=== PATIENT | female | born 1935 | race Caucasian/White ===

== ENCOUNTER → 2016-12-08 | Outpatient (CLI) | payer MEDICARE ==
--- NOTE | 2016-12-09 06:48 | US ---
EXAMINATION TYPE: US thyroid st tissue head/neck DATE OF EXAM: 12/08/2016 4:32 PM COMPARISON: US on PACS CLINICAL HISTORY: E04.9 Goiter; not on thyroid meds GLAND SIZE: Right Lobe: 4.5 x 2.1 x 2.0 cm Overall Parenchyma: heterogenous Left Lobe: 4.5 x 1.9 x 1.8 cm Overall Parenchyma: heterogeneous Isthmus Thickness: 0.4 cm NODULES RIGHT: # of nodules measured on right: 2 largest of multiple 1. 0.5 x 0.5 x 0.3 cm hyperechoic solid nodule at the mid pole with well-defined margins. This nod ule is wider than tall and shows no intranodular vascularity. Prior size: 0.6 x 0.5 x 0.5 cm 2. 1.2 X 0.8 x 0.9 cm isoechoic mixed nodule at the mid low pole with poorly defined margins. This n odule is taller than wide and shows intranodular vascularity. Prior size: not previously seen LEFT: # of nodules measured on left: 2 largest of multiple 1. 0.7 X 0.6 x 0.5 cm hypoechoic cystic nodule at the mid pole with well-defined margins; present w ith microcalcification This nodule is wide as is tall and shows no intranodular vascularity. Prior size: 0.6 x 0.6 x 0.6 cm 2. 0.7 X 0.5 x 0.4 cm hypoechoic cystic nodule at the mid lateral pole with well-defined margins. T his nodule is wider than tall and shows no intranodular vascularity. Prior size: 0.6 x 0.5 x 0.6 cm ISTHMUS: # of nodules measured in the isthmus: 0 TECHNOLOGIST IMPRESSION: Bilateral neck scanned, no abnormal lymphadenopathy noted. IMPRESSION: MULTINODULAR GOITER. BOTH NODULES ARE MINIMALLY LARGER THAN ON THE PREVIOUS EXAMINATION.
== END | disposition home or self-care (01) ==
LOC: RADUSWWP 16:07
PROVIDERS: ATTEND Family Medicine
DX: E04.2 Nontoxic multinodular goiter (principal)
CPT/HCPCS: 76536

== ENCOUNTER 2016-12-21 17:47 | Emergency (ER) | payer MEDICARE ==
[2016-12-21] MEDS ORDERED: SODIUM CHLORIDE 0.9% 1,000 ML IV STA (17:55)
[2016-12-21 18:20] LABS: Aty Lym Flag Slight; CH 31.8; CHCM 34.4; HCT 42.8 % (34.0-46.0); HGB 14.2 gm/dL (11.4-16.0); MCH 30.8 pg (25.0-35.0); MCHC 33.2 g/dL (31.0-37.0); Mean Platelet Volume 7.3; RBC 4.61 m/uL (3.80-5.40); RDW 13.9 % (11.5-15.5); WBC 8.2 k/uL (3.8-10.6); WBC (Perox) 8.27
[2016-12-21 18:30] LABS: ALT 37 U/L (9-52); AST 29 U/L (14-36); Alkaline Phosphatase 73 U/L (38-126); Anion Gap 14 mmol/L; Blood Urea Nitrogen 24 mg/dL (7-17); Calcium 10.8 mg/dL (8.4-10.2); Carbon Dioxide 23 mmol/L (22-30); Chloride 106 mmol/L (98-107); Glucose 111 mg/dL (74-99); Magnesium 1.4 mg/dL (1.6-2.3); Non-African American GFR(MDRD) 52 (>60 ml/min/1.73 sqM); Potassium 4.4 mmol/L (3.5-5.1); Sodium 143 mmol/L (137-145); Total Bilirubin 0.7 mg/dL (0.2-1.3); Total Protein 7.6 g/dL (6.3-8.2)
[2016-12-21 18:31] LABS: Creatine Kinase 27 U/L (30-135)
[2016-12-21 18:35] LABS: INR 1.1 (<1.1); Partial Thromboplastin Time 20.7 sec (22.0-30.0); Prothrombin Time 10.7 sec (9.0-12.0)
--- NOTE | 2016-12-21 18:39 | ED ---
Weakness HPI - General Chief complaint: Weakness Stated complaint: Chest pain Time Seen by Provider: 12/21/16 17:50 Source: patient, family, RN notes reviewed Mode of arrival: wheelchair Limitations: no limitations - History of Present Illness Initial comments: This is a 81-year-old female who was brought in for evaluation for weakness chronic neck pain and some chest pain. No complaints of fevers chills nausea vomiting sweats. She states she's been having symptoms like this for over year she also states today however that she coughed up some blood. He also complains some dizziness. No other complaints MD Complaint: generalized weakness - Related Data Home Medications Medication Instructions Recorded Confirmed Diazepam [Valium] 2 mg PO BID PRN 09/26/15 12/21/16 Dicyclomine [Bentyl] 20 mg PO TID PRN 09/26/15 12/21/16 HYDROcodone/APAP 7.5-325MG [[place] 1 tab PO DAILY PRN 09/26/15 12/21/16 7.5-325] Omeprazole [PriLOSEC] 20 mg PO DAILY PRN 09/26/15 12/21/16 Sucralfate [Carafate] 1 gm PO DAILY PRN 09/26/15 12/21/16 Zolpidem [Ambien] 10 mg PO HS 09/26/15 12/21/16 Carvedilol [Coreg*] 12.5 mg PO BID 09/29/15 12/21/16 Lisinopril-Hctz 10-12.5 mg 1 tab PO BID 12/21/16 12/21/16 [Zestoretic 10-12.5] Oxybutynin Xl [Ditropan XL] 5 mg PO DAILY 12/21/16 12/21/16 Ranitidine HCl [Zantac] 300 mg PO BID 12/21/16 12/21/16 Previous Rx's Medication Instructions Recorded Magnesium 200 mg PO DAILY #7 tablet 12/21/16 Allergies Allergy/AdvReac Type Severity Reaction Status Date / Time No Known Allergies Allergy Verified 12/21/16 18:47 Review of Systems ROS Statement: Those systems with pertinent positive or pertinent negative responses have been documented in the HPI. ROS Other: All systems not noted in ROS Statement are negative. Past Medical History Past Medical History: Cancer, GERD/Reflux, Hyperlipidemia, Hypertension Additional Past Medical History / Comment(s): HX OF SKIN CA, IBS, INCONTINENCE OF BLADDER, HX OF HIATAL HERNIA History of Any Multi-Drug Resistant Organisms: None Reported Past Surgical History: Cholecystectomy, Heart Catheterization, Hysterectomy, Orthopedic Surgery Additional Past Surgical History / Comment(s): SINUS SX, SX ARM, FOOT Past Anesthesia/Blood Transfusion Reactions: No Reported Reaction Past Psychological History: Anxiety, Depression Smoking Status: Never smoker Past Alcohol Use History: None Reported Past Drug Use History: None Reported - Past Family History Daughter(s) Family Medical History: Cancer, Deep Vein Thrombosis (DVT) Additional Family Medical History / Comment(s): ONE DAUGHTER KIDNEY CA, ONE DAUGHTER HX OF DVT Sister(s) Family Medical History: Cancer Additional Family Medical History / Comment(s): 2 SISTERS WITH BREAST CA General Exam - General Exam Comments Initial Comments: Is a well-developed well-nourished awake alert female Limitations: no limitations General appearance: alert, in no apparent distress Head exam: Present: atraumatic, normocephalic, normal inspection Eye exam: Present: normal appearance, PERRL, EOMI. Absent: scleral icterus, conjunctival injection, periorbital swelling ENT exam: Present: normal exam, mucous membranes moist Neck exam: Present: normal inspection. Absent: tenderness, meningismus, lymphadenopathy Respiratory exam: Present: normal lung sounds bilaterally, chest wall tenderness. Absent: respiratory distress, wheezes, rales, rhonchi, stridor Cardiovascular Exam: Present: regular rate, normal rhythm, normal heart sounds. Absent: systolic murmur, diastolic murmur, rubs, gallop, clicks GI/Abdominal exam: Present: soft, normal bowel sounds. Absent: distended, tenderness, guarding, rebound, rigid Extremities exam: Present: normal inspection, full ROM, normal capillary refill. Absent: tenderness, pedal edema, joint swelling, calf tenderness Back exam: Present: normal inspection Neurological exam: Present: alert, oriented X3, CN II-XII intact Psychiatric exam: Present: normal affect, normal mood Skin exam: Present: warm, dry, intact, normal color. Absent: rash Course Vital Signs 12/21/16 12/21/16 12/21/16 17:55 19:14 19:37 Temperature 98 F Pulse Rate 66 57 L 53 L Respiratory 24 16 16 Rate Blood Pressure 193/90 166/72 190/78 O2 Sat by Pulse 98 99 98 Oximetry 12/21/16 20:14 Temperature Pulse Rate 51 L Respiratory 16 Rate Blood Pressure 116/78 O2 Sat by Pulse 98 Oximetry EKG Findings - EKG Results: EKG: interpreted by SHRUTHI HUYNH, sinus rhythm, normal axis, normal QRS, normal ST/ T, no acute changes (No sinus rhythm rate 62. Interval 172 QRS duration 70 QT/ QTC of 32/[address]-T wave changes.) Medical Decision Making - Medical Decision Making I did discuss the findings with the patient she'll be discharged he demonstrates chest wall pain with some evidence of dehydration and hypomagnesemia. She is follow back up with her doctor return when necessary - Lab Data Result diagrams: 12/21/16 18:05 12/21/16 18:05 Lab Results 12/21/16 12/21/16 12/21/16 Range/Units 18:05 18:05 18:05 WBC 8.2 (3.8-10.6) k/uL RBC 4.61 (3.80-5.40) m/uL Hgb 14.2 (11.4-16.0) gm/dL Hct 42.8 (34.0-46.0) % MCV 93.0 (80.0-100.0) fL MCH 30.8 (25.0-35.0) pg MCHC 33.2 (31.0-37.0) g/dL RDW 13.9 (11.5-15.5) % Plt Count 257 (150-450) k/uL Neutrophils % [employer] Neutrophils % (Manual) 64.0 % Lymphocytes % [employer] Lymphocytes % (Manual) 30.0 % Monocytes % [employer] Monocytes % (Manual) 5.0 % Eosinophils % [employer] Eosinophils % (Manual) 1.0 % Basophils % [employer] Neutrophils # [employer] Neutrophils # (Manual) 5.2 (1.3-7.7) k/uL Lymphocytes # [employer] Lymphocytes # (Manual) 2.5 (1.0-4.8) k/uL Monocytes # [employer] Monocytes # (Manual) 0.4 (0-1.0) k/uL Eosinophils # [employer] Eosinophils # (Manual) 0.1 (0-0.7) k/uL Basophils # [employer] Nucleated RBCs 0 (0-0) /100 WBC Polychromasia Present PT (9.0-12.0) sec INR (<1.1) APTT (22.0-30.0) sec Sodium 143 (137-145) mmol/L Potassium 4.4 (3.5-5.1) mmol/L Chloride 106 (98-107) mmol/L Carbon Dioxide 23 (22-30) mmol/L Anion Gap 14 mmol/L BUN 24 H (7-17) mg/dL Creatinine 1.02 (0.52-1.04) mg/dL Est GFR (MDRD) Af Amer >60 (>60 ml/min/1.73 sqM) Est GFR (MDRD) Non-Af 52 (>60 ml/min/1.73 sqM) Glucose 111 H (74-99) mg/dL Calcium 10.8 H (8.4-10.2) mg/dL Magnesium 1.4 L (1.6-2.3) mg/dL Total Bilirubin 0.7 (0.2-1.3) mg/dL AST 29 (14-36) U/L ALT 37 (9-52) U/L Alkaline Phosphatase 73 (38-126) U/L Total Creatine Kinase 27 L (30-135) U/L CK-MB (CK-2) 0.7 (0.0-2.4) ng/mL CK-MB (CK-2) Rel Index 2.6 Troponin I <0.012 (0.000-0.034) ng/mL Total Protein 7.6 (6.3-8.2) g/dL Albumin 4.5 (3.5-5.0) g/dL Urine Color Urine Appearance (Clear) Urine pH (5.0-8.0) Ur Specific Bath (1.001-1.035) Urine Protein (Negative) Urine Glucose (UA) (Negative) Urine Ketones (Negative) Urine Blood (Negative) Urine Nitrate (Negative) Urine Bilirubin (Negative) Urine Urobilinogen (<2.0) mg/dL Ur Leukocyte Esterase (Negative) 12/21/16 12/21/16 Range/Units 18:05 18:34 WBC (3.8-10.6) k/uL RBC (3.80-5.40) m/uL Hgb (11.4-16.0) gm/dL Hct (34.0-46.0) % MCV (80.0-100.0) fL MCH (25.0-35.0) pg MCHC (31.0-37.0) g/dL RDW (11.5-15.5) % Plt Count (150-450) k/uL Neutrophils % Neutrophils % (Manual) % Lymphocytes % Lymphocytes % (Manual) % Monocytes % Monocytes % (Manual) % Eosinophils % Eosinophils % (Manual) % Basophils % Neutrophils # Neutrophils # (Manual) (1.3-7.7) k/uL Lymphocytes # Lymphocytes # (Manual) (1.0-4.8) k/uL Monocytes # Monocytes # (Manual) (0-1.0) k/uL Eosinophils # Eosinophils # (Manual) (0-0.7) k/uL Basophils # Nucleated RBCs (0-0) /100 WBC Polychromasia PT 10.7 (9.0-12.0) sec INR 1.1 (<1.1) APTT 20.7 L (22.0-30.0) sec Sodium (137-145) mmol/L Potassium (3.5-5.1) mmol/L Chloride (98-107) mmol/L Carbon Dioxide (22-30) mmol/L Anion Gap mmol/L BUN (7-17) mg/dL Creatinine (0.52-1.04) mg/dL Est GFR (MDRD) Af Amer (>60 ml/min/1.73 sqM) Est GFR (MDRD) Non-Af (>60 ml/min/1.73 sqM) Glucose (74-99) mg/dL Calcium (8.4-10.2) mg/dL Magnesium (1.6-2.3) mg/dL Total Bilirubin (0.2-1.3) mg/dL AST (14-36) U/L ALT (9-52) U/L Alkaline Phosphatase (38-126) U/L Total Creatine Kinase (30-135) U/L CK-MB (CK-2) (0.0-2.4) ng/mL CK-MB (CK-2) Rel Index Troponin I (0.000-0.034) ng/mL Total Protein (6.3-8.2) g/dL Albumin (3.5-5.0) g/dL Urine Color Light Yellow Urine Appearance Clear (Clear) Urine pH 6.0 (5.0-8.0) Ur Specific Bath 1.006 (1.001-1.035) Urine Protein Negative (Negative) Urine Glucose (UA) Negative (Negative) Urine Ketones Negative (Negative) Urine Blood Negative (Negative) Urine Nitrate Negative (Negative) Urine Bilirubin Negative (Negative) Urine Urobilinogen <2.0 (<2.0) mg/dL Ur Leukocyte Esterase Negative (Negative) - Radiology Data Radiology results: report reviewed (Imaging is unremarkable), image reviewed Disposition Clinical Impression: Chest wall pain, Hypomagnesemia, Dehydration Disposition: HOME SELF-CARE Condition: Good Instructions: Costochondritis (ED), Dehydration (ED), Hypomagnesemia (ED) Prescriptions: Magnesium 200 mg PO DAILY #7 tablet
[2016-12-21 18:44] LABS: Creatine Kinase MB 0.7 ng/mL (0.0-2.4); Troponin I <0.012 ng/mL (0.000-0.034)
[2016-12-21 18:49] LABS: Appearance,Urine Clear (Clear); Bilirubin,Urine Negative (Negative); Glucose,Urine (UA) Negative (Negative); Ketones,Urine Negative (Negative); Leukocyte Esterase,Urine Negative (Negative); Nitrite,Urine Negative (Negative); Protein,Urine Negative (Negative); Specific Gravity,Urine 1.006 (1.001-1.035); UA Billing (MACRO vs. MICRO) CHEM; Urobilinogen,Urine <2.0 mg/dL (<2.0)
--- NOTE | 2016-12-21 18:51 | XR ---
EXAMINATION TYPE: XR chest 2V DATE OF EXAM: 12/21/2016 6:45 PM COMPARISON: NONE HISTORY: Chest pain TECHNIQUE: Frontal and lateral views of the chest are obtained. FINDINGS: Heart is normal. Lungs are clear of consolidation. There are no hilar masses. There is no heart failure. Thoracic aorta is atheromatous. There are chest leads. Bony thorax is intact. IMPRESSION: No active cardiopulmonary disease.
[2016-12-21 19:08] LABS: Add Differential Manual Differential
[2016-12-21 19:10] LABS: Nucleated Red Blood Cells 0 /100 WBC (0-0); Polychromasia Present; Total Cells Counted 100
[2016-12-21] MEDS ORDERED: MAGNESIUM SULFATE-D5W PMX 1 GM in DEXTROSE/WATER 1 100ML.BAG IVPB ONE (19:26)
[2016-12-21] MEDS ORDERED: SODIUM CHLORIDE 0.9% 500 ML IV STA (19:27)
[2016-12-21 21:00] VITALS: BP 114/61; PULSE 59; RESP 18; TEMP 97.1
== END 2016-12-21 21:00 | disposition home or self-care (01) ==
LOC: EC 17:47
DX: M94.0 Chondrocostal junction syndrome [Tietze] (principal); E86.0 Dehydration; E83.42 Hypomagnesemia; R07.89 Other chest pain; M54.2 Cervicalgia; K21.9 Gastro-esophageal reflux disease without esophagitis; E78.5 Hyperlipidemia, unspecified; I10 Essential (primary) hypertension; F41.9 Anxiety disorder, unspecified; F32.9 Major depressive disorder, single episode, unspecified; Z79.899 Other long term (current) drug therapy; Z79.02 Long term (current) use of antithrombotics/antiplatelets
CPT/HCPCS: 99285; 96365; 96361; 36415; 93005; 80053; 82550; 82553; 83735; 84484; 85025; 85610; 85730; 81003; 71020; J3475

== ENCOUNTER → 2017-01-06 | Outpatient (CLI) | payer MEDICARE ==
--- NOTE | 2017-01-06 09:30 | BD ---
EXAMINATION TYPE: MG DEXA axial skeleton. DATE OF EXAM: 01/06/2017 8:42 AM COMPARISON: DEXA bone scan 08-23-2013. CLINICAL HISTORY: Post menopausal female. Height: 5 FT 1 IN Weight: 164 FRAX RISK QUESTIONS: Alcohol (3 or more units per day): NO Family History (Parent hip fracture): NO Glucocorticoids (More than 3mos): NO (Ex: prednisone, prednisolone, methylprednisolone, dexamethasone, and hydrocortisone). History of Fracture in Adulthood: NO Secondary Osteoporosis: 1. Type 1 Diabetes: NO 2. Hyperthyroidism: NO 3. Menopause before 45: YES 4. Malnutrition: NO 5. Chronic liver disease: NO Rheumatoid Arthritis: YES Current Tobacco Use: NO RISK FACTORS HISTORY OF: Surgery to Spine/Hip(right/left)/Wrist (right/left): SURG ON BOTH WRISTS FOR LIGAMENT PROBLEMS Family History of Osteoporosis: YES Active: YES Postmenopausal woman: YES MEDICATIONS: Which medication: COREG, ,HYZAAR, ZOLOFT, DITROPAN, MULTI VIT, CARAFATE FOR ACID REFLUX, EXAM MEASUREMENTS: Bone mineral densitometry was performed using the SYLOB System. Bone mineral density as measured about the Lumbar spine is: ----- L1-L4(G/cm2): 1.217 T Score Values are as follows: ----- L2: 0.1 ----- L3: 0.5 ----- L4: 1.0 ----- L1-L4: 0.3 Bone mineral density has: Decreased -1.4% since study of: 2012 Bone mineral density about the R hip (g/cm2): 0.815 Bone mineral density about the L hip (g/cm2): 0.822 T Score values are as follows: -----R Neck: -1.6 -----L Neck: -1.6 -----R Intertrochanter: -0.1 -----L Intertrochanter: -0.9 Bone mineral density has: Decreased -0.7% since study of: 2012 IMPRESSION: Osteopenia (T Score between -2.5 and -1 as noted by T score values in the bilateral hips and femoral neck level. Bone density fairly stable. There remains slightly increased risk of fracture and the pat ient may be considered for treatment. Re-Screen 1-2 years. NOTE: T-SCORE=SD OF THE YOUNG ADULT MEAN.
== END | disposition home or self-care (01) ==
LOC: RADBDWWP 08:03
PROVIDERS: ATTEND Family Medicine
DX: M85.852 Other specified disorders of bone density and structure, left thigh (principal); M85.851 Other specified disorders of bone density and structure, right thigh; Z78.0 Asymptomatic menopausal state
CPT/HCPCS: 77080

== ENCOUNTER → 2017-01-06 | Outpatient (CLI) | payer MEDICARE ==
[2017-01-06 09:29] LABS: Calcium 9.9 mg/dL (8.4-10.2); Magnesium 1.5 mg/dL (1.6-2.3)
== END | disposition home or self-care (01) ==
LOC: LABWHC1 08:41
PROVIDERS: ATTEND Family Medicine
DX: R89.9 Unspecified abnormal finding in specimens from other organs, systems and tissues (principal)
CPT/HCPCS: 36415; 82310; 83735

== ENCOUNTER 2017-04-13 14:25 | Emergency (ER) | payer MEDICARE ==
[2017-04-13 14:36] VITALS: BP 156/70; PULSE 71; RESP 18; TEMP 98.1
[2017-04-13] MEDS ORDERED: DIPH,PERTUS(ACELL)TETVAC-LF 0.5 ML VIAL IM ONE (14:43)
--- NOTE | 2017-04-13 15:12 | ED ---
Wound/Laceration HPI - General Chief Complaint: Wound/Laceration Stated Complaint: L arm laceration Time Seen by Provider: 04/13/17 14:37 Source: patient, RN notes reviewed, old records reviewed Mode of arrival: wheelchair Limitations: no limitations - History of Present Illness Initial Comments: This is a 81-year-old female presenting to the emergency Department chief complaint of a laceration over her medial left elbow. Patient reports that she was walking outside and doing her gardening where she thinks she cut it on a shovel. She does not know the status of her tetanus vaccination. Patient states that she has full range of motion of her hand. She reports normal sensation. Patient states that she has no fever or chills. Patient denies any recent fever, chills, shortness of breath, chest pain, back pain, abdominal pain , nausea vomiting, numbness or tingling, dysuria or hematuria, constipation or diarrhea, headaches or visual changes, or any other current symptoms. - Related Data Home Medications Medication Instructions Recorded Confirmed Diazepam [Valium] 2 mg PO BID PRN 09/26/15 12/21/16 Dicyclomine [Bentyl] 20 mg PO TID PRN 09/26/15 12/21/16 HYDROcodone/APAP 7.5-325MG [[place] 1 tab PO DAILY PRN 09/26/15 12/21/16 7.5-325] Omeprazole [PriLOSEC] 20 mg PO DAILY PRN 09/26/15 12/21/16 Sucralfate [Carafate] 1 gm PO DAILY PRN 09/26/15 12/21/16 Zolpidem [Ambien] 10 mg PO HS 09/26/15 12/21/16 Carvedilol [Coreg*] 12.5 mg PO BID 09/29/15 12/21/16 Lisinopril-Hctz 10-12.5 mg 1 tab PO BID 12/21/16 12/21/16 [Zestoretic 10-12.5] Oxybutynin Xl [Ditropan XL] 5 mg PO DAILY 12/21/16 12/21/16 Ranitidine HCl [Zantac] 300 mg PO BID 12/21/16 12/21/16 Previous Rx's Medication Instructions Recorded Magnesium 200 mg PO DAILY #7 tablet 03/07/17 Allergies Allergy/AdvReac Type Severity Reaction Status Date / Time No Known Allergies Allergy Verified 04/13/17 14:36 Review of Systems ROS Statement: Those systems with pertinent positive or pertinent negative responses have been documented in the HPI. ROS Other: All systems not noted in ROS Statement are negative. Past Medical History Past Medical History: Cancer, GERD/Reflux, Hyperlipidemia, Hypertension Additional Past Medical History / Comment(s): HX OF SKIN CA, IBS, INCONTINENCE OF BLADDER, HX OF HIATAL HERNIA History of Any Multi-Drug Resistant Organisms: None Reported Past Surgical History: Cholecystectomy, Heart Catheterization, Hysterectomy, Orthopedic Surgery Additional Past Surgical History / Comment(s): SINUS SX, SX ARM, FOOT Past Anesthesia/Blood Transfusion Reactions: No Reported Reaction Past Psychological History: Anxiety, Depression Smoking Status: Never smoker Past Alcohol Use History: None Reported Past Drug Use History: None Reported - Past Family History Daughter(s) Family Medical History: Cancer, Deep Vein Thrombosis (DVT) Additional Family Medical History / Comment(s): ONE DAUGHTER KIDNEY CA, ONE DAUGHTER HX OF DVT Sister(s) Family Medical History: Cancer Additional Family Medical History / Comment(s): 2 SISTERS WITH BREAST CA General Exam - General Exam Comments Initial Comments: Is a pleasant 81-year-old female. No acute distress. Limitations: no limitations General appearance: alert, in no apparent distress Head exam: Present: atraumatic, normocephalic, normal inspection Eye exam: Present: normal appearance, PERRL, EOMI. Absent: scleral icterus, conjunctival injection, periorbital swelling ENT exam: Present: normal exam, mucous membranes moist Neck exam: Present: normal inspection. Absent: tenderness, meningismus, lymphadenopathy Respiratory exam: Present: normal lung sounds bilaterally. Absent: respiratory distress, wheezes, rales, rhonchi, stridor Cardiovascular Exam: Present: regular rate, normal rhythm, normal heart sounds. Absent: systolic murmur, diastolic murmur, rubs, gallop, clicks GI/Abdominal exam: Present: soft, normal bowel sounds. Absent: distended, tenderness, guarding, rebound, rigid Extremities exam: Present: normal inspection, full ROM, normal capillary refill. Absent: tenderness, pedal edema, joint swelling, calf tenderness Left Forearm Wrist exam: Present: laceration (Patient has a 4 cm laceration over the proximal medial forearm near the elbow.). Absent: normal inspection Back exam: Present: normal inspection Neurological exam: Present: alert, oriented X3, CN II-XII intact Psychiatric exam: Present: normal affect, normal mood Course Vital Signs 04/13/17 14:33 Temperature 98.1 F Pulse Rate 71 Respiratory 18 Rate Blood Pressure 156/70 O2 Sat by Pulse 95 Oximetry Procedures - Laceration Laceration #1 Time Out Performed: Yes Indication: laceration Site: upper extremity (left forearm) Size (cm): 4 Description: linear Depth: simple, single layer Anesthetic Used: lidocaine 1% Anesthesia Technique: local infiltration Amount (mls): 6 Pre-repair: wound explored, irrigated extensively Type of Sutures: nylon Size of Sutures: 5-0 Number of Sutures: 6 Technique: simple, interrupted Patient Tolerated Procedure: well, no complications Medical Decision Making - Medical Decision Making This is a 81-year-old female presenting to the emergency Department chief complaint of a laceration over her medial left elbow. Patient reports that she was walking outside and doing her gardening where she thinks she cut it on a shovel. She does not know the status of her tetanus vaccination. Patient's laceration measures 4 cm. Laceration is superficial. No evidence of muscle or tendon involvement. She does have full range of motion. It was thoroughly irrigated and well-appearing man with 6 sutures. Discussed monitoring for any signs of infection. She was updated on her tetanus vaccine. Patient also understands she is return approximately 10 days have the sutures removed. Patient agrees to treatment plan will comply. Return parameters were discussed. Disposition Clinical Impression: Forearm laceration Disposition: HOME SELF-CARE Condition: Good Instructions: Care For Your Stitches (ED), Laceration (ED) Additional Instructions: Please return to the emergency room in 8-10 days to have sutures removed. Please leave wound covered for the first 24-48 hours and then leave open to air after that time. Please use clean soap and water to clean the suture area to prevent scabbing over the top of your sutures. Please watch for any signs of infection which may include but not limited to increased pain, swelling, redness , fever or chills. Please return to the emergency room if any signs of infection do occur. Please return to the emergency room for any other concerns or complications. Referrals: Srinivas Burdick DO [Primary Care Provider] - 1-2 days Time of Disposition: 15:19
== END 2017-04-13 15:35 | disposition home or self-care (01) ==
LOC: EC 14:25
DX: S51.812A Laceration without foreign body of left forearm, initial encounter (principal); I10 Essential (primary) hypertension; K21.9 Gastro-esophageal reflux disease without esophagitis; Z79.899 Other long term (current) drug therapy; Z87.448 Personal history of other diseases of urinary system; Z23 Encounter for immunization; W27.8XXA Contact with other nonpowered hand tool, initial encounter; Y92.89 Other specified places as the place of occurrence of the external cause; Y93.H2 Activity, gardening and landscaping
CPT/HCPCS: 12002; 90471; 90715; 99283

== ENCOUNTER → 2017-04-20 | Outpatient (CLI) | payer MEDICARE ==
--- NOTE | 2017-04-21 07:09 | MM ---
Reason for exam: screening (asymptomatic). Last mammogram was performed 2 years and 2 months ago. History: Patient is postmenopausal and history of other cancer. Family history of premenopausal breast cancer in sister at age 42 and breast cancer in sister at age 58. 2 benign excisional biopsies of the right breast. Physical Findings: A clinical breast exam by your physician is recommended on an annual basis and results should be correlated with mammographic findings. MG 3D Screening Mammo W/Cad Bilateral CC and MLO view(s) were taken. Prior study comparison: February 03, 2015, bilateral MG screening mammo w CAD. September 19, 2013, bilateral digital screening mammo w/CAD. The breast tissue is heterogeneously dense. This may lower the sensitivity of mammography. No significant changes when compared with prior studies. ASSESSMENT: Benign, BI-RAD 2 RECOMMENDATION: Routine screening mammogram of both breasts in 1 year.
== END | disposition home or self-care (01) ==
LOC: RADMAMWWP 12:37
PROVIDERS: ATTEND Family Medicine
DX: Z12.31 Encounter for screening mammogram for malignant neoplasm of breast (principal)
CPT/HCPCS: 77063; G0202

== ENCOUNTER → 2017-04-20 | Outpatient (CLI) | payer MEDICARE ==
--- NOTE | 2017-04-20 15:22 | US ---
EXAMINATION TYPE: US thyroid st tissue head/neck DATE OF EXAM: 04/20/2017 COMPARISON: NONE CLINICAL HISTORY: E04.9 Thyroid Goiter. GLAND SIZE: Right Lobe: 5.0 x 2.0 x 1.6 cm Overall Parenchyma: grossly heterogenous Left Lobe: 4.2 x 1.9 x 1.8 cm Overall Parenchyma: grossly heterogeneous Isthmus Thickness: 0.5 cm NODULES RIGHT: # of nodules measured on right: 2 1. 0.5 X 0.4 x 0.6 cm echogenic solid nodule at the upper pole with well-defined margins. This nod ule is taller than wide and shows no intranodular vascularity. Prior size: 0.5 x 0.5 x 0.3 cm 2. 0.8 X 0.6 x 0.7 cm hypoechoic solid nodule at the lower pole with poorly defined margins. This n odule is wider than tall and shows intranodular vascularity. Prior size: 1.2 x 0.8 x 0.9 cm LEFT: # of nodules measured on left: 1 1. 0.9 X 0.6 x 0.6 cm anechoic cystic nodule at the mid pole with well-defined margins. This nodul e is wider than tall and shows no intranodular vascularity. Prior size: 0.7 x 0.6 x 0.5 cm ISTHMUS: # of nodules measured in the isthmus: 0 Prior cystic nodule on left not seen on today's study. IMPRESSION: Stable subcentimeter nodular goiter
== END | disposition home or self-care (01) ==
LOC: RADUSWWP 12:42
PROVIDERS: ATTEND Family Medicine
DX: E04.2 Nontoxic multinodular goiter (principal)
CPT/HCPCS: 76536

== ENCOUNTER 2018-03-25 14:34 | Inpatient (IN) | payer MEDICARE ==
[2018-03-25] MEDS ORDERED: IBUPROFEN 600 MG TAB PO STA (15:19)
[2018-03-25] MEDS ORDERED: ACETAMINOPHEN TAB 500 MG TAB PO STA (15:19)
[2018-03-25] MEDS ORDERED: cefTRIAXone IN SWFI 1,000 MG/10 ML SYRINGE IVP STA (15:22)
--- NOTE | 2018-03-25 15:24 | ED ---
General Adult HPI <Gomez Lang - Last Filed: 03/25/18 18:10> - General Source: patient, RN notes reviewed, old records reviewed Mode of arrival: wheelchair Limitations: no limitations <Colette Esquivel - Last Filed: 03/25/18 18:23> - General Chief complaint: Head Injury Stated complaint: Dizziness Time Seen by Provider: 03/25/18 15:08 - History of Present Illness Initial comments: This Patient is an 82-year-old female with multiple complaints. She reports that she's been having headache and dizziness. She reports that she fell 2 days ago resulting in a head injury. She states that she maybe hit her head on the spa host. She states that she is some tenderness over the scalp. She also has been complaining of shortness of breath, and bodyaches and chills. Patient reports that she's been having lower abdominal pain and diarrhea. She reports it's painful to have a bowel movement. Patient is somewhat confusing conversation. Patient states that she did see Dr. Burdick, her primary care provider recently. When I examined the Patient she is currently by herself. ( SierraColette) - Related Data Home Medications Medication Instructions Recorded Confirmed Omeprazole [PriLOSEC] 20 mg PO DAILY PRN 09/26/15 03/25/18 Lisinopril-Hctz 10-12.5 mg 1 tab PO BID 12/21/16 03/25/18 [Zestoretic 10-12.5] Oxybutynin Xl [Ditropan XL] 5 mg PO DAILY 12/21/16 03/25/18 Carvedilol [Coreg] 3.125 mg PO BID 03/25/18 03/25/18 Diazepam [Valium] 2 mg PO BID PRN 03/25/18 03/25/18 Dicyclomine [Bentyl] 20 mg PO QID PRN 03/25/18 03/25/18 Loperamide HCl [Loperamide] 2 - 4 mg PO QID PRN 03/25/18 03/25/18 Naproxen [Naprosyn] 250 mg PO BID 03/25/18 03/25/18 Sucralfate [Carafate] 1 gm PO BID 03/25/18 03/25/18 Zolpidem [Ambien] 10 mg PO HS PRN 03/25/18 03/25/18 Allergies Allergy/AdvReac Type Severity Reaction Status Date / Time No Known Allergies Allergy Verified 03/25/18 15:55 Review of Systems ROS Other: All systems not noted in ROS Statement are negative. <Gomez Lang - Last Filed: 03/25/18 18:10> ROS Other: All systems not noted in ROS Statement are negative. <Amira Esquivelily - Last Filed: 03/25/18 18:23> ROS Statement: Those systems with pertinent positive or pertinent negative responses have been documented in the HPI. Past Medical History Past Medical History: Cancer, GERD/Reflux, Hyperlipidemia, Hypertension Additional Past Medical History / Comment(s): HX OF SKIN CA, IBS, INCONTINENCE OF BLADDER, HX OF HIATAL HERNIA History of Any Multi-Drug Resistant Organisms: None Reported Past Surgical History: Cholecystectomy, Heart Catheterization, Hysterectomy, Orthopedic Surgery Additional Past Surgical History / Comment(s): SINUS SX, SX ARM, FOOT Past Anesthesia/Blood Transfusion Reactions: No Reported Reaction Past Psychological History: Anxiety, Depression Smoking Status: Never smoker Past Alcohol Use History: None Reported Past Drug Use History: None Reported - Past Family History Daughter(s) Family Medical History: Cancer, Deep Vein Thrombosis (DVT) Additional Family Medical History / Comment(s): ONE DAUGHTER KIDNEY CA, ONE DAUGHTER HX OF DVT Sister(s) Family Medical History: Cancer Additional Family Medical History / Comment(s): 2 SISTERS WITH BREAST CA <Amira Esquivelily - Last Filed: 03/25/18 18:23> General Exam <Gomez Lang - Last Filed: 03/25/18 18:10> Limitations: no limitations General appearance: alert, in no apparent distress Head exam: Present: atraumatic, normocephalic, normal inspection Eye exam: Present: normal appearance, PERRL, EOMI. Absent: scleral icterus, conjunctival injection, periorbital swelling ENT exam: Present: normal exam, mucous membranes moist Neck exam: Present: normal inspection, tenderness (Vision is tenderness over the cervical spine and right paraspinal muscles.). Absent: meningismus, lymphadenopathy Respiratory exam: Present: normal lung sounds bilaterally. Absent: respiratory distress, wheezes, rales, rhonchi, stridor Cardiovascular Exam: Present: regular rate, normal rhythm, normal heart sounds. Absent: systolic murmur, diastolic murmur, rubs, gallop, clicks GI/Abdominal exam: Present: soft, tenderness (Patient has some lower abdominal tenderness, left lower quadrant tenderness.), normal bowel sounds. Absent: distended, guarding, rebound, rigid Extremities exam: Present: normal inspection, full ROM, normal capillary refill. Absent: tenderness, pedal edema, joint swelling, calf tenderness Back exam: Present: normal inspection Neurological exam: Present: alert, oriented X3, CN II-XII intact Psychiatric exam: Present: normal affect, normal mood Skin exam: Present: warm, dry, intact, normal color. Absent: rash <Colette Esquivel - Last Filed: 03/25/18 18:23> - General Exam Comments Initial Comments: Frail ill-appearing 82-year-old female. Moderate discomfort. Patient's temperature is 102.6. (Colette Esquivel) Vital Signs 03/25/18 03/25/18 03/25/18 14:37 15:30 15:34 Temperature 100.6 F H 102.6 F H Pulse Rate 91 80 Respiratory 18 18 Rate Blood Pressure 140/72 132/60 O2 Sat by Pulse 98 95 Oximetry 03/25/18 16:46 Temperature 100.6 F H Pulse Rate 73 Respiratory 16 Rate Blood Pressure 102/51 O2 Sat by Pulse 99 Oximetry - Reevaluation(s) Reevaluation #1: 03/25/18 18:10 PA supervision: I did personally do a [id number] evaluation the patient did discuss the findings with her. I did also discuss the case with Dr. Dickens. The patient will be admitted with GI consultation. I do agree with the assessment and plan. (Gomez Lang) EKG Findings - EKG Comments: EKG Findings:: EKG shows sinus rhythm, ventricular rate of 82 beats were minute period. NH interval 162. QRS duration 72. QT QTc is 334/390 ms. <Colette Esquivel - Last Filed: 03/25/18 18:23> Medical Decision Making - Lab Data Result diagrams: 03/25/18 15:29 03/25/18 15:29 <Goemz Lang - Last Filed: 03/25/18 18:10> - Lab Data Result diagrams: 03/25/18 15:29 03/25/18 15:29 - Radiology Data Radiology results: report reviewed <SierraColette - Last Filed: 03/25/18 18:23> - Medical Decision Making 82-year-old female with multiple complaints including head injury 2 days ago, dizziness, occasional shortness of breath, abdominal pain and diarrhea. She denies some tenderness or left lower quadrant. Patient is given IV fluids and laboratory obtained. She did arrive with a fever 102.6. She does meet sepsis criteria. Patient labwork was reviewed and relatively unremarkable. Normal white blood cell count. UA is negative for infection. I did obtain blood cultures. With her tenderness over abdomen CT abdomen and pelvis was completed. Evidence for colitis. She did not have a stool while in the emergency department. In rectal exam I did notice a hemorrhoid. However there is no stool within the rectal vault to obtain a good sample to check for blood. Currently pending stool culture and occult. Patient chest x-ray does show evidence of possibility of early infiltrate or basilar atelectasis. I did start the Patient on 1 g of Rocephin. Patient CT of brain and C-spine were completed due to history of fall. Those are negative for any acute process. Patient informed of all results. Discussed he would like to commit the Patient for further evaluation for GI consult for the colitis. (Colette Esquivel) - Lab Data Lab Results 03/25/18 03/25/18 03/25/18 Range/Units 15:29 15:29 15:29 WBC 9.0 (3.8-10.6) k/uL RBC 4.12 (3.80-5.40) m/uL Hgb 13.1 (11.4-16.0) gm/dL Hct 37.5 (34.0-46.0) % MCV 90.9 (80.0-100.0) fL MCH 31.7 (25.0-35.0) pg MCHC 34.9 (31.0-37.0) g/dL RDW 12.9 (11.5-15.5) % Plt Count 205 (150-450) k/uL Neutrophils % (Manual) 41 % Band Neutrophils % 6 % Lymphocytes % (Manual) 50 % Monocytes % (Manual) 1 % Eosinophils % (Manual) 2 % Neutrophils # (Manual) 4.20 (1.3-7.7) k/uL Lymphocytes # (Manual) 4.50 (1.0-4.8) k/uL Monocytes # (Manual) 0.09 (0-1.0) k/uL Eosinophils # (Manual) 0.18 (0-0.7) k/uL Nucleated RBCs 0 (0-0) /100 WBC Manual Slide Review Performed Reactive Lymphocytes Present RBC Morphology Normal PT (9.0-12.0) sec INR (<1.2) APTT (22.0-30.0) sec Sodium (137-145) mmol/L Potassium (3.5-5.1) mmol/L Chloride (98-107) mmol/L Carbon Dioxide (22-30) mmol/L Anion Gap mmol/L BUN (7-17) mg/dL Creatinine (0.52-1.04) mg/dL Est GFR (CKD-EPI)AfAm (>60 ml/min/1.73 sqM) Est GFR (CKD-EPI)NonAf (>60 ml/min/1.73 sqM) Glucose (74-99) mg/dL Plasma Lactic Acid Jamie (0.7-2.0) mmol/L Calcium (8.4-10.2) mg/dL Total Bilirubin (0.2-1.3) mg/dL AST (14-36) U/L ALT (9-52) U/L Alkaline Phosphatase (38-126) U/L Total Creatine Kinase 34 (30-135) U/L CK-MB (CK-2) <0.2 (0.0-2.4) ng/mL CK-MB (CK-2) Rel Index Troponin I <0.012 (0.000-0.034) ng/mL Total Protein (6.3-8.2) g/dL Albumin (3.5-5.0) g/dL Urine Color Urine Appearance (Clear) Urine pH (5.0-8.0) Ur Specific [place] (1.001-1.035) Urine Protein (Negative) Urine Glucose (UA) (Negative) Urine Ketones (Negative) Urine Blood (Negative) Urine Nitrite (Negative) Urine Bilirubin (Negative) Urine Urobilinogen (<2.0) mg/dL Ur Leukocyte Esterase (Negative) Urine WBC (0-5) /hpf Ur Squamous Epith Cells (0-4) /hpf Hyaline Casts (0-2) /lpf Influenza Type A RNA Not Detected (Not Detectd) Influenza Type B (PCR) Not Detected (Not Detectd) 03/25/18 03/25/18 03/25/18 Range/Units 15:29 15:29 15:29 WBC (3.8-10.6) k/uL RBC (3.80-5.40) m/uL Hgb (11.4-16.0) gm/dL Hct (34.0-46.0) % MCV (80.0-100.0) fL MCH (25.0-35.0) pg MCHC (31.0-37.0) g/dL RDW (11.5-15.5) % Plt Count (150-450) k/uL Neutrophils % (Manual) % Band Neutrophils % % Lymphocytes % (Manual) % Monocytes % (Manual) % Eosinophils % (Manual) % Neutrophils # (Manual) (1.3-7.7) k/uL Lymphocytes # (Manual) (1.0-4.8) k/uL Monocytes # (Manual) (0-1.0) k/uL Eosinophils # (Manual) (0-0.7) k/uL Nucleated RBCs (0-0) /100 WBC Manual Slide Review Reactive Lymphocytes RBC Morphology PT 11.1 (9.0-12.0) sec INR 1.2 H (<1.2) APTT 20.3 L (22.0-30.0) sec Sodium 142 (137-145) mmol/L Potassium 4.7 (3.5-5.1) mmol/L Chloride 107 (98-107) mmol/L Carbon Dioxide 21 L (22-30) mmol/L Anion Gap 14 mmol/L BUN 18 H (7-17) mg/dL Creatinine 1.00 (0.52-1.04) mg/dL Est GFR (CKD-EPI)AfAm 62 (>60 ml/min/1.73 sqM) Est GFR (CKD-EPI)NonAf 54 (>60 ml/min/1.73 sqM) Glucose 105 H (74-99) mg/dL Plasma Lactic Acid Jamie 1.3 (0.7-2.0) mmol/L Calcium 10.0 (8.4-10.2) mg/dL Total Bilirubin 0.9 (0.2-1.3) mg/dL AST 25 (14-36) U/L ALT 30 (9-52) U/L Alkaline Phosphatase 64 (38-126) U/L Total Creatine Kinase (30-135) U/L CK-MB (CK-2) (0.0-2.4) ng/mL CK-MB (CK-2) Rel Index Troponin I (0.000-0.034) ng/mL Total Protein 6.3 (6.3-8.2) g/dL Albumin 3.7 (3.5-5.0) g/dL Urine Color Urine Appearance (Clear) Urine pH (5.0-8.0) Ur Specific [place] (1.001-1.035) Urine Protein (Negative) Urine Glucose (UA) (Negative) Urine Ketones (Negative) Urine Blood (Negative) Urine Nitrite (Negative) Urine Bilirubin (Negative) Urine Urobilinogen (<2.0) mg/dL Ur Leukocyte Esterase (Negative) Urine WBC (0-5) /hpf Ur Squamous Epith Cells (0-4) /hpf Hyaline Casts (0-2) /lpf Influenza Type A RNA (Not Detectd) Influenza Type B (PCR) (Not Detectd) 03/25/18 Range/Units 16:55 WBC (3.8-10.6) k/uL RBC (3.80-5.40) m/uL Hgb (11.4-16.0) gm/dL Hct (34.0-46.0) % MCV (80.0-100.0) fL MCH (25.0-35.0) pg MCHC (31.0-37.0) g/dL RDW (11.5-15.5) % Plt Count (150-450) k/uL Neutrophils % (Manual) % Band Neutrophils % % Lymphocytes % (Manual) % Monocytes % (Manual) % Eosinophils % (Manual) % Neutrophils # (Manual) (1.3-7.7) k/uL Lymphocytes # (Manual) (1.0-4.8) k/uL Monocytes # (Manual) (0-1.0) k/uL Eosinophils # (Manual) (0-0.7) k/uL Nucleated RBCs (0-0) /100 WBC Manual Slide Review Reactive Lymphocytes RBC Morphology PT (9.0-12.0) sec INR (<1.2) APTT (22.0-30.0) sec Sodium (137-145) mmol/L Potassium (3.5-5.1) mmol/L Chloride (98-107) mmol/L Carbon Dioxide (22-30) mmol/L Anion Gap mmol/L BUN (7-17) mg/dL Creatinine (0.52-1.04) mg/dL Est GFR (CKD-EPI)AfAm (>60 ml/min/1.73 sqM) Est GFR (CKD-EPI)NonAf (>60 ml/min/1.73 sqM) Glucose (74-99) mg/dL Plasma Lactic Acid Jamie (0.7-2.0) mmol/L Calcium (8.4-10.2) mg/dL Total Bilirubin (0.2-1.3) mg/dL AST (14-36) U/L ALT (9-52) U/L Alkaline Phosphatase (38-126) U/L Total Creatine Kinase (30-135) U/L CK-MB (CK-2) (0.0-2.4) ng/mL CK-MB (CK-2) Rel Index Troponin I (0.000-0.034) ng/mL Total Protein (6.3-8.2) g/dL Albumin (3.5-5.0) g/dL Urine Color Yellow Urine Appearance Clear (Clear) Urine pH 8.0 (5.0-8.0) Ur Specific [place] 1.023 (1.001-1.035) Urine Protein Trace H (Negative) Urine Glucose (UA) Negative (Negative) Urine Ketones 1+ H (Negative) Urine Blood Negative (Negative) Urine Nitrite Negative (Negative) Urine Bilirubin Negative (Negative) Urine Urobilinogen <2.0 (<2.0) mg/dL Ur Leukocyte Esterase Negative (Negative) Urine WBC 1 (0-5) /hpf Ur Squamous Epith Cells <1 (0-4) /hpf Hyaline Casts 1 (0-2) /lpf Influenza Type A RNA (Not Detectd) Influenza Type B (PCR) (Not Detectd) - Radiology Data Diffuse colonic wall thickening primarily involving the sigmoid and descending colon correlating for colitis. Differential doses could be infectious, inflammatory or ischemic colitis. Basilar atelectasis or early infiltrate. Correlate clinically. CT of the brain shows no acute fracture dislocation of the cervical spine. No acute intracranial hemorrhage, mass effect or midline shift. (Colette Esquivel) Disposition <Gomez Lang - Last Filed: 03/25/18 18:10> Is patient prescribed a controlled substance at d/c from ED?: No When asked, does pt state using other controlled substances?: No If prescribed controlled substance>3 days was MAPS reviewed?: No If opioid is for acute pain is fill amount 7 days or less?: No If Rx opioid, was Start Talking consent form obtained?: No Time of Disposition: 18:22 <Colette Esquivel - Last Filed: 03/25/18 18:23> Clinical Impression: Sepsis, Colitis, Pulmonary infiltrates on CXR Disposition: ADMITTED IP TO THIS HOSP Condition: Stable Referrals: Srinivas Burdick DO [Primary Care Provider] - 1-2 days
[2018-03-25] MEDS: SODIUM CHLORIDE 0.9% 1,000 ML IV SCH (15:41)
[2018-03-25] MEDS: SODIUM CHLORIDE 0.9% 500 ML IV SCH ×4 (15:45→18:45)
[2018-03-25 15:52] LABS: HCT 37.5 % (34.0-46.0); HGB 13.1 gm/dL (11.4-16.0); MCH 31.7 pg (25.0-35.0); MCHC 34.9 g/dL (31.0-37.0); MCV 90.9 fL (80.0-100.0); Mean Platelet Volume 7.1; Platelet Count 205 k/uL (150-450); RBC 4.12 m/uL (3.80-5.40); RDW 12.9 % (11.5-15.5)
[2018-03-25 15:59] LABS: Albumin 3.7 g/dL (3.5-5.0); Potassium 4.7 mmol/L (3.5-5.1); Total Bilirubin 0.9 mg/dL (0.2-1.3); Total Protein 6.3 g/dL (6.3-8.2)
[2018-03-25 16:04] LABS: INR 1.2 (<1.2); Prothrombin Time 11.1 sec (9.0-12.0)
[2018-03-25 16:08] LABS: Band Neutrophils % 6 %; Eosinophils # (M) 0.18 k/uL (0-0.7); Monocytes # (M) 0.09 k/uL (0-1.0); Neutrophils % (M) 41 %; Nucleated Red Blood Cells 0 /100 WBC (0-0); Reactive Lymphocytes Present; Total Cells Counted 100
[2018-03-25 16:11] LABS: Partial Thromboplastin Time 20.3 sec (22.0-30.0)
[2018-03-25 16:16] LABS: Creatine Kinase 34 U/L (30-135)
[2018-03-25 16:28] LABS: Creatine Kinase MB <0.2 ng/mL (0.0-2.4); Troponin I <0.012 ng/mL (0.000-0.034)
--- NOTE | 2018-03-25 17:03 | CT ---
EXAMINATION TYPE: CT brain areliine wo con DATE OF EXAM: 03/25/2018 COMPARISON: NONE HISTORY: Fall 1 week ago. Head and neck pain. CT DLP: 1717 mGycm Automated exposure control for dose reduction was used. TECHNIQUE: CT scan of the head and cervical spine are performed without contrast. FINDINGS: Generalized degenerative change seen. Low-attenuation the white matter is nonspecific but s uggestive of remote microvascular ischemia. No obvious acute hemorrhage or midline shift. Calvarium intact. There is a 1 cm calcified density along the inner table of the right parietal conve xity which can be associated with a osteoma or calcified meningioma. Hyperostosis of the calvarium no emir. Assessment of cervical spine is demonstrates anatomic alignment. No compression deformities. Multilev el facet arthropathy and degenerative disc disease. Assessment spinal canal is limited by noncontrast technique and artifact. No obvious acute fracture. If there is concern for disc herniation correlate with MRI. Incidental note is made of multinodular t hyroid changes. Atherosclerotic change of the aorta and proximal great vessels.. IMPRESSION: 1. There is no acute fracture or dislocation evident in the cervical spine. 2. No acute intracranial hemorrhage, mass effect, or midline shift is seen.
[2018-03-25 17:07] LABS: Hyaline Casts,Urine 1 /lpf (0-2); Squamous Epithelial Cell,Urine <1 /hpf (0-4); WBC,Urine 1 /hpf (0-5)
[2018-03-25 17:09] LABS: Appearance,Urine Clear (Clear); Bilirubin,Urine Negative (Negative); Blood,Urine Negative (Negative); Color,Urine Yellow; Glucose,Urine (UA) Negative (Negative); Ketones,Urine 1+ (Negative); Leukocyte Esterase,Urine Negative (Negative); Nitrite,Urine Negative (Negative); Protein,Urine Trace (Negative); Specific Gravity,Urine 1.023 (1.001-1.035); Urobilinogen,Urine <2.0 mg/dL (<2.0)
--- NOTE | 2018-03-25 17:09 | CT ---
EXAMINATION TYPE: CT abdomen pelvis w con DATE OF EXAM: 03/25/2018 COMPARISON: NONE HISTORY: Right sided hip pain with diarrhea and nausea for [address] DLP: 1136 mGycm Automated exposure control for dose reduction was used. CONTRAST: CT scan of the abdomen pelvis is performed with IV Contrast, patient injected with 80 mL of Isovue 30 0. FINDINGS- LUNG BASES-subsegmental changes involving the right lung base.. LIVER/GB-1 cm low density attenuation within the left lobe liver is nonspecific. Previous gallbladder surgery noted.. PANCREAS- No gross abnormality is seen. SPLEEN- No gross abnormality is seen. ADRENALS- No gross abnormality is seen. KIDNEYS/BLADDER-subcentimeter density within the right kidney too small to characterize. Cortical los s involving the right kidney also noted.. BOWEL-bowel gas pattern nonspecific. Appendix normal. There is mild wall thickening diffusely the sig moid colon and left colon correlate for colitis. There does appear to be mild induration of the peric olonic flat within the descending colon. LYMPH NODES- No greater than 1cm abdominal or pelvic lymph nodes are appreciated. OSSEOUS STRUCTURES-multilevel hypertrophic change and facet arthropathy noted. OTHER- atherosclerotic change of the vasculature. No free fluid or free air. IMPRESSION- 1. Diffuse colonic wall thickening primarily involving the sigmoid and descending colon correlate for colitis. Differential diagnosis would include infectious, inflammatory or ischemic colitis.
--- NOTE | 2018-03-25 18:07 | XR ---
EXAMINATION TYPE: XR chest 2V DATE OF EXAM: 03/25/2018 COMPARISON: 12/21/2016 TECHNIQUE: PA and lateral views submitted. HISTORY: Fever FINDINGS: The lungs are clear and there is no pneumothorax or pleural effusion. Hypertrophic change of the sp ine noted. Subsegmental linear changes at the lung bases. IMPRESSION: 1. Basilar atelectasis or early infiltrate correlate clinically.
[2018-03-25] MEDS ORDERED: NALOXONE 0.4 MG/ML 1 ML VIAL IV PRN (18:23)
[2018-03-25] MEDS ORDERED: IBUPROFEN 400 MG TAB PO PRN (18:23)
[2018-03-25] MEDS ORDERED: HYDROcodone/APAP 5-325MG 1 EACH TAB PO PRN (18:23)
[2018-03-25] MEDS ORDERED: oxyCODONE-APAP 5-325MG 1 EACH TAB PO PRN (18:23)
[2018-03-25] MEDS ORDERED: ONDANSETRON 4 MG/2 ML VIAL IVP PRN (18:23)
[2018-03-25] MEDS ORDERED: LOPERAMIDE 2 MG CAP PO PRN (18:26)
[2018-03-25] MEDS ORDERED: NON-FORMULARY DRUG (Omeprazole [Prilosec] 20 MG) PO PRN (18:26)
[2018-03-25] MEDS ORDERED: DIAZEPAM 2 MG TAB PO PRN (18:26)
[2018-03-25] MEDS ORDERED: ZOLPIDEM 10 MG TAB PO PRN (18:26)
[2018-03-25] MEDS: LISINOPRIL-HCTZ 10-12.5 MG 1 EACH TAB PO SCH (21:39)
[2018-03-25] MEDS: NAPROXEN 250 MG TAB PO SCH (21:39)
[2018-03-25] MEDS: SUCRALFATE 1 GM TAB PO SCH (21:40)
[2018-03-26] MEDS: SODIUM CHLORIDE 0.9% 1,000 ML IV SCH ×3 (05:32→22:09)
[2018-03-26] MEDS: SUCRALFATE 1 GM TAB PO SCH (08:13)
[2018-03-26] MEDS: OXYBUTYNIN XL 5 MG TAB.ER.24 PO SCH (08:13)
[2018-03-26] MEDS: NAPROXEN 250 MG TAB PO SCH ×2 (08:13→22:07)
[2018-03-26] MEDS: LISINOPRIL-HCTZ 10-12.5 MG 1 EACH TAB PO SCH ×2 (08:13→22:07)
[2018-03-26] MEDS: CARVEDILOL 3.125 MG TAB PO SCH ×2 (08:13→17:38)
[2018-03-26] MEDS: PANTOPRAZOLE 40 MG/10 ML VIAL IV SCH (08:14)
--- NOTE | 2018-03-26 12:11 | CONS ---
CONSULTATION REQUESTING PHYSICIAN: Dr. Burdick. REASON FOR CONSULTATION: Abdominal pain, nausea, vomiting, and diarrhea of 1 week duration. HISTORY: The patient is an 82-year-old pleasant white female, who came to the emergency room complaining of headaches, weakness, not feeling well, diffuse abdominal pain associated with nausea, vomiting, diarrhea that started about a week ago. She also has been complaining of some shortness of breath and body aches. She is having about 2-3 episodes of emesis daily, but she started having diarrhea with bowel movements anywhere from 4-5 a day which were loose to watery in consistency, but no blood or mucus in the stool. She denies any fever, chills, or night sweats. She thinks she was treated with antibiotics about a month ago for upper respiratory infection. She came into the emergency room and subsequently had a CT of the abdomen and pelvis done yesterday that showed diffuse colonic wall thickening involving the sigmoid and descending colon consistent with colitis and hence we are consulted in regards to this issue. The patient never had these symptoms in the past. No history of inflammatory bowel disease. Last colonoscopy to her recollection was approximately 3 years ago that was normal. PAST MEDICAL HISTORY: Significant for hypertension, hyperlipidemia, degenerative joint disease, anxiety, depression. MEDICATIONS: At home: Ambien, Carafate, naproxen, loperamide, Bentyl, Valium, Coreg, Ditropan, Zestoretic, Prilosec, and lisinopril. ALLERGIES: None. PAST SURGICAL HISTORY: Cardiac catheterization, cholecystectomy, hysterectomy. SOCIAL HISTORY: No smoking. No alcohol use. FAMILY HISTORY: Unremarkable. REVIEW OF SYSTEMS: CARDIOPULMONARY: No chest pain, shortness of breath. GENITOURINARY: No dysuria or hematuria. MUSCULOSKELETAL: Unremarkable. SKIN: Unremarkable. ENDOCRINE: Unremarkable. PSYCHIATRIC: Unremarkable. NEUROLOGY: Unremarkable. ENT/VISION: Unremarkable. CONSTITUTIONAL: No recent weight loss. No fever, chills, night sweats. PHYSICAL EXAMINATION: She appears comfortable. No apparent distress. Vital signs are stable. Blood pressure is 107/59, pulse rate 71, temperature 99.3. HEENT: Examination unremarkable. Conjunctivae pink. Sclerae anicteric. Oral cavity, no lesions. NECK: No JVD or lymph node enlargement. CHEST: Clear to auscultation. HEART: Regular rate and rhythm. ABDOMEN: Soft. Mild tenderness in the lower abdominal area. No rebound or rigidity. EXTREMITIES: No pedal edema. SKIN: No rashes. NEUROLOGIC: Alert and oriented x3. No focal deficits. LAB: WBC 9, hemoglobin 13.1, platelets are normal. Basic metabolic panel is within normal limits. PT and INR is within normal limits. BUN is 18, creatinine 1. ALT, AST, T bilirubin, alkaline phosphatase are all normal. Stool for C diff toxin is positive. Stool occult blood is negative. IMPRESSION: This is a lady who presents to the hospital with acute onset of lower abdominal pain followed by nausea, vomiting, and diarrhea for the last 1 week duration. She has bowel movements from anywhere from 3 to 8 a day which are loose to watery in consistency. CT of the abdomen showed diffuse thickening of the left colon consistent with acute colitis. Stool studies just reported positive for C diff toxin consistent C diff colitis. The patient did have recent antibiotic use about a month ago. RECOMMENDATIONS: 1. Start her on oral Flagyl 500 mg 3 times daily. 2. Clear liquid diet. 3. Repeat labs in the morning. Thank you for this consultation. We will follow the patient during the hospital stay. MMODL / IJN: [id number] /
[2018-03-26 12:15] VITALS: BMI 31.1
[2018-03-26] MEDS: metroNIDAZOLE 500 MG TAB PO SCH ×3 (15:33→22:07)
[2018-03-26] MEDS: ACETAMINOPHEN TAB 325 MG TAB PO PRN (15:42)
[2018-03-26] MEDS ORDERED: ALPRAZolam 0.25 MG TAB PO PRN (15:46)
[2018-03-26] MEDS ORDERED: MAGNESIUM HYDROXIDE 2,400 MG/10 ML CUP PO PRN (15:46)
[2018-03-26] MEDS ORDERED: LACTULOSE 20 GM/30 ML CUP PO PRN (15:46)
[2018-03-26] MEDS ORDERED: MELATONIN 3 MG TABLET PO PRN (15:46)
--- NOTE | 2018-03-26 16:38 | HP ---
HISTORY AND PHYSICAL DATE OF ADMISSION: March 25, 2018. DATE OF SERVICE: March 26, 2018. PRESENT COMPLAINT: Abdominal pain, diarrhea. HISTORY OF PRESENTING COMPLAINT: A very pleasant 82-year-old patient of Dr. Burdick. Chronic stable medical conditions include GERD, hypertension, hyperlipidemia, irritable bowel syndrome, urinary incontinence, anxiety, depression. For about a week the patient has been having abdominal cramping, loose stools. No diarrhea, weak, tired, run down, dizzy, lightheaded. He was actually passed out. Appetite is poor. The patient admitted for the same. Patient's stools came back positive for C. diff. The patient did take some antibiotics recently. REVIEW OF SYSTEMS: Constitutional: Weak and tired. HEENT: Decreased hearing. Respiratory none. Cardiovascular none. Gastrointestinal as above. Genitourinary none. Musculoskeletal: Arthritic pain in many joints. Dermatological and hematologic, lymphatic none. Psychiatry, anxiety. Neurological: Uses a walker. PAST MEDICAL HISTORY: GERD, hyperlipidemia, hypertension, skin cancer, irritable bowel syndrome, urine incontinence, hiatal hernia. PAST SURGICAL HISTORY: Cholecystectomy surgery. PSYCH HISTORY: History of anxiety and depression. SOCIAL HISTORY: Does not smoke or drink alcohol. Lives with daughter. Uses a walker. FAMILY HISTORY: One daughter had kidney cancer. Other daughter had DVT. HOME MEDICATIONS: 1. Coreg 3.125 p.o. b.i.d. 2. Zestoretic 07/28.5 one tab p.o. b.i.d. 3. Naproxen 250 p.o. b.i.d. 4. Loperamide 2-4 mg q.i.d. p.r.n. 5. Ditropan XL 5 mg p.o. daily. 6. Prilosec 20 mg p.o. daily p.r.n. 7. Carafate 1 g p.o. b.i.d. 8. Ambien 10 mg q.h.s. p.r.n. 9. Bentyl 20 mg p.o. q.i.d. p.r.n. 10.Valium 2 mg p.o. b.i.d. p.r.n. ALLERGIES: None. PHYSICAL EXAMINATION: VITAL SIGNS: Vital signs on presentation Temperature 102.6, pulse 91, respiration 18, blood pressure 102/51, pulse ox 99% on 2 L/98% on room air. GENERAL APPEARANCE: Well built, BMI 31, lying in bed, very tired-appearing, exhausted. EYES: Pupils equal. Conjunctivae normal. HEENT external appearance of nose and ears normal. Oral cavity dry. NECK: JVD not raised. Mass not palpable. RESPIRATORY: Effort normal. LUNGS: Diminished breath sounds. CARDIOVASCULAR: 1st and 2nd sounds normal. No edema. ABDOMEN: Mild tenderness, diffuse. Minimal guarding and rigidity. Liver and spleen not palpable. LYMPHATICS: No lymph nodes palpable in the neck and axilla. PSYCHIATRY: Alert and oriented x3. Mood and affect is slightly anxious-appearing. NEUROLOGICAL: Pupils equal. Cranial nerves grossly intact. Power and sensation grossly intact. MUSCULOSKELETAL: Evidence of osteoarthritis in multiple joints including hands and knees. INVESTIGATIONS: White count 9, hemoglobin 13.1, potassium 4.7, BUN 18, creatinine 1.0. Stool for C diff is positive. EKG normal sinus rhythm. CT scan of the abdomen and pelvis. Diffuse colonic wall thickening involving sigmoid and descending colon. Head and cervical spine CT nil acute. ASSESSMENT: 1. Acute severe C diff colitis in a patient who took antibiotics recently and clinically patient rather exhausted and dehydrated with a fever up to 102.6. Tired, run down, poor appetite. Given her age and comorbidities, keep a very close eye on this rather sick patient. 2. Gastroesophageal reflux disease. 3. Essential hypertension. 4. Hyperlipidemia. 5. Irritable bowel syndrome. 6. Chronic urinary stress incontinence. 7. Anxiety and depression, not otherwise specified. PLAN: Patient was on IV fluids. Home medications are resumed. Given her age we will DC patient's Valium. The patient on a clear liquid diet. We will also DC patient's Imodium. Keep a close eye on patient's electrolytes. C diff precautions in place. Keep the patient on bedrest. Copy to Dr. Burdick. MMMIGNONL / ANAN: [id number] /
[2018-03-27] MEDS: CARVEDILOL 3.125 MG TAB PO SCH ×2 (08:59→16:41)
[2018-03-27] MEDS: LISINOPRIL-HCTZ 10-12.5 MG 1 EACH TAB PO SCH ×2 (08:59→20:45)
[2018-03-27] MEDS: OXYBUTYNIN XL 5 MG TAB.ER.24 PO SCH (09:00)
[2018-03-27] MEDS: PANTOPRAZOLE 40 MG/10 ML VIAL IV SCH (09:00)
[2018-03-27] MEDS: metroNIDAZOLE 500 MG TAB PO SCH ×3 (09:01→20:44)
[2018-03-27] MEDS: SODIUM CHLORIDE 0.9% 1,000 ML IV SCH ×2 (09:01→16:41)
[2018-03-27] MEDS: NAPROXEN 250 MG TAB PO SCH ×2 (09:04→20:44)
[2018-03-27] MEDS: DICYCLOMINE 20 MG TAB PO PRN ×2 (10:27→15:40)
--- NOTE | 2018-03-27 21:00 | PN ---
PROGRESS NOTE DATE OF DICTATION: 03/27/2018 REQUESTING PHYSICIAN: Dr. Dickens. HISTORY: The patient is an 82-year-old pleasant white female admitted to hospital with diarrhea for the last 1 week duration associated with abdominal pain, nausea, vomiting. She was noted to have C. diff colitis and was started on oral Flagyl yesterday. This morning she has remained the same. She has had about 3 loose watery bowel movements this morning. She denies any blood or mucus in the stool. The abdominal pain is gradually improving. No fever, chills, or night sweats. PHYSICAL EXAMINATION: She appears comfortable, no apparent distress. VITAL SIGNS: Stable. Blood pressure is a 100/64, pulse 94, temperature 97.6. HEENT EXAMINATION: Unremarkable. Conjunctivae pink. Sclerae anicteric. Oral cavity, no lesions. NECK: No JVD or lymph node enlargement. CHEST: Clear to auscultation. HEART: Regular rate and rhythm. ABDOMEN: Soft. Bowel sounds are positive. Mild tenderness in the lower abdominal area. EXTREMITIES: No pedal edema. SKIN: No rashes. NEUROLOGIC: Alert and oriented x3. No focal deficits. LABS: None available from today. IMPRESSION: 1. Acute Clostridium difficile colitis on Flagyl day number 2; she remains the same. 2. Hypertension. 3. Gastroesophageal reflux disease. 4. Hyperlipidemia. RECOMMENDATION: 1. Continue with oral Flagyl. 2. Advance diet as tolerated. 3. If not improved by tomorrow, we will consider adding oral vancomycin. The plan was discussed with the patient. She is agreeable to it. Thank you for this consultation. MMODL / IJN: [id number] /
[2018-03-28] MEDS: SODIUM CHLORIDE 0.9% 1,000 ML IV SCH ×3 (03:14→17:19)
[2018-03-28] MEDS: PANTOPRAZOLE 40 MG TABLET PO SCH (07:52)
[2018-03-28] MEDS: CARVEDILOL 3.125 MG TAB PO SCH ×2 (07:52→16:43)
[2018-03-28] MEDS: NAPROXEN 250 MG TAB PO SCH ×2 (07:52→21:10)
[2018-03-28] MEDS: OXYBUTYNIN XL 5 MG TAB.ER.24 PO SCH (07:52)
[2018-03-28] MEDS: metroNIDAZOLE 500 MG TAB PO SCH ×3 (07:52→21:10)
[2018-03-28] MEDS: LISINOPRIL-HCTZ 10-12.5 MG 1 EACH TAB PO SCH ×2 (07:52→21:09)
--- NOTE | 2018-03-28 10:27 | P.PN ---
Subjective Progress Note Date: 03/28/18 Principal diagnosis: Clostridium difficile colitis Still passing multiple bowel movements through the night doesn't feel much better compared to yesterday. Stool studies pending. C. diff positive. Receiving Flagyl. No morning chemistries to review. Objective - Vital Signs Vital signs: Vital Signs Temp 98.0 F 03/28/18 05:56 Pulse 73 03/28/18 05:56 Resp 17 03/28/18 05:56 BP 110/59 03/28/18 05:56 Pulse Ox 97 03/28/18 05:56 Intake & Output 03/27/18 03/28/18 03/28/18 18:59 06:59 18:59 Intake Total 100 840 Balance 100 840 Weight 74.843 kg 74.843 kg Intake: Oral 100 840 Other: Voiding Method Toilet Toilet # Voids 3 1 # Bowel Movements 3 1 - Exam General appearance: The patient is alert, oriented, in no acute distress. HET: Head is normocephalic and atraumatic. Pupils are equal and reactive. Oropharynx is clear without lesions. Neck: Supple without lymphadenopathy. Trachea midline. Heart: S1 S2. Regular rate and rhythm. Lungs: No crackles or wheezes are heard. Abdomen: Soft, mild tenderness across the bilateral lower abdomen mildly bloated with bowel sounds. No peritoneal signs. No palpable organomegaly or masses. Extremities: Normal skin color and turgor. No cyanosis, rash, ulceration, clubbing, or edema. Radial and pedal pulses are 2/4 bilaterally. Neurological: No focal deficits. Strength and sensation are grossly intact. - Labs CBC & Chem 7: 03/25/18 15:29 03/25/18 15:29 Labs: Microbiology - Last 24 Hours (Table) 03/26/18 07:00 Stool Culture - Preliminary Stool 03/25/18 15:29 Blood Culture - Preliminary Blood No Growth after 48 hours Assessment and Plan (1) C. difficile colitis Current Visit: Yes Status: Acute Code(s): A04.72 - ENTEROCOLITIS D/T CLOSTRIDIUM DIFFICILE, NOT SPCF RECUR SNOMED Code(s): 670800463 Plan: 1. Vancomycin 250 mg orally every 6 hours. Continue with Flagyl. Low residue diet; yogurt w/meals. We'll continue to follow. Assessment and plan a care discussed with Dr. Lee
[2018-03-28] MEDS: VANCOMYCIN ORAL SOLUTION 250 MG/5 ML BOTTLE PO SCH ×3 (12:29→23:17)
[2018-03-28] MEDS: CHERRY FLAVOR 60 ML BOTTLE PO PRN ×2 (12:29→17:19)
--- NOTE | 2018-03-28 20:25 | PN ---
PROGRESS NOTE DATE OF SERVICE: 03/27/2018 PRESENTING COMPLAINT: C difficile diarrhea. INTERVAL HISTORY: This patient was seen by me yesterday. She presented with C difficile diarrhea. Still feeling weak, tired, rundown. Has been on Flagyl. Not much of an appetite. Pretty much has been in the bed. Being followed by GI. REVIEW OF SYSTEMS: Done for constitutional, cardiovascular, GI, pulmonary; relevant findings as above. CURRENT MEDICATIONS: Current medications include p.o. Flagyl. PHYSICAL EXAMINATION: Temperature 97.6, pulse 79, respiration 17, blood pressure 100/64, pulse ox 94% on room air. GENERAL APPEARANCE: Lying in bed, rundown. EYES: Pupils equal. Conjunctivae normal. HEENT: External appearance of nose and ears normal. Oral cavity dry. NECK: JVD not raised. Mass not palpable. RESPIRATORY: Effort normal. LUNGS: Decreased breath sounds. CARDIOVASCULAR: First and second sounds normal. No edema. ABDOMEN: Soft. Mild tenderness. No guarding or rigidity. Liver and spleen not palpable. PSYCHIATRY: Alert and oriented x3. Mood and affect normal. INVESTIGATIONS: No blood work today. ASSESSMENT: 1. Acute Clostridium difficile colitis, slow to respond. Patient is on Flagyl. 2. Gastroesophageal reflux disease. 3. Essential hypertension. 4. Hyperlipidemia. 5. Irritable bowel syndrome. 6. Chronic urinary stress incontinence. 7. Anxiety and depression not otherwise specified. PLAN: Continue the patient on IV fluids, Flagyl. If things do not improve, then we may need to add vancomycin. Following with GI. MMODL / IJN: [id number] /
--- NOTE | 2018-03-28 20:28 | PN ---
PROGRESS NOTE DATE OF SERVICE: 03/28/2018 PRESENTING COMPLAINT: Abdominal pain, diarrhea. INTERVAL HISTORY: The patient was admitted with C difficile colitis, was on Flagyl. Still having loose stool, though frequency has gone down. Feeling tired and rundown, eating small amounts. Earlier today vancomycin was added. REVIEW OF SYSTEMS: Done for constitutional, cardiovascular, GI, pulmonary; relevant findings as above. CURRENT MEDICATIONS: Current medications include vancomycin and Flagyl. PHYSICAL EXAMINATION: Temperature 97.3, pulse 70, respiration 17, blood pressure 100/56, pulse ox 97% on room air. GENERAL APPEARANCE: Lying in bed, tired-appearing. EYES: Pupils equal. Conjunctivae normal. HEENT: External appearance of nose and ears normal. Oral cavity normal. NECK: JVD not raised. Mass not palpable. RESPIRATORY: Effort normal. LUNGS: Decreased breath sounds. CARDIOVASCULAR: First and second sounds normal. No edema. ABDOMEN: Soft. Mild tenderness. PSYCH: Alert and oriented x3. Mood and affect a bit low. INVESTIGATIONS: BMP pending. ASSESSMENT: 1. Acute severe Clostridium colitis, slow to respond. 2. Gastroesophageal reflux disease. 3. Essential hypertension. 4. Hyperlipidemia. 5. Irritable bowel syndrome. 6. Chronic urinary stress incontinence. 7. Anxiety, depression not otherwise specified. 8. Clinically dehydrated. PLAN: Keep the patient running on IV fluids. Vancomycin was added. Care was discussed with the patient. MMODL / IJN: [id number] /
[2018-03-28 20:45] LABS: HCT 31.8 % (34.0-46.0); HGB 10.5 gm/dL (11.4-16.0); MCH 30.9 pg (25.0-35.0); MCV 93.7 fL (80.0-100.0); Mean Platelet Volume 7.3; Platelet Count 202 k/uL (150-450); RBC 3.39 m/uL (3.80-5.40); RDW 13.3 % (11.5-15.5); WBC 7.6 k/uL (3.8-10.6)
[2018-03-28 21:03] LABS: Band Neutrophils % 12 %; Basophils # (M) 0.08 k/uL (0-0.2); Eosinophils # (M) 0.38 k/uL (0-0.7); Lymphocytes # (M) 2.05 k/uL (1.0-4.8); Monocytes # (M) 0.23 k/uL (0-1.0); Neutrophils % (M) 54 %; Nucleated Red Blood Cells 0 /100 WBC (0-0); Total Cells Counted 200
[2018-03-29] MEDS: VANCOMYCIN ORAL SOLUTION 250 MG/5 ML BOTTLE PO SCH ×4 (05:44→23:39)
[2018-03-29] MEDS: OXYBUTYNIN XL 5 MG TAB.ER.24 PO SCH (08:12)
[2018-03-29] MEDS: LISINOPRIL-HCTZ 10-12.5 MG 1 EACH TAB PO SCH ×2 (08:12→20:06)
[2018-03-29] MEDS: CARVEDILOL 3.125 MG TAB PO SCH ×2 (08:12→16:54)
[2018-03-29] MEDS: PANTOPRAZOLE 40 MG TABLET PO SCH (08:12)
[2018-03-29] MEDS: metroNIDAZOLE 500 MG TAB PO SCH (08:12)
[2018-03-29] MEDS: NAPROXEN 250 MG TAB PO SCH ×2 (08:12→20:05)
[2018-03-29 09:06] LABS: HCT 33.7 % (34.0-46.0); HGB 11.3 gm/dL (11.4-16.0); MCH 31.4 pg (25.0-35.0); MCHC 33.4 g/dL (31.0-37.0); MCV 94.1 fL (80.0-100.0); Mean Platelet Volume 7.2; Platelet Count 210 k/uL (150-450); RBC 3.58 m/uL (3.80-5.40); RDW 14.1 % (11.5-15.5); WBC 6.6 k/uL (3.8-10.6)
[2018-03-29 09:20] LABS: Calcium 7.8 mg/dL (8.4-10.2); Potassium 3.4 mmol/L (3.5-5.1)
--- NOTE | 2018-03-29 09:20 | P.PN ---
Subjective Progress Note Date: 03/29/18 Principal diagnosis: Clostridium difficile colitis Bowel movements decreasing however reports increased abdominal bloatedness mild discomfort no nausea or emesis. Stool culture preliminary no salmonella Shigella or E. coli.. C. diff positive. Receiving oral think of and Flagyl. Yesterday white count 7.6. Hemoglobin 10.5. Objective - Vital Signs Vital signs: Vital Signs Temp 97.7 F 03/29/18 05:56 Pulse 71 03/29/18 05:56 Resp 18 03/29/18 05:56 BP 117/64 03/29/18 05:56 Pulse Ox 96 03/29/18 05:56 Intake & Output 03/28/18 03/29/18 03/29/18 18:59 06:59 18:59 Intake Total 1880 Balance 1880 Weight 74.843 kg Intake: IV 800 Sodium Chloride 0.9% 1, 800 000 ml @ 100 mls/hr IV . Q10H ZOE Rx#:[id number] Oral 1080 Other: Voiding Method Toilet # Voids 2 # Bowel Movements 2 - Exam General appearance: The patient is alert, oriented, in no acute distress. HET: Head is normocephalic and atraumatic. Pupils are equal and reactive. Oropharynx is clear without lesions. Neck: Supple without lymphadenopathy. Trachea midline. Heart: S1 S2. Regular rate and rhythm. Lungs: No crackles or wheezes are heard. Abdomen: Soft, mild tenderness across the bilateral lower abdomen moderately bloated with hypoactive bowel sounds. No peritoneal signs. No palpable organomegaly or masses. Extremities: Normal skin color and turgor. No cyanosis, rash, ulceration, clubbing, or edema. Radial and pedal pulses are 2/4 bilaterally. Neurological: No focal deficits. Strength and sensation are grossly intact. - Labs CBC & Chem 7: 03/28/18 20:25 03/25/18 15:29 Labs: Abnormal Lab Results - Last 24 Hours (Table) 03/28/18 Range/Units 20:25 RBC 3.39 L (3.80-5.40) m/uL Hgb 10.5 L (11.4-16.0) gm/dL Hct 31.8 L (34.0-46.0) % Microbiology - Last 24 Hours (Table) 03/25/18 15:29 Blood Culture - Preliminary Blood No Growth after 72 hours 03/26/18 07:00 Stool Culture - Preliminary Stool Assessment and Plan (1) C. difficile colitis Current Visit: Yes Status: Acute Code(s): A04.72 - ENTEROCOLITIS D/T CLOSTRIDIUM DIFFICILE, NOT SPCF RECUR SNOMED Code(s): 631971437 Plan: 1. Vancomycin 250 mg orally every [address] Lee recommends changing Flagyl to IV. Clear liquid diet. Abdominal x-rays this morning to evaluate abdominal distention. We'll continue to follow. 2. CBC BMP in a.m. Assessment and plan of care discussed with Dr. Lee
[2018-03-29] MEDS: SODIUM CHLORIDE 0.9% 1,000 ML IV SCH ×2 (10:00→19:48)
[2018-03-29 11:33] LABS: Band Neutrophils % 8 %; Basophils # (M) 0.07 k/uL (0-0.2); Eosinophils # (M) 0.46 k/uL (0-0.7); Lymphocytes # (M) 0.92 k/uL (1.0-4.8); Neutrophils % (M) 67 %; Nucleated Red Blood Cells 0 /100 WBC (0-0); Total Cells Counted 100
[2018-03-29 11:34] LABS: Poikilocytosis (M) Present
[2018-03-29] MEDS: CHERRY FLAVOR 60 ML BOTTLE PO PRN ×2 (13:00→17:39)
--- NOTE | 2018-03-29 15:12 | XR ---
EXAMINATION TYPE: XR abdomen complete w decub DATE OF EXAM: 03/29/2018 COMPARISON: 04/05/2018 CT abdomen pelvis HISTORY: Colitis. Abdominal pain. TECHNIQUE: Supine, upright, and left side down lateral decubitus views of the abdomen are obtained. FINDINGS: No pneumoperitoneum is present. Cholecystectomy clips reside within the right upper quadran t. Few scattered colonic air-fluid levels are seen within nondilated bowel. No dilated small bowel is present. Moderate multilevel degenerative changes of the lumbosacral spine and femoral acetabular jermain ints are present. No abnormal calcifications within the abdomen or pelvis. Lung bases are clear. IMPRESSION: Few colonic air-fluid levels in an overall nondilated compatible with the patient's provided history of colitis. No obstruction or pneumoperitoneum.
[2018-03-29] MEDS: metroNIDAZOLE-NS PMX 500 MG in SALINE 1 100ML.BAG IVPB SCH ×2 (15:42→23:38)
--- NOTE | 2018-03-29 18:46 | PN ---
PROGRESS NOTE DATE OF SERVICE: 03/29/2018 PRESENTING COMPLAINT: Abdominal pain, diarrhea. INTERVAL HISTORY: Patient admitted with C. diff colitis yesterday. Vancomycin was added. Feeling much better today. I saw this patient this afternoon, had only 1 more bowel movement, wants to eat more, has been on clear liquids. REVIEW OF SYSTEMS: Done for constitutional, cardiovascular, GI, pulmonary; relevant findings as above. CURRENT MEDICATIONS: Include: 1. Vancomycin. 2. Flagyl. EXAMINATION: Temperature 97.7, pulse 71, respirations 18, blood pressure 117/64, pulse ox 96% on room air. GENERAL APPEARANCE: Sitting up, more perky, awake. EYES: Pupils equal. Conjunctivae normal. HEENT: External nose and ears normal. Oral cavity normal. NECK: JVD not raised. Mass not palpable. RESPIRATORY: Effort normal. LUNGS: Decreased breath sounds. CARDIOVASCULAR: First and second sounds normal. No edema. ABDOMEN: Soft. Decreased tenderness. PSYCH: Alert and oriented x3. Mood and affect are normal. INVESTIGATIONS: White count 6.6, hemoglobin 11.3. Potassium 3.4, BUN and creatinine are normal. ASSESSMENT: 1. Acute severe Clostridium difficile colitis, clinically responding. 2. Gastroesophageal reflux disease. 3. Essential hypertension. 4. Hyperlipidemia. 5. Irritable bowel syndrome. 6. Chronic urinary stress incontinence. 7. Anxiety and depression, not otherwise specified. 8. Clinical dehydration. PLAN: The patient's diet will be advanced. Keep the patient on vancomycin and Flagyl. Hoping patient can be discharged tomorrow. MMODL / IJN: [id number] /
[2018-03-29 22:57] VITALS: RESP 20
[2018-03-29] MEDS: ACETAMINOPHEN TAB 325 MG TAB PO PRN (23:38)
[2018-03-30] MEDS: SODIUM CHLORIDE 0.9% 1,000 ML IV SCH (04:29)
[2018-03-30] MEDS: VANCOMYCIN ORAL SOLUTION 250 MG/5 ML BOTTLE PO SCH (05:26)
[2018-03-30 06:35] VITALS: BP 121/69; PULSE 61; TEMP 97.2
[2018-03-30] MEDS: LISINOPRIL-HCTZ 10-12.5 MG 1 EACH TAB PO SCH (08:32)
[2018-03-30] MEDS: NAPROXEN 250 MG TAB PO SCH (08:32)
[2018-03-30] MEDS: OXYBUTYNIN XL 5 MG TAB.ER.24 PO SCH (08:32)
[2018-03-30] MEDS: metroNIDAZOLE-NS PMX 500 MG in SALINE 1 100ML.BAG IVPB SCH (08:34)
[2018-03-30] MEDS: CARVEDILOL 3.125 MG TAB PO SCH (08:34)
[2018-03-30] MEDS: PANTOPRAZOLE 40 MG TABLET PO SCH (08:34)
[2018-03-30 09:17] LABS: HCT 34.2 % (34.0-46.0); HGB 11.2 gm/dL (11.4-16.0); MCH 31.4 pg (25.0-35.0); MCHC 32.7 g/dL (31.0-37.0); MCV 95.8 fL (80.0-100.0); Magnesium 1.1 mg/dL (1.6-2.3); Mean Platelet Volume 7.7; Platelet Count 206 k/uL (150-450); Potassium 3.9 mmol/L (3.5-5.1); RBC 3.57 m/uL (3.80-5.40); RDW 13.7 % (11.5-15.5); WBC 5.1 k/uL (3.8-10.6)
--- NOTE | 2018-03-30 10:37 | P.PN ---
Subjective Progress Note Date: 03/30/18 Principal diagnosis: Clostridium difficile colitis Feels better. Minimal bowel movements. Mild abdominal pain. Afebrile. Tolerating diet. White count 5.1. Hemoglobin 11.2. Abdominal x-rays yesterday nondilated bowel loops no obstruction or pneumoperitoneum. Objective - Vital Signs Vital signs: Vital Signs Temp 97.2 F L 03/30/18 06:35 Pulse 61 03/30/18 06:35 Resp 20 03/30/18 06:35 BP 121/69 03/30/18 06:35 Pulse Ox 97 03/30/18 06:35 Intake & Output 03/29/18 03/30/18 03/30/18 18:59 06:59 18:59 Weight 74.843 kg Other: Voiding Method Toilet # Voids 2 2 # Bowel Movements 1 1 - Exam General appearance: The patient is alert, oriented, in no acute distress. HET: Head is normocephalic and atraumatic. Pupils are equal and reactive. Oropharynx is clear without lesions. Neck: Supple without lymphadenopathy. Trachea midline. Heart: S1 S2. Regular rate and rhythm. Lungs: No crackles or wheezes are heard. Abdomen: Soft, mild tenderness across the bilateral lower abdomen mild bloatedness with bowel sounds. No peritoneal signs. No palpable organomegaly or masses. Extremities: Normal skin color and turgor. No cyanosis, rash, ulceration, clubbing, or edema. Radial and pedal pulses are 2/4 bilaterally. Neurological: No focal deficits. Strength and sensation are grossly intact. - Labs CBC & Chem 7: 03/30/18 08:11 03/30/18 08:11 Labs: Abnormal Lab Results - Last 24 Hours (Table) 03/29/18 03/29/18 03/30/18 Range/Units 08:18 08:18 08:11 RBC (3.80-5.40) m/uL Hgb (11.4-16.0) gm/dL Lymphocytes # (Manual) 0.92 L (1.0-4.8) k/uL Chloride 114 H (98-107) mmol/L Carbon Dioxide 20 L (22-30) mmol/L Glucose 102 H (74-99) mg/dL Calcium 8.0 L (8.4-10.2) mg/dL Magnesium 1.1 L 1.1 L (1.6-2.3) mg/dL 03/30/18 Range/Units 08:11 RBC 3.57 L (3.80-5.40) m/uL Hgb 11.2 L (11.4-16.0) gm/dL Lymphocytes # (Manual) (1.0-4.8) k/uL Chloride (98-107) mmol/L Carbon Dioxide (22-30) mmol/L Glucose (74-99) mg/dL Calcium (8.4-10.2) mg/dL Magnesium (1.6-2.3) mg/dL Microbiology - Last 24 Hours (Table) 03/26/18 07:00 Stool Culture - Final Stool 03/25/18 15:29 Blood Culture - Preliminary Blood No Growth after 96 hours Assessment and Plan (1) C. difficile colitis Current Visit: Yes Status: Acute Code(s): A04.72 - ENTEROCOLITIS D/T CLOSTRIDIUM DIFFICILE, NOT SPCF RECUR SNOMED Code(s): 672616280 Plan: 1. Case discussed with Dr. Dickens discharge per medicine. Return to office in 3-4 weeks. Discharge antibiotics 7-10 days. Assessment and plan of care discussed with Dr. Lee
[2018-03-30 10:48] LABS: Band Neutrophils % 1 %; Eosinophils # (M) 0.15 k/uL (0-0.7); Lymphocytes # (M) 0.97 k/uL (1.0-4.8); Monocytes # (M) 0.31 k/uL (0-1.0); Neutrophils % (M) 71 %; Nucleated Red Blood Cells 0 /100 WBC (0-0); Total Cells Counted 100
[2018-03-30 11:00] LABS: Poikilocytosis (M) Present
== END 2018-03-30 13:05 | disposition home or self-care (01) | DRG 373 ==
LOC: EC 14:34 → 4MS4W 18:10 → UNDODISIN 03-26 21:54
PROVIDERS: ADMIT Hospitalist; ATTEND Hospitalist
DX: A04.72 Enterocolitis due to Clostridium difficile, not specified as recurrent (principal); K21.9 Gastro-esophageal reflux disease without esophagitis; I10 Essential (primary) hypertension; E78.5 Hyperlipidemia, unspecified; E86.0 Dehydration; F32.9 Major depressive disorder, single episode, unspecified; F41.9 Anxiety disorder, unspecified; N39.3 Stress incontinence (female) (male); K64.9 Unspecified hemorrhoids; S09.90XA Unspecified injury of head, initial encounter; W19.XXXA Unspecified fall, initial encounter; Z79.899 Other long term (current) drug therapy; Z85.828 Personal history of other malignant neoplasm of skin; Z90.49 Acquired absence of other specified parts of digestive tract; Z90.710 Acquired absence of both cervix and uterus; Z80.3 Family history of malignant neoplasm of breast
CPT/HCPCS: 36415; 70450; 71046; 72125; 74021; 74177; 80048; 80053; 81003; 82272; 82550; 82553; 83605; 83735; 84484; 85025; 85610; 85730; 87040; 87045; 87046; 87086; 87324; 87502; 93005; 94760; 96361; 96374; 99285

== ENCOUNTER 2018-06-14 07:56 | Day surgery (SDC) | payer MEDICARE ==
[2018-06-09 12:42] VITALS: BMI 32.8
[~2018-06-14 07:56] MED LIST: LACTATED RINGERS 1,000 ML IV SCH; LIDOCAINE 1% 20 ML VIAL (10MG/ML) FOR IV START INTRADERMA PRN
[2018-06-14 08:44] VITALS: RESP 16; TEMP 97
[2018-06-14] MEDS ORDERED: LIDOCAINE 1% INJ 10MG/ML (20 ML MDV) ONE (09:02)
[2018-06-14] MEDS ORDERED: PROPOFOL 10 MG/ML 20 ML VIAL IV ONE (09:02)
--- NOTE | 2018-06-14 09:19 | P.PCN ---
Date of Procedure: 06/14/18 Procedure(s) Performed: BRIEF HISTORY: Patient is a 82-year-old pleasant male, scheduled for an elective colonoscopy as a part of change in bowel habits. Last colonoscopy was 10 years ago. PROCEDURE PERFORMED: Colonoscopy. PREOPERATIVE DIAGNOSIS: Change in bowel habits. IV sedation per Anesthesia. PROCEDURE: After informed consent was obtained, the patient, was brought into the endoscopy unit. IV sedation was administered by Anesthesia under continuous monitoring. Digital rectal examination was normal. Initially the Olympus CF- 160 flexible video colonoscope was then inserted in the rectum, gradually advanced into the cecum without any difficulty. Careful examination was performed as the scope was gradually being withdrawn. Ileocecal valve and the appendiceal orifice were visualized and appeared normal. Prep was excellent. Mucosa of the cecum, ascending colon, transverse colon, descending colon, sigmoid colon, and rectum appeared normal. Scattered sigmoid diverticulosis. Retroflexion was performed in the rectum and no lesions were seen. The patient tolerated the procedure well. IMPRESSION: Normal-appearing colon from rectum to cecum with no evidence of colorectal neoplasia. RECOMMENDATIONS: Findings of this examination were discussed with the patient as well his family. She was advised to be on a high-fiber diet and fiber supplements a regular basis.
[2018-06-14 09:38] VITALS: BP 164/77; PULSE 66
== END 2018-06-14 09:55 | disposition home or self-care (01) ==
LOC: ORWHC2ENDO 07:56
PROVIDERS: ATTEND Internal Medicine Gastroenterology
DX: K57.30 Diverticulosis of large intestine without perforation or abscess without bleeding (principal); I10 Essential (primary) hypertension; E78.5 Hyperlipidemia, unspecified; J45.909 Unspecified asthma, uncomplicated; K21.9 Gastro-esophageal reflux disease without esophagitis; N39.41 Urge incontinence; Z79.51 Long term (current) use of inhaled steroids; Z79.899 Other long term (current) drug therapy
CPT/HCPCS: 45378; J2001; J2704

== ENCOUNTER → 2019-05-30 | Outpatient (CLI) | payer MEDICARE ==
--- NOTE | 2019-05-30 15:26 | US ---
EXAMINATION TYPE: US thyroid st tissue head/neck DATE OF EXAM: 05/30/2019 COMPARISON: 2017 CLINICAL HISTORY: E04.9 nontoxic goiter, unspecified. GLAND SIZE: Right Lobe: 4.8 x 2.0 x 2.0 cm Overall Parenchyma: heterogenous Left Lobe: 4.5 x 1.9 x 1.3 cm Overall Parenchyma: heterogeneous Isthmus Thickness: 0.4 cm NODULES RIGHT: # of nodules measured on right: 2 1. 0.4 X 0.4 x 0.6 cm solid nodule at the upper pole with well-defined margins. This nodule is rou nd and shows no intranodular vascularity. Prior size: 0.5 x 0.4 x 0.6 cm 2. 1.2 X 1.0 x 1.2 cm solid nodule at the lower pole with poorly defined margins. This nodule is wi lewis than tall and shows intranodular vascularity. Prior size: 1.2 x 0.8 x 0.9 cm LEFT: # of nodules measured on left: 2 1. 0.7 X 0.8 x 1.0 cm cystic nodule at the mid pole with well-defined margins. This nodule is wid er than tall and shows no intranodular vascularity. Prior size: 0.7 x 0.6 x 0.5 cm 2. 1.2 X 0.7 x 0.5 cm mixed nodule at the mid pole with well-defined margins. This nodule is wider t abraham tall and shows intranodular vascularity. Prior size: no prior ISTHMUS: # of nodules measured in the isthmus: 0 Bilateral neck scanned, no evidence of lymphadenopathy. IMPRESSION: Similar-appearing multiple thyroid nodules in a multinodular goiter with solitary new left thyroid no dule measured at 1.2 cm. Continued surveillance is recommended.
== END | disposition home or self-care (01) ==
LOC: RADUSWWP 14:34
PROVIDERS: ATTEND Family Medicine
DX: E04.2 Nontoxic multinodular goiter (principal); E04.1 Nontoxic single thyroid nodule
CPT/HCPCS: 76536

== ENCOUNTER → 2019-10-22 | Outpatient (CLI) | payer MEDICARE ==
--- NOTE | 2019-10-22 11:49 | US ---
EXAMINATION TYPE: US thyroid st tissue head/neck DATE OF EXAM: 10/22/2019 COMPARISON: 05/30/2019 and 12/08/2016 CLINICAL HISTORY: E04.9 nontoxic goiter, unspecified. GLAND SIZE: Right Lobe: 4.0 x 2.2 x 1.9 cm Overall Parenchyma: heterogenous Left Lobe: 4.4 x 1 2.0 x 1.6 cm Overall Parenchyma: heterogeneous Isthmus Thickness: 0.5 cm NODULES RIGHT: # of nodules measured on right: 1- Multiple nodules visualized, largest measured 1. Previous nodule not visualized on today's exam 2. 0.9 X 1.0 x 0.8 cm echogenic solid nodule at the lower pole with well-defined margins. This nod ule is wider than tall and shows intranodular vascularity. Prior size: 1.2 x 1.0 x 1.2 cm LEFT: # of nodules measured on left: 2- Multiple nodules visualized, largest measured 1. 1.1 X 0.9 x 0.8 cm cystic nodule at the mid pole with well-defined margins. This nodule is wide r than tall and shows no intranodular vascularity. Prior size: 1.0 x 0.8 x 0.7 cm 2. 0.6 X 0.6 x 0.3 cm hypoechoic mixed nodule at the mid/upper pole with well-defined margins. This nodule is wider than tall and shows no intranodular vascularity. Prior size: 1.2 x 0.7 x 0.5 cm ISTHMUS: # of nodules measured in the isthmus: 1 Bilateral neck scanned, no evidence of lymphadenopathy. IMPRESSION: Redemonstration of a multinodular goiter. No significant interval growth of the largest n odules. Specifically the new left thyroid nodule on the prior exam of 05/30/2019 does not demonstrate interval growth.
== END | disposition home or self-care (01) ==
LOC: RADUSWWP 10:28
PROVIDERS: ATTEND Family Medicine
DX: E04.2 Nontoxic multinodular goiter (principal)
CPT/HCPCS: 76536

== ENCOUNTER 2021-12-21 12:20 | Inpatient (IN) | payer MEDICARE ==
[2021-12-21] MEDS ORDERED: SODIUM CHLORIDE 0.9% 500 ML 500 ML IV STA (13:12)
--- NOTE | 2021-12-21 13:27 | ED ---
General Adult HPI - General Chief complaint: Dizziness Stated complaint: Dizziness Time Seen by Provider: 12/21/21 12:30 Source: patient, RN notes reviewed, old records reviewed Mode of arrival: ambulatory Limitations: no limitations - History of Present Illness Initial comments: This is an 86-year-old female who comes in for complaining of near syncopal episode. According to the daughter this is been ongoing a little bit over the last few months but the patient does not complain much to her so she doesn't always know is going on. Today the patient asked to the emergency department because she almost passed out a couple of times. Patient states she has a mild headache but she denies any difficulty with the patient she denies any slurred speech denies any numbness weakness per patient denies any recent fever chills or cough. Patient denies any trauma. Patient denies any chest pain difficult breathing shortness of breath per patient denies any abdominal pain. Patient denies any nausea vomiting diarrhea. - Related Data Home Medications Medication Instructions Recorded Confirmed Lisinopril-Hctz 10-12.5 mg 1 tab PO BID 06/09/18 12/21/21 [Zestoretic 10-12.5] Omeprazole Magnesium [PriLOSEC OTC] 20 mg PO DAILY 06/09/18 12/21/21 Oxybutynin Chloride [Ditropan] 5 mg PO DAILY 06/09/18 12/21/21 diazePAM [Valium] 1 mg PO BID PRN 06/09/18 12/21/21 Aspirin EC [Ecotrin Low Dose] 81 mg PO DAILY PRN 12/21/21 12/21/21 Cholecalciferol [Vitamin D3 (25 25 mcg PO DAILY 12/21/21 12/21/21 Mcg = 1000 Iu)] DULoxetine HCL [Cymbalta] 30 mg PO BID 12/21/21 12/21/21 Fluocinonide [Lidex .05%] 1 applic TOPICAL DAILY 12/21/21 12/21/21 Ipratropium-Albuterol Nebulize 3 ml INHALATION RT-HS 12/21/21 12/21/21 [Duoneb 0.5 mg-3 mg/3 ml Soln] Isosorbide Mononitrate ER [Imdur] 30 mg PO DAILY 12/21/21 12/21/21 Multivitamins, Thera [Multivitamin 1 tab PO DAILY 12/21/21 12/21/21 (formulary)] carvediloL [Coreg] 6.25 mg PO BID 12/21/21 12/21/21 hydrOXYzine pamoate [hydrOXYzine 25 mg PO TID PRN 12/21/21 12/21/21 PAMOATE] metFORMIN HCL 500 mg PO W/SUPPER 12/21/21 12/21/21 Allergies Allergy/AdvReac Type Severity Reaction Status Date / Time No Known Allergies Allergy Verified 12/21/21 14:37 Review of Systems ROS Statement: Those systems with pertinent positive or pertinent negative responses have been documented in the HPI. ROS Other: All systems not noted in ROS Statement are negative. Past Medical History Past Medical History: Cancer, GERD/Reflux, Hearing Disorder / Deafness, Hyperlipidemia, Hypertension, Osteoarthritis (OA) Additional Past Medical History / Comment(s): HX OF SKIN CA, IBS, INCONTINENCE OF BLADDER, HX OF HIATAL HERNIA, THYROID NODULES , CATARACT BILATERAL EYES History of Any Multi-Drug Resistant Organisms: None Reported Past Surgical History: Cholecystectomy, Heart Catheterization, Hysterectomy, Orthopedic Surgery Additional Past Surgical History / Comment(s): SINUS SX, SX ARM, FOOT, Past Anesthesia/Blood Transfusion Reactions: No Reported Reaction Past Psychological History: Anxiety Smoking Status: Never smoker Past Alcohol Use History: None Reported Past Drug Use History: None Reported - Past Family History Daughter(s) Family Medical History: Cancer, Deep Vein Thrombosis (DVT) Additional Family Medical History / Comment(s): ONE DAUGHTER KIDNEY CA, ONE DAUGHTER HX OF DVT Sister(s) Family Medical History: Cancer Additional Family Medical History / Comment(s): 2 SISTERS WITH BREAST CA General Exam - General Exam Comments Initial Comments: GENERAL: Patient is well-developed and well-nourished. Patient is nontoxic and well- hydrated and is in no acute distress. ENT: Neck is soft and supple. No significant lymphadenopathy is noted. Oropharynx is clear. Moist mucous membranes. Neck has full range of motion without eliciting any pain. EYES: The sclera were anicteric and conjunctiva were pink and moist. Extraocular movements were intact and pupils were equal round and reactive to light. Eyelids were unremarkable. PULMONARY: Unlabored respirations. Good breath sounds bilaterally. No audible rales rhonchi or wheezing was noted. CARDIOVASCULAR: There is a regular rate and rhythm without any murmurs gallops or rubs. ABDOMEN: Soft and nontender with normal bowel sounds. SKIN: Skin is clear with no lesions or rashes and otherwise unremarkable. NEUROLOGIC: Patient is alert and oriented x3. Cranial nerves II through XII are grossly intact. Motor and sensory are also intact. Normal speech, volume and content. Symmetrical smile. Cerebellar exam grossly intact. MUSCULOSKELETAL: Normal extremities with adequate strength and full range of motion. No lower extremity swelling or edema. No calf tenderness. LYMPHATICS: No significant lymphadenopathy is noted PSYCHIATRIC: Normal psychiatric evaluation. Limitations: no limitations Course Vital Signs 12/21/21 12:26 Temperature 98.2 F Pulse Rate 89 Respiratory 16 Rate Blood Pressure 126/76 O2 Sat by Pulse 96 Oximetry Medical Decision Making - Medical Decision Making EKG shows sinus rhythm at 80 bpm MN interval 170 QRS is 86 QT interval 354 QTC is 390. Patient's EKG shows no ST segment elevation or depression. Patient is having multiple near-syncopal episodes. Patient's magnesium was low at 1.2 and replaced with 2 g of mag sulfate. I spoke with the depression agreed to admit the patient and the patient wrote admitting orders. I consult to cardiology. - Lab Data Result diagrams: 12/21/21 13:14 12/21/21 13:14 Lab Results 12/21/21 12/21/21 12/21/21 Range/Units 13:14 13:14 13:14 WBC 6.3 (3.8-10.6) k/uL RBC 4.19 (3.80-5.40) m/uL Hgb 13.8 (11.4-16.0) gm/dL Hct 41.5 (34.0-46.0) % MCV 99.0 (80.0-100.0) fL MCH 32.9 (25.0-35.0) pg MCHC 33.2 (31.0-37.0) g/dL RDW 13.7 (11.5-15.5) % Plt Count 236 (150-450) k/uL MPV 8.1 Neutrophils % Not Reportable Neutrophils % (Manual) 59 % Lymphocytes % Not Reportable Lymphocytes % (Manual) 33 % Monocytes % Not Reportable Monocytes % (Manual) 4 % Eosinophils % Not Reportable Eosinophils % (Manual) 2 % Basophils % Not Reportable Basophils % (Manual) 2 % Neutrophils # Not Reportable Neutrophils # (Manual) 3.72 (1.3-7.7) k/uL Lymphocytes # Not Reportable Lymphocytes # (Manual) 2.08 (1.0-4.8) k/uL Monocytes # Not Reportable Monocytes # (Manual) 0.25 (0-1.0) k/uL Eosinophils # Not Reportable Eosinophils # (Manual) 0.13 (0-0.7) k/uL Basophils # Not Reportable Basophils # (Manual) 0.13 (0-0.2) k/uL Nucleated RBCs 0 (0-0) /100 WBC Manual Slide Review Performed RBC Morphology Normal PT 10.7 (9.0-12.0) sec INR 1.0 (<1.2) APTT 22.1 (22.0-30.0) sec Sodium (137-145) mmol/L Potassium (3.5-5.1) mmol/L Chloride (98-107) mmol/L Carbon Dioxide (22-30) mmol/L Anion Gap mmol/L BUN (7-17) mg/dL Creatinine (0.52-1.04) mg/dL Est GFR (CKD-EPI)AfAm (>60 ml/min/1.73 sqM) Est GFR (CKD-EPI)NonAf (>60 ml/min/1.73 sqM) Glucose (74-99) mg/dL Plasma Lactic Acid Jamie (0.7-2.0) mmol/L Calcium (8.4-10.2) mg/dL Magnesium (1.6-2.3) mg/dL Total Bilirubin (0.2-1.3) mg/dL AST (14-36) U/L ALT (4-34) U/L Alkaline Phosphatase (38-126) U/L Troponin I (0.000-0.034) ng/mL Total Protein (6.3-8.2) g/dL Albumin (3.5-5.0) g/dL Urine Color Light Yellow Urine Appearance Clear (Clear) Urine pH 7.0 (5.0-8.0) Ur Specific Agar 1.007 (1.001-1.035) Urine Protein Negative (Negative) Urine Glucose (UA) Negative (Negative) Urine Ketones Negative (Negative) Urine Blood Negative (Negative) Urine Nitrite Negative (Negative) Urine Bilirubin Negative (Negative) Urine Urobilinogen <2.0 (<2.0) mg/dL Ur Leukocyte Esterase Negative (Negative) 12/21/21 12/21/21 12/21/21 Range/Units 13:14 13:14 13:14 WBC (3.8-10.6) k/uL RBC (3.80-5.40) m/uL Hgb (11.4-16.0) gm/dL Hct (34.0-46.0) % MCV (80.0-100.0) fL MCH (25.0-35.0) pg MCHC (31.0-37.0) g/dL RDW (11.5-15.5) % Plt Count (150-450) k/uL MPV Neutrophils % Neutrophils % (Manual) % Lymphocytes % Lymphocytes % (Manual) % Monocytes % Monocytes % (Manual) % Eosinophils % Eosinophils % (Manual) % Basophils % Basophils % (Manual) % Neutrophils # Neutrophils # (Manual) (1.3-7.7) k/uL Lymphocytes # Lymphocytes # (Manual) (1.0-4.8) k/uL Monocytes # Monocytes # (Manual) (0-1.0) k/uL Eosinophils # Eosinophils # (Manual) (0-0.7) k/uL Basophils # Basophils # (Manual) (0-0.2) k/uL Nucleated RBCs (0-0) /100 WBC Manual Slide Review RBC Morphology PT (9.0-12.0) sec INR (<1.2) APTT (22.0-30.0) sec Sodium 138 (137-145) mmol/L Potassium 4.7 (3.5-5.1) mmol/L Chloride 103 (98-107) mmol/L Carbon Dioxide 26 (22-30) mmol/L Anion Gap 9 mmol/L BUN 21 H (7-17) mg/dL Creatinine 1.00 (0.52-1.04) mg/dL Est GFR (CKD-EPI)AfAm 60 (>60 ml/min/1.73 sqM) Est GFR (CKD-EPI)NonAf 52 (>60 ml/min/1.73 sqM) Glucose 135 H (74-99) mg/dL Plasma Lactic Acid Jamie 1.9 (0.7-2.0) mmol/L Calcium 9.9 (8.4-10.2) mg/dL Magnesium 1.2 L (1.6-2.3) mg/dL Total Bilirubin 0.7 (0.2-1.3) mg/dL AST 38 H (14-36) U/L ALT 22 (4-34) U/L Alkaline Phosphatase 67 (38-126) U/L Troponin I <0.012 (0.000-0.034) ng/mL Total Protein 7.8 (6.3-8.2) g/dL Albumin 4.6 (3.5-5.0) g/dL Urine Color Urine Appearance (Clear) Urine pH (5.0-8.0) Ur Specific Agar (1.001-1.035) Urine Protein (Negative) Urine Glucose (UA) (Negative) Urine Ketones (Negative) Urine Blood (Negative) Urine Nitrite (Negative) Urine Bilirubin (Negative) Urine Urobilinogen (<2.0) mg/dL Ur Leukocyte Esterase (Negative) Disposition Clinical Impression: Hypomagnesemia, Near syncope Disposition: ADMITTED IP TO THIS [facility] Referrals: Srinivas Burdick DO [Primary Care Provider] - 1-2 days Time of Disposition: 14:48
[2021-12-21 13:35] LABS: Albumin 4.6 g/dL (3.5-5.0); Calcium 9.9 mg/dL (8.4-10.2); Magnesium 1.2 mg/dL (1.6-2.3); Potassium 4.7 mmol/L (3.5-5.1); Total Bilirubin 0.7 mg/dL (0.2-1.3); Total Protein 7.8 g/dL (6.3-8.2)
--- NOTE | 2021-12-21 13:46 | XR ---
EXAMINATION TYPE: XR chest 2V DATE OF EXAM: 12/21/2021 COMPARISON: Chest x-ray 03/25/2018 HISTORY: Dizziness, weakness TECHNIQUE: Frontal and lateral views of the chest are obtained. FINDINGS: There is no focal air space opacity, pleural effusion, or pneumothorax seen. The cardiac silhouette size is thought to be stable accounting for differences in technique, rotation. The osse ous structures are intact and there is multilevel spondylosis. Surgical clips are present right upper quadrant. Aorta is dense. IMPRESSION: No acute cardiopulmonary process.
[2021-12-21 13:48] LABS: HCT 41.5 % (34.0-46.0); HGB 13.8 gm/dL (11.4-16.0); MCH 32.9 pg (25.0-35.0); MCHC 33.2 g/dL (31.0-37.0); Mean Platelet Volume 8.1; Platelet Count 236 k/uL (150-450); RBC 4.19 m/uL (3.80-5.40); RDW 13.7 % (11.5-15.5); WBC 6.3 k/uL (3.8-10.6)
--- NOTE | 2021-12-21 14:12 | CT ---
EXAMINATION TYPE: CT brain wo con DATE OF EXAM: 12/21/2021 COMPARISON: CT dated 06/22/2018 HISTORY: Dizziness CT DLP: 1071.4 mGycm Automated exposure control for dose reduction was used. TECHNIQUE: CT scan of the brain is performed without IV contrast administration. FINDINGS: Age-related brain volume loss changes. 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 8mm right high frontal convexity calcified meningioma versus calcified dural plaque, with another 10 mm partially calcified pleural-based lesion at the same level posteriorly (image 39, series 201). No acute intracranial hemorrhage. No gross acute cortical infarct. No midline shift, herniation or ve ntriculectomy. Unremarkable basal cisterns, sella and CP angles. No gross space-occupying lesion, vas ogenic edema or mass effect. No gross orbital abnormality. Chronic inflammatory changes of the right maxillary sinus and left sphe noid sinus compartment with suspected previous sinus surgery. Clear mastoid air cells. No aggressive bone lesion. IMPRESSION: No acute intracranial hemorrhage or gross acute cortical infarct. Questionable small meningiomas near the vertex on the right side without significant mass effect as described above. This can be further assessed by elective enhanced MRI of the brain. Other incidental findings as described above.
[2021-12-21 14:19] LABS: Partial Thromboplastin Time 22.1 sec (22.0-30.0); Prothrombin Time 10.7 sec (9.0-12.0)
[2021-12-21 14:38] LABS: Appearance,Urine Clear (Clear); Bilirubin,Urine Negative (Negative); Blood,Urine Negative (Negative); Color,Urine Light Yellow; Glucose,Urine (UA) Negative (Negative); Ketones,Urine Negative (Negative); Leukocyte Esterase,Urine Negative (Negative); Nitrite,Urine Negative (Negative); Protein,Urine Negative (Negative); Specific Gravity,Urine 1.007 (1.001-1.035); Urobilinogen,Urine <2.0 mg/dL (<2.0)
[2021-12-21 14:43] LABS: Basophils # (M) 0.13 k/uL (0-0.2); Eosinophils # (M) 0.13 k/uL (0-0.7); Lymphocytes # (M) 2.08 k/uL (1.0-4.8); Monocytes # (M) 0.25 k/uL (0-1.0); Neutrophils # (M) 3.72 k/uL (1.3-7.7); Neutrophils % (M) 59 %; Nucleated Red Blood Cells 0 /100 WBC (0-0); RBC Morphology Normal; Total Cells Counted 100
[2021-12-21] MEDS: MAGNESIUM SULFATE-D5W PMX 1 GM in DEXTROSE/WATER 1 100ML.BAG IVPB SCH ×2 (15:03→17:52)
[2021-12-21] MEDS ORDERED: SODIUM CHLORIDE 0.9% 1,000 ML IV ONE (15:20)
--- NOTE | 2021-12-21 17:01 | P.CRDCN ---
History of Present Illness Consult reason: sycope History of present illness: Known case of [id number] diabetes hypertension comes to Hospital with recurrent episodes of near syncope. She states that she is unstable on her feet and has had episodes of near syncope. Multiple such episodes had happened. There is a daughter at bedside. There is no history of complete loss of consciousness. There is no history of seizures. There is no history of focal neurological deficits. There is no prior history of coronary artery disease or congestive heart failure. She sees Dr. Lopez in the office in a regular basis. Apparently had a cardiac catheterization in the past but did not require angioplasty. She states that she has multiple leaky valves. EKG on this admission shows sinus rhythm and is within normal limits rhythm strip show that she is in sinus rhythm troponin is negative hemoglobin is normal renal functions are normal. The exact etiology for her near syncope is unclear if computed tomography scan of the brain did not reveal any acute abnormality there is a questionable small meningioma noted. I will let him watch her on telemetry. I will obtain a 2-D echo. I will see how her symptoms evolve and decide on if she needs any other workup. Constitutional: Denies chills. Denies fever. Eyes: Denies blurred vision. Denies pain. Ears, nose, mouth and throat: Denies headache. Denies sore throat. Significant hearing impairment Cardiovascular: Denies chest pain. Denies shortness of breath. Respiratory: Denies cough. Gastrointestinal: Denies abdominal pain. Denies diarrhea. Denies nausea. Denies vomiting. Musculoskeletal: Denies myalgias. Integumentary: Denies pruritus. Denies rash. Neurological: Denies numbness. Denies weakness. Recurrent near syncope and unstable gait Psychiatric: Denies anxiety. Denies depression. Endocrine: Denies fatigue. Denies weight change. Genitourinary: Denies burning, hematuria, frequency of urination. Hematological: No anemia or excess bleeding. General: The patient is awake and alert, in no distress, and does not appear acutely ill. Skin: Skin is warm and dry and no rashes or lesions are noted. Eye: Pupils are equal, round and reactive to light, extra-ocular movements are intact; there is normal conjunctiva bilaterally. Ears, nose, mouth and throat: There are moist mucous membranes and no oral lesions. Neck: The neck is supple, there is no tenderness or JVD. Cardiovascular: There is a regular rate and rhythm. No murmur, rub or gallop is appreciated. Respiratory: Lungs are clear to auscultation, respirations are non-labored, breath sounds are equal. Gastrointestinal: Soft, non-distended, non-tender abdomen without masses or organomegaly noted. There is no rebound or guarding present. Bowel sounds are unremarkable. Back: There is no tenderness to palpation in the midline. There is no obvious deformity. Musculoskeletal: Normal ROM, no tenderness, There is no pedal edema. There is no calf tenderness or swelling. Extremities: No edema. Vascular: Femoral pulse is normal. Posterior tibial pulses are normal .Dorsalis pedis is palpable. Neurological: CN II-XII intact. There are no obvious motor or sensory deficits. Speech is normal. Psychiatric: Cooperative, appropriate mood & affect, normal judgment. Assessment and plan: Near syncope rule out cardiac causes Hypertension I will obtain a 2-D echo watch her on telemetry unit decide on further course of action based on these initial tests Past Medical History Past Medical History: Cancer, GERD/Reflux, Hearing Disorder / Deafness, Hyperlipidemia, Hypertension, Osteoarthritis (OA) Additional Past Medical History / Comment(s): HX OF SKIN CA, IBS, INCONTINENCE OF BLADDER, HX OF HIATAL HERNIA, THYROID NODULES , CATARACT BILATERAL EYES History of Any Multi-Drug Resistant Organisms: None Reported Past Surgical History: Cholecystectomy, Heart Catheterization, Hysterectomy, Orthopedic Surgery Additional Past Surgical History / Comment(s): SINUS SX, SX ARM, FOOT, Past Anesthesia/Blood Transfusion Reactions: No Reported Reaction Past Psychological History: Anxiety Smoking Status: Never smoker Past Alcohol Use History: None Reported Past Drug Use History: None Reported - Past Family History Daughter(s) Family Medical History: Cancer, Deep Vein Thrombosis (DVT) Additional Family Medical History / Comment(s): ONE DAUGHTER KIDNEY CA, ONE DAUGHTER HX OF DVT Sister(s) Family Medical History: Cancer Additional Family Medical History / Comment(s): 2 SISTERS WITH BREAST CA Medications and Allergies Home Medications Medication Instructions Recorded Confirmed Type Lisinopril-Hctz 10-12.5 mg 1 tab PO BID 06/09/18 12/21/21 History [Zestoretic 10-12.5] Omeprazole Magnesium [PriLOSEC OTC] 20 mg PO DAILY 06/09/18 12/21/21 History Oxybutynin Chloride [Ditropan] 5 mg PO DAILY 06/09/18 12/21/21 History diazePAM [Valium] 1 mg PO BID PRN 06/09/18 12/21/21 History Aspirin EC [Ecotrin Low Dose] 81 mg PO DAILY PRN 12/21/21 12/21/21 History Cholecalciferol [Vitamin D3 (25 25 mcg PO DAILY 12/21/21 12/21/21 History Mcg = 1000 Iu)] DULoxetine HCL [Cymbalta] 30 mg PO BID 12/21/21 12/21/21 History Fluocinonide [Lidex .05%] 1 applic TOPICAL DAILY 12/21/21 12/21/21 History Ipratropium-Albuterol Nebulize 3 ml INHALATION RT-HS 12/21/21 12/21/21 History [Duoneb 0.5 mg-3 mg/3 ml Soln] Isosorbide Mononitrate ER [Imdur] 30 mg PO DAILY 12/21/21 12/21/21 History Multivitamins, Thera [Multivitamin 1 tab PO DAILY 12/21/21 12/21/21 History (formulary)] carvediloL [Coreg] 6.25 mg PO BID 12/21/21 12/21/21 History hydrOXYzine pamoate [hydrOXYzine 25 mg PO TID PRN 12/21/21 12/21/21 History PAMOATE] metFORMIN HCL 500 mg PO W/SUPPER 12/21/21 12/21/21 History Allergies Allergy/AdvReac Type Severity Reaction Status Date / Time No Known Allergies Allergy Verified 12/21/21 14:37 Physical Exam Vitals: Vital Signs Temp Pulse Resp BP Pulse Ox 12/21/21 12:26 98.2 F 89 16 126/76 96 Intake and Output 12/21/21 12/21/21 12/21/21 06:59 14:59 22:59 Other: Weight 71.668 kg Results 12/21/21 13:14 12/21/21 13:14 Cardiac Enzymes 12/21/21 12/21/21 Range/Units 13:14 13:14 AST 38 H (14-36) U/L Troponin I <0.012 (0.000-0.034) ng/mL Coagulation 12/21/21 Range/Units 13:14 PT 10.7 (9.0-12.0) sec APTT 22.1 (22.0-30.0) sec CBC 12/21/21 Range/Units 13:14 WBC 6.3 (3.8-10.6) k/uL RBC 4.19 (3.80-5.40) m/uL Hgb 13.8 (11.4-16.0) gm/dL Hct 41.5 (34.0-46.0) % Plt Count 236 (150-450) k/uL Comprehensive Metabolic Panel 12/21/21 Range/Units 13:14 Sodium 138 (137-145) mmol/L Potassium 4.7 (3.5-5.1) mmol/L Chloride 103 (98-107) mmol/L Carbon Dioxide 26 (22-30) mmol/L BUN 21 H (7-17) mg/dL Creatinine 1.00 (0.52-1.04) mg/dL Glucose 135 H (74-99) mg/dL Calcium 9.9 (8.4-10.2) mg/dL AST 38 H (14-36) U/L ALT 22 (4-34) U/L Alkaline Phosphatase 67 (38-126) U/L Total Protein 7.8 (6.3-8.2) g/dL Albumin 4.6 (3.5-5.0) g/dL Current Medications Generic Name Dose Route Start Last Admin Trade Name Freq PRN Reason Stop Dose Admin Magnesium Sulfate/Dextrose 1 100 mls @ 100 mls/hr 12/21/21 15:00 12/21/21 15:03 gm/ IV Solution IVPB 12/21/21 16:59 100 mls/hr Q1H ZOE Administration Sodium Chloride 1,000 mls @ 75 mls/hr 12/21/21 15:20 12/21/21 15:39 Saline 0.9% IV 12/22/21 04:39 75 mls/hr .[id number] ONE Administration Intake and Output 12/21/21 12/21/21 12/21/21 06:59 14:59 22:59 Other: Weight 71.668 kg Patient Weight 12/22/21 06:59 Weight 71.668 kg 12/21/21 13:14 12/21/21 13:14
[2021-12-21] MEDS ORDERED: diazePAM 2 MG TAB PO PRN (17:11)
[2021-12-21] MEDS ORDERED: hydrOXYzine pamoate 25 MG CAP PO PRN (17:11)
[2021-12-21] MEDS ORDERED: ACETAMINOPHEN TAB 325 MG TAB PO PRN (17:13)
[2021-12-21] MEDS ORDERED: LACTULOSE 20 GM/30 ML CUP PO PRN (17:13)
[2021-12-21] MEDS ORDERED: NALOXONE 0.4 MG/ML 1 ML VIAL IV PRN (17:13)
[2021-12-21] MEDS ORDERED: MELATONIN 3 MG TABLET PO PRN (17:13)
[2021-12-21] MEDS ORDERED: ONDANSETRON 4 MG/2 ML VIAL IVP PRN (17:13)
[2021-12-21] MEDS ORDERED: CALCIUM CARBONATE 500 MG CHEWABLE PO PRN (17:13)
[2021-12-21] MEDS ORDERED: LORazepam 0.5 MG TAB PO PRN (17:14)
[2021-12-21] MEDS: metFORMIN 500 MG TAB PO SCH (17:52)
--- NOTE | 2021-12-21 18:10 | P.HPIM ---
History of Present Illness H&P Date: 12/21/21 Chief Complaint: Newly past out This is a very pleasant 86-year-old patient who follows with Dr. Burdick. Chronic stable medical conditions include GERD, hypertension, hyperlipidemia, urinary incontinence, anxiety depression, chronic gait dysfunction uses a walker. She has a very itchy condition on the scalp for which she follows a Dr. Little. Several medications have been tried unsuccessfully. She is also been losing hair and constantly he is itching her scalp. Patient today presents as she really felt weak in the legs and nearly passed out. She lives with her grandson. Consider she eats and subcu from both of them. Denies any headache dizziness. No trouble vision. No changes in speech. No focal weakness. Denies any obvious palpitations. She nearly passed out 2 today. Review of systems: GEN.: Tired EYES: None HEENT: As above NECK: None RESPIRATORY: None CARDIOVASCULAR: None GASTROINTESTINAL: None GENITOURINARY: Urine incontinence MUSCULOSKELETAL: Joint pains LYMPHATICS: None HEMATOLOGICAL: None PSYCHIATRY: Bit forgetful NEUROLOGICAL: Uses a walker Past medical history to include: Heart eating, GERD, hyperlipidemia, hypertension, osteoarthritis, urinary incontinence, hiatal hernia, or nodules anxiety Social history: Nonsmoker. No alcohol. Lives with her grandson. Uses a walker. Family history: kidney cancer. Physical examination: VITAL SIGNS: 98.2, 89, 16, 126/76, 96% room air] GENERAL: BMI 29.9, reclining in bed awake. EYES: Pupils equal. Conjunctiva normal. HEENT: External appearance of nose and ears normal, oral cavity grossly normal scant scalp hair. Small raised papular lesions throughout the scalp. NECK: JVD not raised; masses not palpable. HEART: First and second heart sounds are normal; no edema. LUNGS: Respiratory rate normal; clear to auscultation. ABDOMEN: Soft, nontender, liver spleen not palpable, no masses palpable. PSYCH: Alert and oriented x3; mood and affect normal. MUSCULOSKELETAL:No Clubbing/cyanosis;muscles-grossly intact evidence of OA in several joints NEUROLOGICAL: Cranial nerves grossly intact; no facial asymmetry, power and sensation grossly intact. LYMPHATICS: No lymph nodes palpable in the axilla and neck INVESTIGATIONS, reviewed in the clinical context: White count 6.3 hemoglobin 13.8 platelets 236 potassium 4.7 BUN 21 creatinine 1.0 EKG tracing personally reviewed by me-normal sinus rhythm. Chest x-ray film -nothing acute CT brain without contrast: Nothing acute. Small meningioma. Assessment and plan: -Patient presents with 2 episodes of near syncope. Never passed out. No focal weakness. No seizure activity noted. We will check for orthostatic. Rule out arrhythmia. -Essential hypertension Coreg 6.25 mg twice a day Zestoretic 10/12.5 one tablet twice a day -Anxiety/depression otherwise specified Cymbalta 30 mg twice a day -Chronic scalp very a itchy lesions Lidex 0.05% topical daily. Patient will benefit from a skin biopsy follow-up a Dr. Little. 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 Subcu Lovenox. Gentle hydration. Telemetry. Check orthostatics. Care was discussed with the patient. Past Medical History Past Medical History: Cancer, GERD/Reflux, Hearing Disorder / Deafness, Hyperlipidemia, Hypertension, Osteoarthritis (OA) Additional Past Medical History / Comment(s): HX OF SKIN CA, IBS, INCONTINENCE OF BLADDER, HX OF HIATAL HERNIA, THYROID NODULES , CATARACT BILATERAL EYES History of Any Multi-Drug Resistant Organisms: None Reported Past Surgical History: Cholecystectomy, Heart Catheterization, Hysterectomy, Orthopedic Surgery Additional Past Surgical History / Comment(s): SINUS SX, SX ARM, FOOT, Past Anesthesia/Blood Transfusion Reactions: No Reported Reaction Past Psychological History: Anxiety Smoking Status: Never smoker Past Alcohol Use History: None Reported Past Drug Use History: None Reported - Past Family History Daughter(s) Family Medical History: Cancer, Deep Vein Thrombosis (DVT) Additional Family Medical History / Comment(s): ONE DAUGHTER KIDNEY CA, ONE DAUGHTER HX OF DVT Sister(s) Family Medical History: Cancer Additional Family Medical History / Comment(s): 2 SISTERS WITH BREAST CA Medications and Allergies Home Medications Medication Instructions Recorded Confirmed Type Lisinopril-Hctz 10-12.5 mg 1 tab PO BID 06/09/18 12/21/21 History [Zestoretic 10-12.5] Omeprazole Magnesium [PriLOSEC OTC] 20 mg PO DAILY 06/09/18 12/21/21 History Oxybutynin Chloride [Ditropan] 5 mg PO DAILY 06/09/18 12/21/21 History diazePAM [Valium] 1 mg PO BID PRN 06/09/18 12/21/21 History Aspirin EC [Ecotrin Low Dose] 81 mg PO DAILY PRN 12/21/21 12/21/21 History Cholecalciferol [Vitamin D3 (25 25 mcg PO DAILY 12/21/21 12/21/21 History Mcg = 1000 Iu)] DULoxetine HCL [Cymbalta] 30 mg PO BID 12/21/21 12/21/21 History Fluocinonide [Lidex .05%] 1 applic TOPICAL DAILY 12/21/21 12/21/21 History Ipratropium-Albuterol Nebulize 3 ml INHALATION RT-HS 12/21/21 12/21/21 History [Duoneb 0.5 mg-3 mg/3 ml Soln] Isosorbide Mononitrate ER [Imdur] 30 mg PO DAILY 12/21/21 12/21/21 History Multivitamins, Thera [Multivitamin 1 tab PO DAILY 12/21/21 12/21/21 History (formulary)] carvediloL [Coreg] 6.25 mg PO BID 12/21/21 12/21/21 History hydrOXYzine pamoate [hydrOXYzine 25 mg PO TID PRN 12/21/21 12/21/21 History PAMOATE] metFORMIN HCL 500 mg PO W/SUPPER 12/21/21 12/21/21 History Allergies Allergy/AdvReac Type Severity Reaction Status Date / Time No Known Allergies Allergy Verified 12/21/21 14:37 Physical Exam Vitals: Vital Signs Temp Pulse Resp BP Pulse Ox 12/21/21 12:26 98.2 F 89 16 126/76 96 Intake and Output 12/21/21 12/21/21 12/21/21 06:59 14:59 22:59 Other: Weight 71.668 kg Results CBC & Chem 7: 12/21/21 13:14 12/21/21 13:14 Labs: Abnormal Lab Results - Last 24 Hours (Table) 12/21/21 Range/Units 13:14 BUN 21 H (7-17) mg/dL Glucose 135 H (74-99) mg/dL Magnesium 1.2 L (1.6-2.3) mg/dL AST 38 H (14-36) U/L
[2021-12-21 20:14] LABS: Glucose,Whole Blood 96 mg/dL (75-99)
[2021-12-21] MEDS: IPRATROPIUM-ALBUTEROL 3 ML NEB INHALATION SCH (20:30)
[2021-12-21] MEDS: carvediloL 6.25 MG TAB PO SCH (21:13)
[2021-12-21] MEDS: DULoxetine HCL 30 MG CAPSULE.DR PO SCH (21:13)
[2021-12-22 06:04] LABS: Glucose,Whole Blood 117 mg/dL (75-99)
[2021-12-22] MEDS: PANTOPRAZOLE 40 MG TABLET PO SCH (06:23)
[2021-12-22] MEDS ORDERED: ASPIRIN 81 MG PO PRN (09:00)
[2021-12-22] MEDS ORDERED: BETAMETHASONE DIPROPIONATE 0.05% OINTMENT 45 GM TUBE TOPICAL SCH (09:00)
[2021-12-22] MEDS: carvediloL 6.25 MG TAB PO SCH ×2 (09:25→20:00)
[2021-12-22] MEDS: ISOSORBIDE MONONITRATE ER 30 MG TAB.ER.24H PO SCH (09:25)
[2021-12-22] MEDS: OXYBUTYNIN CHLORIDE 5 MG TAB PO SCH (09:25)
[2021-12-22] MEDS: MULTIVITAMINS, THERA 1 EACH TAB PO SCH (09:25)
[2021-12-22] MEDS: DULoxetine HCL 30 MG CAPSULE.DR PO SCH ×2 (09:25→20:00)
[2021-12-22] MEDS: BETAMETHASONE DIPROPIONATE 0.05% CREAM 15 GM TUBE TOPICAL SCH (09:25)
[2021-12-22 11:06] LABS: Glucose,Whole Blood 157 mg/dL (75-99)
--- NOTE | 2021-12-22 11:11 | ECHOF ---
Referral Reason:near syncope MEASUREMENTS -------- HEIGHT: 154.9 cm WEIGHT: 71.7 kg BP: RVIDd: 2.8 cm (< 3.3) IVSd: 1.3 cm (0.6 - 1.1) LVIDd: 2.7 cm (3.9 - 5.3) LVPWd: 1.3 cm (0.6 - 1.1) IVSs: 1.8 cm LVIDs: 1.9 cm LVPWs: 1.7 cm LAESV Index (A-L): 20.27 ml/m Ao Diam: 3.1 cm (2.0 - 3.7) AV Cusp: 1.8 cm (1.5 - 2.6) LA Diam: 2.4 cm (2.7 - 3.8) MV EXCURSION: 12.842 mm (> 18.000) MV EF SLOPE: 45 mm/s (70 - 150) EPSS: 0.6 cm MV E Zafar: 0.98 m/s MV DecT: 251 ms MV A Zafar: 0.96 m/s MV E/A Ratio: 1.02 RAP: 5.00 mmHg RVSP: 29.52 mmHg FINDINGS -------- This was a technically good study. The left ventricular size is normal. There is mild concentric left ventricular hypertrophy. Overa ll left ventricular systolic function is normal with, an EF between 55 - 60 %. Normal LAP Grade 1 D iastolic Dysfunction. The right ventricle is normal in size. The left atrial size is normal. Normal LA size by volume 22+/-6 ml/m2. The right atrial size is normal. The aortic valve is trileaflet and appears structurally normal. The mitral valve is normal. There is trace mitral regurgitation. The tricuspid valve appears structurally normal. Mild tricuspid regurgitation present. Right vent ricular systolic pressure is normal at < 35 mmHg. There is no pulmonic regurgitation present. The aortic root size is normal. Normal inferior vena cava with normal inspiratory collapse consistent with estimated right atrial pre ssure of 5 mmHg. There is no pericardial effusion. CONCLUSIONS -------- 1. The left ventricular size is normal. 2. There is mild concentric left ventricular hypertrophy. 3. Overall left ventricular systolic function is normal with, an EF between 55 - 60 %. 4. Normal LAP Grade 1 Diastolic Dysfunction. 5. There is trace mitral regurgitation. 6. Mild tricuspid regurgitation present. 7. There is no pericardial effusion. RESOURCE AGENT: Kira Colvin RDCS
--- NOTE | 2021-12-22 14:09 | P.PN ---
Subjective this is an 86-year-old female with a past medical history of mild coronary artery disease, hypertension, type 2 diabetes, SVT, chronic dizziness, mitral regurgitation and tricuspid regurgitation. She follows with Dr. Nur. We are consulted for evaluation of near syncope. Patient presented with an episode of feeling unstable on her feet and episodes of near syncope. No loss of consciousness. Patient seen and examined at bedside, no acute distress. She denies any dizziness, lightheadedness, chest pain or shortness of breath. Telemetry reviewed patient maintaining sinus mechanism heart rate 60s70s, no arrhythmia noted. Her orthostatic vital signs were negative Echocardiogram revealed an EF of 5560 percent, mild mitral and tricuspid regu rgitation Her vital signs are stable BP 112/77 hR 68, afebrile 99% on room air GENERAL: Well-appearing, well-nourished and in no acute distress. NECK: Supple without JVD or thyromegaly. LUNGS: Breath sounds clear to auscultation bilaterally. Respiration equal and unlabored. No wheezes, rales or rhonchi. HEART: Regular rate and rhythm, systolic ejection murmur at apex. S1 and S2 heard. EXTREMITIES: Normal range of motion, no edema. No clubbing or cyanosis. Peripheral pulses intact. ASSESSMENT Near syncope History of hypertension History of SVT Mild nonobstructive coronary artery disease Type 2 Diabetes Mitral regurgitation Tricuspid regurgitation PLAN At this time, no clear cardiac etiology of near syncope. We will continue current cardiac medications at this time. Further recommendations based on clinical course Nurse Practitioner note has been reviewed, I agree with a documented findings and plan of care. Patient was seen and examined. Objective - Vital Signs Vital signs: Vital Signs Temp 98.3 F 12/22/21 08:00 Pulse 68 12/22/21 08:00 Resp 18 12/22/21 08:00 BP 112/77 12/22/21 08:00 Pulse Ox 99 12/22/21 08:00 Intake & Output 12/21/21 12/22/21 12/22/21 18:59 06:59 18:59 Intake Total 312 120 Balance 312 120 Weight 71.668 kg 71.668 kg Intake: Intake, IV Titration 75 Amount Sodium Chloride 0.9% 1, 75 000 ml @ 75 mls/hr IV . [id number] ONE Rx#:[id number] Oral 237 120 Other: Voiding Method Toilet Toilet # Voids 1 1 # Bowel Movements 1 - Labs CBC & Chem 7: 12/21/21 13:14 12/21/21 13:14 Labs: Abnormal Lab Results - Last 24 Hours (Table) 12/22/21 12/22/21 Range/Units 06:02 11:04 POC Glucose (mg/dL) 117 H 157 H (75-99) mg/dL
--- NOTE | 2021-12-22 14:58 | P.PN ---
Progress Note - Text Progress Note Date: 12/22/21 Chief Complaint: Newly past out This is a very pleasant 86-year-old patient who follows with Dr. Burdick. Chronic stable medical conditions include GERD, hypertension, hyperlipidemia, urinary incontinence, anxiety depression, chronic gait dysfunction uses a walker. She has a very itchy condition on the scalp for which she follows a Dr. Little. Several medications have been tried unsuccessfully. She is also been losing hair and constantly he is itching her scalp. Patient today presents as she really felt weak in the legs and nearly passed out. She lives with her grandson. Consider she eats and subcu from both of them. Denies any headache dizziness. No trouble vision. No changes in speech. No focal weakness. Denies any obvious palpitations. She nearly passed out 2 today. December 22: Patient is really concerned about her scalp lesions. Daughter the bedside. Discussed at length. I did put a call out to Dr. Little's office to call me back to discuss her diagnosis. She has not found to be orthostatic. Patient will be ambulated and see how she does. Active Medications Acetaminophen (Acetaminophen Tab 325 Mg Tab) 650 mg PO Q6HR PRN PRN Reason: Mild Pain or Fever > 100.5 Last Admin: 12/22/21 05:31 Dose: 650 mg Documented by: Albuterol/Ipratropium (Ipratropium-Albuterol 3 Ml Neb) 3 ml INHALATION RT-HS [facility] Last Admin: 12/21/21 20:30 Dose: 3 ml Documented by: Aspirin (Aspirin 81 Mg) 81 mg PO DAILY PRN PRN Reason: Pain Betamethasone Dipropionate (Betamethasone Dipropionate 0.05% Cream 15 Gm Tube) 1 applic TOPICAL DAILY [facility] Last Admin: 12/22/21 09:25 Dose: 1 applic Documented by: Calcium Carbonate/Glycine (Calcium Carbonate 500 Mg Chewable) 1,000 mg PO Q4HR PRN PRN Reason: Dyspepsia Carvedilol (Carvedilol 6.25 Mg Tab) 6.25 mg PO BID [facility] Last Admin: 12/22/21 09:25 Dose: 6.25 mg Documented by: Duloxetine HCl (Duloxetine Hcl 30 Mg Capsule.) 30 mg PO BID [facility] Last Admin: 12/22/21 09:25 Dose: 30 mg Documented by: Hydroxyzine Pamoate (Hydroxyzine Pamoate 25 Mg Cap) 25 mg PO TID PRN PRN Reason: Anxiety Isosorbide Mononitrate (Isosorbide Mononitrate Er 30 Mg Tab.Er.24h) 30 mg PO DAILY [facility] Last Admin: 12/22/21 09:25 Dose: 30 mg Documented by: Lactulose (Lactulose 20 Gm/30 Ml Cup) 20 gm PO DAILY PRN PRN Reason: Constipation Lorazepam (Lorazepam 0.5 Mg Tab) 0.5 mg PO Q8H PRN PRN Reason: Anxiety Melatonin (Melatonin 3 Mg Tablet) 3 mg PO HS PRN PRN Reason: Insomnia Metformin HCl (Metformin 500 Mg Tab) 500 mg PO W/SUPPER [facility] Last Admin: 12/21/21 17:52 Dose: 500 mg Documented by: Multivitamins (Multivitamins, Thera 1 Each Tab) 1 each PO DAILY [facility] Last Admin: 12/22/21 09:25 Dose: 1 each Documented by: Naloxone HCl (Naloxone 0.4 Mg/Ml 1 Ml Vial) 0.2 mg IV Q2M PRN PRN Reason: Opioid Reversal Ondansetron HCl (Ondansetron 4 Mg/2 Ml Vial) 4 mg IVP Q8HR PRN PRN Reason: Nausea And Vomiting Oxybutynin Chloride (Oxybutynin Chloride 5 Mg Tab) 5 mg PO DAILY [facility] Last Admin: 12/22/21 09:25 Dose: 5 mg Documented by: Pantoprazole Sodium (Pantoprazole 40 Mg Tablet) 40 mg PO DAILY@0730 [facility] Last Admin: 12/22/21 06:23 Dose: 40 mg Documented by: Past medical history to include: Heart eating, GERD, hyperlipidemia, hypertension, osteoarthritis, urinary incontinence, hiatal hernia, or nodules anxiety Social history: Nonsmoker. No alcohol. Lives with her grandson. Uses a walker. Family history: kidney cancer. Physical examination: VITAL SIGNS: 98.3, 68, 18, 112/77, 99% room air GENERAL: BMI 29.9, reclining in bed awake. EYES: Pupils equal. Conjunctiva normal. HEENT: External appearance of nose and ears normal, oral cavity grossly normal scant scalp hair. Small raised papular lesions throughout the scalp. NECK: JVD not raised; masses not palpable. HEART: First and second heart sounds are normal; no edema. LUNGS: Respiratory rate normal; clear to auscultation. ABDOMEN: Soft, nontender, liver spleen not palpable, no masses palpable. PSYCH: Alert and oriented x3; mood and affect normal. MUSCULOSKELETAL:No Clubbing/cyanosis;muscles-grossly intact evidence of OA in several joints INVESTIGATIONS, reviewed in the clinical context: White count 6.3 hemoglobin 13.8 platelets 236 potassium 4.7 BUN 21 creatinine 1.0 EKG tracing personally reviewed by me-normal sinus rhythm. Chest x-ray film -nothing acute CT brain without contrast: Nothing acute. Small meningioma. Assessment and plan: -Patient presents with 2 episodes of near syncope. Never passed out. No focal weakness. No seizure activity noted. We will check for orthostatic. Rule out arrhythmia. -Essential hypertension Coreg 6.25 mg twice a day Zestoretic 12.5 one tablet twice a day -Anxiety/depression otherwise specified Cymbalta 30 mg twice a day -Chronic scalp very a itchy lesions Lidex 0.05% topical daily. Patient will benefit from a skin biopsy follow-up a Dr. Little. 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 baseline Fall precautions Continue current medication. Ambulate patient. Recheck orthostatic. Call made to [facility] will discuss with them about the scalp lesion diagnosis. Discussed with daughter.
[2021-12-22 16:36] LABS: Glucose,Whole Blood 127 mg/dL (75-99)
[2021-12-22] MEDS: metFORMIN 500 MG TAB PO SCH (17:45)
[2021-12-22] MEDS: IPRATROPIUM-ALBUTEROL 3 ML NEB INHALATION SCH (19:41)
[2021-12-22 20:25] LABS: Glucose,Whole Blood 166 mg/dL (75-99)
[2021-12-23 06:05] LABS: Glucose,Whole Blood 114 mg/dL (75-99)
[2021-12-23] MEDS: PANTOPRAZOLE 40 MG TABLET PO SCH (06:46)
[2021-12-23] MEDS: OXYBUTYNIN CHLORIDE 5 MG TAB PO SCH (08:26)
[2021-12-23] MEDS: carvediloL 6.25 MG TAB PO SCH ×2 (08:26→20:53)
[2021-12-23] MEDS: MULTIVITAMINS, THERA 1 EACH TAB PO SCH (08:26)
[2021-12-23] MEDS: DULoxetine HCL 30 MG CAPSULE.DR PO SCH ×2 (08:26→20:53)
[2021-12-23] MEDS: ISOSORBIDE MONONITRATE ER 30 MG TAB.ER.24H PO SCH (08:26)
[2021-12-23] MEDS: BETAMETHASONE DIPROPIONATE 0.05% CREAM 15 GM TUBE TOPICAL SCH (08:28)
[2021-12-23 12:18] LABS: Glucose,Whole Blood 104 mg/dL (75-99)
[2021-12-23] MEDS: FLUDROCORTISONE 0.1 MG TAB PO SCH ×2 (12:49→20:53)
[2021-12-23] MEDS: FAMOTIDINE 20 MG TAB PO SCH ×2 (12:49→20:53)
[2021-12-23] MEDS: MAGNESIUM OXIDE 400 MG TAB PO SCH ×3 (12:53→20:55)
--- NOTE | 2021-12-23 14:02 | P.PN ---
Subjective this is an 86-year-old female with a past medical history of mild coronary artery disease, hypertension, type 2 diabetes, SVT, chronic dizziness, mitral regurgitation and tricuspid regurgitation. She follows with Dr. Nur. We are consulted for evaluation of near syncope. Patient presented with an episode of feeling unstable on her feet and episodes of near syncope. No loss of consciousness. Patient seen and examined at bedside, no acute distress. She states she has dizziness this morning, exacerbated by standing, walking, moving her head side to side. She also having right sided neck pain. She states it does at times has room spinning sensation. She denies any lightheadedness, chest pain or shortness of breath. Telemetry reviewed patient maintaining sinus mechanism heart rate 60s70s, no arrhythmia noted. Her orthostatic vital signs were negative on admission, but did have positive orthostatic vital signs 3/ night. Echocardiogram revealed an EF of 5560 percent, mild mitral and tricuspid regurgitation Vitals: Reviewed GENERAL: Well-appearing, well-nourished and in no acute distress. NECK: Supple without JVD or thyromegaly. LUNGS: Breath sounds clear to auscultation bilaterally. Respiration equal and unlabored. No wheezes, rales or rhonchi. HEART: Regular rate and rhythm, systolic ejection murmur at apex. S1 and S2 h eard. EXTREMITIES: Normal range of motion, no edema. No clubbing or cyanosis. Peripheral pulses intact. ASSESSMENT Near syncope, dizziness, no clear cardiac in etiology History of hypertension History of SVT Mild nonobstructive coronary artery disease Type 2 Diabetes Mitral regurgitation Tricuspid regurgitation PLAN At this time, no clear cardiac etiology of near syncope. Recommend re-checking orthostatic vital signs, if negative recommend stopping florinef We will continue current cardiac medications at this time. Further recommendations based on clinical course Nurse Practitioner note has been reviewed, I agree with a documented findings and plan of care. Patient was seen and examined. Objective - Vital Signs Vital signs: Vital Signs Temp 98.1 F 12/23/21 08:18 Pulse 84 12/23/21 12:44 Resp 16 12/23/21 12:44 BP 142/75 12/23/21 12:44 Pulse Ox 96 12/23/21 12:44 Intake & Output 12/22/21 12/23/21 12/23/21 18:59 06:59 18:59 Intake Total 120 237 120 Balance 120 237 120 Intake: Oral 120 237 120 Other: Voiding Method Toilet Toilet Toilet # Voids 1 1 - Labs CBC & Chem 7: 12/21/21 13:14 12/21/21 13:14 Labs: Abnormal Lab Results - Last 24 Hours (Table) 12/22/21 12/22/21 12/23/21 Range/Units 16:34 20:23 06:04 POC Glucose (mg/dL) 127 H 166 H 114 H (75-99) mg/dL Magnesium (1.6-2.3) mg/dL 12/23/21 12/23/21 Range/Units 11:36 12:09 POC Glucose (mg/dL) 104 H (75-99) mg/dL Magnesium 1.1 L (1.6-2.3) mg/dL
--- NOTE | 2021-12-23 14:47 | P.PN ---
Progress Note - Text Progress Note Date: 12/23/21 Chief Complaint: Newly past out This is a very pleasant 86-year-old patient who follows with Dr. Burdick. Chronic stable medical conditions include GERD, hypertension, hyperlipidemia, urinary incontinence, anxiety depression, chronic gait dysfunction uses a walker. She has a very itchy condition on the scalp for which she follows a Dr. Little. Several medications have been tried unsuccessfully. She is also been losing hair and constantly he is itching her scalp. Patient today presents as she really felt weak in the legs and nearly passed out. She lives with her grandson. Consider she eats and subcu from both of them. Denies any headache dizziness. No trouble vision. No changes in speech. No focal weakness. Denies any obvious palpitations. She nearly passed out 2 today. December 22: Patient is really concerned about her scalp lesions. Daughter the bedside. Discussed at length. I did put a call out to Dr. Little's office to call me back to discuss her diagnosis. She has not found to be orthostatic. Patient will be ambulated and see how she does. December 23: Patient found to have significant orthostatic when checked manually yesterday. ROD stockings in [place] 0.05 mg twice a day started today. Also lisinopril 10 mg added at night. Care was discussed at length with the patient and daughter the bedside. Questions answered. Active Medications Acetaminophen (Acetaminophen Tab 325 Mg Tab) 650 mg PO Q6HR PRN PRN Reason: Mild Pain or Fever > 100.5 Last Admin: 12/22/21 05:31 Dose: 650 mg Documented by: Albuterol/Ipratropium (Ipratropium-Albuterol 3 Ml Neb) 3 ml INHALATION RT-HS [facility] Last Admin: 12/22/21 19:41 Dose: 3 ml Documented by: Aspirin (Aspirin 81 Mg) 81 mg PO DAILY PRN PRN Reason: Pain Betamethasone Dipropionate (Betamethasone Dipropionate 0.05% Cream 15 Gm Tube) 1 applic TOPICAL DAILY [facility] Last Admin: 12/23/21 08:28 Dose: 1 applic Documented by: Calcium Carbonate/Glycine (Calcium Carbonate 500 Mg Chewable) 1,000 mg PO Q4HR PRN PRN Reason: Dyspepsia Carvedilol (Carvedilol 6.25 Mg Tab) 6.25 mg PO BID [facility] Last Admin: 12/23/21 08:26 Dose: 6.25 mg Documented by: Duloxetine HCl (Duloxetine Hcl 30 Mg Capsule.Dr) 30 mg PO BID [facility] Last Admin: 12/23/21 08:26 Dose: 30 mg Documented by: Famotidine (Famotidine 20 Mg Tab) 20 mg PO BID [facility] Last Admin: 12/23/21 12:49 Dose: 20 mg Documented by: Fludrocortisone Acetate (Fludrocortisone 0.1 Mg Tab) 0.05 mg PO BID [facility] Last Admin: 12/23/21 12:49 Dose: 0.05 mg Documented by: Hydroxyzine Pamoate (Hydroxyzine Pamoate 25 Mg Cap) 25 mg PO TID PRN PRN Reason: Anxiety Isosorbide Mononitrate (Isosorbide Mononitrate Er 30 Mg Tab.Er.24h) 30 mg PO DAILY [facility] Last Admin: 12/23/21 08:26 Dose: 30 mg Documented by: Lactulose (Lactulose 20 Gm/30 Ml Cup) 20 gm PO DAILY PRN PRN Reason: Constipation Lisinopril (Lisinopril 10 Mg Tab) 10 mg PO HS [facility] Lorazepam (Lorazepam 0.5 Mg Tab) 0.5 mg PO Q8H PRN PRN Reason: Anxiety Magnesium Oxide (Magnesium Oxide 400 Mg Tab) 400 mg PO TID [facility] Last Admin: 12/23/21 12:53 Dose: 400 mg Documented by: Melatonin (Melatonin 3 Mg Tablet) 3 mg PO HS PRN PRN Reason: Insomnia Metformin HCl (Metformin 500 Mg Tab) 500 mg PO W/SUPPER [facility] Last Admin: 12/22/21 17:45 Dose: 500 mg Documented by: Multivitamins (Multivitamins, Thera 1 Each Tab) 1 each PO DAILY [facility] Last Admin: 12/23/21 08:26 Dose: 1 each Documented by: Naloxone HCl (Naloxone 0.4 Mg/Ml 1 Ml Vial) 0.2 mg IV Q2M PRN PRN Reason: Opioid Reversal Ondansetron HCl (Ondansetron 4 Mg/2 Ml Vial) 4 mg IVP Q8HR PRN PRN Reason: Nausea And Vomiting Oxybutynin Chloride (Oxybutynin Chloride 5 Mg Tab) 5 mg PO DAILY [facility] Last Admin: 12/23/21 08:26 Dose: 5 mg Documented by: Pantoprazole Sodium (Pantoprazole 40 Mg Tablet) 40 mg PO DAILY@0730 [facility] Last Admin: 12/23/21 06:46 Dose: 40 mg Documented by: Past medical history to include: Heart eating, GERD, hyperlipidemia, hypertension, osteoarthritis, urinary incontinence, hiatal hernia, or nodules anxiety Social history: Nonsmoker. No alcohol. Lives with her grandson. Uses a walker. Family history: kidney cancer. Physical examination: VITAL SIGNS: 98.1, 84, 16, 142/75, 96% room air [162/70: Laying down: 101/52: Standing] GENERAL: BMI 29.9, reclining in bed awake. EYES: Pupils equal. Conjunctiva normal. HEENT: External appearance of nose and ears normal, oral cavity grossly normal scant scalp hair. Small raised papular lesions throughout the scalp. NECK: JVD not raised; masses not palpable. HEART: First and second heart sounds are normal; no edema. LUNGS: Respiratory rate normal; clear to auscultation. ABDOMEN: Soft, nontender, liver spleen not palpable, no masses palpable. PSYCH: Alert and oriented x3; mood and affect normal. MUSCULOSKELETAL:No Clubbing/cyanosis;muscles-grossly intact evidence of OA in several joints INVESTIGATIONS, reviewed in the clinical context: White count 6.3 hemoglobin 13.8 platelets 236 potassium 4.7 BUN 21 creatinine 1.0 EKG tracing personally reviewed by me-normal sinus rhythm. Chest x-ray film -nothing acute CT brain without contrast: Nothing acute. Small meningioma. Assessment and plan: -Near syncope from orthostatic hypertension Add Florinef 0.05 mg twice a day and ROD stockings. Care was discussed with the daughter at the bedside. -Essential hypertension Coreg 6.25 mg twice a day Zestril 10 mg daily at bedtime -Anxiety/depression otherwise specified Cymbalta 30 mg twice a day -Chronic scalp very a itchy lesions Lidex 0.05% topical daily. Patient will benefit from a skin biopsy follow-up a Dr. Little. 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 baseline Fall precautions Add Florinef 0.05 mg twice a day, ROD stockings. Lisinopril 10 mg daily at bedtime. Care discussed length with the patient daughter the bedside. Activity as tolerated.
[2021-12-23 16:56] LABS: Glucose,Whole Blood 127 mg/dL (75-99)
[2021-12-23] MEDS: metFORMIN 500 MG TAB PO SCH (16:59)
[2021-12-23 19:58] LABS: Glucose,Whole Blood 129 mg/dL (75-99)
[2021-12-23] MEDS: IPRATROPIUM-ALBUTEROL 3 ML NEB INHALATION SCH (20:15)
[2021-12-23] MEDS ORDERED: lisinopriL 10 MG TAB PO SCH (21:00)
[2021-12-24] MEDS: PANTOPRAZOLE 40 MG TABLET PO SCH (06:37)
[2021-12-24 06:46] LABS: Glucose,Whole Blood 113 mg/dL (75-99)
[2021-12-24 08:25] VITALS: PULSE 77; RESP 18; TEMP 97.9
[2021-12-24] MEDS: carvediloL 6.25 MG TAB PO SCH (09:06)
[2021-12-24] MEDS: MULTIVITAMINS, THERA 1 EACH TAB PO SCH (09:06)
[2021-12-24] MEDS: ISOSORBIDE MONONITRATE ER 30 MG TAB.ER.24H PO SCH (09:06)
[2021-12-24] MEDS: DULoxetine HCL 30 MG CAPSULE.DR PO SCH (09:06)
[2021-12-24] MEDS: OXYBUTYNIN CHLORIDE 5 MG TAB PO SCH (09:06)
[2021-12-24] MEDS: FAMOTIDINE 20 MG TAB PO SCH (09:06)
[2021-12-24] MEDS: FLUDROCORTISONE 0.1 MG TAB PO SCH (09:06)
[2021-12-24] MEDS: MAGNESIUM OXIDE 400 MG TAB PO SCH (09:06)
[2021-12-24] MEDS: BETAMETHASONE DIPROPIONATE 0.05% CREAM 15 GM TUBE TOPICAL SCH (09:07)
[2021-12-24 11:06] VITALS: BP 128/75
[2021-12-24 12:20] LABS: Glucose,Whole Blood 92 mg/dL (75-99)
--- NOTE | 2021-12-24 13:05 | P.PN ---
Subjective this is an 86-year-old female with a past medical history of mild coronary artery disease, hypertension, type 2 diabetes, SVT, chronic dizziness, mitral regurgitation and tricuspid regurgitation. She follows with Dr. Nur. We are consulted for evaluation of near syncope. Patient presented with an episode of feeling unstable on her feet and episodes of near syncope. No loss of consciousness. Patient seen and examined at bedside, no acute distress. She states she has dizziness this morning, exacerbated by standing, walking, moving her head side to side. She also states some lightheadedness with standing. She states it does at times has room spinning sensation. She denies any chest pain or shortness of breath. Telemetry reviewed patient maintaining sinus mechanism heart rate 60s80s, no arrhythmia noted. Her orthostatic vital signs were negative on admission and repeat orthostatics were also negative Echocardiogram revealed an EF of 5560 percent, mild mitral and tricuspid regurgitation Vitals: Reviewed GENERAL: Well-appearing, well-nourished and in no acute distress. NECK: Supple without JVD or thyromegaly. LUNGS: Breath sounds clear to auscultation bilaterally. Respiration equal and unlabored. No wheezes, rales or rhonchi. HEART: Regular rate and rhythm, systolic ejection murmur at apex. S1 and S2 heard. EXTREMITIES: Normal range of motion, no edema. No clubbing or cyanosis. Peripheral pulses intact. ASSESSMENT Near syncope, dizziness, no clear cardiac in etiology History of hypertension History of SVT Mild nonobstructive coronary artery disease Type 2 Diabetes Mitral regurgitation Tricuspid regurgitation PLAN At this time, no clear cardiac etiology of near syncope. Repeat orthostatics were negative, Elio mcdonald ordered, recommend stopping florinef We will continue current cardiac medications at this time. No further changes from a cardiology perspective Follow up with Dr. Nur on discharge. Reach out with any further questions or concerns. Nurse Practitioner note has been reviewed, I agree with a documented findings and plan of care. Patient was seen and examined. Objective - Vital Signs Vital signs: Vital Signs Temp 97.9 F 12/24/21 08:21 Pulse 77 12/24/21 08:21 Resp 18 12/24/21 08:21 BP 128/75 12/24/21 11:00 Pulse Ox 96 12/24/21 08:21 Intake & Output 12/23/21 12/24/21 12/24/21 18:59 06:59 18:59 Intake Total 478 118 Balance 478 118 Intake: Oral 478 118 Other: Voiding Method Toilet Toilet Toilet # Voids 1 - Labs CBC & Chem 7: 12/21/21 13:14 12/21/21 13:14 Labs: Abnormal Lab Results - Last 24 Hours (Table) 12/23/21 12/23/21 12/24/21 Range/Units 16:45 19:47 06:45 POC Glucose (mg/dL) 127 H 129 H 113 H (75-99) mg/dL
--- NOTE | 2021-12-24 15:16 | P.DS ---
Providers Date of admission: 12/21/21 15:20 Expected date of discharge: 12/24/21 Attending physician: Raimundo Dickens Consults: 12/21/21 15:20 Consult Physician Urgent Consulting Provider: [facility] Consult Reason/Comments: Near syncope Do you want consulting provider notified?: Yes Primary care physician: Srinivas [facility] Course: Chief Complaint: Newly past out This is a very pleasant 86-year-old patient who follows with Dr. Burdick. Chronic stable medical conditions include GERD, hypertension, hyperlipidemia, urinary incontinence, anxiety depression, chronic gait dysfunction uses a walker. She has a very itchy condition on the scalp for which she follows a Dr. Little. Several medications have been tried unsuccessfully. She is also been losing hair and constantly he is itching her scalp. Patient today presents as she really felt weak in the legs and nearly passed out. She lives with her grandson. Consider she eats and subcu from both of them. Denies any headache dizziness. No trouble vision. No changes in speech. No focal weakness. Denies any obvious palpitations. She nearly passed out 2 today. Patient is really concerned about her scalp lesions. found to have significant orthostatic when checked manually ROD stockings and Florinef 0.05 mg twice a day started . Also lisinopril 10 mg added at night. Responded well. Today: Patient's medications etc. was discussed at length with the patient. She'll follow-up with Dr. Burdick and her cryptographer. Questions answered. Also seen by tuft machine operator Discussion and discharge planning more than 35 minutes Past medical history to include: Heart eating, GERD, hyperlipidemia, hypertension, osteoarthritis, urinary incontinence, hiatal hernia, or nodules anxiety Social history: Nonsmoker. No alcohol. Lives with her grandson. Uses a walker. Family history: kidney cancer. Physical examination: VITAL SIGNS: 97.9, 77, 18, 123 was 32, 96% room air. No orthostatic GENERAL: Reclining in bed, comfortable EYES: Pupils equal. Conjunctiva normal. HEENT: External appearance of nose and ears normal, oral cavity grossly normal scant scalp hair. Small raised papular lesions throughout the scalp. NECK: JVD not raised; masses not palpable. HEART: First and second heart sounds are normal; no edema. LUNGS: Respiratory rate normal; clear to auscultation. ABDOMEN: Soft, nontender, liver spleen not palpable, no masses palpable. PSYCH: Alert and oriented x3; mood and affect normal. MUSCULOSKELETAL:No Clubbing/cyanosis;muscles-grossly intact evidence of OA in several joints INVESTIGATIONS, reviewed in the clinical context: 2-D echocardiogram: EF 55-60%. White count 6.3 hemoglobin 13.8 platelets 236 potassium 4.7 BUN 21 creatinine 1.0 EKG tracing personally reviewed by me-normal sinus rhythm. Chest x-ray film -nothing acute CT brain without contrast: Nothing acute. Small meningioma. Assessment and plan: -Near syncope from significant orthostatic hypertension: Better Florinef 0.05 mg twice a day and ROD stockings. -Essential hypertension Coreg 6.25 mg twice a day Zestril 10 mg daily at bedtime -Anxiety/depression otherwise specified Cymbalta 30 mg twice a day -Chronic scalp very a itchy lesions Lidex 0.05% topical daily. Patient will benefit from a skin biopsy follow-up a Dr. Little. 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 baseline Fall precautions Disposition: Home Plan - Discharge Summary Discharge Rx Participant: No New Discharge Prescriptions: New Fludrocortisone [Florinef] 0.05 mg PO BID #60 tab lisinopriL [Zestril] 10 mg PO HS #30 tab Famotidine [Pepcid] 20 mg PO BID #60 tab Continue Omeprazole Magnesium [PriLOSEC OTC] 20 mg PO DAILY Oxybutynin Chloride [Ditropan] 5 mg PO DAILY diazePAM [Valium] 1 mg PO BID PRN PRN Reason: Anxiety metFORMIN HCL 500 mg PO W/SUPPER Fluocinonide [Lidex .05%] 1 applic TOPICAL DAILY DULoxetine HCL [Cymbalta] 30 mg PO BID hydrOXYzine pamoate [hydrOXYzine PAMOATE] 25 mg PO TID PRN PRN Reason: Anxiety Multivitamins, Thera [Multivitamin (formulary)] 1 tab PO DAILY Cholecalciferol [Vitamin D3 (25 Mcg = 1000 Iu)] 25 mcg PO DAILY Aspirin EC [Ecotrin Low Dose] 81 mg PO DAILY PRN PRN Reason: Pain Isosorbide Mononitrate ER [Imdur] 30 mg PO DAILY carvediloL [Coreg] 6.25 mg PO BID Ipratropium-Albuterol Nebulize [Duoneb 0.5 mg-3 mg/3 ml Soln] 3 ml INHALATION RT-HS Discontinued Lisinopril-Hctz 10-12.5 mg [Zestoretic 10-12.5] 1 tab PO BID Discharge Medication List Omeprazole Magnesium [PriLOSEC OTC] 20 mg PO DAILY 06/09/18 [History] Oxybutynin Chloride [Ditropan] 5 mg PO DAILY 06/09/18 [History] diazePAM [Valium] 1 mg PO BID PRN 06/09/18 [History] Aspirin EC [Ecotrin Low Dose] 81 mg PO DAILY PRN 12/21/21 [History] Cholecalciferol [Vitamin D3 (25 Mcg = 1000 Iu)] 25 mcg PO DAILY 12/21/21 [History] DULoxetine HCL [Cymbalta] 30 mg PO BID 12/21/21 [History] Fluocinonide [Lidex .05%] 1 applic TOPICAL DAILY 12/21/21 [History] Ipratropium-Albuterol Nebulize [Duoneb 0.5 mg-3 mg/3 ml Soln] 3 ml INHALATION RT-HS 12/21/21 [History] Isosorbide Mononitrate ER [Imdur] 30 mg PO DAILY 12/21/21 [History] Multivitamins, Thera [Multivitamin (formulary)] 1 tab PO DAILY 12/21/21 [History] carvediloL [Coreg] 6.25 mg PO BID 12/21/21 [History] hydrOXYzine pamoate [hydrOXYzine PAMOATE] 25 mg PO TID PRN 12/21/21 [History] metFORMIN HCL 500 mg PO W/SUPPER 12/21/21 [History] Famotidine [Pepcid] 20 mg PO BID #60 tab 12/24/21 [Rx] Fludrocortisone [Florinef] 0.05 mg PO BID #60 tab 12/24/21 [Rx] lisinopriL [Zestril] 10 mg PO HS #30 tab 12/24/21 [Rx] Follow up Appointment(s)/Referral(s): Srinivas Burdick DO [Primary Care Provider] - 01/07/22 2:40 pm Colt Nur MD [STAFF PHYSICIAN] - 01/12/22 1:45 pm (on [address] ) Patient Instructions/Handouts: Syncope (DC) Discharge Disposition: HOME SELF-CARE
== END 2021-12-24 13:56 | disposition home or self-care (01) | DRG 312 ==
LOC: EC 12:20 → 3SCARD 15:20
PROVIDERS: ADMIT Hospitalist; ATTEND Hospitalist
DX: I95.1 Orthostatic hypotension (principal); E11.9 Type 2 diabetes mellitus without complications; E78.5 Hyperlipidemia, unspecified; E83.42 Hypomagnesemia; I10 Essential (primary) hypertension; F41.8 Other specified anxiety disorders; G47.00 Insomnia, unspecified; H91.90 Unspecified hearing loss, unspecified ear; R26.9 Unspecified abnormalities of gait and mobility; I08.1 Rheumatic disorders of both mitral and tricuspid valves; I25.10 Atherosclerotic heart disease of native coronary artery without angina pectoris; L29.8 Other pruritus; K21.9 Gastro-esophageal reflux disease without esophagitis; K44.9 Diaphragmatic hernia without obstruction or gangrene; K59.00 Constipation, unspecified; M19.90 Unspecified osteoarthritis, unspecified site; N39.3 Stress incontinence (female) (male); Z79.82 Long term (current) use of aspirin; Z79.84 Long term (current) use of oral hypoglycemic drugs; Z79.899 Other long term (current) drug therapy; Z80.3 Family history of malignant neoplasm of breast; Z80.51 Family history of malignant neoplasm of kidney; Z85.528 Personal history of other malignant neoplasm of kidney; Z85.828 Personal history of other malignant neoplasm of skin; Z90.710 Acquired absence of both cervix and uterus; Z86.79 Personal history of other diseases of the circulatory system; Z90.49 Acquired absence of other specified parts of digestive tract; Z87.19 Personal history of other diseases of the digestive system
CPT/HCPCS: 36415; 70450; 71046; 80053; 81003; 83605; 83735; 84484; 85025; 85610; 85730; 93005; 93306; 94640; 96361; 96365; 99285

== ENCOUNTER 2022-01-29 17:00 | Inpatient (IN) | payer MEDICARE ==
[2022-01-29 19:17] LABS: HCT 34.6 % (34.0-46.0); MCH 32.8 pg (25.0-35.0); MCHC 34.7 g/dL (31.0-37.0); MCV 94.7 fL (80.0-100.0); Platelet Count 198 k/uL (150-450); RBC 3.66 m/uL (3.80-5.40); RDW 14.6 % (11.5-15.5); WBC 6.3 k/uL (3.8-10.6)
[2022-01-29 19:18] LABS: Albumin 3.8 g/dL (3.5-5.0); Calcium 8.9 mg/dL (8.4-10.2); Total Bilirubin 0.7 mg/dL (0.2-1.3); Total Protein 6.4 g/dL (6.3-8.2)
[2022-01-29 19:21] LABS: Potassium 2.5 mmol/L (3.5-5.1)
--- NOTE | 2022-01-29 19:29 | ED ---
Extremity Problem HPI - General Chief complaint: Extremity Problem,Nontraumatic Stated complaint: leg swelling Time Seen by Provider: 01/29/22 17:54 Source: patient Mode of arrival: ambulatory Limitations: no limitations - History of Present Illness Initial comments: 86-year-old female presents to the emergency department with left leg swelling. Reports that she has had worsening swelling of her legs for the past week. No history of DVT or PE. No chest pain or shortness of breath. No history of congestive heart failure. Patient is not on a diuretic. Denies any trauma. No pain in the extremity. No fevers. No overlying skin changes. 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 - Related Data Home Medications Medication Instructions Recorded Confirmed Omeprazole Magnesium [PriLOSEC OTC] 20 mg PO DAILY 06/09/18 01/29/22 Oxybutynin Chloride [Ditropan] 5 mg PO DAILY 06/09/18 01/29/22 diazePAM [Valium] 1 mg PO BID PRN 06/09/18 01/29/22 Aspirin EC [Ecotrin Low Dose] 81 mg PO DAILY PRN 12/21/21 01/29/22 Cholecalciferol [Vitamin D3 (25 25 mcg PO DAILY 12/21/21 01/29/22 Mcg = 1000 Iu)] DULoxetine HCL [Cymbalta] 30 mg PO BID 12/21/21 01/29/22 Fluocinonide [Lidex 0.05%] 1 applic TOPICAL DAILY 12/21/21 01/29/22 Ipratropium-Albuterol Nebulize 3 ml INHALATION RT-HS 12/21/21 01/29/22 [Duoneb 0.5 mg-3 mg/3 ml Soln] Isosorbide Mononitrate ER [Imdur] 30 mg PO DAILY 12/21/21 01/29/22 Multivitamins, Thera [Multivitamin 1 tab PO DAILY 12/21/21 01/29/22 (formulary)] carvediloL [Coreg] 6.25 mg PO BID 12/21/21 01/29/22 hydrOXYzine pamoate [hydrOXYzine 25 mg PO TID PRN 12/21/21 01/29/22 PAMOATE] metFORMIN HCL 500 mg PO W/SUPPER 12/21/21 01/29/22 Previous Rx's Medication Instructions Recorded Famotidine [Pepcid] 20 mg PO BID #60 tab 12/24/21 Fludrocortisone [Florinef] 0.05 mg PO BID #60 tab 12/24/21 lisinopriL [Zestril] 10 mg PO HS #30 tab 12/24/21 Allergies Allergy/AdvReac Type Severity Reaction Status Date / Time No Known Allergies Allergy Verified 01/29/22 19:54 Review of Systems ROS Statement: Those systems with pertinent positive or pertinent negative responses have been documented in the HPI. ROS Other: All systems not noted in ROS Statement are negative. Past Medical History Past Medical History: Cancer, Diabetes Mellitus, GERD/Reflux, Hearing Disorder / Deafness, Hyperlipidemia, Hypertension, Osteoarthritis (OA) Additional Past Medical History / Comment(s): HX OF SKIN CA, IBS, INCONTINENCE OF BLADDER, HX OF HIATAL HERNIA, THYROID NODULES , CATARACT BILATERAL EYES History of Any Multi-Drug Resistant Organisms: None Reported Past Surgical History: Cholecystectomy, Heart Catheterization, Hysterectomy, Orthopedic Surgery Additional Past Surgical History / Comment(s): SINUS SX, SX ARM, FOOT, Past Anesthesia/Blood Transfusion Reactions: No Reported Reaction Past Psychological History: Anxiety Smoking Status: Never smoker Past Alcohol Use History: None Reported Past Drug Use History: None Reported - Past Family History Daughter(s) Family Medical History: Cancer, Deep Vein Thrombosis (DVT) Additional Family Medical History / Comment(s): ONE DAUGHTER KIDNEY CA, ONE DAUGHTER HX OF DVT Sister(s) Family Medical History: Cancer Additional Family Medical History / Comment(s): 2 SISTERS WITH BREAST CA General Exam Limitations: no limitations Course Vital Signs 01/29/22 17:21 Temperature 98.3 F Pulse Rate 79 Respiratory 18 Rate Blood Pressure 150/75 O2 Sat by Pulse 96 Oximetry Medical Decision Making - Medical Decision Making The patient was placed into room 8. A thorough history and physical exam was performed. Laboratory studies were conducted. Ultrasound of the left lower extremity is performed which demonstrates no acute DVT. CT of abdomen and pelvis is performed as patient is reporting to abdominal distention. CT negative for any acute process. Potassium is 2.5. Potassium is replaced. Magnesium is pending. Recommended admission for electrolyte replacement. Spoke with Dr. spence agreed with the patient. Patient pending a bed on the floor stable condition - Lab Data Result diagrams: 01/29/22 19:00 04/15/22 19:00 Lab Results 01/29/22 01/29/22 01/29/22 Range/Units 19:00 19:00 19:00 WBC 6.3 (3.8-10.6) k/uL RBC 3.66 L (3.80-5.40) m/uL Hgb 12.0 (11.4-16.0) gm/dL Hct 34.6 (34.0-46.0) % MCV 94.7 (80.0-100.0) fL MCH 32.8 (25.0-35.0) pg MCHC 34.7 (31.0-37.0) g/dL RDW 14.6 (11.5-15.5) % Plt Count 198 (150-450) k/uL MPV 8.0 Neutrophils % (Manual) 48 % Lymphocytes % (Manual) 43 % Monocytes % (Manual) 4 % Eosinophils % (Manual) 5 % Neutrophils # (Manual) 3.02 (1.3-7.7) k/uL Lymphocytes # (Manual) 2.71 (1.0-4.8) k/uL Monocytes # (Manual) 0.25 (0-1.0) k/uL Eosinophils # (Manual) 0.32 (0-0.7) k/uL Nucleated RBCs 0 (0-0) /100 WBC Manual Slide Review Performed RBC Morphology Normal Sodium 141 (137-145) mmol/L Potassium 2.5 L* (3.5-5.1) mmol/L Chloride 100 (98-107) mmol/L Carbon Dioxide 35 H (22-30) mmol/L Anion Gap 6 mmol/L BUN 14 (7-17) mg/dL Creatinine 0.96 (0.52-1.04) mg/dL Est GFR (CKD-EPI)AfAm 63 (>60 ml/min/1.73 sqM) Est GFR (CKD-EPI)NonAf 55 (>60 ml/min/1.73 sqM) Glucose 106 H (74-99) mg/dL Calcium 8.9 (8.4-10.2) mg/dL Total Bilirubin 0.7 (0.2-1.3) mg/dL AST 47 H (14-36) U/L ALT 26 (4-34) U/L Alkaline Phosphatase 58 (38-126) U/L NT-Pro-B Natriuret Pep 228 pg/mL Total Protein 6.4 (6.3-8.2) g/dL Albumin 3.8 (3.5-5.0) g/dL Urine Color Urine Appearance (Clear) Urine pH (5.0-8.0) Ur Specific [place] (1.001-1.035) Urine Protein (Negative) Urine Glucose (UA) (Negative) Urine Ketones (Negative) Urine Blood (Negative) Urine Nitrite (Negative) Urine Bilirubin (Negative) Urine Urobilinogen (<2.0) mg/dL Ur Leukocyte Esterase (Negative) 01/29/22 Range/Units 19:00 WBC (3.8-10.6) k/uL RBC (3.80-5.40) m/uL Hgb (11.4-16.0) gm/dL Hct (34.0-46.0) % MCV (80.0-100.0) fL MCH (25.0-35.0) pg MCHC (31.0-37.0) g/dL RDW (11.5-15.5) % Plt Count (150-450) k/uL MPV Neutrophils % (Manual) % Lymphocytes % (Manual) % Monocytes % (Manual) % Eosinophils % (Manual) % Neutrophils # (Manual) (1.3-7.7) k/uL Lymphocytes # (Manual) (1.0-4.8) k/uL Monocytes # (Manual) (0-1.0) k/uL Eosinophils # (Manual) (0-0.7) k/uL Nucleated RBCs (0-0) /100 WBC Manual Slide Review RBC Morphology Sodium (137-145) mmol/L Potassium (3.5-5.1) mmol/L Chloride (98-107) mmol/L Carbon Dioxide (22-30) mmol/L Anion Gap mmol/L BUN (7-17) mg/dL Creatinine (0.52-1.04) mg/dL Est GFR (CKD-EPI)AfAm (>60 ml/min/1.73 sqM) Est GFR (CKD-EPI)NonAf (>60 ml/min/1.73 sqM) Glucose (74-99) mg/dL Calcium (8.4-10.2) mg/dL Total Bilirubin (0.2-1.3) mg/dL AST (14-36) U/L ALT (4-34) U/L Alkaline Phosphatase (38-126) U/L NT-Pro-B Natriuret Pep pg/mL Total Protein (6.3-8.2) g/dL Albumin (3.5-5.0) g/dL Urine Color Light Yellow Urine Appearance Clear (Clear) Urine pH 6.5 (5.0-8.0) Ur Specific [place] 1.004 (1.001-1.035) Urine Protein Negative (Negative) Urine Glucose (UA) Negative (Negative) Urine Ketones Negative (Negative) Urine Blood Negative (Negative) Urine Nitrite Negative (Negative) Urine Bilirubin Negative (Negative) Urine Urobilinogen <2.0 (<2.0) mg/dL Ur Leukocyte Esterase Negative (Negative) - EKG Data EKG Comments: EKG demonstrates sinus rhythm with a rate of 75. CT interval 200. QRS 97. QTC 427. No acute ST segment elevation or depressions concerning for ischemic changes Disposition Clinical Impression: Leg edema, left, Hypokalemia Disposition: ADMITTED IP TO THIS [facility] Condition: Stable Is patient prescribed a controlled substance at d/c from ED?: No Referrals: Srinivas Burdick DO [Primary Care Provider] - 1-2 days Decision to Admit Reason: Admit from EC Decision Date: 01/29/22 Decision Time: 21:33
[2022-01-29 19:44] LABS: Eosinophils # (M) 0.32 k/uL (0-0.7); Lymphocytes # (M) 2.71 k/uL (1.0-4.8); Monocytes # (M) 0.25 k/uL (0-1.0); Neutrophils # (M) 3.02 k/uL (1.3-7.7); Neutrophils % (M) 48 %; Nucleated Red Blood Cells 0 /100 WBC (0-0); Total Cells Counted 100
[2022-01-29 19:45] LABS: RBC Morphology Normal
[2022-01-29] MEDS ORDERED: POTASSIUM CHLORIDE ER 20 MEQ TAB.ER PO STA (19:46)
--- NOTE | 2022-01-29 19:53 | US ---
EXAMINATION TYPE: US venous doppler duplex LE LT DATE OF EXAM: 01/29/2022 7:45 PM COMPARISON: NONE CLINICAL HISTORY: swelling. EC patient with left lower leg swelling and left knee pain SIDE PERFORMED: Left TECHNIQUE: The lower extremity deep venous system is examined utilizing real time linear array sonog randee with graded compression, doppler sonography and color-flow sonography. VESSELS IMAGED: Common Femoral Vein Deep Femoral Vein Greater Saphenous Vein * Femoral Vein Popliteal Vein Small Saphenous Vein * Proximal Calf Veins (* superficial vessels) Left Leg: Negative for DVT. Left ankle edema channels are noted. IMPRESSION: There is some edema noted. No evidence of deep vein thrombosis.
[2022-01-29 20:10] LABS: Appearance,Urine Clear (Clear); Bilirubin,Urine Negative (Negative); Blood,Urine Negative (Negative); Color,Urine Light Yellow; Glucose,Urine (UA) Negative (Negative); Ketones,Urine Negative (Negative); Leukocyte Esterase,Urine Negative (Negative); Nitrite,Urine Negative (Negative); PH, Urine 6.5 (5.0-8.0); Protein,Urine Negative (Negative); Specific Gravity,Urine 1.004 (1.001-1.035); Urobilinogen,Urine <2.0 mg/dL (<2.0)
--- NOTE | 2022-01-29 20:51 | CT ---
EXAMINATION TYPE: CT abdomen pelvis w con DATE OF EXAM: 01/29/2022 COMPARISON: 04/04/2018 HISTORY: LUQ pain and leg swelling CT DLP: 987.9 mGycm Automated exposure control for dose reduction was used. CONTRAST: Performed with IV Contrast, patient injected with 80 mL of Isovue 300. Images obtained from the diaphragm to the floor of the pelvis with IV contrast. There is minimal subsegmental atelectasis at the lung bases. Heart is normal. No pericardial effusion . No pleural effusion. There is small hiatal hernia. The stomach is intact. There are clips from chol ecystectomy. The bile ducts are not dilated. Liver and spleen are intact. There is no pancreatic mass . There is no adrenal mass. Kidneys show satisfactory contrast opacification. There is no hydronephrosi s. The ureters are not dilated. Delayed images show normal renal excretion. There is no retroperitone al adenopathy. Appendix is medial and posterior and appears normal. Bladder distends smoothly. There is no internal hernia. There is no evidence of pelvic mass. There is hysterectomy. No free fluid in t he pelvis. No pelvic adenopathy. There is no mesenteric edema. There is no ascites or free air. No evidence of bowel obstruction. The lumbar vertebrae have normal alignment. There is no compression fracture. The posterior elements are intact. Facet joints are intact. The hip joints are intact. There are atheromatous changes in the abdominal aorta. No aneurysm. IMPRESSION: Negative CT scan abdomen and pelvis. There is clearing of the inflammatory changes of the sigmoid col on compared to old exam.
[2022-01-29] MEDS ORDERED: POTASSIUM CHLORIDE 20 MEQ in WATER FOR INJECTION 1 100ML.BAG IVPB ONE (21:00)
[2022-01-29] MEDS ORDERED: NALOXONE 0.4 MG/ML 1 ML VIAL IV PRN (21:33)
[2022-01-29] MEDS ORDERED: diazePAM 2 MG TAB PO PRN (21:34)
--- NOTE | 2022-01-30 01:25 | P.HPIM ---
History of Present Illness H&P Date: 01/29/22 Chief Complaint: Bilateral leg swelling 86-year-old female with recent diagnosis of orthostatic hypotension she was admitted to the hospital early in December 2021 discharged with prescription for fludrocortisone to help with her orthostatic hypotension. Patient comes in with 2 day history of severe swelling of bilateral legs described it as bart hard bilaterally making it difficult for her to walk and take care of herself. Denies any trouble breathing denies any coughing denies any shortness of breath denies any chest pain fevers or chills she denies any history of congestive heart failure denies any recent travel denies any history of blood clots In the ED she was found to be hypokalemic, venous duplex ultrasound of the Lexiscan performed showed no acute DVT. 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 All other systems were reviewed and are neg ative Past Medical History Past Medical History: Cancer, Diabetes Mellitus, GERD/Reflux, Hearing Disorder / Deafness, Hyperlipidemia, Hypertension, Osteoarthritis (OA) Additional Past Medical History / Comment(s): HX OF SKIN CA, IBS, INCONTINENCE OF BLADDER, HX OF HIATAL HERNIA, THYROID NODULES , CATARACT BILATERAL EYES History of Any Multi-Drug Resistant Organisms: None Reported Past Surgical History: Cholecystectomy, Heart Catheterization, Hysterectomy, Orthopedic Surgery Additional Past Surgical History / Comment(s): SINUS SX, SX ARM, FOOT, Past Anesthesia/Blood Transfusion Reactions: No Reported Reaction Past Psychological History: Anxiety Smoking Status: Never smoker Past Alcohol Use History: None Reported Past Drug Use History: None Reported - Past Family History Daughter(s) Family Medical History: Cancer, Deep Vein Thrombosis (DVT) Additional Family Medical History / Comment(s): ONE DAUGHTER KIDNEY CA, ONE DAUGHTER HX OF DVT Sister(s) Family Medical History: Cancer Additional Family Medical History / Comment(s): 2 SISTERS WITH BREAST CA Medications and Allergies Home Medications Medication Instructions Recorded Confirmed Type Omeprazole Magnesium [PriLOSEC OTC] 20 mg PO DAILY 06/09/18 01/29/22 History Oxybutynin Chloride [Ditropan] 5 mg PO DAILY 06/09/18 01/29/22 History diazePAM [Valium] 1 mg PO BID PRN 06/09/18 01/29/22 History Aspirin EC [Ecotrin Low Dose] 81 mg PO DAILY PRN 12/21/21 01/29/22 History Cholecalciferol [Vitamin D3 (25 25 mcg PO DAILY 12/21/21 01/29/22 History Mcg = 1000 Iu)] DULoxetine HCL [Cymbalta] 30 mg PO BID 12/21/21 01/29/22 History Fluocinonide [Lidex 0.05%] 1 applic TOPICAL DAILY 12/21/21 01/29/22 History Ipratropium-Albuterol Nebulize 3 ml INHALATION RT-HS 12/21/21 01/29/22 History [Duoneb 0.5 mg-3 mg/3 ml Soln] Isosorbide Mononitrate ER [Imdur] 30 mg PO DAILY 12/21/21 01/29/22 History Multivitamins, Thera [Multivitamin 1 tab PO DAILY 12/21/21 01/29/22 History (formulary)] carvediloL [Coreg] 6.25 mg PO BID 12/21/21 01/29/22 History hydrOXYzine pamoate [hydrOXYzine 25 mg PO TID PRN 12/21/21 01/29/22 History PAMOATE] metFORMIN HCL 500 mg PO W/SUPPER 12/21/21 01/29/22 History Famotidine [Pepcid] 20 mg PO BID #60 tab 12/24/21 01/29/22 Rx Fludrocortisone [Florinef] 0.05 mg PO BID #60 tab 12/24/21 01/29/22 Rx lisinopriL [Zestril] 10 mg PO HS #30 tab 12/24/21 01/29/22 Rx Allergies Allergy/AdvReac Type Severity Reaction Status Date / Time No Known Allergies Allergy Verified 01/29/22 19:54 Physical Exam Vitals: Vital Signs Temp Pulse Resp BP Pulse Ox 01/30/22 01:08 80 18 137/69 96 01/29/22 21:37 83 18 156/82 96 01/29/22 17:21 98.3 F 79 18 150/75 96 Intake and Output 01/29/22 01/29/22 01/30/22 14:59 22:59 06:59 Other: Weight 76.204 kg Constitutional: No acute distress, conversant, pleasant Eyes: Anicteric sclerae, moist conjunctiva, Pupils equal round reactive to light ENMT: NC/AT Oropharynx clear, no erythema, or exudates Neck: Supple, FROM, no masses, or JVD No carotid bruits No thyromegaly Lungs: Clear to auscultation Clear to percussion Normal respiratory effort, no accessory muscle use Cardiovascular: Heart regular in rate and rhythm, No murmurs, gallops, or rubs +2 bilateral peripheral edema Abdominal: Soft Nontender, no guarding, rebound or rigidity Abdomen moving with respiration Normoactive bowel sounds No hepatomegaly, No splenomegaly No palpable mass No abdominal wall hernia noted Skin: Chronic skin changes bilateral upper and lower extremities with thinning of skin of bilateral upper extremity multiple areas of skin sloughing Extremities: No digital cyanosis No clubbing Pedal pulses weak and symmetrical, capillary refill is immediate Radial pulses intact and symmetrical No calf tenderness Psychiatric: Alert and oriented to person, place and time Appropriate affect fair judgement Neuro Muscles Strength 4/5 in all 4 extremities Sensation to light touch grossly present throughout Cranial nerves II-XII grossly intact No focal sensory deficits Lymphatics: no palpable cervical or supraclavicular , or inguinal lymph nodes Results CBC & Chem 7: 01/29/22 19:00 01/29/22 19:00 Labs: Abnormal Lab Results - Last 24 Hours (Table) 01/29/22 01/29/22 01/29/22 Range/Units 19:00 19:00 19:07 RBC 3.66 L (3.80-5.40) m/uL Potassium 2.5 L* (3.5-5.1) mmol/L Carbon Dioxide 35 H (22-30) mmol/L Glucose 106 H (74-99) mg/dL Magnesium 1.2 L (1.6-2.3) mg/dL AST 47 H (14-36) U/L Assessment and Plan Assessment: Bilateral leg edema, venous duplex ultrasound negative for acute DVT Hypokalemia with alkalosis This is suspected to be side effect of Florinef which was started recently about a month ago to treat orthostatic hypotension Replace potassium potassium level Follow-up magnesium level Check orthostatic vital signs Supportive care Compression stockings bilateral legs Chronic conditions Diabetes mellitus, controlled, continue with metformin, check A1c History of hypertension, continue with Coreg, and lisinopril DVT prophylaxis heparin subcu 3 times a day Anticipated length of stay less than 2 midnights Hospital discharge
[2022-01-30 06:15] LABS: HCT 35.7 % (34.0-46.0); HGB 11.7 gm/dL (11.4-16.0); MCH 31.8 pg (25.0-35.0); MCHC 32.8 g/dL (31.0-37.0); MCV 97.1 fL (80.0-100.0); Mean Platelet Volume 8.3; Platelet Count 185 k/uL (150-450); RBC 3.68 m/uL (3.80-5.40); RDW 14.2 % (11.5-15.5); WBC 4.7 k/uL (3.8-10.6)
[2022-01-30 06:37] LABS: Calcium 8.8 mg/dL (8.4-10.2); Potassium 3.3 mmol/L (3.5-5.1)
[2022-01-30] MEDS: OXYBUTYNIN CHLORIDE 5 MG TAB PO SCH (08:16)
[2022-01-30] MEDS: PANTOPRAZOLE 40 MG TABLET PO SCH (08:16)
[2022-01-30] MEDS: ISOSORBIDE MONONITRATE ER 30 MG TAB.ER.24H PO SCH (08:16)
[2022-01-30] MEDS: CHOLECALCIFEROL 25 MCG (1000 IU) TABLET PO SCH (08:16)
[2022-01-30] MEDS: HEPARIN SODIUM,PORCINE/PF 5,000 UNIT/0.5 ML SYRINGE SQ SCH ×3 (08:16→21:52)
[2022-01-30] MEDS: MULTIVITAMINS, THERA 1 EACH TAB PO SCH (08:16)
[2022-01-30] MEDS: carvediloL 6.25 MG TAB PO SCH ×2 (08:16→17:20)
[2022-01-30] MEDS: DULoxetine HCL 30 MG CAPSULE.DR PO SCH ×2 (08:20→21:52)
[2022-01-30] MEDS: BETAMETHASONE DIPROPIONATE 0.05% CREAM 15 GM TUBE TOPICAL SCH (08:20)
[2022-01-30] MEDS ORDERED: hydrOXYzine pamoate 25 MG CAP PO PRN (09:00)
[2022-01-30] MEDS ORDERED: FLUDROCORTISONE 0.1 MG TAB PO SCH (09:00)
[2022-01-30] MEDS ORDERED: FAMOTIDINE 20 MG TAB PO SCH (09:00)
[2022-01-30] MEDS ORDERED: ASPIRIN 81 MG PO PRN (09:00)
[2022-01-30 11:09] LABS: Magnesium 1.3 mg/dL (1.6-2.3)
[2022-01-30 12:06] LABS: Glucose,Whole Blood 207 mg/dL (75-99)
[2022-01-30] MEDS: MAGNESIUM SULFATE-D5W PMX 1 GM in DEXTROSE/WATER 1 100ML.BAG IVPB SCH ×4 (13:32→17:20)
--- NOTE | 2022-01-30 13:33 | XR ---
EXAMINATION TYPE: XR chest 1V DATE OF EXAM: 01/30/2022 HISTORY: Shortness of breath. COMPARISON: 12/21/21 TECHNIQUE: Single view of the chest is submitted. FINDINGS: Demonstrated are scattered senescent parenchymal change. There is no evidence for focal infiltrate. The heart is stable. Hilar and mediastinal structures are within normal limits. Degenerative changes are seen of the dorsal spine. IMPRESSION: 1. Chronic changes without evidence for acute pulmonary disease.
--- NOTE | 2022-01-30 17:05 | P.PN ---
Subjective Progress Note Date: 01/30/22 86-year-old female admitted yesterday with severe bilateral lower extremity swelling. She is also found to be profoundly hypokalemic. This was suspected to be a side effect of Florinef which was recently started about a month ago for orthostatic hypotension. This was withheld, lower extremity edema is slightly improved today. Potassium and magnesium level remained significantly low however. Patient denies shortness of breath, no chest pain, no dizziness Objective - Vital Signs Vital signs: Vital Signs Temp 98.2 F 01/30/22 14:21 Pulse 63 01/30/22 14:21 Resp 18 01/30/22 14:21 BP 151/72 01/30/22 14:21 Pulse Ox 96 01/30/22 14:21 Intake & Output 01/29/22 01/30/22 01/30/22 18:59 06:59 18:59 Weight 76.204 kg 76.204 kg Other: Voiding Method Toilet # Voids 2 - Constitutional General appearance: Present: average body habitus, cooperative - EENT Eyes: Present: EOMI, PERRLA - Neck Neck: Present: normal ROM - Respiratory Respiratory: negative: rales, rhonchi, wheezing - Cardiovascular Rhythm: regular Heart sounds: normal: S1, S2 Abnormal Heart Sounds: Absent: systolic murmur, diastolic murmur - Peripheral edema leg Peripheral Edema: bilateral: 2+ - Gastrointestinal General gastrointestinal: Present: normal bowel sounds. Absent: tenderness - Integumentary Integumentary: Absent: pale, rash - Neurologic Neurologic: Present: CNII-XII intact, focal deficits - Musculoskeletal Musculoskeletal: Present: strength equal bilaterally - Psychiatric Psychiatric: Present: A&O x's 3, appropriate affect - Labs CBC & Chem 7: 01/30/22 05:18 01/30/22 05:18 Labs: Abnormal Lab Results - Last 24 Hours (Table) 01/29/22 01/29/22 01/29/22 Range/Units 19:00 19:00 19:07 RBC 3.66 L (3.80-5.40) m/uL Potassium 2.5 L* (3.5-5.1) mmol/L Carbon Dioxide 35 H (22-30) mmol/L Glucose 106 H (74-99) mg/dL POC Glucose (mg/dL) (75-99) mg/dL Magnesium 1.2 L (1.6-2.3) mg/dL AST 47 H (14-36) U/L 01/30/22 01/30/22 01/30/22 Range/Units 05:18 05:18 05:18 RBC 3.68 L (3.80-5.40) m/uL Potassium 3.3 L (3.5-5.1) mmol/L Carbon Dioxide 35 H (22-30) mmol/L Glucose 170 H (74-99) mg/dL POC Glucose (mg/dL) (75-99) mg/dL Magnesium 1.3 L (1.6-2.3) mg/dL AST (14-36) U/L 01/30/22 Range/Units 12:04 RBC (3.80-5.40) m/uL Potassium (3.5-5.1) mmol/L Carbon Dioxide (22-30) mmol/L Glucose (74-99) mg/dL POC Glucose (mg/dL) 207 H (75-99) mg/dL Magnesium (1.6-2.3) mg/dL AST (14-36) U/L Assessment and Plan Assessment: Bilateral lower extremity edema -venous duplex ultrasound negative for acute DVT This is suspected to be side effect of Florinef which was started recently about a month ago to treat orthostatic hypotension Slight improvement today No signs of heart failure Hypokalemia -Potassium level 2.5 -Most likely side effects from fludrocortisone -Potassium replaced, repeat BMP in the morning Hypomagnesemia -Magnesium level 1.3 -IV magnesium ordered Orthostatic hypotension -This was diagnosed recently and started on fludrocortisone -Fludrocortisone on hold for now due to multiple side effects -Check orthostatic vital signs -Consider starting Midodrin if needed Chronic conditions Diabetes mellitus, controlled, continue with metformin, check A1c History of hypertension, continue with Coreg, and lisinopril DVT prophylaxis heparin subcu 3 times a day Anticipated discharge home tomorrow Time with Patient: Greater than 30
[2022-01-30 17:13] LABS: Glucose,Whole Blood 177 mg/dL (75-99)
[2022-01-30] MEDS: metFORMIN 500 MG TAB PO SCH (17:20)
[2022-01-30 19:40] LABS: Glucose,Whole Blood 205 mg/dL (75-99)
[2022-01-30] MEDS: IPRATROPIUM-ALBUTEROL 3 ML NEB INHALATION SCH (20:25)
[2022-01-30] MEDS: lisinopriL 10 MG TAB PO SCH (21:52)
[2022-01-30] MEDS: INSULIN ASPART (NovoLOG) 100 UNIT/ML VIAL SQ SCH (21:52)
[2022-01-31 07:26] LABS: Glucose,Whole Blood 157 mg/dL (75-99)
[2022-01-31] MEDS: carvediloL 6.25 MG TAB PO SCH ×2 (08:30→17:38)
[2022-01-31] MEDS: DULoxetine HCL 30 MG CAPSULE.DR PO SCH ×2 (08:30→22:16)
[2022-01-31] MEDS: FAMOTIDINE 20 MG TAB PO SCH (08:30)
[2022-01-31] MEDS: CHOLECALCIFEROL 25 MCG (1000 IU) TABLET PO SCH (08:30)
[2022-01-31] MEDS: MULTIVITAMINS, THERA 1 EACH TAB PO SCH (08:30)
[2022-01-31] MEDS: PANTOPRAZOLE 40 MG TABLET PO SCH (08:30)
[2022-01-31] MEDS: ISOSORBIDE MONONITRATE ER 30 MG TAB.ER.24H PO SCH (08:31)
[2022-01-31] MEDS: OXYBUTYNIN CHLORIDE 5 MG TAB PO SCH (08:31)
[2022-01-31] MEDS: INSULIN ASPART (NovoLOG) 100 UNIT/ML VIAL SQ SCH ×4 (08:31→22:16)
[2022-01-31] MEDS: HEPARIN SODIUM,PORCINE/PF 5,000 UNIT/0.5 ML SYRINGE SQ SCH ×3 (08:31→22:16)
[2022-01-31 08:50] LABS: Basophils # (A) 0.06 X 10*3/uL (0.00-0.10); Basophils % (A) 1.1 %; Eosinophils # (A) 0.22 X 10*3/uL (0.04-0.35); HGB 12.1 g/dL (12.0-15.0); Immature Grans, Automated 0.2 %; Lymphocytes # (A) 2.18 X 10*3/uL (0.90-5.00); Lymphocytes % (A) 39.3 %; MCH 31.3 pg (27.0-32.0); MCHC 32.7 g/dL (32.0-37.0); MCV 95.6 fL (80.0-97.0); Mean Platelet Volume 11.1 fL (9.5-12.2); Monocytes # (A) 0.39 X 10*3/uL (0.20-1.00); NRBC Per 100 WBC 0 /100 WBCS (0.0-0.0); Neutrophils # (A) 2.69 X 10*3/uL (1.80-7.70); Neutrophils % (A) 48.4 %; Platelet Count 214 X 10*3/uL (140-440); RBC 3.87 X 10*6/uL (4.10-5.20); RDW 14.3 % (11.5-14.5); WBC 5.55 X 10*3/uL (4.50-10.00)
[2022-01-31 09:06] LABS: Albumin 4.1 g/dL (3.8-4.9); Albumin/Globulin Ratio 2.03 (1.60-3.17); Anion Gap 11.8 mmol/L (10.00-18.00); BUN/Creat Ratio 11.95 Ratio (12.00-20.00); Blood Urea Nitrogen 9.3 mg/dL (9.0-27.0); Calcium 9.2 mg/dL (8.7-10.3); Carbon Dioxide 28.6 mmol/L (20.0-27.5); Magnesium 1.9 mg/dL (1.5-2.4); Non-African American GFR(CKD) 69.9 (60.0-200.0); Potassium 3.7 mmol/L (3.5-5.5); Total Bilirubin 0.6 mg/dL (0.30-1.20); Total Protein 6.1 g/dL (6.2-8.2)
[2022-01-31] MEDS: BETAMETHASONE DIPROPIONATE 0.05% CREAM 15 GM TUBE TOPICAL SCH (09:58)
[2022-01-31 12:16] LABS: Glucose,Whole Blood 135 mg/dL (75-99)
--- NOTE | 2022-01-31 16:26 | P.PN ---
Subjective Progress Note Date: 01/31/22 Patient reports feeling significantly weaker today, she has had near syncopal episodes with ambulation. She is also complaining of a new productive cough, but no shortness of breath, no fevers or chills, no chest pain. She has had multiple skin tears in her upper extremities, wound on the left upper forearm is more painful today, with increasing redness and mild discharge. She was started on ceftriaxone for cellulitis of the left arm. Fludrocortisone was withheld on admission, electrolytes have improved Objective - Vital Signs Vital signs: Vital Signs Temp 98.0 F 01/31/22 14:50 Pulse 73 01/31/22 14:50 Resp 18 01/31/22 14:50 BP 146/70 01/31/22 14:50 Pulse Ox 94 L 01/31/22 14:56 Intake & Output 01/30/22 01/31/22 01/31/22 18:59 06:59 18:59 Intake Total 240 498 Balance 240 498 Intake: Oral 240 498 Other: Voiding Method Toilet Toilet # Voids 2 1 1 # Bowel Movements 1 - Constitutional General appearance: Present: average body habitus, cooperative, disheveled, no acute distress - EENT Eyes: Present: EOMI, PERRLA - Neck Neck: Present: normal ROM. Absent: lymphadenopathy - Respiratory Respiratory: bilateral: diminished, negative: rales, rhonchi, wheezing - Cardiovascular Rhythm: regular Heart sounds: normal: S1, S2 Abnormal Heart Sounds: Absent: systolic murmur, diastolic murmur - Gastrointestinal General gastrointestinal: Present: normal bowel sounds. Absent: distended, hepatomegaly, tenderness - Integumentary Integumentary: Present: cellulitis, rash. Absent: cyanotic, jaundiced - Neurologic Neurologic: Present: CNII-XII intact. Absent: focal deficits - Musculoskeletal Musculoskeletal: Present: strength equal bilaterally - Psychiatric Psychiatric: Present: A&O x's 3, appropriate affect - Labs CBC & Chem 7: 01/31/22 06:22 01/31/22 06:22 Labs: Abnormal Lab Results - Last 24 Hours (Table) 01/30/22 01/30/22 01/31/22 Range/Units 17:11 19:37 06:22 RBC 3.87 L (4.10-5.20) X 10*6/uL Hct 37.0 L (37.2-46.3) % Carbon Dioxide (20.0-27.5) mmol/L BUN/Creatinine Ratio (12.00-20.00) Ratio Glucose (70-110) mg/dL POC Glucose (mg/dL) 177 H 205 H (75-99) mg/dL AST (13-35) U/L Total Protein (6.2-8.2) g/dL 01/31/22 01/31/22 01/31/22 Range/Units 06:22 07:25 12:15 RBC (4.10-5.20) X 10*6/uL Hct (37.2-46.3) % Carbon Dioxide 28.6 H (20.0-27.5) mmol/L BUN/Creatinine Ratio 11.95 L (12.00-20.00) Ratio Glucose 145 H (70-110) mg/dL POC Glucose (mg/dL) 157 H 135 H (75-99) mg/dL AST 40 H (13-35) U/L Total Protein 6.1 L (6.2-8.2) g/dL Assessment and Plan Assessment: Left upper extremity cellulitis -Patient presented to hospital with multiple wounds especially in her upper extremities -There is a large wound on the upper left arm that is more painful, erythematous, and with mild discharged today -Started on IV ceftriaxone -Wound care Bilateral lower extremity edema -venous duplex ultrasound negative for acute DVT This is suspected to be side effect of Florinef which was started recently about a month ago to treat orthostatic hypotension Slight improvement today No signs of heart failure Hypokalemia -Resolving -Most likely side effects from fludrocortisone -Potassium replaced, repeat BMP in the morning Hypomagnesemia -Improving -IV magnesium replaced, continue to monitor and replete as needed Orthostatic hypotension -This was diagnosed recently and started on fludrocortisone -Fludrocortisone on hold for now due to multiple side effects -Check orthostatic vital signs -Consider starting Midodrin if needed Chronic conditions Diabetes mellitus, controlled, continue with metformin, check A1c History of hypertension, continue with Coreg, and lisinopril DVT prophylaxis heparin subcu 3 times a day Anticipated discharge home in 1-2 days Time with Patient: Less than 30
[2022-01-31 17:27] LABS: Glucose,Whole Blood 160 mg/dL (75-99)
[2022-01-31] MEDS: metFORMIN 500 MG TAB PO SCH (17:38)
[2022-01-31] MEDS: IPRATROPIUM-ALBUTEROL 3 ML NEB INHALATION SCH (20:22)
[2022-01-31 20:30] LABS: Glucose,Whole Blood 146 mg/dL (75-99)
[2022-01-31] MEDS: GABAPENTIN 100 MG CAP PO SCH (22:15)
[2022-01-31] MEDS: lisinopriL 10 MG TAB PO SCH (22:16)
[2022-02-01 07:21] LABS: Glucose,Whole Blood 130 mg/dL (75-99)
[2022-02-01] MEDS: HEPARIN SODIUM,PORCINE/PF 5,000 UNIT/0.5 ML SYRINGE SQ SCH ×2 (08:41→15:53)
[2022-02-01] MEDS: GABAPENTIN 100 MG CAP PO SCH ×3 (08:42→20:09)
[2022-02-01] MEDS: INSULIN ASPART (NovoLOG) 100 UNIT/ML VIAL SQ SCH ×4 (08:42→20:21)
[2022-02-01] MEDS: ISOSORBIDE MONONITRATE ER 30 MG TAB.ER.24H PO SCH (08:43)
[2022-02-01] MEDS: MULTIVITAMINS, THERA 1 EACH TAB PO SCH (08:43)
[2022-02-01] MEDS: PANTOPRAZOLE 40 MG TABLET PO SCH (08:43)
[2022-02-01] MEDS: FAMOTIDINE 20 MG TAB PO SCH (08:43)
[2022-02-01] MEDS: DULoxetine HCL 30 MG CAPSULE.DR PO SCH ×2 (08:44→20:09)
[2022-02-01] MEDS: carvediloL 6.25 MG TAB PO SCH ×2 (08:57→17:40)
[2022-02-01] MEDS: CHOLECALCIFEROL 25 MCG (1000 IU) TABLET PO SCH (08:57)
[2022-02-01] MEDS: OXYBUTYNIN CHLORIDE 5 MG TAB PO SCH (08:57)
[2022-02-01] MEDS: BETAMETHASONE DIPROPIONATE 0.05% CREAM 15 GM TUBE TOPICAL SCH (08:58)
[2022-02-01 10:00] LABS: African American GFR (CKD) 78.5 (60.0-200.0); Albumin 3.8 g/dL (3.8-4.9); Albumin/Globulin Ratio 1.81 (1.60-3.17); Anion Gap 9.5 mmol/L (10.00-18.00); BUN/Creat Ratio 10.75 Ratio (12.00-20.00); Blood Urea Nitrogen 8.6 mg/dL (9.0-27.0); Calcium 9.3 mg/dL (8.7-10.3); Carbon Dioxide 27.5 mmol/L (20.0-27.5); Globulin 2.1 g/dL (1.6-3.3); Non-African American GFR(CKD) 67.7 (60.0-200.0); Potassium 4.1 mmol/L (3.5-5.5); Total Bilirubin 0.4 mg/dL (0.30-1.20); Total Protein 5.9 g/dL (6.2-8.2)
[2022-02-01 10:11] LABS: Basophils # (A) 0.06 X 10*3/uL (0.00-0.10); Basophils % (A) 1.2 %; Eosinophils # (A) 0.19 X 10*3/uL (0.04-0.35); Eosinophils % (A) 3.7 %; HCT 33.8 % (37.2-46.3); HGB 11.1 g/dL (12.0-15.0); Immature Grans, Automated 0.2 %; Lymphocytes # (A) 2.19 X 10*3/uL (0.90-5.00); Lymphocytes % (A) 43.1 %; MCH 31.5 pg (27.0-32.0); MCHC 32.8 g/dL (32.0-37.0); Mean Platelet Volume 11.5 fL (9.5-12.2); Monocytes # (A) 0.44 X 10*3/uL (0.20-1.00); Monocytes % (A) 8.7 %; NRBC Per 100 WBC 0 /100 WBCS (0.0-0.0); Neutrophils # (A) 2.19 X 10*3/uL (1.80-7.70); Neutrophils % (A) 43.1 %; Platelet Count 184 X 10*3/uL (140-440); RBC 3.52 X 10*6/uL (4.10-5.20); RDW 14.1 % (11.5-14.5); WBC 5.08 X 10*3/uL (4.50-10.00)
[2022-02-01] MEDS ORDERED: lisinopriL 10 MG TAB PO STA (10:44)
[2022-02-01 11:27] LABS: Glucose,Whole Blood 172 mg/dL (75-99)
[2022-02-01 17:11] LABS: Glucose,Whole Blood 111 mg/dL (75-99)
[2022-02-01] MEDS: metFORMIN 500 MG TAB PO SCH (17:40)
[2022-02-01] MEDS: IPRATROPIUM-ALBUTEROL 3 ML NEB INHALATION SCH (19:57)
[2022-02-01] MEDS: lisinopriL 20 MG TAB PO SCH (20:09)
[2022-02-01 20:15] LABS: Glucose,Whole Blood 151 mg/dL (75-99)
--- NOTE | 2022-02-01 21:08 | P.PN ---
Progress Note - Text Progress Note Date: 02/01/22 This is a very pleasant 86-year-old patient who follows with Dr. Burdick. Chronic stable medical conditions include GERD, hypertension, hyperlipidemia, urinary incontinence, anxiety depression, chronic gait dysfunction uses a walker. She has a very itchy condition on the scalp for which she follows a Dr. Little. Several medications have been tried unsuccessfully. She is also been losing hair and constantly he is itching her scalp. Patient was admitted to the hospital in December 2021 with orthostatic hypertension. Was put on a small dose of Florinef ROD stockings. Was doing well before discharge. Patient now came in with 2 days of increasing swelling of bulla legs. Making it difficult to walk. She was also hypokalemic. Negative for DVT. She is also having breakdown of skin and upper extremity.. February 01: Patient's admitted to [facility] for hospital policy for observations patient's. Patient has been made inpatient and transferred to my service today. Patient sitting of the bed. Does state that she uses soap everyday on her arms and drops it. Superficial breakdown of skin. Advised her not to use soap, and will use a mild steroid cream with dressing. Patient also advised not to rub with that bowel but only to dab. Scooter wrap lower extremities been ordered. Several questions answered. Patient is dose of Zestril increased to 20 mg twice a day. Past medical history to include: Orthostatic hypertension, GERD, hyperlipidemia, hypertension, osteoarthritis, urinary incontinence, hiatal hernia, anxiety Social history: Nonsmoker. No alcohol. Lives with her grandson. Uses a walker. Family history: kidney cancer. Physical examination: VITAL SIGNS: 98, 18, 77, 180/78, 100% room air, GENERAL: Sitting at the edge of the bed,, comfortable EYES: Pupils equal. Conjunctiva normal. HEENT: External appearance of nose and ears normal, oral cavity grossly normal scant scalp hair. Small raised papular lesions throughout the scalp. NECK: JVD not raised; masses not palpable. HEART: First and second heart sounds are normal; minimal edema. LUNGS: Respiratory rate normal; clear to auscultation. ABDOMEN: Soft, nontender, liver spleen not palpable, no masses palpable. PSYCH: Alert and oriented x3; mood and affect mildly anxious. MUSCULOSKELETAL:No Clubbing/cyanosis;muscles-grossly intact evidence of OA in several joints INVESTIGATIONS, reviewed in the clinical context: White count 5 hemoglobin 11.1 and platelets 184 potassium 4.1 creatinine 0.8 Assessment and plan: - orthostatic hypertension Fall precautions -Cellulitis of the upper extremity. On IV ceftriaxone. can coverer to Keflex tomorrow -Essential hypertension, uncontrolled Coreg 6.25 mg twice a day. Increase Zestril 20 mg twice a day -Anxiety/depression otherwise specified Cymbalta 30 mg twice a day -Chronic scalp very a itchy lesions Lidex 0.05% topical daily. Patient will benefit from a skin biopsy follow-up a Dr. Little. 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 baseline Fall precautions Patient IV ceftriaxone for cellulitis of the upper extremity. Change to Keflex tomorrow. Uncontrolled blood pressure will increase Zestril to 20 mg twice daily. Scooter wrap. Fall precautions. Care was discussed at length with the patient. Questions answered. Total time spent about 40 g to 25 minutes of discussion.
[2022-02-02] MEDS: HEPARIN SODIUM,PORCINE/PF 5,000 UNIT/0.5 ML SYRINGE SQ SCH ×2 (00:38→07:38)
[2022-02-02 07:25] VITALS: PULSE 60; RESP 18; TEMP 98.2
[2022-02-02] MEDS: CHOLECALCIFEROL 25 MCG (1000 IU) TABLET PO SCH (07:34)
[2022-02-02] MEDS: ISOSORBIDE MONONITRATE ER 30 MG TAB.ER.24H PO SCH (07:34)
[2022-02-02] MEDS: FAMOTIDINE 20 MG TAB PO SCH (07:34)
[2022-02-02] MEDS: DULoxetine HCL 30 MG CAPSULE.DR PO SCH (07:35)
[2022-02-02] MEDS: lisinopriL 20 MG TAB PO SCH (07:35)
[2022-02-02] MEDS: PANTOPRAZOLE 40 MG TABLET PO SCH (07:35)
[2022-02-02] MEDS: GABAPENTIN 100 MG CAP PO SCH (07:35)
[2022-02-02 07:36] LABS: Glucose,Whole Blood 131 mg/dL (75-99)
[2022-02-02] MEDS: OXYBUTYNIN CHLORIDE 5 MG TAB PO SCH (07:36)
[2022-02-02] MEDS: carvediloL 6.25 MG TAB PO SCH (07:36)
[2022-02-02] MEDS: CEPHALEXIN 500 MG CAP PO SCH ×3 (07:36→12:30)
[2022-02-02] MEDS: MULTIVITAMINS, THERA 1 EACH TAB PO SCH (07:37)
[2022-02-02] MEDS: INSULIN ASPART (NovoLOG) 100 UNIT/ML VIAL SQ SCH (07:38)
[2022-02-02] MEDS: BETAMETHASONE DIPROPIONATE 0.05% CREAM 15 GM TUBE TOPICAL SCH (07:38)
[2022-02-02 09:37] VITALS: BP 148/74
[2022-02-02 12:16] LABS: Glucose,Whole Blood 125 mg/dL (75-99)
--- NOTE | 2022-02-02 14:16 | P.DS ---
Providers Date of admission: 01/31/22 15:43 Expected date of discharge: 02/02/22 Attending physician: Raimundo Dickens Primary care physician: Srinivas Burdick [facility] Course: Hospital course This is a very pleasant 86-year-old patient who follows with Dr. Burdick. Chronic stable medical conditions include GERD, hypertension, hyperlipidemia, urinary incontinence, anxiety depression, chronic gait dysfunction uses a walker. She has a very itchy condition on the scalp for which she follows a Dr. Little. Several medications have been tried unsuccessfully. She is also been losing hair and constantly he is itching her scalp. Patient was admitted to the hospital in December 2021 with orthostatic hypertension. Was put on a small dose of Florinef ROD stockings. Was doing well before discharge. Patient now came in with 2 days of increasing swelling of bulla legs. Making it difficult to walk. She was also hypokalemic. Negative for DVT. She is also having breakdown of skin and upper extremity.. February 01: Patient's admitted to [facility] for hospital policy for observations patient's. Patient has been made inpatient and transferred to my service today. Patient sitting of the bed. Does state that she uses soap everyday on her arms and drops it. Superficial breakdown of skin. Advised her not to use soap, and will use a mild steroid cream with dressing. Patient also advised not to rub with that bowel but only to dab. Scooter wrap lower extremities been ordered. Several questions answered. Patient is dose of Zestril increased to 20 mg twice a day. February 02: Patient feeling well. Oral intake fair. Admitting Scooetr wrap. Blood pressure better controlled. Discussed. Questions answered. Low strength steroids for the arm wounds. With dressing Past medical history to include: Orthostatic hypertension, GERD, hyperlipidemia, hypertension, osteoarthritis, urinary incontinence, hiatal hernia, anxiety Social history: Nonsmoker. No alcohol. Lives with her grandson. Uses a walker. Family history: kidney cancer. Physical examination: VITAL SIGNS: 98.2, 60, 18, 158/76, 93% room air GENERAL: Laying in bed, comfortable EYES: Pupils equal. Conjunctiva normal. HEENT: External appearance of nose and ears normal, oral cavity grossly normal scant scalp hair. Small raised papular lesions throughout the scalp. NECK: JVD not raised; masses not palpable. HEART: First and second heart sounds are normal; minimal edema. LUNGS: Respiratory rate normal; clear to auscultation. ABDOMEN: Soft, nontender, liver spleen not palpable, no masses palpable. PSYCH: Alert and oriented x3; mood and affect mildly anxious. MUSCULOSKELETAL:No Clubbing/cyanosis;muscles-grossly intact evidence of OA in several joints INVESTIGATIONS, reviewed in the clinical context: White count 5 hemoglobin 11.1 and platelets 184 potassium 4.1 creatinine 0.8 Assessment and plan: - orthostatic hypertension: Better Fall precautions -Cellulitis of the upper extremity. Improved -Essential hypertension, controlled Coreg 6.25 mg twice a day. Zestril 20 mg twice a day -Anxiety/depression otherwise specified Cymbalta 30 mg twice a day -Chronic scalp very a itchy lesions Lidex 0.05% topical daily. follow-up a Dr. Little. 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 baseline Fall precautions Disposition: Home. Plan - Discharge Summary New Discharge Prescriptions: New Betamethasone Dipropionate [Diprolene AF 0.05% Cream] 1 applic TOPICAL DAILY #1 cream lisinopriL [Zestril] 20 mg PO BID #60 tab Continue Omeprazole Magnesium [PriLOSEC OTC] 20 mg PO DAILY Oxybutynin Chloride [Ditropan] 5 mg PO DAILY diazePAM [Valium] 1 mg PO BID PRN PRN Reason: Anxiety metFORMIN HCL 500 mg PO W/SUPPER Fluocinonide [Lidex 0.05%] 1 applic TOPICAL DAILY DULoxetine HCL [Cymbalta] 30 mg PO BID hydrOXYzine pamoate [hydrOXYzine PAMOATE] 25 mg PO TID PRN PRN Reason: Anxiety Multivitamins, Thera [Multivitamin (formulary)] 1 tab PO DAILY Cholecalciferol [Vitamin D3 (25 Mcg = 1000 Iu)] 25 mcg PO DAILY Aspirin EC [Ecotrin Low Dose] 81 mg PO DAILY PRN PRN Reason: Pain Isosorbide Mononitrate ER [Imdur] 30 mg PO DAILY carvediloL [Coreg] 6.25 mg PO BID Ipratropium-Albuterol Nebulize [Duoneb 0.5 mg-3 mg/3 ml Soln] 3 ml INHALATION RT-HS Famotidine [Pepcid] 20 mg PO BID #60 tab Discontinued Fludrocortisone [Florinef] 0.05 mg PO BID #60 tab lisinopriL [Zestril] 10 mg PO HS #30 tab Discharge Medication List Omeprazole Magnesium [PriLOSEC OTC] 20 mg PO DAILY 06/09/18 [History] Oxybutynin Chloride [Ditropan] 5 mg PO DAILY 06/09/18 [History] diazePAM [Valium] 1 mg PO BID PRN 06/09/18 [History] Aspirin EC [Ecotrin Low Dose] 81 mg PO DAILY PRN 12/21/21 [History] Cholecalciferol [Vitamin D3 (25 Mcg = 1000 Iu)] 25 mcg PO DAILY 12/21/21 [History] DULoxetine HCL [Cymbalta] 30 mg PO BID 12/21/21 [History] Fluocinonide [Lidex 0.05%] 1 applic TOPICAL DAILY 12/21/21 [History] Ipratropium-Albuterol Nebulize [Duoneb 0.5 mg-3 mg/3 ml Soln] 3 ml INHALATION RT-HS 12/21/21 [History] Isosorbide Mononitrate ER [Imdur] 30 mg PO DAILY 12/21/21 [History] Multivitamins, Thera [Multivitamin (formulary)] 1 tab PO DAILY 12/21/21 [History] carvediloL [Coreg] 6.25 mg PO BID 12/21/21 [History] hydrOXYzine pamoate [hydrOXYzine PAMOATE] 25 mg PO TID PRN 12/21/21 [History] metFORMIN HCL 500 mg PO W/SUPPER 12/21/21 [History] Famotidine [Pepcid] 20 mg PO BID #60 tab 12/24/21 [Rx] Betamethasone Dipropionate [Diprolene AF 0.05% Cream] 1 applic TOPICAL DAILY #1 cream 02/02/22 [Rx] lisinopriL [Zestril] 20 mg PO BID #60 tab 02/02/22 [Rx] Follow up Appointment(s)/Referral(s): Srinivas Burdick DO [Primary Care Provider] - 1-2 days Patient Instructions/Handouts: Leg Edema (ED) Discharge Disposition: HOME SELF-CARE
== END 2022-02-02 13:38 | disposition home or self-care (01) | DRG 603 ==
LOC: EC 17:00 → 6NMEDSUR 21:33 → OBSVTOIN 01-31 15:43
PROVIDERS: ADMIT Hospitalist; ATTEND Hospitalist
DX: L03.114 Cellulitis of left upper limb (principal); E83.42 Hypomagnesemia; E87.6 Hypokalemia; F41.8 Other specified anxiety disorders; H91.90 Unspecified hearing loss, unspecified ear; I10 Essential (primary) hypertension; T38.0X5A Adverse effect of glucocorticoids and synthetic analogues, initial encounter; I95.1 Orthostatic hypotension; K21.9 Gastro-esophageal reflux disease without esophagitis; K58.9 Irritable bowel syndrome, unspecified; R55 Syncope and collapse; E11.9 Type 2 diabetes mellitus without complications; R26.89 Other abnormalities of gait and mobility; L29.8 Other pruritus; Z90.49 Acquired absence of other specified parts of digestive tract; E78.5 Hyperlipidemia, unspecified; K44.9 Diaphragmatic hernia without obstruction or gangrene; M19.90 Unspecified osteoarthritis, unspecified site; N39.3 Stress incontinence (female) (male); Z79.82 Long term (current) use of aspirin; Z79.84 Long term (current) use of oral hypoglycemic drugs; Z79.899 Other long term (current) drug therapy; Z80.3 Family history of malignant neoplasm of breast; Z80.51 Family history of malignant neoplasm of kidney; Z85.528 Personal history of other malignant neoplasm of kidney; Z85.828 Personal history of other malignant neoplasm of skin; X58.XXXA Exposure to other specified factors, initial encounter; Z87.19 Personal history of other diseases of the digestive system; Z98.42 Cataract extraction status, left eye; Z98.41 Cataract extraction status, right eye; Z90.710 Acquired absence of both cervix and uterus
CPT/HCPCS: 36415; 71045; 74177; 80048; 80053; 81003; 82533; 83735; 83880; 84443; 85025; 93005; 94640; 96365; 96366; 99285

== ENCOUNTER 2022-02-23 11:35 | Emergency (ER) | payer MEDICARE ==
--- NOTE | 2022-02-23 14:47 | ED ---
General Adult HPI - General Chief complaint: Altered Mental Status Stated complaint: AMS Time Seen by Provider: 02/23/22 14:35 Source: patient, family, RN notes reviewed, old records reviewed Mode of arrival: ambulatory - History of Present Illness Initial comments: This is a pleasant 86-year-old female brought in by her daughter for hallucinations and dizziness. Patient states that she felt dizzy today like she was on gas or drugs. Daughter states that she was outside concerned about water lines and became agitated. Patient states the water in house is not working. She states that she believes that there are birds that are talking to her and that there are people in house no one else sees. Daughter states that the symptoms have been ongoing for over a year and Dr. Mcclelland wanted to put her on medication but she will not take it. She does have a mental health care provider Dr. Peng. They brought her to the emergency room for worsening symptoms and hallucinations. Daughter states that her son Bolivar talked to Dr. Burdick who wanted her admitted to the hospital. Patient denies any suicidal or homicidal ideations. -: days(s) (1) Severity scale (1-10): 0 Associated Symptoms: other (dizziness) Treatments Prior to Arrival: none - Related Data Home Medications Medication Instructions Recorded Confirmed Omeprazole Magnesium [PriLOSEC OTC] 20 mg PO DAILY 06/09/18 02/23/22 Oxybutynin Chloride [Ditropan] 5 mg PO DAILY 06/09/18 02/23/22 diazePAM [Valium] 1 mg PO BID PRN 06/09/18 02/23/22 Aspirin EC [Ecotrin Low Dose] 81 mg PO DAILY PRN 12/21/21 02/23/22 Cholecalciferol [Vitamin D3 (25 25 mcg PO DAILY 12/21/21 02/23/22 Mcg = 1000 Iu)] DULoxetine HCL [Cymbalta] 30 mg PO BID 12/21/21 02/23/22 Fluocinonide [Lidex 0.05%] 1 applic TOPICAL DAILY 12/21/21 02/23/22 Ipratropium-Albuterol Nebulize 3 ml INHALATION RT-HS 12/21/21 02/23/22 [Duoneb 0.5 mg-3 mg/3 ml Soln] Isosorbide Mononitrate ER [Imdur] 30 mg PO DAILY@1500 12/21/21 02/23/22 Multivitamins, Thera [Multivitamin 1 tab PO DAILY 12/21/21 02/23/22 (formulary)] carvediloL [Coreg] 6.25 mg PO BID 12/21/21 02/23/22 hydrOXYzine pamoate [hydrOXYzine 25 mg PO TID PRN 12/21/21 02/23/22 PAMOATE] metFORMIN HCL 500 mg PO W/SUPPER 12/21/21 02/23/22 Gabapentin [Neurontin] 300 mg PO BID 02/23/22 02/23/22 Lidocaine 5% Oint [Xylocaine 5% 1 applic TOPICAL HS 02/23/22 02/23/22 Oint] Magnesium Oxide [Magox 400] 400 mg PO DAILY 02/23/22 02/23/22 Previous Rx's Medication Instructions Recorded Famotidine [Pepcid] 20 mg PO BID #60 tab 12/24/21 lisinopriL [Zestril] 20 mg PO BID #60 tab 02/02/22 Allergies Allergy/AdvReac Type Severity Reaction Status Date / Time No Known Allergies Allergy Verified 02/23/22 15:59 Review of Systems ROS Statement: Those systems with pertinent positive or pertinent negative responses have been documented in the HPI. ROS Other: All systems not noted in ROS Statement are negative. Past Medical History Past Medical History: Cancer, Diabetes Mellitus, GERD/Reflux, Hearing Disorder / Deafness, Hyperlipidemia, Hypertension, Osteoarthritis (OA) Additional Past Medical History / Comment(s): HX OF SKIN CA, IBS, INCONTINENCE OF BLADDER, HX OF HIATAL HERNIA, THYROID NODULES , CATARACT BILATERAL EYES History of Any Multi-Drug Resistant Organisms: None Reported Past Surgical History: Cholecystectomy, Heart Catheterization, Hysterectomy, Orthopedic Surgery Additional Past Surgical History / Comment(s): SINUS SX, SX ARM, FOOT, Past Anesthesia/Blood Transfusion Reactions: No Reported Reaction Past Psychological History: Anxiety Smoking Status: Never smoker Past Alcohol Use History: None Reported Past Drug Use History: None Reported - Past Family History Daughter(s) Family Medical History: Cancer, Deep Vein Thrombosis (DVT) Additional Family Medical History / Comment(s): ONE DAUGHTER KIDNEY CA, ONE DAUGHTER HX OF DVT Sister(s) Family Medical History: Cancer Additional Family Medical History / Comment(s): 2 SISTERS WITH BREAST CA General Exam Limitations: altered mental status General appearance: alert, in no apparent distress Head exam: Present: atraumatic Eye exam: Present: EOMI. Absent: scleral icterus, conjunctival injection, periorbital swelling Neck exam: Absent: tenderness, meningismus Respiratory exam: Absent: respiratory distress, accessory muscle use Cardiovascular Exam: Present: regular rate GI/Abdominal exam: Present: soft. Absent: distended, tenderness, guarding, rebound, rigid Extremities exam: Present: normal capillary refill. Absent: tenderness, pedal edema Back exam: Present: normal inspection. Absent: tenderness, CVA tenderness (R), CVA tenderness (L), paraspinal tenderness, vertebral tenderness, rash noted Neurological exam: Present: alert Expanded Patient oriented to: Present: person Speech: Present: fluid speech Cranial nerves: EOM's Intact: Normal Eye Response: (4) open spontaneously Motor Response: (6) obeys commands Verbal Response: (5) oriented Royce Total: 15 Psychiatric exam: Present: normal affect, normal mood, depressed (Patient states she is depressed). Absent: homicidal ideation, suicidal ideation Skin exam: Present: warm, dry, normal color. Absent: cyanosis, diaphoretic, petechiae, pallor Course Vital Signs 02/23/22 12:12 Temperature 98.2 F Pulse Rate 78 Respiratory 14 Rate Blood Pressure 104/68 O2 Sat by Pulse 97 Oximetry Medical Decision Making - Medical Decision Making Patient brought in by daughter with complaints of hallucinations and agitation. Patient admits to being depressed but denies any suicidal or homicidal ideations. She also admits to seeing fierro that are talking to her and people in her home that her eating Ramen noodles that do not live there. CT shows no acute intracranial abnormality or space-occupying lesion. Chest x-ray shows no acute cardiopulmonary disease. Labs show no leukocytosis, hemoglobin and hematocrit are stable. Urine drug screen is positive for benzodiazepines. Family at bedside including daughter. I did advise them that labs, XR, CT and urine are unremarkable, they were directed to follow up with Dr. Burdick tomorrow morning for her ongoing hallucinations and confusion. Patient has seen Dr. Burdick in the past and the symptoms have been ongoing for over a year per family. They were directed to return if any new or concerning symptoms. Family is agreeable to this plan of care. Case also discussed with Dr. Dickens and Dr. Seo. - Lab Data Result diagrams: 02/23/22 15:07 02/23/22 15:07 Lab Results 02/23/22 02/23/22 02/23/22 Range/Units 15:07 15:07 15:07 WBC 6.6 (3.8-10.6) k/uL RBC 4.67 (3.80-5.40) m/uL Hgb 14.4 (11.4-16.0) gm/dL Hct 45.2 (34.0-46.0) % MCV 96.9 (80.0-100.0) fL MCH 30.9 (25.0-35.0) pg MCHC 31.9 (31.0-37.0) g/dL RDW 13.1 (11.5-15.5) % Plt Count 226 (150-450) k/uL MPV 8.1 Neutrophils % (Manual) 28 % Band Neuts % (Manual) 2 % Lymphocytes % (Manual) 55 % Monocytes % (Manual) 5 % Eosinophils % (Manual) 8 % Basophils % (Manual) 2 % Neutrophils # (Manual) 1.90 (1.3-7.7) k/uL Lymphocytes # (Manual) 3.63 (1.0-4.8) k/uL Monocytes # (Manual) 0.33 (0-1.0) k/uL Eosinophils # (Manual) 0.53 (0-0.7) k/uL Basophils # (Manual) 0.13 (0-0.2) k/uL Nucleated RBCs 0 (0-0) /100 WBC Manual Slide Review Performed PT 10.5 (9.0-12.0) sec INR 1.0 (<1.2) APTT 21.7 L (22.0-30.0) sec Sodium (137-145) mmol/L Potassium (3.5-5.1) mmol/L Chloride (98-107) mmol/L Carbon Dioxide (22-30) mmol/L Anion Gap mmol/L BUN (7-17) mg/dL Creatinine (0.52-1.04) mg/dL Est GFR (CKD-EPI)AfAm (>60 ml/min/1.73 sqM) Est GFR (CKD-EPI)NonAf (>60 ml/min/1.73 sqM) Glucose (74-99) mg/dL Calcium (8.4-10.2) mg/dL Total Bilirubin (0.2-1.3) mg/dL AST (14-36) U/L ALT (4-34) U/L Alkaline Phosphatase (38-126) U/L Total Protein (6.3-8.2) g/dL Albumin (3.5-5.0) g/dL Urine Color Yellow Urine Appearance Clear (Clear) Urine pH 5.5 (5.0-8.0) Ur Specific [place] 1.009 (1.001-1.035) Urine Protein Negative (Negative) Urine Glucose (UA) Negative (Negative) Urine Ketones Negative (Negative) Urine Blood Negative (Negative) Urine Nitrite Negative (Negative) Urine Bilirubin Negative (Negative) Urine Urobilinogen <2.0 (<2.0) mg/dL Ur Leukocyte Esterase Small H (Negative) Urine RBC <1 (0-5) /hpf Urine WBC 10 H (0-5) /hpf Ur Squamous Epith Cells 1 (0-4) /hpf Hyaline Casts 1 (0-2) /lpf Urine Mucus Rare H (None) /hpf Urine Opiates Screen Not Detected (NotDetected) Ur Oxycodone Screen Not Detected (NotDetected) Urine Methadone Screen Not Detected (NotDetected) Ur Propoxyphene Screen Not Detected (NotDetected) Ur Barbiturates Screen Not Detected (NotDetected) U Tricyclic Antidepress Not Detected (NotDetected) Ur Phencyclidine Scrn Not Detected (NotDetected) Ur Amphetamines Screen Not Detected (NotDetected) U Methamphetamines Scrn Not Detected (NotDetected) U Benzodiazepines Scrn Detected H (NotDetected) Urine Cocaine Screen Not Detected (NotDetected) U Marijuana (THC) Screen Not Detected (NotDetected) 02/23/22 Range/Units 15:07 WBC (3.8-10.6) k/uL RBC (3.80-5.40) m/uL Hgb (11.4-16.0) gm/dL Hct (34.0-46.0) % MCV (80.0-100.0) fL MCH (25.0-35.0) pg MCHC (31.0-37.0) g/dL RDW (11.5-15.5) % Plt Count (150-450) k/uL MPV Neutrophils % (Manual) % Band Neuts % (Manual) % Lymphocytes % (Manual) % Monocytes % (Manual) % Eosinophils % (Manual) % Basophils % (Manual) % Neutrophils # (Manual) (1.3-7.7) k/uL Lymphocytes # (Manual) (1.0-4.8) k/uL Monocytes # (Manual) (0-1.0) k/uL Eosinophils # (Manual) (0-0.7) k/uL Basophils # (Manual) (0-0.2) k/uL Nucleated RBCs (0-0) /100 WBC Manual Slide Review PT (9.0-12.0) sec INR (<1.2) APTT (22.0-30.0) sec Sodium 143 (137-145) mmol/L Potassium 4.0 (3.5-5.1) mmol/L Chloride 105 (98-107) mmol/L Carbon Dioxide 27 (22-30) mmol/L Anion Gap 11 mmol/L BUN 19 H (7-17) mg/dL Creatinine 1.05 H (0.52-1.04) mg/dL Est GFR (CKD-EPI)AfAm 56 (>60 ml/min/1.73 sqM) Est GFR (CKD-EPI)NonAf 49 (>60 ml/min/1.73 sqM) Glucose 73 L (74-99) mg/dL Calcium 10.1 (8.4-10.2) mg/dL Total Bilirubin 0.8 (0.2-1.3) mg/dL AST 42 H (14-36) U/L ALT 25 (4-34) U/L Alkaline Phosphatase 74 (38-126) U/L Total Protein 8.0 (6.3-8.2) g/dL Albumin 4.7 (3.5-5.0) g/dL Urine Color Urine Appearance (Clear) Urine pH (5.0-8.0) Ur Specific [place] (1.001-1.035) Urine Protein (Negative) Urine Glucose (UA) (Negative) Urine Ketones (Negative) Urine Blood (Negative) Urine Nitrite (Negative) Urine Bilirubin (Negative) Urine Urobilinogen (<2.0) mg/dL Ur Leukocyte Esterase (Negative) Urine RBC (0-5) /hpf Urine WBC (0-5) /hpf Ur Squamous Epith Cells (0-4) /hpf Hyaline Casts (0-2) /lpf Urine Mucus (None) /hpf Urine Opiates Screen (NotDetected) Ur Oxycodone Screen (NotDetected) Urine Methadone Screen (NotDetected) Ur Propoxyphene Screen (NotDetected) Ur Barbiturates Screen (NotDetected) U Tricyclic Antidepress (NotDetected) Ur Phencyclidine Scrn (NotDetected) Ur Amphetamines Screen (NotDetected) U Methamphetamines Scrn (NotDetected) U Benzodiazepines Scrn (NotDetected) Urine Cocaine Screen (NotDetected) U Marijuana (THC) Screen (NotDetected) Disposition Clinical Impression: Altered mental status Disposition: HOME SELF-CARE Condition: Good Instructions (If sedation given, give patient instructions): Altered Mental Status (ED) Additional Instructions: Follow-up with Dr. Burdick tomorrow morning for continuation of care. Return to the emergency room with any new or concerning symptoms including difficulty speaking, difficulty swallowing, or weakness to one side of your body. Is patient prescribed a controlled substance at d/c from ED?: No Referrals: Srinivas Burdick DO [Primary Care Provider] - 1-2 days Time of Disposition: 17:36
--- NOTE | 2022-02-23 15:19 | XR ---
EXAMINATION TYPE: XR chest 2V DATE OF EXAM: 02/23/2022 COMPARISON: 01/30/2022 HISTORY: 86-year-old female confusion, altered mental status TECHNIQUE: PA and lateral views FINDINGS: Heart limits of normal in size. Mild interstitial prominence is unchanged. Cholecystectomy clips. Jacob e strandy atelectasis in the lower lungs. No consolidation or pleural effusion. IMPRESSION: Borderline heart size and chronic appearing changes. No definite acute process.
[2022-02-23 15:33] LABS: HCT 45.2 % (34.0-46.0); HGB 14.4 gm/dL (11.4-16.0); MCH 30.9 pg (25.0-35.0); MCHC 31.9 g/dL (31.0-37.0); MCV 96.9 fL (80.0-100.0); Mean Platelet Volume 8.1; Platelet Count 226 k/uL (150-450); RBC 4.67 m/uL (3.80-5.40); RDW 13.1 % (11.5-15.5); WBC 6.6 k/uL (3.8-10.6)
[2022-02-23 15:43] LABS: Appearance,Urine Clear (Clear); Bilirubin,Urine Negative (Negative); Blood,Urine Negative (Negative); Color,Urine Yellow; Glucose,Urine (UA) Negative (Negative); Hyaline Casts,Urine 1 /lpf (0-2); Ketones,Urine Negative (Negative); Leukocyte Esterase,Urine Small (Negative); Mucus,Urine Rare /hpf; Nitrite,Urine Negative (Negative); PH, Urine 5.5 (5.0-8.0); Protein,Urine Negative (Negative); RBC,Urine <1 /hpf (0-5); Specific Gravity,Urine 1.009 (1.001-1.035); Squamous Epithelial Cell,Urine 1 /hpf (0-4); Urobilinogen,Urine <2.0 mg/dL (<2.0); WBC,Urine 10 /hpf (0-5)
[2022-02-23 15:48] LABS: Albumin 4.7 g/dL (3.5-5.0); Calcium 10.1 mg/dL (8.4-10.2); Total Bilirubin 0.8 mg/dL (0.2-1.3)
[2022-02-23 15:49] LABS: Amphetamine Screen,Urine Not Detected (NotDetected); Barbiturate Screen,Urine Not Detected (NotDetected); Benzodiazepines Screen,Urine Detected (NotDetected); Cocaine Screen,Urine Not Detected (NotDetected); Methadone Screen, Urine Not Detected (NotDetected); Opiate Screen,Urine Not Detected (NotDetected); Oxycodone Screen, Urine Not Detected (NotDetected); Phencyclidine Screen,Urine Not Detected (NotDetected); Prothrombin Time 10.5 sec (9.0-12.0); Tricyclic Antidepressant,Urine Not Detected (NotDetected); Urn Cannabinoid Scrn Not Detected (NotDetected)
[2022-02-23 15:51] LABS: Partial Thromboplastin Time 21.7 sec (22.0-30.0)
[2022-02-23 16:04] LABS: Band Neutrophils % 2 %; Basophils # (M) 0.13 k/uL (0-0.2); Eosinophils # (M) 0.53 k/uL (0-0.7); Lymphocytes # (M) 3.63 k/uL (1.0-4.8); Monocytes # (M) 0.33 k/uL (0-1.0); Neutrophils % (M) 28 %; Nucleated Red Blood Cells 0 /100 WBC (0-0); Total Cells Counted 100
--- NOTE | 2022-02-23 16:28 | CT ---
EXAMINATION TYPE: CT brain wo con DATE OF EXAM: 02/23/2022 COMPARISON: CT dated 12/21/2021 HISTORY: Altered mental status. CT DLP: 1100.4 mGycm Automated exposure control for dose reduction was used. TECHNIQUE: CT scan of the brain is performed without IV contrast administration. FINDINGS: Stable brain volume loss changes and suspected left high frontal chronic cortical and subcortical inf arct. Mild bilateral cerebral white matter chronic microvascular ischemic changes. Scattered arterial atherosclerotic calcifications. No acute intracranial hemorrhage. No gross acute cortical infarct. No midline shift, herniation or ve ntriculomegaly. Unremarkable basal cisterns, sella and CP angles. No gross space-occupying lesion, vasogenic edema or mass effect. Unremarkable orbits. Previous paranasal sinus surgery with chronic inflammatory changes of the left s phenoid sinus compartment. Clear mastoid air cells. Osteopenia. IMPRESSION: No acute intracranial abnormality or gross space-occupying lesion by this nonenhanced CT scan. Chroni c and incidental findings as described above.
[2022-02-23 17:57] VITALS: BP 148/94; PULSE 69; RESP 20; TEMP 97
== END 2022-02-23 18:00 | disposition home or self-care (01) ==
LOC: EC 11:35
DX: R41.82 Altered mental status, unspecified (principal); E11.9 Type 2 diabetes mellitus without complications; I10 Essential (primary) hypertension; E78.5 Hyperlipidemia, unspecified; M19.90 Unspecified osteoarthritis, unspecified site; K21.9 Gastro-esophageal reflux disease without esophagitis; F41.9 Anxiety disorder, unspecified; Z79.82 Long term (current) use of aspirin; Z79.84 Long term (current) use of oral hypoglycemic drugs; Z79.899 Other long term (current) drug therapy
CPT/HCPCS: 36415; 70450; 71046; 80053; 80306; 81001; 85025; 85610; 85730; 99285

== ENCOUNTER 2022-03-05 16:22 | Observation (INO) | payer MEDICARE ==
--- NOTE | 2022-03-05 21:42 | ED ---
Psych HPI - General Chief Complaint: Psychiatric Symptoms Stated Complaint: Mental health eval Time Seen by Provider: 03/05/22 21:06 Source: patient, RN notes reviewed, old records reviewed, Caregiver Mode of arrival: ambulatory Limitations: no limitations, altered mental status, physical limitation - History of Present Illness Initial Comments: This is an 86-year-old female to the emergency department today for altered mental status delirium, delusions, dementia patient is unsafe to herself secondary to delusions and delirium. Patient appears to see birds that talk to her appears to see birds that attack her, . Patient has been hiding herself on a barricade herself in rooms. Patient very paranoid, not acting appropriately MD Complaint: altered mental status -: unknown Associated Psychiatric Symptoms: racing thoughts, auditory hallucinations, visual hallucinations, delusions History of same: Yes Quality: constant, getting worse Worsens With: none Associated Symptoms: confusion, insomnia Treatments Prior to Arrival: placed on mental health hold - Related Data Home Medications Medication Instructions Recorded Confirmed diazePAM [Valium] 1 mg PO BID PRN 06/09/18 03/05/22 Aspirin EC [Ecotrin Low Dose] 81 mg PO DAILY PRN 12/21/21 03/05/22 Cholecalciferol [Vitamin D3 (25 25 mcg PO DAILY 12/21/21 03/05/22 Mcg = 1000 Iu)] DULoxetine HCL [Cymbalta] 30 mg PO BID 12/21/21 03/05/22 Fluocinonide [Lidex 0.05%] 1 applic TOPICAL DAILY 12/21/21 03/05/22 Ipratropium-Albuterol Nebulize 3 ml INHALATION RT-HS 12/21/21 03/05/22 [Duoneb 0.5 mg-3 mg/3 ml Soln] Isosorbide Mononitrate ER [Imdur] 30 mg PO DAILY@1500 12/21/21 03/05/22 Multivitamins, Thera [Multivitamin 1 tab PO DAILY 12/21/21 03/05/22 (formulary)] carvediloL [Coreg] 6.25 mg PO BID 12/21/21 03/05/22 hydrOXYzine pamoate [hydrOXYzine 25 mg PO TID PRN 12/21/21 03/05/22 PAMOATE] metFORMIN HCL 500 mg PO W/SUPPER 12/21/21 03/05/22 Gabapentin [Neurontin] 300 mg PO BID 02/23/22 03/05/22 Lidocaine 5% Oint [Xylocaine 5% 1 applic TOPICAL HS 02/23/22 03/05/22 Oint] Magnesium Oxide [Magox 400] 400 mg PO DAILY 02/23/22 03/05/22 Omeprazole 20 mg PO DAILY 03/05/22 03/05/22 Oxybutynin Xl [Ditropan XL] 5 mg PO DAILY 03/05/22 03/05/22 QUEtiapine FUMARATE [SEROquel] 25 mg PO HS 03/05/22 03/05/22 Previous Rx's Medication Instructions Recorded Famotidine [Pepcid] 20 mg PO BID #60 tab 12/24/21 lisinopriL [Zestril] 20 mg PO BID #60 tab 02/02/22 Allergies Allergy/AdvReac Type Severity Reaction Status Date / Time No Known Allergies Allergy Verified 02/23/22 15:59 Review of Systems ROS Statement: Those systems with pertinent positive or pertinent negative responses have been documented in the HPI. ROS Other: All systems not noted in ROS Statement are negative. Past Medical History Past Medical History: Cancer, Diabetes Mellitus, GERD/Reflux, Hearing Disorder / Deafness, Hyperlipidemia, Hypertension, Osteoarthritis (OA) Additional Past Medical History / Comment(s): HX OF SKIN CA, IBS, INCONTINENCE OF BLADDER, HX OF HIATAL HERNIA, THYROID NODULES , CATARACT BILATERAL EYES History of Any Multi-Drug Resistant Organisms: None Reported Past Surgical History: Cholecystectomy, Heart Catheterization, Hysterectomy, Orthopedic Surgery Additional Past Surgical History / Comment(s): SINUS SX, SX ARM, FOOT, Past Anesthesia/Blood Transfusion Reactions: No Reported Reaction Past Psychological History: Anxiety Smoking Status: Never smoker Past Alcohol Use History: None Reported Past Drug Use History: None Reported - Past Family History Daughter(s) Family Medical History: Cancer, Deep Vein Thrombosis (DVT) Additional Family Medical History / Comment(s): ONE DAUGHTER KIDNEY CA, ONE DAUGHTER HX OF DVT Sister(s) Family Medical History: Cancer Additional Family Medical History / Comment(s): 2 SISTERS WITH BREAST CA General Exam Limitations: altered mental status, physical limitation General appearance: alert, in no apparent distress Head exam: Present: atraumatic, normocephalic, normal inspection Eye exam: Present: normal appearance, PERRL, EOMI. Absent: scleral icterus, conjunctival injection, periorbital swelling ENT exam: Present: normal exam, mucous membranes moist Neck exam: Present: normal inspection. Absent: tenderness, meningismus, lymphadenopathy Respiratory exam: Present: normal lung sounds bilaterally. Absent: respiratory distress, wheezes, rales, rhonchi, stridor Cardiovascular Exam: Present: regular rate, normal rhythm, normal heart sounds. Absent: systolic murmur, diastolic murmur, rubs, gallop, clicks GI/Abdominal exam: Present: soft, normal bowel sounds. Absent: distended, tenderness, guarding, rebound, rigid Extremities exam: Present: normal inspection, full ROM, normal capillary refill. Absent: tenderness, pedal edema, joint swelling, calf tenderness Back exam: Present: normal inspection Neurological exam: Present: alert, oriented X3, CN II-XII intact Psychiatric exam: Present: normal affect, normal mood Skin exam: Present: warm, dry, intact, normal color. Absent: rash Course Vital Signs 03/05/22 03/05/22 03/06/22 17:14 22:00 00:00 Temperature 98.2 F 98.0 F 98.2 F Pulse Rate 81 80 83 Respiratory 18 16 16 Rate Blood Pressure 106/68 110/78 115/70 O2 Sat by Pulse 96 96 96 Oximetry - Reevaluation(s) Reevaluation #1: 03/06/22 00:25 medical record is reviewed Reevaluation #2: 03/06/22 00:25 patient family informed of results and questions are answered Reevaluation #3: 03/06/22 00:25 patient is able to get some rest here in the emergency department - Consultations Consultation #1: spoke w [facility] ok for admission Medical Decision Making - Medical Decision Making 86 female to the ER today for evaluation. Patient presents todaye for evaluation regards to altered mental status delusions, delirium. Patient will be admitted for psychiatric evaluation and management possible necessity of neurological evaluation management and medication adjustments. Patient low magnesium we'll replace - Lab Data Result diagrams: 03/05/22 22:40 03/05/22 22:40 Lab Results 03/05/22 03/05/22 03/05/22 Range/Units 22:31 22:40 22:40 WBC 6.1 (3.8-10.6) k/uL RBC 4.45 (3.80-5.40) m/uL Hgb 14.2 (11.4-16.0) gm/dL Hct 43.2 (34.0-46.0) % MCV 97.1 (80.0-100.0) fL MCH 31.9 (25.0-35.0) pg MCHC 32.8 (31.0-37.0) g/dL RDW 13.5 (11.5-15.5) % Plt Count 198 (150-450) k/uL MPV 8.4 Neutrophils % Not Reportable Neutrophils % (Manual) 33 % Lymphocytes % Not Reportable Lymphocytes % (Manual) 60 % Monocytes % Not Reportable Monocytes % (Manual) 3 % Eosinophils % Not Reportable Eosinophils % (Manual) 3 % Basophils % Not Reportable Basophils % (Manual) 1 % Neutrophils # Not Reportable Neutrophils # (Manual) 2.01 (1.3-7.7) k/uL Lymphocytes # Not Reportable Lymphocytes # (Manual) 3.66 (1.0-4.8) k/uL Monocytes # Not Reportable Monocytes # (Manual) 0.18 (0-1.0) k/uL Eosinophils # Not Reportable Eosinophils # (Manual) 0.18 (0-0.7) k/uL Basophils # Not Reportable Basophils # (Manual) 0.06 (0-0.2) k/uL Nucleated RBCs 0 (0-0) /100 WBC Manual Slide Review Performed RBC Morphology Normal Sodium 139 (137-145) mmol/L Potassium 3.9 (3.5-5.1) mmol/L Chloride 104 (98-107) mmol/L Carbon Dioxide 24 (22-30) mmol/L Anion Gap 11 mmol/L BUN 21 H (7-17) mg/dL Creatinine 1.02 (0.52-1.04) mg/dL Est GFR (CKD-EPI)AfAm 59 (>60 ml/min/1.73 sqM) Est GFR (CKD-EPI)NonAf 51 (>60 ml/min/1.73 sqM) Glucose 224 H (74-99) mg/dL Calcium 9.8 (8.4-10.2) mg/dL Phosphorus 2.8 (2.5-4.5) mg/dL Magnesium 1.4 L (1.6-2.3) mg/dL TSH 1.030 (0.465-4.680) mIU/L Urine Color Light Yellow Urine Appearance Clear (Clear) Urine pH 5.5 (5.0-8.0) Ur Specific [place] 1.008 (1.001-1.035) Urine Protein Negative (Negative) Urine Glucose (UA) Negative (Negative) Urine Ketones Negative (Negative) Urine Blood Negative (Negative) Urine Nitrite Negative (Negative) Urine Bilirubin Negative (Negative) Urine Urobilinogen <2.0 (<2.0) mg/dL Ur Leukocyte Esterase Small H (Negative) Urine WBC 4 (0-5) /hpf Ur Squamous Epith Cells <1 (0-4) /hpf Hyaline Casts 1 (0-2) /lpf Urine Mucus Rare H (None) /hpf Salicylates <1.0 mg/dL Urine Opiates Screen Not Detected (NotDetected) Ur Oxycodone Screen Not Detected (NotDetected) Urine Methadone Screen Not Detected (NotDetected) Ur Propoxyphene Screen Not Detected (NotDetected) Acetaminophen <10.0 ug/mL Ur Barbiturates Screen Not Detected (NotDetected) U Tricyclic Antidepress Not Detected (NotDetected) Ur Phencyclidine Scrn Not Detected (NotDetected) Ur Amphetamines Screen Not Detected (NotDetected) U Methamphetamines Scrn Not Detected (NotDetected) U Benzodiazepines Scrn Detected H (NotDetected) Urine Cocaine Screen Not Detected (NotDetected) U Marijuana (THC) Screen Not Detected (NotDetected) Serum Alcohol <10 mg/dL - Radiology Data Radiology results: report reviewed (CT brain negative for acute disease), image reviewed Disposition Clinical Impression: Altered mental status, Hypomagnesemia, Psychosis, Acute psychosis, Delirium, Delusional disorder Disposition: ADMITTED IP TO THIS [facility] Condition: Fair Is patient prescribed a controlled substance at d/c from ED?: No Referrals: Srinivas Burdick DO [Primary Care Provider] - 1-2 days
[2022-03-05] MEDS ORDERED: LORazepam 2 MG/ML INJ IV STA (22:07)
[2022-03-05] MEDS: SODIUM CHLORIDE 0.9% 1,000 ML IV SCH (22:46)
[2022-03-05 23:10] LABS: Acetaminophen <10.0 ug/mL; African American GFR (CKD) 59 (>60 ml/min/1.73 sqM); Alcohol <10 mg/dL; Anion Gap 11 mmol/L; Blood Urea Nitrogen 21 mg/dL (7-17); Calcium 9.8 mg/dL (8.4-10.2); Carbon Dioxide 24 mmol/L (22-30); Chloride 104 mmol/L (98-107); Glucose 224 mg/dL (74-99); Magnesium 1.4 mg/dL (1.6-2.3); Non-African American GFR(CKD) 51 (>60 ml/min/1.73 sqM); Phosphorus 2.8 mg/dL (2.5-4.5); Potassium 3.9 mmol/L (3.5-5.1); Salicylate <1.0 mg/dL; Sodium 139 mmol/L (137-145)
[2022-03-05 23:18] LABS: HCT 43.2 % (34.0-46.0); HGB 14.2 gm/dL (11.4-16.0); MCH 31.9 pg (25.0-35.0); MCHC 32.8 g/dL (31.0-37.0); MCV 97.1 fL (80.0-100.0); Mean Platelet Volume 8.4; Platelet Count 198 k/uL (150-450); RBC 4.45 m/uL (3.80-5.40); RDW 13.5 % (11.5-15.5); WBC 6.1 k/uL (3.8-10.6)
[2022-03-05 23:24] LABS: Appearance,Urine Clear (Clear); Bilirubin,Urine Negative (Negative); Blood,Urine Negative (Negative); Color,Urine Light Yellow; Glucose,Urine (UA) Negative (Negative); Hyaline Casts,Urine 1 /lpf (0-2); Ketones,Urine Negative (Negative); Leukocyte Esterase,Urine Small (Negative); Mucus,Urine Rare /hpf; Nitrite,Urine Negative (Negative); PH, Urine 5.5 (5.0-8.0); Protein,Urine Negative (Negative); Specific Gravity,Urine 1.008 (1.001-1.035); Squamous Epithelial Cell,Urine <1 /hpf (0-4); Urobilinogen,Urine <2.0 mg/dL (<2.0); WBC,Urine 4 /hpf (0-5)
[2022-03-05 23:31] LABS: Amphetamine Screen,Urine Not Detected (NotDetected); Barbiturate Screen,Urine Not Detected (NotDetected); Benzodiazepines Screen,Urine Detected (NotDetected); Cocaine Screen,Urine Not Detected (NotDetected); Methadone Screen, Urine Not Detected (NotDetected); Opiate Screen,Urine Not Detected (NotDetected); Oxycodone Screen, Urine Not Detected (NotDetected); Phencyclidine Screen,Urine Not Detected (NotDetected); Tricyclic Antidepressant,Urine Not Detected (NotDetected); Urn Cannabinoid Scrn Not Detected (NotDetected)
[2022-03-05 23:54] LABS: Basophils # (M) 0.06 k/uL (0-0.2); Eosinophils # (M) 0.18 k/uL (0-0.7); Lymphocytes # (M) 3.66 k/uL (1.0-4.8); Monocytes # (M) 0.18 k/uL (0-1.0); Neutrophils # (M) 2.01 k/uL (1.3-7.7); Neutrophils % (M) 33 %; Nucleated Red Blood Cells 0 /100 WBC (0-0); Total Cells Counted 100
[2022-03-05 23:55] LABS: RBC Morphology Normal
[2022-03-06] MEDS ORDERED: MAGNESIUM OXIDE 400 MG TAB PO STA (00:15)
[2022-03-06] MEDS ORDERED: LORazepam 2 MG/ML INJ IV PRN (00:16)
[2022-03-06] MEDS ORDERED: ONDANSETRON 4 MG/2 ML VIAL IVP PRN (00:16)
[2022-03-06] MEDS ORDERED: NALOXONE 0.4 MG/ML 1 ML VIAL IV PRN (00:16)
--- NOTE | 2022-03-06 01:56 | CT ---
EXAMINATION TYPE: CT brain wo con DATE OF EXAM: 03/06/2022 COMPARISON: None HISTORY: AMS CT DLP: 1100.4 mGycm Automated exposure control for dose reduction was used. There is mild cerebral cortical atrophy. There is no mass effect or midline shift. There is no eviden ce of intracranial hemorrhage. Calvarium is intact. IMPRESSION: Negative unenhanced head CT scan. Minimal left-sided ethmoid sinusitis. Mild maxillary sinusitis.
[2022-03-06] MEDS: SODIUM CHLORIDE 0.9% 1,000 ML IV SCH ×2 (05:49→09:43)
[2022-03-06] MEDS: MAGNESIUM OXIDE 400 MG TAB PO SCH (09:43)
[2022-03-06] MEDS ORDERED: ASPIRIN 81 MG PO PRN (13:32)
[2022-03-06] MEDS ORDERED: diazePAM 2 MG TAB PO PRN (13:32)
[2022-03-06] MEDS: ISOSORBIDE MONONITRATE ER 30 MG TAB.ER.24H PO SCH (14:06)
[2022-03-06] MEDS: FAMOTIDINE 20 MG TAB PO SCH ×2 (14:06→21:06)
[2022-03-06] MEDS: carvediloL 6.25 MG TAB PO SCH ×2 (14:06→19:23)
[2022-03-06] MEDS: ENOXAPARIN 40 MG/0.4 ML SYRINGE SQ SCH (14:06)
[2022-03-06] MEDS: MULTIVITAMINS, THERA 1 EACH TAB PO SCH (14:06)
[2022-03-06 14:07] LABS: Glucose,Whole Blood 161 mg/dL (75-99)
[2022-03-06] MEDS: PANTOPRAZOLE 40 MG TABLET PO SCH (14:07)
[2022-03-06] MEDS: OXYBUTYNIN XL 5 MG TAB.ER.24 PO SCH (14:11)
[2022-03-06] MEDS: INSULIN ASPART (NovoLOG) 100 UNIT/ML VIAL SQ SCH ×2 (14:11→17:51)
--- NOTE | 2022-03-06 15:32 | P.HPIM ---
History of Present Illness H&P Date: 03/06/22 Chief Complaint: Visual and auditory hallucinations This is a very pleasant 86-year-old patient who follows with Dr. Burdick. Chronic stable medical conditions include GERD, hypertension, hyperlipidemia, urinary incontinence, anxiety depression, chronic gait dysfunction uses a walker. She has a very itchy condition on the scalp for which she follows a Dr. Little. Several medications have been tried unsuccessfully. She is also been losing hair and constantly he is itching her scalp. Patient now presents with auditory and visual hallucinations. She believes the black birds around the house. The come inside the house. Get under her bed. She thinks her grandson lives with her is drinking alcohol and has a visitor there may be some sexual relationship. She talks about people digging trenches outside the house. Not sure what they're doing. Bringing heart for to from her house. No fever no chills. Appetite is fair. Psychiatry consulted. Patient believes to birds have bitten her toes. Review of systems: GEN.: Tired EYES: None HEENT: None NECK: None RESPIRATORY: None CARDIOVASCULAR: None GASTROINTESTINAL: None GENITOURINARY: None MUSCULOSKELETAL: Joint pains LYMPHATICS: None HEMATOLOGICAL: None PSYCHIATRY: As above NEUROLOGICAL: Uses a walker Past medical history to include: Orthostatic hypertension, GERD, hyperlipidemia, hypertension, osteoarthritis, urinary incontinence, hiatal hernia, anxiety Social history: Nonsmoker. No alcohol. Lives with her grandson. Uses a walker. Family history: kidney cancer. Physical examination: VITAL SIGNS: [98, 63, 16, 108/56, 95% room air] GENERAL: [Laying in bed awake, comfortable EYES: [Pupils equal. Conjunctiva pedro]l. HEENT: [External appearance of nose and ears normal, oral cavity grossly normal]. NECK: [JVD not raised; masses not palpable]. HEART: [First and second heart sounds are normal; no edema]. LUNGS:[ Respiratory rate normal; clear to auscultation]. ABDOMEN: [Soft, nontender, liver spleen not palpable, no masses palpable]. PSYCH: [Alert and oriented x3; mood and affect pedro]l. Hallucinations as above MUSCULOSKELETAL:No Clubbing/cyanosis;muscles-grossly intact. OA NEUROLOGICAL: [Cranial nerves grossly intact; no facial asymmetry, power and sensation grossly intact]. LYMPHATICS: [No lymph nodes palpable in the axilla and neck] INVESTIGATIONS, reviewed in the clinical context: White count 6.1 hemoglobin 14.2 platelets 198 potassium 3.9 creatinine 1.02 Urine drug screen positive for benzodiazepine Computed tomography scan of the brain: Unremarkable Assessment and plan: -New onset of auditory and visual hallucinations. Patient has underlying d epression. Psychiatry consulted - orthostatic hypertension: Better Fall precautions -Essential hypertension, controlled Coreg 6.25 mg twice a day. Zestril 20 mg twice a day -Anxiety/depression otherwise specified Cymbalta 30 mg twice a day -Chronic scalp very a itchy lesions Lidex 0.05% topical daily. follow-up a Dr. Little. 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 baseline Fall precautions Continue home medications. Psychiatry consulted. Subcu Lovenox. Past Medical History Past Medical History: Cancer, Diabetes Mellitus, GERD/Reflux, Hearing Disorder / Deafness, Hyperlipidemia, Hypertension, Osteoarthritis (OA) Additional Past Medical History / Comment(s): HX OF SKIN CA, IBS, INCONTINENCE OF BLADDER, HX OF HIATAL HERNIA, THYROID NODULES , CATARACT BILATERAL EYES History of Any Multi-Drug Resistant Organisms: None Reported Past Surgical History: Cholecystectomy, Heart Catheterization, Hysterectomy, Orthopedic Surgery Additional Past Surgical History / Comment(s): SINUS SX, SX ARM, FOOT, Past Anesthesia/Blood Transfusion Reactions: No Reported Reaction Past Psychological History: Anxiety Smoking Status: Unknown if ever smoked Past Alcohol Use History: None Reported Past Drug Use History: None Reported - Past Family History Daughter(s) Family Medical History: Cancer, Deep Vein Thrombosis (DVT) Additional Family Medical History / Comment(s): ONE DAUGHTER KIDNEY CA, ONE DAUGHTER HX OF DVT Sister(s) Family Medical History: Cancer Additional Family Medical History / Comment(s): 2 SISTERS WITH BREAST CA Medications and Allergies Home Medications Medication Instructions Recorded Confirmed Type diazePAM [Valium] 1 mg PO BID PRN 06/09/18 03/05/22 History Aspirin EC [Ecotrin Low Dose] 81 mg PO DAILY PRN 12/21/21 03/05/22 History Cholecalciferol [Vitamin D3 (25 25 mcg PO DAILY 12/21/21 03/05/22 History Mcg = 1000 Iu)] DULoxetine HCL [Cymbalta] 30 mg PO BID 12/21/21 03/05/22 History Fluocinonide [Lidex 0.05%] 1 applic TOPICAL DAILY 12/21/21 03/05/22 History Ipratropium-Albuterol Nebulize 3 ml INHALATION RT-HS 12/21/21 03/05/22 History [Duoneb 0.5 mg-3 mg/3 ml Soln] Isosorbide Mononitrate ER [Imdur] 30 mg PO DAILY@1500 12/21/21 03/05/22 History Multivitamins, Thera [Multivitamin 1 tab PO DAILY 12/21/21 03/05/22 History (formulary)] carvediloL [Coreg] 6.25 mg PO BID 12/21/21 03/05/22 History hydrOXYzine pamoate [hydrOXYzine 25 mg PO TID PRN 12/21/21 03/05/22 History PAMOATE] metFORMIN HCL 500 mg PO W/SUPPER 12/21/21 03/05/22 History Famotidine [Pepcid] 20 mg PO BID #60 tab 12/24/21 03/05/22 Rx lisinopriL [Zestril] 20 mg PO BID #60 tab 02/02/22 03/05/22 Rx Gabapentin [Neurontin] 300 mg PO BID 02/23/22 03/05/22 History Lidocaine 5% Oint [Xylocaine 5% 1 applic TOPICAL HS 02/23/22 03/05/22 History Oint] Magnesium Oxide [Magox 400] 400 mg PO DAILY 02/23/22 03/05/22 History Omeprazole 20 mg PO DAILY 03/05/22 03/05/22 History Oxybutynin Xl [Ditropan XL] 5 mg PO DAILY 03/05/22 03/05/22 History QUEtiapine FUMARATE [SEROquel] 25 mg PO HS 03/05/22 03/05/22 History Allergies Allergy/AdvReac Type Severity Reaction Status Date / Time No Known Allergies Allergy Verified 02/23/22 15:59 Physical Exam Vitals: Vital Signs Temp Pulse Pulse Resp BP BP BP 03/06/22 13:15 98.3 F 70 16 138/69 03/06/22 07:00 98 F 63 16 108/56 03/06/22 02:00 97.4 F L 64 22 175/82 03/06/22 00:00 98.2 F 83 16 115/70 03/05/22 22:00 98.0 F 80 16 110/78 03/05/22 17:14 98.2 F 81 18 106/68 Pulse Ox 03/06/22 13:15 93 L 03/06/22 07:00 95 03/06/22 02:00 97 03/06/22 00:00 96 03/05/22 22:00 96 03/05/22 17:14 96 Intake and Output 03/05/22 03/06/22 03/06/22 22:59 06:59 14:59 Intake Total 118 Balance 118 Intake: Oral 118 Other: # Voids 1 1 # Bowel Movements 1 Weight 70.307 kg 70.307 kg Results CBC & Chem 7: 03/05/22 22:40 03/05/22 22:40 Labs: Abnormal Lab Results - Last 24 Hours (Table) 03/05/22 03/05/22 Range/Units 22:31 22:40 BUN 21 H (7-17) mg/dL Glucose 224 H (74-99) mg/dL Magnesium 1.4 L (1.6-2.3) mg/dL Ur Leukocyte Esterase Small H (Negative) Urine Mucus Rare H (None) /hpf U Benzodiazepines Scrn Detected H (NotDetected) Thrombosis Risk Factor Assmnt - Choose All That Apply Any of the Below Risk Factors Present?: Yes Each Factor Represents 1 point: Obesity (BMI >25) Other Risk Factors: Yes Each Risk Factor Represents 3 Points: Age 75 years or older Other congenital or acquired thrombophilia - If yes, enter type in comment: No Thrombosis Risk Factor Assessment Total Risk Factor Score: 4 Thrombosis Risk Factor Assessment Level: Moderate Risk
[2022-03-06 16:37] LABS: Glucose,Whole Blood 131 mg/dL (75-99)
[2022-03-06] MEDS: metFORMIN 500 MG TAB PO SCH (18:05)
[2022-03-06] MEDS: IPRATROPIUM-ALBUTEROL 3 ML NEB INHALATION SCH (18:53)
[2022-03-06] MEDS: QUEtiapine 25 MG TAB PO SCH (21:06)
[2022-03-06] MEDS: DULoxetine HCL 30 MG CAPSULE.DR PO SCH (21:06)
[2022-03-06] MEDS: GABAPENTIN 300 MG CAP PO SCH (21:06)
[2022-03-06] MEDS: LIDOCAINE 5% OINTMENT 50 GM JAR TOPICAL SCH (21:06)
[2022-03-06] MEDS: lisinopriL 20 MG TAB PO SCH (21:06)
[2022-03-07] MEDS: SODIUM CHLORIDE 0.9% 1,000 ML IV SCH ×2 (05:34→14:43)
[2022-03-07 06:48] LABS: Glucose,Whole Blood 101 mg/dL (75-99)
[2022-03-07] MEDS ORDERED: CHOLECALCIFEROL 25 MCG (1000 IU) TABLET PO SCH (09:00)
[2022-03-07] MEDS: ENOXAPARIN 40 MG/0.4 ML SYRINGE SQ SCH (09:10)
[2022-03-07] MEDS: MAGNESIUM OXIDE 400 MG TAB PO SCH (09:10)
[2022-03-07] MEDS: PANTOPRAZOLE 40 MG TABLET PO SCH (09:11)
[2022-03-07] MEDS: carvediloL 6.25 MG TAB PO SCH ×2 (09:11→18:49)
[2022-03-07] MEDS: MULTIVITAMINS, THERA 1 EACH TAB PO SCH (09:11)
[2022-03-07] MEDS: FAMOTIDINE 20 MG TAB PO SCH (09:11)
[2022-03-07] MEDS: lisinopriL 20 MG TAB PO SCH ×2 (09:12→20:14)
[2022-03-07] MEDS: INSULIN ASPART (NovoLOG) 100 UNIT/ML VIAL SQ SCH ×3 (09:12→18:49)
[2022-03-07] MEDS: GABAPENTIN 300 MG CAP PO SCH ×2 (09:12→20:14)
[2022-03-07] MEDS: DULoxetine HCL 30 MG CAPSULE.DR PO SCH ×2 (09:12→20:13)
[2022-03-07] MEDS: OXYBUTYNIN XL 5 MG TAB.ER.24 PO SCH (09:12)
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
[2022-03-07 11:42] LABS: Basophils # (A) 0.04 X 10*3/uL (0.00-0.10); Basophils % (A) 0.9 %; Eosinophils # (A) 0.17 X 10*3/uL (0.04-0.35); Eosinophils % (A) 3.7 %; HCT 35.6 % (37.2-46.3); HGB 11.5 g/dL (12.0-15.0); Immature Grans, Automated 0.2 %; Lymphocytes # (A) 2.04 X 10*3/uL (0.90-5.00); Lymphocytes % (A) 43.9 %; MCH 30.7 pg (27.0-32.0); MCHC 32.3 g/dL (32.0-37.0); MCV 95.2 fL (80.0-97.0); Mean Platelet Volume 10.8 fL (9.5-12.2); Monocytes # (A) 0.41 X 10*3/uL (0.20-1.00); Monocytes % (A) 8.8 %; NRBC Per 100 WBC 0 /100 WBCS (0.0-0.0); Neutrophils # (A) 1.98 X 10*3/uL (1.80-7.70); Neutrophils % (A) 42.5 %; Platelet Count 146 X 10*3/uL (140-440); RBC 3.74 X 10*6/uL (4.10-5.20); RDW 12.6 % (11.5-14.5); WBC 4.65 X 10*3/uL (4.50-10.00)
[2022-03-07 11:53] LABS: African American GFR (CKD) 71.3 (60.0-200.0); Albumin 3.5 g/dL (3.8-4.9); Albumin/Globulin Ratio 1.79 (1.60-3.17); Anion Gap 6.7 mmol/L (10.00-18.00); BUN/Creat Ratio 14.43 Ratio (12.00-20.00); Blood Urea Nitrogen 12.5 mg/dL (9.0-27.0); Calcium 9.2 mg/dL (8.7-10.3); Carbon Dioxide 27.3 mmol/L (20.0-27.5); Magnesium 1.4 mg/dL (1.5-2.4); Non-African American GFR(CKD) 61.5 (60.0-200.0); Phosphorus 2.8 mg/dL (2.4-5.1); Potassium 4.5 mmol/L (3.5-5.5); Total Bilirubin 0.3 mg/dL (0.30-1.20); Total Protein 5.4 g/dL (6.2-8.2)
[2022-03-07 12:00] LABS: Glucose,Whole Blood 134 mg/dL (75-99)
--- NOTE | 2022-03-07 12:51 | P.PN ---
Progress Note - Text Progress Note Date: 03/07/22 Chief Complaint: Visual and auditory hallucinations This is a very pleasant 86-year-old patient who follows with Dr. Burdick. Chronic stable medical conditions include GERD, hypertension, hyperlipidemia, urinary incontinence, anxiety depression, chronic gait dysfunction uses a walker. She has a very itchy condition on the scalp for which she follows a Dr. Little. Several medications have been tried unsuccessfully. She is also been losing hair and constantly he is itching her scalp. Patient now presents with auditory and visual hallucinations. She believes the black birds around the house. The come inside the house. Get under her bed. She thinks her grandson lives with her is drinking alcohol and has a visitor there may be some sexual relationship. She talks about people digging trenches outside the house. Not sure what they're doing. Bringing heart for to from her house. No fever no chills. Appetite is fair. Psychiatry consulted. Patient believes the birds have bitten her toes. March 07: Patient continues to feel the birds on her pillow. Delusions persist. Tolerating diet. I spoke to Dr. Smith from psychiatry. Patient is medically stable otherwise. At this point he does not feel the patient is appropriate for inpatient psychiatry unit. Active Medications Albuterol/Ipratropium (Ipratropium-Albuterol 3 Ml Neb) 3 ml INHALATION RT-HS [facility] Last Admin: 03/06/22 18:53 Dose: 3 ml Documented by: Aspirin (Aspirin 81 Mg) 81 mg PO DAILY PRN PRN Reason: Pain Carvedilol (Carvedilol 6.25 Mg Tab) 6.25 mg PO BID-W/MEALS [facility] Last Admin: 03/07/22 09:11 Dose: 6.25 mg Documented by: Cholecalciferol (Cholecalciferol 25 Mcg (1000 Iu) Tablet) 25 mcg PO DAILY [facility] Last Admin: 03/07/22 09:10 Dose: 25 mcg Documented by: Diazepam (Diazepam 2 Mg Tab) 1 mg PO BID PRN PRN Reason: Anxiety Duloxetine HCl (Duloxetine Hcl 30 Mg Capsule.) 30 mg PO BID [facility] Last Admin: 03/07/22 09:12 Dose: 30 mg Documented by: Enoxaparin Sodium (Enoxaparin 40 Mg/0.4 Ml Syringe) 40 mg SQ DAILY [facility] Last Admin: 03/07/22 09:10 Dose: 40 mg Documented by: Famotidine (Famotidine 20 Mg Tab) 20 mg PO BID [facility] Last Admin: 03/07/22 09:11 Dose: 20 mg Documented by: Gabapentin (Gabapentin 300 Mg Cap) 300 mg PO BID [facility] Last Admin: 03/07/22 09:12 Dose: 300 mg Documented by: Sodium Chloride (Saline 0.9%) 1,000 mls @ 50 mls/hr IV .Q20H [facility] Last Admin: 03/07/22 05:34 Dose: 50 mls/hr Documented by: Insulin Aspart (Insulin Aspart (Novolog) 100 Unit/Ml Vial) 0 unit SQ AC-TID [facility]; Protocol Last Admin: 03/07/22 12:48 Dose: 1 unit Documented by: Isosorbide Mononitrate (Isosorbide Mononitrate Er 30 Mg Tab.Er.24h) 30 mg PO DAILY@1500 [facility] Last Admin: 03/06/22 14:06 Dose: 30 mg Documented by: Lidocaine (Lidocaine 5% Ointment 50 Gm Jar) 1 applic TOPICAL HS [facility] Last Admin: 03/06/22 21:06 Dose: 1 applic Documented by: Lisinopril (Lisinopril 20 Mg Tab) 20 mg PO BID [facility] Last Admin: 03/07/22 09:12 Dose: 20 mg Documented by: Lorazepam (Lorazepam 2 Mg/Ml Inj) 1 mg IV Q6HR PRN PRN Reason: Anxiety Magnesium Oxide (Magnesium Oxide 400 Mg Tab) 400 mg PO DAILY [facility] Last Admin: 03/07/22 09:10 Dose: 400 mg Documented by: Metformin HCl (Metformin 500 Mg Tab) 500 mg PO W/SUPPER [facility] Last Admin: 03/06/22 18:05 Dose: 500 mg Documented by: Multivitamins (Multivitamins, Thera 1 Each Tab) 1 each PO DAILY [facility] Last Admin: 03/07/22 09:11 Dose: 1 each Documented by: Naloxone HCl (Naloxone 0.4 Mg/Ml 1 Ml Vial) 0.2 mg IV Q2M PRN PRN Reason: Opioid Reversal Ondansetron HCl (Ondansetron 4 Mg/2 Ml Vial) 4 mg IVP Q8HR PRN PRN Reason: Nausea And Vomiting Oxybutynin Chloride (Oxybutynin Xl 5 Mg Tab.Er.24) 5 mg PO DAILY [facility] Last Admin: 03/07/22 09:12 Dose: 5 mg Documented by: Pantoprazole Sodium (Pantoprazole 40 Mg Tablet) 40 mg PO AC-BRKFST [facility] Last Admin: 03/07/22 09:11 Dose: 40 mg Documented by: Quetiapine Fumarate (Quetiapine 25 Mg Tab) 25 mg PO HS [facility] Last Admin: 03/06/22 21:06 Dose: 25 mg Documented by: Past medical history to include: Orthostatic hypertension, GERD, hyperlipidemia, hypertension, osteoarthritis, urinary incontinence, hiatal hernia, anxiety Social history: Nonsmoker. No alcohol. Lives with her grandson. Uses a walker. Family history: kidney cancer. Physical examination: VITAL SIGNS: 98, 62, 18, 131/64, 96% room air GENERAL: [Laying in bed awake, comfortable EYES: Pupils equal. Conjunctiva normal. HEENT: External appearance of nose and ears normal, oral cavity grossly normal. NECK: JVD not raised; masses not palpable. HEART: First and second heart sounds are normal; no edema. LUNGS: Respiratory rate normal; clear to auscultation. ABDOMEN: Soft, nontender, liver spleen not palpable, no masses palpable. PSYCH: Alert and oriented x3; mood and affect normal. Delusions as above MUSCULOSKELETAL:No Clubbing/cyanosis;muscles-grossly intact. OA INVESTIGATIONS, reviewed in the clinical context: March 07: White count 4.6 hemoglobin 11.5 platelets 146 potassium 4.5 creatinine 0.9 White count 6.1 hemoglobin 14.2 platelets 198 potassium 3.9 creatinine 1.02 Urine drug screen positive for benzodiazepine Computed tomography scan of the brain: Unremarkable Assessment and plan: -New onset of auditory and visual delusions hallucinations. Patient has underlying depression. Follow with psychiatry - orthostatic hypertension, chronic Fall precautions -Essential hypertension, controlled Coreg 6.25 mg twice a day. Zestril 20 mg twice a day -Anxiety/depression otherwise specified Cymbalta 30 mg twice a day -Chronic scalp very a itchy lesions Lidex 0.05% topical daily. follow-up a Dr. Little. 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 baseline Fall precautions Discussed with Dr. Chilel from psychiatry. About transferred to [address]. Does not feel the patient is appropriate for inpatient psychiatry. Change her medications present. Other medications to continue. Follow
[2022-03-07] MEDS: ISOSORBIDE MONONITRATE ER 30 MG TAB.ER.24H PO SCH (14:43)
[2022-03-07 16:30] LABS: Glucose,Whole Blood 194 mg/dL (75-99)
[2022-03-07] MEDS: metFORMIN 500 MG TAB PO SCH (18:49)
[2022-03-07] MEDS: IPRATROPIUM-ALBUTEROL 3 ML NEB INHALATION SCH (19:13)
[2022-03-07] MEDS ORDERED: DICLOFENAC SODIUM GEL 100 GM TUBE TOPICAL PRN (19:39)
--- NOTE | 2022-03-07 19:40 | P.DS ---
Providers Date of admission: 03/06/22 00:16 Expected date of discharge: 03/07/22 Attending physician: Raimundo Dickens Consults: 03/06/22 00:16 Consult Physician Routine Consulting Provider: Bala Smith Reason/Comments: ams Do you want consulting provider notified?: Yes Primary care physician: [facility] Course: Chief Complaint: Visual and auditory hallucinations This is a very pleasant 86-year-old patient who follows with Dr. Burdick. Chronic stable medical conditions include GERD, hypertension, hyperlipidemia, urinary incontinence, anxiety depression, chronic gait dysfunction uses a walker. She has a very itchy condition on the scalp for which she follows a Dr. Little. Several medications have been tried unsuccessfully. She is also been losing hair and constantly he is itching her scalp. Patient now presents with auditory and visual hallucinations. She believes the black birds around the house. The come inside the house. Get under her bed. She thinks her grandson lives with her is drinking alcohol and has a visitor there may be some sexual relationship. She talks about people digging trenches outside the house. Not sure what they're doing. Bringing heart for to from her house. No fever no chills. Appetite is fair. Psychiatry consulted. Patient believes the birds have bitten her toes. March 07: Patient continues to feel the birds on her pillow. Delusions persist. Tolerating diet. I spoke to Dr. Smith from psychiatry. Patient is medically stable otherwise. At this point he does not feel the patient is appropriate for inpatient psychiatry unit. [facility] nurse came and evaluated the patient. Nurse called me to fill out the clinical certificate. I went back and he wanted the patient, her daughter was present. Patient be going down to [address]. Questions answered. Discussion and discharge planning more than 35 minutes Past medical history to include: Orthostatic hypertension, GERD, hyperlipidemia, hypertension, osteoarthritis, urinary incontinence, hiatal hernia, anxiety Social history: Nonsmoker. No alcohol. Lives with her grandson. Uses a walker. Family history: kidney cancer. Physical examination: VITAL SIGNS: 98, 62, 18, 131/64, 96% room air GENERAL: [Laying in bed awake, comfortable EYES: Pupils equal. Conjunctiva normal. HEENT: External appearance of nose and ears normal, oral cavity grossly normal. NECK: JVD not raised; masses not palpable. HEART: First and second heart sounds are normal; no edema. LUNGS: Respiratory rate normal; clear to auscultation. ABDOMEN: Soft, nontender, liver spleen not palpable, no masses palpable. PSYCH: Alert and oriented x3; mood and affect normal. Delusions as above MUSCULOSKELETAL:No Clubbing/cyanosis;muscles-grossly intact. OA INVESTIGATIONS, reviewed in the clinical context: March 07: White count 4.6 hemoglobin 11.5 platelets 146 potassium 4.5 creatinine 0.9 White count 6.1 hemoglobin 14.2 platelets 198 potassium 3.9 creatinine 1.02 Urine drug screen positive for benzodiazepine Computed tomography scan of the brain: Unremarkable Assessment and plan: -New onset of auditory and visual delusions hallucinations. Patient has underlying depression. Follow with psychiatry - orthostatic hypertension, chronic Fall precautions -Essential hypertension, controlled Coreg 6.25 mg twice a day. Zestril 20 mg twice a day -Anxiety/depression otherwise specified Cymbalta 30 mg twice a day -Chronic scalp very a itchy lesions Lidex 0.05% topical daily. follow-up a Dr. Little. 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 baseline Fall precautions Disposition: Inpatient psychiatry at [address] at [facility]. Patient Condition at Discharge: Fair Plan - Discharge Summary Discharge Rx Participant: No New Discharge Prescriptions: New INSULIN ASPART (NovoLOG) [NovoLOG (formulary)] 0 unit SQ AC-TID ml Continue diazePAM [Valium] 1 mg PO BID PRN PRN Reason: Anxiety metFORMIN HCL 500 mg PO W/SUPPER Fluocinonide [Lidex 0.05%] 1 applic TOPICAL DAILY DULoxetine HCL [Cymbalta] 30 mg PO BID Gabapentin [Neurontin] 300 mg PO BID Magnesium Oxide [Magox 400] 400 mg PO DAILY Oxybutynin Xl [Ditropan XL] 5 mg PO DAILY hydrOXYzine pamoate [hydrOXYzine PAMOATE] 25 mg PO TID PRN PRN Reason: Anxiety/ITCHING Multivitamins, Thera [Multivitamin (formulary)] 1 tab PO DAILY Cholecalciferol [Vitamin D3 (25 Mcg = 1000 Iu)] 25 mcg PO DAILY Aspirin EC [Ecotrin Low Dose] 81 mg PO DAILY PRN PRN Reason: Pain Isosorbide Mononitrate ER [Imdur] 30 mg PO DAILY@1500 carvediloL [Coreg] 6.25 mg PO BID Ipratropium-Albuterol Nebulize [Duoneb 0.5 mg-3 mg/3 ml Soln] 3 ml INHALATION RT-HS Famotidine [Pepcid] 20 mg PO BID #60 tab lisinopriL [Zestril] 20 mg PO BID #60 tab Lidocaine 5% Oint [Xylocaine 5% Oint] 1 applic TOPICAL HS Omeprazole 20 mg PO DAILY QUEtiapine FUMARATE [SEROquel] 25 mg PO HS Discharge Medication List diazePAM [Valium] 1 mg PO BID PRN 06/09/18 [History] Aspirin EC [Ecotrin Low Dose] 81 mg PO DAILY PRN 12/21/21 [History] Cholecalciferol [Vitamin D3 (25 Mcg = 1000 Iu)] 25 mcg PO DAILY 12/21/21 [ History] DULoxetine HCL [Cymbalta] 30 mg PO BID 12/21/21 [History] Fluocinonide [Lidex 0.05%] 1 applic TOPICAL DAILY 12/21/21 [History] Ipratropium-Albuterol Nebulize [Duoneb 0.5 mg-3 mg/3 ml Soln] 3 ml INHALATION RT-HS 12/21/21 [History] Isosorbide Mononitrate ER [Imdur] 30 mg PO DAILY@1500 12/21/21 [History] Multivitamins, Thera [Multivitamin (formulary)] 1 tab PO DAILY 12/21/21 [History] carvediloL [Coreg] 6.25 mg PO BID 12/21/21 [History] hydrOXYzine pamoate [hydrOXYzine PAMOATE] 25 mg PO TID PRN 12/21/21 [History] metFORMIN HCL 500 mg PO W/SUPPER 12/21/21 [History] Famotidine [Pepcid] 20 mg PO BID #60 tab 12/24/21 [Rx] lisinopriL [Zestril] 20 mg PO BID #60 tab 02/02/22 [Rx] Gabapentin [Neurontin] 300 mg PO BID 02/23/22 [History] Lidocaine 5% Oint [Xylocaine 5% Oint] 1 applic TOPICAL HS 02/23/22 [History] Magnesium Oxide [Magox 400] 400 mg PO DAILY 02/23/22 [History] Omeprazole 20 mg PO DAILY 03/05/22 [History] Oxybutynin Xl [Ditropan XL] 5 mg PO DAILY 03/05/22 [History] QUEtiapine FUMARATE [SEROquel] 25 mg PO HS 03/05/22 [History] INSULIN ASPART (NovoLOG) [NovoLOG (formulary)] 0 unit SQ AC-TID ml 03/07/22 [Rx] Follow up Appointment(s)/Referral(s): Srinivas Burdick DO [Primary Care Provider] - As Needed Discharge Disposition: TRANSFER TO PSYCH HOSP/UNIT
[2022-03-07 19:55] VITALS: BP 165/66; PULSE 61; RESP 20; TEMP 97.8
[2022-03-07] MEDS: QUEtiapine 25 MG TAB PO SCH (20:13)
[2022-03-07] MEDS: LIDOCAINE 5% OINTMENT 50 GM JAR TOPICAL SCH (20:15)
[2022-03-07 20:37] LABS: Glucose,Whole Blood 164 mg/dL (75-99)
[2022-03-08] MEDS ORDERED: FAMOTIDINE 20 MG TAB PO SCH (09:00)
== END 2022-03-08 00:40 ==
LOC: EC 16:22 → 6NMEDSUR 03-06 00:16
PROVIDERS: ADMIT Hospitalist; ATTEND Hospitalist
DX: F03.90 Unspecified dementia, unspecified severity, without behavioral disturbance, psychotic disturbance, mood disturbance, and anxiety (principal); F05 Delirium due to known physiological condition; E83.42 Hypomagnesemia; F32.A Depression, unspecified; E11.9 Type 2 diabetes mellitus without complications; I10 Essential (primary) hypertension; K21.9 Gastro-esophageal reflux disease without esophagitis; M19.90 Unspecified osteoarthritis, unspecified site; E78.5 Hyperlipidemia, unspecified; H91.90 Unspecified hearing loss, unspecified ear; K44.9 Diaphragmatic hernia without obstruction or gangrene; N39.3 Stress incontinence (female) (male); K58.9 Irritable bowel syndrome, unspecified; E04.2 Nontoxic multinodular goiter; G47.00 Insomnia, unspecified; H26.9 Unspecified cataract; J32.0 Chronic maxillary sinusitis; F41.9 Anxiety disorder, unspecified; R26.9 Unspecified abnormalities of gait and mobility; L29.9 Pruritus, unspecified; E66.9 Obesity, unspecified; Z68.28 Body mass index [BMI] 28.0-28.9, adult; Z79.82 Long term (current) use of aspirin; Z79.84 Long term (current) use of oral hypoglycemic drugs; Z79.899 Other long term (current) drug therapy; Z85.828 Personal history of other malignant neoplasm of skin; Z90.710 Acquired absence of both cervix and uterus; Z90.49 Acquired absence of other specified parts of digestive tract; Z98.890 Other specified postprocedural states; Z82.49 Family history of ischemic heart disease and other diseases of the circulatory system; Z80.3 Family history of malignant neoplasm of breast; Z80.51 Family history of malignant neoplasm of kidney
CPT/HCPCS: 96361 ×3; 96372 ×2; 96374; 99285; 36415; 94640; 80053; 80048; 84443; 82140; 83735 ×2; 84100 ×2; 85025 ×2; 81001; 80306; 80143; 87635; 80179; 70450; G0378 ×3; G0480; J2060; J1650 ×2; 80320

== ENCOUNTER 2022-05-13 13:41 | Inpatient (IN) | payer MEDICARE ==
[2022-05-13] MEDS ORDERED: ASPIRIN 81 MG PO STA (14:14)
--- NOTE | 2022-05-13 14:58 | XR ---
EXAMINATION TYPE: XR chest 2V DATE OF EXAM: 05/13/2022 COMPARISON: 02/23/2022 HISTORY: 86-year-old female with chest pain and shortness of breath TECHNIQUE: AP and lateral views FINDINGS: Heart borderline in size. Mild interstitial prominence. No consolidation or pleural effusion. IMPRESSION: Borderline heart size. Interstitial prominence could reflect bronchitis or asthma. No focal infiltrat e.
[2022-05-13 14:59] LABS: HCT 37.1 % (34.0-46.0); HGB 12.4 gm/dL (11.4-16.0); MCHC 33.5 g/dL (31.0-37.0); MCV 95.7 fL (80.0-100.0); Mean Platelet Volume 7.7; Platelet Count 202 k/uL (150-450); RBC 3.88 m/uL (3.80-5.40); RDW 14.5 % (11.5-15.5); WBC 7.6 k/uL (3.8-10.6)
--- NOTE | 2022-05-13 15:05 | ED ---
Chest Pain HPI - General Source: patient, RN notes reviewed Mode of arrival: ambulatory Limitations: no limitations <Usama Boone - Last Filed: 05/13/22 15:04> <Vijay Lovell - Last Filed: 05/13/22 20:30> - General Chief Complaint: Chest Pain Stated Complaint: chest pain Time Seen by Provider: 05/13/22 13:57 - History of Present Illness Initial Comments: This 86-year-old female presents emergency Department chief complaint cough congestion chest pain shortness breath. Patient states she's been sick for 1 week. Patient states that symptoms are not improving she initially that she does have a cough and cold. Patient states she does have underlying prior cardiac disease, history of hypertension hyperlipidemia and diabetes as a history of PE or DVT patient states she does feel tired, weak feeling. (Usama Boone) - Related Data Home Medications Medication Instructions Recorded Confirmed Aspirin EC [Ecotrin Low Dose] 81 mg PO DAILY 12/21/21 05/13/22 Cholecalciferol [Vitamin D3 (25 25 mcg PO DAILY 12/21/21 05/13/22 Mcg = 1000 Iu)] Isosorbide Mononitrate ER [Imdur] 30 mg PO DAILY 12/21/21 05/13/22 Multivitamins, Thera [Multivitamin 1 tab PO HS 12/21/21 05/13/22 (formulary)] carvediloL [Coreg] 6.25 mg PO BID 12/21/21 05/13/22 metFORMIN HCL 500 mg PO W/SUPPER 12/21/21 05/13/22 Gabapentin [Neurontin] 300 mg PO BID 02/23/22 05/13/22 Magnesium Oxide [Magox 400] 400 mg PO DAILY 02/23/22 05/13/22 Omeprazole 20 mg PO DAILY 03/05/22 05/13/22 Triamcinolone 0.1% Cream [Kenalog 1 applic TOPICAL BID 05/13/22 05/13/22 0.1% Cream] risperiDONE [RisperDAL] 1 mg PO BID 05/13/22 05/13/22 Allergies Allergy/AdvReac Type Severity Reaction Status Date / Time No Known Allergies Allergy Verified 05/13/22 17:18 Review of Systems ROS Other: All systems not noted in ROS Statement are negative. <Usama Boone - Last Filed: 05/13/22 15:04> ROS Other: All systems not noted in ROS Statement are negative. <Ankur Lovellrey - Last Filed: 05/13/22 20:30> ROS Statement: Those systems with pertinent positive or pertinent negative responses have been documented in the HPI. Past Medical History Past Medical History: Cancer, Diabetes Mellitus, GERD/Reflux, Hearing Disorder / Deafness, Hyperlipidemia, Hypertension, Osteoarthritis (OA) Additional Past Medical History / Comment(s): HX OF SKIN CA, IBS, INCONTINENCE OF BLADDER, HX OF HIATAL HERNIA, THYROID NODULES , CATARACT BILATERAL EYES History of Any Multi-Drug Resistant Organisms: None Reported Past Surgical History: Cholecystectomy, Heart Catheterization, Hysterectomy, Orthopedic Surgery Additional Past Surgical History / Comment(s): SINUS SX, SX ARM, FOOT, Past Anesthesia/Blood Transfusion Reactions: No Reported Reaction Past Psychological History: Anxiety Smoking Status: Never smoker Past Alcohol Use History: None Reported Past Drug Use History: None Reported - Past Family History Daughter(s) Family Medical History: Cancer, Deep Vein Thrombosis (DVT) Additional Family Medical History / Comment(s): ONE DAUGHTER KIDNEY CA, ONE DAUGHTER HX OF DVT Sister(s) Family Medical History: Cancer Additional Family Medical History / Comment(s): 2 SISTERS WITH BREAST CA <Usama Boone - Last Filed: 05/13/22 15:04> General Exam Limitations: no limitations General appearance: alert, in no apparent distress Head exam: Present: atraumatic, normocephalic, normal inspection Eye exam: Present: normal appearance, PERRL, EOMI. Absent: scleral icterus, conjunctival injection, periorbital swelling ENT exam: Present: normal exam, normal oropharynx, mucous membranes moist, TM's normal bilaterally Neck exam: Present: normal inspection, full ROM. Absent: tenderness, meningismus, lymphadenopathy Respiratory exam: Present: normal lung sounds bilaterally. Absent: respiratory distress, wheezes, rales, rhonchi, stridor Cardiovascular Exam: Present: regular rate, normal rhythm, normal heart sounds. Absent: systolic murmur, diastolic murmur, rubs, gallop, clicks GI/Abdominal exam: Present: soft, normal bowel sounds. Absent: distended, ten derness, guarding, rebound, rigid Back exam: Absent: CVA tenderness (R), CVA tenderness (L) Neurological exam: Present: alert Skin exam: Present: warm, dry, intact, normal color. Absent: rash <Usama Boone - Last Filed: 05/13/22 15:04> Course Vital Signs 05/13/22 05/13/22 05/13/22 13:49 14:15 15:32 Temperature 98.2 F Pulse Rate 76 66 Pulse Rate [ 73 Horologist Apprentice ] Respiratory 18 18 Rate Blood Pressure 143/78 178/83 Blood Pressure [Right Arm] O2 Sat by Pulse 94 L 95 Oximetry 05/13/22 05/13/22 18:18 19:02 Temperature 97.9 F Pulse Rate 68 Pulse Rate [ 73 Horologist Apprentice ] Respiratory 18 16 Rate Blood Pressure 176/83 Blood Pressure 162/74 [Right Arm] O2 Sat by Pulse 95 96 Oximetry Chest Pain MDM <Vijay Lovell - Last Filed: 05/13/22 20:30> - [facility] Patient was signed out to me pending results of CT PE. Presents for intermittent chest pain and shortness breath over the last week. Workup thus far is relatively unremarkable including negative troponin. Dimer is elevated to 4.89. CT is pending. She is not hypoxic on room air. EKG is unremarkable. CT PE does show right lung pulmonary emboli in the lower lobe without any evidence of RV strain on CT. I treated the patient. She was started on heparin. She'll be admitted to the hospital. ECHO was ordered. I notified c ardiology who is on-call for [facility], and was in agreement with this plan. I consulted pulmonology as well. Vital signs remain within normal limits and patient is not requiring supplemental oxygenation. Multiple pages were made out to the admitting physicians, [facility] without response. They are covering for Dr. Dickens. Eventually we were able to get a hold of the on-call physician after multiple hours, Dr. Patel at approximately 8:30 PM. I updated him on the patient and he accepted. Patient was admitted in serious condition. (Vijay Lovell) Disposition <Usama Boone - Last Filed: 05/13/22 15:04> Time of Disposition: 17:20 <Vijay Lovell - Last Filed: 05/13/22 20:30> Clinical Impression: Pulmonary embolism Disposition: ADMITTED IP TO THIS [facility] Condition: Serious
[2022-05-13 15:16] LABS: Albumin 4.2 g/dL (3.5-5.0); Calcium 9.8 mg/dL (8.4-10.2); Total Bilirubin 0.7 mg/dL (0.2-1.3); Total Protein 7.2 g/dL (6.3-8.2)
[2022-05-13 15:20] LABS: Band Neutrophils % 2 %; Eosinophils # (M) 0.15 k/uL (0-0.7); Neutrophils % (M) 63 %; Nucleated Red Blood Cells 0 /100 WBC (0-0); Polychromasia Present; Total Cells Counted 100
[2022-05-13 15:22] LABS: Prothrombin Time 10.5 sec (9.0-12.0)
[2022-05-13 15:23] LABS: Partial Thromboplastin Time 21.3 sec (22.0-30.0); Potassium 4.7 mmol/L (3.5-5.1)
[2022-05-13 15:24] LABS: Magnesium 1.5 mg/dL (1.6-2.3)
[2022-05-13] MEDS ORDERED: methylPREDNISolone SOD SUCCI 125 MG/2 ML VIAL IV STA (15:57)
[2022-05-13] MEDS ORDERED: diphenhydrAMINE 50 MG/ML 1 ML VIAL IVP STA (15:57)
[2022-05-13] MEDS ORDERED: FAMOTIDINE 20 MG/2 ML VIAL IV STA (15:57)
[2022-05-13] MEDS ORDERED: HEPARIN SODIUM 1,000 UN/ML (10ML VL) IV PRN (17:05)
[2022-05-13] MEDS ORDERED: HEPARIN SODIUM 1,000 UN/ML (10ML VL) IV ONE (17:05)
--- NOTE | 2022-05-13 17:08 | CT ---
EXAMINATION TYPE: CT chest angio for PE DATE OF EXAM: 05/13/2022 COMPARISON: NONE HISTORY: Chest pain and SOB CT DLP: 343.5 mGycm. Automated Exposure Control for Dose Reduction was Utilized. CONTRAST: CTA scan of the thorax is performed with IV Contrast, patient injected with 100 mL of Isovue 370, pul monary embolism protocol. MIP Images are created on CT scanner and reviewed. FINDINGS: LUNGS: Exam degraded by patient's inability to hold breath. This limits evaluation for subcentimeter nodules. No suspicious focal consolidation. No concerning masses. No pleural effusion or pneumothorax MEDIASTINUM: There is less than optimal study with thecal contrast in the right and left heart system s. No thoracic aortic aneurysm or dissection. Filling defect in the right lower lobe pulmonary arter y with segmental extension begins axial image 65. No significant left-sided pulmonary emboli. There a re no greater than 1 cm hilar or mediastinal lymph nodes. No pericardial effusion is seen. Cardiome chester is seen. No right ventricular dilatation. Some reflux of contrast into IVC and hepatic veins sug gests possible some right heart failure. OTHER: Cholecystectomy clips are noted. Multilevel spurring in the spine. IMPRESSION: Small amount of acute pulmonary emboli right lower lobe arterial branches. No convincing CT evidence for RV strain. Critical results communicated to emergency room at time of dictation via telephone.
[2022-05-13] MEDS ORDERED: HEPARIN SOD,PORK IN 0.45% NACL 25,000 UNIT in 0.45% NACL 1 250ML.BAG IV SCH (17:15)
[2022-05-13] MEDS ORDERED: NALOXONE 0.4 MG/ML 1 ML VIAL IV PRN (17:22)
[2022-05-13] MEDS: metFORMIN 500 MG TAB PO SCH (18:15)
[2022-05-13] MEDS: carvediloL 6.25 MG TAB PO SCH (18:15)
[2022-05-13 20:35] LABS: Glucose,Whole Blood 205 mg/dL (70-110)
[2022-05-13] MEDS: risperiDONE 1 MG TAB PO SCH (20:41)
[2022-05-13] MEDS: GABAPENTIN 300 MG CAP PO SCH (20:41)
[2022-05-13 21:07] LABS: INR 1.1 (<1.2); Prothrombin Time 11.6 sec (9.0-12.0)
[2022-05-13] MEDS: INSULIN ASPART (NovoLOG) 100 UNIT/ML VIAL SQ SCH (23:18)
[2022-05-14 06:06] LABS: Glucose,Whole Blood 158 mg/dL (70-110)
[2022-05-14] MEDS: carvediloL 6.25 MG TAB PO SCH ×2 (06:31→17:12)
[2022-05-14] MEDS: INSULIN ASPART (NovoLOG) 100 UNIT/ML VIAL SQ SCH ×3 (06:31→16:59)
[2022-05-14] MEDS ORDERED: INSULIN ASPART (NovoLOG) 100 UNIT/ML VIAL SQ SCH (07:30)
[2022-05-14 08:25] LABS: HGB 12.4 gm/dL (11.4-16.0); MCH 30.3 pg (25.0-35.0); MCHC 31.8 g/dL (31.0-37.0); MCV 95.1 fL (80.0-100.0); Mean Platelet Volume 8.1; Platelet Count 206 k/uL (150-450); RBC 4.11 m/uL (3.80-5.40); RDW 14.2 % (11.5-15.5); WBC 9.9 k/uL (3.8-10.6)
--- NOTE | 2022-05-14 08:57 | US ---
EXAMINATION TYPE: US venous doppler duplex LE DATE OF EXAM: 05/14/2022 8:32 AM COMPARISON: NONE CLINICAL HISTORY: elevated d-dimer, PE, worsening swelling LLE. SIDE PERFORMED: Bilateral TECHNIQUE: The lower extremity deep venous system is examined utilizing real time linear array sonog randee with graded compression, doppler sonography and color-flow sonography. VESSELS IMAGED: Common Femoral Vein Deep Femoral Vein Greater Saphenous Vein * Femoral Vein Popliteal Vein Small Saphenous Vein * Proximal Calf Veins (* superficial vessels) Right Leg: Negative for DVT Left Leg: Negative for DVT IMPRESSION: 1. Bilateral lower extremity ultrasound negative for deep venous thrombosis.
[2022-05-14] MEDS ORDERED: ASPIRIN 81 MG PO SCH (09:00)
--- NOTE | 2022-05-14 09:05 | CA ---
Transthoracic Echo Report Name: Diane Beckham Age: 86 Gender: F : 1935 Exam Date: 05/14/2022 08:41 Exam Location: [facility] Ht (in): 61 Wt (lb): 160 Ordering Physician: Vijay Lovell MD Attending/Referring Phys: Joint Maker Machine Kira Brice RDCS Procedure CPT: Indications: pe, eval for right heart strain Cardiac Hx: Technical Quality: Good Contrast 1: Total Dose (mL): Contrast 2: Total Dose (mL): MEASUREMENTS (Male / Female) Normal Values 2D ECHO RV Internal Dim ED PLAX 2.2 cm DOPPLER TR Peak Velocity 284.4 cm/s TR Peak Gradient 32.4 mmHg Right Ventricular Systolic Press 37.4 mmHg FINDINGS Left Ventricle Left ventricular ejection fraction is estimated at 55-60_ %. Right Ventricle There is no RV strain, TAPSE is 26mm. Normal right ventricular size. Mild pulmonary hypertension. Right Atrium Left Atrium Mitral Valve Aortic Valve Tricuspid Valve Pulmonic Valve Pericardium No pericardial effusion. Aorta CONCLUSIONS As above Previewed by: Dr. Aman Nguyen MD (Electronically Signed) Final Date: 14 May 2022 09:04
[2022-05-14] MEDS: GABAPENTIN 300 MG CAP PO SCH ×2 (09:12→20:30)
[2022-05-14] MEDS: risperiDONE 1 MG TAB PO SCH ×2 (09:12→20:30)
[2022-05-14] MEDS: PANTOPRAZOLE 40 MG TABLET PO SCH (09:12)
[2022-05-14] MEDS: MAGNESIUM OXIDE 400 MG TAB PO SCH (09:12)
[2022-05-14] MEDS: ISOSORBIDE MONONITRATE ER 30 MG TAB.ER.24H PO SCH (09:12)
[2022-05-14 09:14] LABS: Albumin 4.2 g/dL (3.5-5.0); Calcium 9.7 mg/dL (8.4-10.2); Potassium 4.6 mmol/L (3.5-5.1); Total Bilirubin 0.4 mg/dL (0.2-1.3); Total Protein 7.3 g/dL (6.3-8.2)
[2022-05-14 09:40] LABS: Lymphocytes # (M) 1.49 k/uL (1.0-4.8); Neutrophils # (M) 8.32 k/uL (1.3-7.7); Neutrophils % (M) 84 %; Nucleated Red Blood Cells 0 /100 WBC (0-0); Total Cells Counted 100
[2022-05-14 09:41] LABS: RBC Morphology Normal
--- NOTE | 2022-05-14 10:07 | P.CRDCN ---
History of Present Illness History of present illness: This is an 86-year-old female with a past medical history of mild nonobstructive coronary artery disease, hypertension, type 2 diabetes, SVT, chronic dizziness, mitral regurgitation and tricuspid regurgitation. She follows with Dr. Nur. We are consulted for evaluation of pulmonary embolism. Patient presents emergency department with complaints of shortness of breath, dyspnea on exertion. Patient also endorses some midsternal/left-sided chest pain, nonradiating, nonexertional. No specific aggravating or alleviating factors. She also endorses her left lower extremity seems more swollen than her right. She states her chest pain has been intermittent for the past week. Patient denies any lightheadedness, dizziness, palpitations, syncope or near syncope. She denies any symptoms of orthopnea or PND. She denies any history of bleeding or GI bleeding. Patient symptoms have resolved she is overall feeling well. CTA reported a small amount of acute pulmonary emboli right lower lobe, arterial branches. No convincing evidence for RV strain. She was started on IV heparin drip DIAGNOSTICS * EKG reveals sinus rhythm, heart rate 71, no significant ST-T wave abnormalities stress ischemia * Echocardiogram revealed 5560%, mild pulmonary hypertension. No RV strain. TAPSE is 26mm. * Bilateral lower extremity Dopplers revealed no evidence of DVT * Telemetry tracings indicate sinus mechanism * Laboratory reviewed, troponin negative 3, CBC unremarkable, sodium 138, potassium 4.6, BUN 23, serum creatinine 0.9, COVID-19 negative, proBNP 311 * Current home cardiac medications include carvedilol 6.25 mg PAT, Imdur 30 mg daily, aspirin 81 mg daily * Cardiac catheterization in 09/2015 revealed 30% stenosis in proximal LAD, 30% proximal RCA stenosis * Most recent stress test in the office in 03/2018 revealed no evidence of reversible ischemia REVIEW OF SYSTEMS At the time of my exam: CONSTITUTIONAL: Denies fever or chills. CARDIOVASCULAR: +chest pain, +shortness of breath, Denies orthopnea, PND or palpitations. RESPIRATORY: Denies cough. GASTROINTESTINAL: Denies abdominal pain, diarrhea, constipation, nausea or vomiting. MUSCULOSKELETAL: Denies myalgias. NEUROLOGIC: Denies numbness, tingling, headacbe or weakness. ENDOCRINE: Denies fatigue, weight change, polydipsia or polyurina. GENITOURINARY: Denies burning, hematuria or urgency with micturation. HEMATOLOGIC: Denies history of anemia or bleeding. PHYSICAL EXAMINATION Blood pressure 133/75, heart rate 81, afebrile, saturations 90% room air CONSTITUTIONAL: No apparent distress. HEENT: Head is normocephalic. Pupils are equal, round. Sclerae anicteric. Mucous membranes of the mouth are moist. No JVD. No carotid bruit. CHEST EXAMINATION: Lungs are clear to auscultation. No chest wall tenderness is noted on palpation or with deep breathing. HEART EXAMINATION: Regular rate and rhythm. S1, S2 heard. No murmurs, gallops or rub. ABDOMEN: Soft, nontender. Positive bowel sounds. EXTREMITIES: 2+ peripheral pulses, no lower extremity edema and no calf tenderness. NEUROLOGIC EXAMINATION: Patient is awake, alert and oriented x3. ASSESSMENT Pulmonary Embolism, small right lower lobe reported on CTA Left lower extremity edema, chronic however, patient endorses increased- DVT has been ruled out Shortness of breast and chest pain likely related to above, acute coronary syndrome has been ruled out Mild nonobstructive coronary artery disease History of hypertension Type 2 diabetes History of SVT PLAN Echocardiogram revealed 5560%, mild pulmonary hypertension. No RV strain. Stop IV heparin Start Eliquis 10mg BID Continue home cardiac medications Hopefully discharge in the next 24 hours. On discharge, follow up outpatient with Dr. Nur Nurse practitioner note has been reviewed by physician. Signing provider agrees with the documented findings, assessment, and plan of care. Past Medical History Past Medical History: Cancer, Diabetes Mellitus, GERD/Reflux, Hearing Disorder / Deafness, Hyperlipidemia, Hypertension, Osteoarthritis (OA) Additional Past Medical History / Comment(s): HX OF SKIN CA, IBS, INCONTINENCE OF BLADDER, HX OF HIATAL HERNIA, THYROID NODULES , CATARACT BILATERAL EYES History of Any Multi-Drug Resistant Organisms: None Reported Past Surgical History: Cholecystectomy, Heart Catheterization, Hysterectomy, Orthopedic Surgery Additional Past Surgical History / Comment(s): SINUS SX, SX ARM, FOOT, Past Anesthesia/Blood Transfusion Reactions: No Reported Reaction Past Psychological History: Anxiety Smoking Status: Never smoker Past Alcohol Use History: None Reported Past Drug Use History: None Reported - Past Family History Daughter(s) Family Medical History: Cancer, Deep Vein Thrombosis (DVT) Additional Family Medical History / Comment(s): ONE DAUGHTER KIDNEY CA, ONE DAUGHTER HX OF DVT Sister(s) Family Medical History: Cancer Additional Family Medical History / Comment(s): 2 SISTERS WITH BREAST CA Medications and Allergies Home Medications Medication Instructions Recorded Confirmed Type Aspirin EC [Ecotrin Low Dose] 81 mg PO DAILY 12/21/21 05/13/22 History Cholecalciferol [Vitamin D3 (25 25 mcg PO DAILY 12/21/21 05/13/22 History Mcg = 1000 Iu)] Isosorbide Mononitrate ER [Imdur] 30 mg PO DAILY 12/21/21 05/13/22 History Multivitamins, Thera [Multivitamin 1 tab PO HS 12/21/21 05/13/22 History (formulary)] carvediloL [Coreg] 6.25 mg PO BID 12/21/21 05/13/22 History metFORMIN HCL 500 mg PO W/SUPPER 12/21/21 05/13/22 History Gabapentin [Neurontin] 300 mg PO BID 02/23/22 05/13/22 History Magnesium Oxide [Magox 400] 400 mg PO DAILY 02/23/22 05/13/22 History Omeprazole 20 mg PO DAILY 03/05/22 05/13/22 History Triamcinolone 0.1% Cream [Kenalog 1 applic TOPICAL BID 05/13/22 05/13/22 History 0.1% Cream] risperiDONE [RisperDAL] 1 mg PO BID 05/13/22 05/13/22 History Allergies Allergy/AdvReac Type Severity Reaction Status Date / Time No Known Allergies Allergy Verified 05/13/22 17:18 Physical Exam Vitals: Vital Signs Temp Pulse Pulse Resp BP BP Pulse Ox 05/14/22 04:32 98.1 F 81 20 133/75 93 L 05/13/22 23:14 97.8 F 71 20 136/70 93 L 05/13/22 20:39 97.7 F 70 18 132/73 93 L 05/13/22 19:02 97.9 F 73 16 162/74 96 05/13/22 18:18 68 18 176/83 95 05/13/22 15:32 66 18 178/83 95 05/13/22 14:15 73 05/13/22 13:49 98.2 F 76 18 143/78 94 L Intake and Output 05/13/22 05/14/22 05/14/22 22:59 06:59 14:59 Intake Total 76.577 Output Total 800 Balance -723.423 Intake: Intake, IV Titration 76.577 Amount Heparin Sod,Pork in 0.45% 76.577 NaCl 25,000 unit In 0.45 % NaCl 1 250ml.bag @ 18 UNITS/KG/HR 13.064 mls/hr IV .Q19H9M [facility] Rx#: [id number] Oral 0 Output: Urine 800 Other: Voiding Method Toilet Toilet Weight 72.575 kg Results 05/14/22 07:44 05/14/22 07:44 Cardiac Enzymes 05/13/22 05/13/22 05/13/22 Range/Units 14:32 14:32 18:00 AST 42 H (14-36) U/L Troponin I <0.012 <0.012 (0.000-0.034) ng/mL 05/13/22 Range/Units 20:45 AST (14-36) U/L Troponin I <0.012 (0.000-0.034) ng/mL Coagulation 05/13/22 05/13/22 05/13/22 Range/Units 14:32 20:45 22:51 PT 10.5 11.6 (9.0-12.0) sec APTT 21.3 L 100.9 H* (22.0-30.0) sec CBC 05/13/22 Range/Units 14:32 WBC 7.6 (3.8-10.6) k/uL RBC 3.88 (3.80-5.40) m/uL Hgb 12.4 (11.4-16.0) gm/dL Hct 37.1 (34.0-46.0) % Plt Count 202 (150-450) k/uL Comprehensive Metabolic Panel 05/13/22 Range/Units 14:32 Sodium 137 (137-145) mmol/L Potassium 4.7 (3.5-5.1) mmol/L Chloride 103 (98-107) mmol/L Carbon Dioxide 26 (22-30) mmol/L BUN 20 H (7-17) mg/dL Creatinine 0.88 (0.52-1.04) mg/dL Glucose 109 H (74-99) mg/dL Calcium 9.8 (8.4-10.2) mg/dL AST 42 H (14-36) U/L ALT 19 (4-34) U/L Alkaline Phosphatase 74 (38-126) U/L Total Protein 7.2 (6.3-8.2) g/dL Albumin 4.2 (3.5-5.0) g/dL Current Medications Generic Name Dose Route Start Last Admin Trade Name Freq PRN Reason Stop Dose Admin Aspirin 81 mg 05/14/22 09:00 Aspirin 81 Mg PO DAILY ZOE Carvedilol 6.25 mg 05/13/22 18:00 05/14/22 06:31 Carvedilol 6.25 Mg Tab PO 6.25 mg BID-W/MEALS ZOE Administration Gabapentin 300 mg 05/13/22 21:00 05/13/22 20:41 Gabapentin 300 Mg Cap PO 300 mg BID ZOE Administration Heparin Sodium (Porcine) 0 unit 05/13/22 17:05 Heparin Sodium 1,000 Un/Ml (10ml Vl) IV PER PROTOCOL PRN Low PTT Protocol Heparin Sodium/Sodium Chloride 250 mls @ 13.064 mls/hr 05/13/22 17:15 05/14/22 01:12 25,000 unit/ Sodium Chloride IV 15 units/kg/hr .Q19H9M ZOE 10.886 mls/hr Titration Protocol 18 UNITS/KG/HR Insulin Aspart 0 unit 05/13/22 21:27 05/14/22 06:31 Insulin Aspart (Novolog) 100 Unit/Ml Vial SQ 2 unit ACHS ZOE Administration Protocol Isosorbide Mononitrate 30 mg 05/14/22 09:00 Isosorbide Mononitrate Er 30 Mg Tab.Er.24h PO DAILY ZOE Magnesium Oxide 400 mg 05/14/22 09:00 Magnesium Oxide 400 Mg Tab PO DAILY ZOE Metformin HCl 500 mg 05/13/22 17:30 05/13/22 18:15 Metformin 500 Mg Tab PO 500 mg W/SUPPER ZOE Administration Naloxone HCl 0.2 mg 05/13/22 17:22 Naloxone 0.4 Mg/Ml 1 Ml Vial IV Q2M PRN Opioid Reversal Pantoprazole Sodium 40 mg 05/14/22 09:00 Pantoprazole 40 Mg Tablet PO DAILY ZOE Risperidone 1 mg 05/13/22 21:00 05/13/22 20:41 Risperidone 1 Mg Tab PO 1 mg BID ZOE Administration Intake and Output 05/13/22 05/14/22 05/14/22 22:59 06:59 14:59 Intake Total 76.577 Output Total 800 Balance -723.423 Intake: Intake, IV Titration 76.577 Amount Heparin Sod,Pork in 0.45% 76.577 NaCl 25,000 unit In 0.45 % NaCl 1 250ml.bag @ 18 UNITS/KG/HR 13.064 mls/hr IV .Q19H9M [facility] Rx#: [id number] Oral 0 Output: Urine 800 Other: Voiding Method Toilet Toilet Weight 72.575 kg 05/13/22 14:32 05/13/22 14:32
[2022-05-14] MEDS: TRIAMCINOLONE 0.1% CREAM 80 GM TUBE TOPICAL SCH ×2 (11:28→20:31)
[2022-05-14] MEDS: CHOLECALCIFEROL 25 MCG (1000 IU) TABLET PO SCH (11:28)
[2022-05-14] MEDS: APIXABAN 5 MG TAB PO SCH ×2 (11:28→20:30)
[2022-05-14 11:37] LABS: Glucose,Whole Blood 132 mg/dL (70-110)
[2022-05-14] MEDS ORDERED: ACETAMINOPHEN TAB 325 MG TAB PO PRN (12:44)
[2022-05-14] MEDS ORDERED: LACTULOSE 20 GM/30 ML CUP PO PRN (12:44)
[2022-05-14] MEDS ORDERED: LORazepam 0.5 MG TAB PO PRN (12:44)
[2022-05-14] MEDS ORDERED: ONDANSETRON 4 MG/2 ML VIAL IVP PRN (12:44)
[2022-05-14] MEDS ORDERED: CALCIUM CARBONATE 500 MG CHEWABLE PO PRN (12:44)
--- NOTE | 2022-05-14 13:04 | P.CNPUL ---
History of Present Illness Consult date: 05/14/22 Requesting physician: Raimundo Dickens Reason for consult: pulmonary embolism Chief complaint: Shortness of breath History of present illness: This is an 86-year-old female with history of nonobstructive coronary artery disease, hypertension, history of mitral valve disease/mitral regurgitation, p atient was admitted with a few days' history of increased shortness of breath. Patient also had some vague chest discomfort, patient underwent CT angiogram of the chest upon presentation, she was found to have small pulmonary embolism in the right lower lobe arterial branches and no evidence of RV strain. Patient was admitted placed on hold, and we were asked to see her on consultation. Patient is on heparin at present, she is not in any distress, she is relatively asymptomatic during my evaluation, hence I'm recommending that the patient goes on eliquis to replace heparin, and she could basically be discharged home today and follow-up on outpatient basis. Patient had 2 previous history of DVT or thromboembolic disease no family history of thromboembolic disease patient is unknown to have any history of malignancy or any history of hypercoagulable state. This is clearly unprovoked type of thromboembolic disease. Doppler of the legs were negative. Review of Systems CONSTITUTIONAL: Negative CARDIOVASCULAR: As noted in HPI RESPIRATORY: As noted in HPI GASTROINTESTINAL: Negative MUSCULOSKELETAL: Negative NEUROLOGIC: Negative ENDOCRINE: Negative GENITOURINARY: Negative. HEMATOLOGIC: Negative Past Medical History Past Medical History: Cancer, Diabetes Mellitus, GERD/Reflux, Hearing Disorder / Deafness, Hyperlipidemia, Hypertension, Osteoarthritis (OA) Additional Past Medical History / Comment(s): HX OF SKIN CA, IBS, INCONTINENCE OF BLADDER, HX OF HIATAL HERNIA, THYROID NODULES , CATARACT BILATERAL EYES History of Any Multi-Drug Resistant Organisms: None Reported Past Surgical History: Cholecystectomy, Heart Catheterization, Hysterectomy, Orthopedic Surgery Additional Past Surgical History / Comment(s): SINUS SX, SX ARM, FOOT, Past Anesthesia/Blood Transfusion Reactions: No Reported Reaction Past Psychological History: Anxiety Smoking Status: Never smoker Past Alcohol Use History: None Reported Past Drug Use History: None Reported - Past Family History Daughter(s) Family Medical History: Cancer, Deep Vein Thrombosis (DVT) Additional Family Medical History / Comment(s): ONE DAUGHTER KIDNEY CA, ONE DAUGHTER HX OF DVT Sister(s) Family Medical History: Cancer Additional Family Medical History / Comment(s): 2 SISTERS WITH BREAST CA Medications and Allergies Home Medications Medication Instructions Recorded Confirmed Type Aspirin EC [Ecotrin Low Dose] 81 mg PO DAILY 12/21/21 05/13/22 History Cholecalciferol [Vitamin D3 (25 25 mcg PO DAILY 12/21/21 05/13/22 History Mcg = 1000 Iu)] Isosorbide Mononitrate ER [Imdur] 30 mg PO DAILY 12/21/21 05/13/22 History Multivitamins, Thera [Multivitamin 1 tab PO HS 12/21/21 05/13/22 History (formulary)] carvediloL [Coreg] 6.25 mg PO BID 12/21/21 05/13/22 History metFORMIN HCL 500 mg PO W/SUPPER 12/21/21 05/13/22 History Gabapentin [Neurontin] 300 mg PO BID 02/23/22 05/13/22 History Magnesium Oxide [Magox 400] 400 mg PO DAILY 02/23/22 05/13/22 History Omeprazole 20 mg PO DAILY 03/05/22 05/13/22 History Triamcinolone 0.1% Cream [Kenalog 1 applic TOPICAL BID 05/13/22 05/13/22 History 0.1% Cream] risperiDONE [RisperDAL] 1 mg PO BID 05/13/22 05/13/22 History Allergies Allergy/AdvReac Type Severity Reaction Status Date / Time No Known Allergies Allergy Verified 05/13/22 17:18 Physical Exam Vitals: Vital Signs Temp Pulse Pulse Resp BP BP Pulse Ox 05/14/22 11:27 97.8 F 68 17 150/76 97 05/14/22 04:32 98.1 F 81 20 133/75 93 L 05/13/22 23:14 97.8 F 71 20 136/70 93 L 05/13/22 20:39 97.7 F 70 18 132/73 93 L 05/13/22 19:02 97.9 F 73 16 162/74 96 05/13/22 18:18 68 18 176/83 95 05/13/22 15:32 66 18 178/83 95 05/13/22 14:15 73 05/13/22 13:49 98.2 F 76 18 143/78 94 L Intake and Output 05/13/22 05/14/22 05/14/22 22:59 06:59 14:59 Intake Total 76.577 205.451 Output Total 800 660 Balance -723.423 -454.549 Intake: Intake, IV Titration 76.577 87.451 Amount Heparin Sod,Pork in 0.45% 76.577 87.451 NaCl 25,000 unit In 0.45 % NaCl 1 250ml.bag @ 18 UNITS/KG/HR 13.064 mls/hr IV .Q19H9M [facility] Rx#: [id number] Oral 0 118 Output: Urine 800 660 Other: Voiding Method Toilet Toilet # Voids 1 # Bowel Movements 1 Weight 72.575 kg Physical Exam: Revealed 86-year-old female in no distress Head: Atraumatic, normocephalic. HEENT:[Neck is supple.] [No neck masses.] [No thyromegaly.] [No JVD.] Chest: [Clear throughout, no crackles, no rhonchi, no wheezes.] Cardiac Exam: [Normal S1 and S2, no S3 gallop, no murmur.] Abdomen: [Soft, nontender, no megaly, no rebound, no guarding, normal bowel sounds.] Extremities: [No clubbing, no edema, no cyanosis.] Neurological Exam: [No focal neurologic deficit.] Alert oriented 3 Psychiatric: Normal mood, affect and normal mental status examination. Skin: No rashes. Results - Laboratory Findings CBC and BMP: 05/14/22 07:44 05/14/22 07:44 PT/INR, D-dimer PT 11.6 sec (9.0-12.0) 05/13/22 20:45 INR 1.1 (<1.2) 05/13/22 20:45 D-Dimer 4.89 mg/L FEU (<0.60) H 05/13/22 14:32 Abnormal lab findings: Abnormal Labs 05/13/22 05/13/22 05/13/22 14:32 14:32 20:24 Neutrophils # (Manual) APTT 21.3 L D-Dimer 4.89 H BUN 20 H Glucose 109 H POC Glucose (mg/dL) 205 H Magnesium 1.5 L AST 42 H 05/13/22 05/14/22 05/14/22 22:51 05:39 07:44 Neutrophils # (Manual) 8.32 H APTT 100.9 H* D-Dimer BUN Glucose POC Glucose (mg/dL) 158 H Magnesium AST 05/14/22 05/14/22 05/14/22 07:44 07:44 11:35 Neutrophils # (Manual) APTT 66.2 H D-Dimer BUN 23 H Glucose 190 H POC Glucose (mg/dL) 132 H Magnesium AST - Diagnostic Findings CT scan - chest: image reviewed (As noted in HPI) Assessment and Plan Assessment: Impression: Acute pulmonary embolism History of underlying nonobstructive coronary artery disease Benign essential hypertension Type 2 diabetes History of supraventricular tachycardia Recommendation: Start patient on eliquis Stop heparin Cleared patient to go home today Follow up on outpatient basis. Will follow as needed Time with Patient: Greater than 30
[2022-05-14 16:40] LABS: Glucose,Whole Blood 144 mg/dL (70-110)
[2022-05-14] MEDS: metFORMIN 500 MG TAB PO SCH (16:49)
[2022-05-14] MEDS ORDERED: MULTIVITAMINS, THERA 1 EACH TAB PO SCH (21:00)
[2022-05-14 21:14] LABS: Glucose,Whole Blood 151 mg/dL (70-110)
--- NOTE | 2022-05-14 23:43 | P.HPIM ---
History of Present Illness H&P Date: 05/14/22 Chief Complaint: Short of breath This is a very pleasant 86-year-old patient who follows with Dr. Burdick. Chronic stable medical conditions include GERD, hypertension, hyperlipidemia, urinary incontinence, anxiety depression, chronic gait dysfunction uses a walker. She has a very itchy condition on the scalp for which she follows Dr. Little. Several medications have been tried unsuccessfully. She is also been losing hair and constantly he is itching her scalp. Patient now presents with increasing shortness of breath. For about 2 weeks. Slight extremity swelling. No cough. No fever no chills. Appetite is fair. Computed tomography scan of the ER showed the patient to have a PE. Was started on IV heparin. Family at the bedside. Review of systems: GEN.: Tired EYES: None HEENT: None NECK: None RESPIRATORY: As above CARDIOVASCULAR: None GASTROINTESTINAL: None GENITOURINARY: None MUSCULOSKELETAL: Joint pains LYMPHATICS: None HEMATOLOGICAL: None PSYCHIATRY: NEUROLOGICAL: Uses a walker Past medical history to include: Orthostatic hypertension, GERD, hyperlipidemia, hypertension, osteoarthritis, urinary incontinence, hiatal hernia, anxiety, neurocognitive disorder Social history: Nonsmoker. No alcohol. Lives with her grandson. Uses a walker. Family history: kidney cancer. Physical examination: VITAL SIGNS: Very 7.6, 74, 18, 135/75, 96% room air GENERAL: [Laying in bed awake, comfortable EYES: Pupils equal. Conjunctiva normal. HEENT: External appearance of nose and ears normal, oral cavity grossly normal. NECK: JVD not raised; masses not palpable. HEART: First and second heart sounds are normal; no edema. LUNGS: Respiratory rate normal; clear to auscultation. ABDOMEN: Soft, nontender, liver spleen not palpable, no masses palpable. PSYCH: Alert and oriented x3; mood and affect normal. MUSCULOSKELETAL:No Clubbing/cyanosis;muscles-grossly intact. OA INVESTIGATIONS, reviewed in the clinical context: White count 9.9 hemoglobin 12.4 platelets 26 potassium 4.6 BUN 23 creatinine 0.98 Troponin I 2 less than 0.012 EKG tracing personally reviewed by me-normal sinus rhythm. Doppler ultrasound lower extremity: Negative bilaterally for DVT CT chest angiogram for PE: Small amount of acute PE in the right lower lobe branches. Chest x-ray film personally reviewed by me-cardiomegaly. Possibly chronic changes Assessment and plan: -Acute pulmonary embolism, decreased activity. IV heparin -IV heparin monitoring - orthostatic hypertension, chronic Fall precautions -Neurocognitive disorder Risperdal -Essential hypertension, controlled Coreg 6.25 mg twice a day. -Chronic scalp very a itchy lesions Lidex 0.05% topical daily. follow-up a Dr. Little. 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 baseline Fall precautions Patient is IV heparin, being changed over to eliquis. Patient wishes to be observed for another day. Care was discussed the patient and family at the bedside. Past Medical History Past Medical History: Cancer, Diabetes Mellitus, GERD/Reflux, Hearing Disorder / Deafness, Hyperlipidemia, Hypertension, Osteoarthritis (OA) Additional Past Medical History / Comment(s): HX OF SKIN CA, IBS, INCONTINENCE OF BLADDER, HX OF HIATAL HERNIA, THYROID NODULES , CATARACT BILATERAL EYES History of Any Multi-Drug Resistant Organisms: None Reported Past Surgical History: Cholecystectomy, Heart Catheterization, Hysterectomy, Orthopedic Surgery Additional Past Surgical History / Comment(s): SINUS SX, SX ARM, FOOT, Past Anesthesia/Blood Transfusion Reactions: No Reported Reaction Past Psychological History: Anxiety Smoking Status: Never smoker Past Alcohol Use History: None Reported Past Drug Use History: None Reported - Past Family History Daughter(s) Family Medical History: Cancer, Deep Vein Thrombosis (DVT) Additional Family Medical History / Comment(s): ONE DAUGHTER KIDNEY CA, ONE DAUGHTER HX OF DVT Sister(s) Family Medical History: Cancer Additional Family Medical History / Comment(s): 2 SISTERS WITH BREAST CA Medications and Allergies Home Medications Medication Instructions Recorded Confirmed Type Aspirin EC [Ecotrin Low Dose] 81 mg PO DAILY 12/21/21 05/13/22 History Cholecalciferol [Vitamin D3 (25 25 mcg PO DAILY 12/21/21 05/13/22 History Mcg = 1000 Iu)] Isosorbide Mononitrate ER [Imdur] 30 mg PO DAILY 12/21/21 05/13/22 History Multivitamins, Thera [Multivitamin 1 tab PO HS 12/21/21 05/13/22 History (formulary)] carvediloL [Coreg] 6.25 mg PO BID 12/21/21 05/13/22 History metFORMIN HCL 500 mg PO W/SUPPER 12/21/21 05/13/22 History Gabapentin [Neurontin] 300 mg PO BID 02/23/22 05/13/22 History Magnesium Oxide [Magox 400] 400 mg PO DAILY 02/23/22 05/13/22 History Omeprazole 20 mg PO DAILY 03/05/22 05/13/22 History Triamcinolone 0.1% Cream [Kenalog 1 applic TOPICAL BID 05/13/22 05/13/22 History 0.1% Cream] risperiDONE [RisperDAL] 1 mg PO BID 05/13/22 05/13/22 History Allergies Allergy/AdvReac Type Severity Reaction Status Date / Time No Known Allergies Allergy Verified 05/13/22 17:18 Physical Exam Vitals: Vital Signs Temp Pulse Pulse Resp BP BP Pulse Ox 05/14/22 04:32 98.1 F 81 20 133/75 93 L 05/13/22 23:14 97.8 F 71 20 136/70 93 L 05/13/22 20:39 97.7 F 70 18 132/73 93 L 05/13/22 19:02 97.9 F 73 16 162/74 96 05/13/22 18:18 68 18 176/83 95 05/13/22 15:32 66 18 178/83 95 05/13/22 14:15 73 05/13/22 13:49 98.2 F 76 18 143/78 94 L Intake and Output 05/13/22 05/14/22 05/14/22 22:59 06:59 14:59 Intake Total 76.577 205.451 Output Total 800 660 Balance -723.423 -454.549 Intake: Intake, IV Titration 76.577 87.451 Amount Heparin Sod,Pork in 0.45% 76.577 87.451 NaCl 25,000 unit In 0.45 % NaCl 1 250ml.bag @ 18 UNITS/KG/HR 13.064 mls/hr IV .Q19H9M [facility] Rx#: [id number] Oral 0 118 Output: Urine 800 660 Other: Voiding Method Toilet Toilet Weight 72.575 kg Results CBC & Chem 7: 05/14/22 07:44 05/14/22 07:44 Labs: Abnormal Lab Results - Last 24 Hours (Table) 05/13/22 05/13/22 05/13/22 Range/Units 14:32 14:32 20:24 APTT 21.3 L (22.0-30.0) sec D-Dimer 4.89 H (<0.60) mg/L FEU BUN 20 H (7-17) mg/dL Glucose 109 H (74-99) mg/dL POC Glucose (mg/dL) 205 H (70-110) mg/dL Magnesium 1.5 L (1.6-2.3) mg/dL AST 42 H (14-36) U/L 05/13/22 05/14/22 05/14/22 Range/Units 22:51 05:39 07:44 APTT 100.9 H* (22.0-30.0) sec D-Dimer (<0.60) mg/L FEU BUN 23 H (7-17) mg/dL Glucose 190 H (74-99) mg/dL POC Glucose (mg/dL) 158 H (70-110) mg/dL Magnesium (1.6-2.3) mg/dL AST (14-36) U/L 05/14/22 Range/Units 07:44 APTT 66.2 H (22.0-30.0) sec D-Dimer (<0.60) mg/L FEU BUN (7-17) mg/dL Glucose (74-99) mg/dL POC Glucose (mg/dL) (70-110) mg/dL Magnesium (1.6-2.3) mg/dL AST (14-36) U/L Thrombosis Risk Factor Assmnt - Choose All That Apply Any of the Below Risk Factors Present?: Yes Each Factor Represents 1 point: Medical pt on bed rest, Obesity (BMI >25) Other Risk Factors: Yes Each Risk Factor Represents 3 Points: Age 75 years or older, Family history of DVT/PE, History of DVT/PE Other congenital or acquired thrombophilia - If yes, enter type in comment: No Thrombosis Risk Factor Assessment Total Risk Factor Score: 11 Thrombosis Risk Factor Assessment Level: High Risk
[2022-05-15] MEDS: INSULIN ASPART (NovoLOG) 100 UNIT/ML VIAL SQ SCH ×3 (00:12→12:19)
[2022-05-15 06:22] LABS: Glucose,Whole Blood 101 mg/dL (70-110)
[2022-05-15] MEDS: carvediloL 6.25 MG TAB PO SCH (06:51)
[2022-05-15] MEDS: GABAPENTIN 300 MG CAP PO SCH (09:17)
[2022-05-15] MEDS: ISOSORBIDE MONONITRATE ER 30 MG TAB.ER.24H PO SCH (09:17)
[2022-05-15] MEDS: PANTOPRAZOLE 40 MG TABLET PO SCH (09:18)
[2022-05-15] MEDS: risperiDONE 1 MG TAB PO SCH (09:18)
[2022-05-15] MEDS: APIXABAN 5 MG TAB PO SCH (09:18)
[2022-05-15] MEDS: MAGNESIUM OXIDE 400 MG TAB PO SCH (09:18)
[2022-05-15] MEDS: CHOLECALCIFEROL 25 MCG (1000 IU) TABLET PO SCH (09:18)
[2022-05-15] MEDS: TRIAMCINOLONE 0.1% CREAM 80 GM TUBE TOPICAL SCH ×2 (09:22→09:25)
[2022-05-15 10:07] VITALS: BP 135/90; PULSE 70; RESP 16; TEMP 97.1
[2022-05-15 11:50] LABS: Glucose,Whole Blood 94 mg/dL (70-110)
--- NOTE | 2022-05-15 19:09 | P.DS ---
Providers Date of admission: 05/13/22 17:22 Expected date of discharge: 05/15/22 Attending physician: Raimundo Dickens Consults: 05/13/22 17:22 Consult Physician Routine Consulting Provider: [facility] Consult Reason/Comments: Pulmonary embolism Do you want consulting provider notified?: Already Contacted 05/13/22 18:39 Consult Physician Routine Consulting Provider: Jayde Sandhu Reason/Comments: PE Do you want consulting provider notified?: Yes, Notify in am Primary care [facility]: [facility] Course: Chief Complaint: Short of breath This is a very pleasant 86-year-old patient who follows with Dr. Burdick. Chronic stable medical conditions include GERD, hypertension, hyperlipidemia, urinary incontinence, anxiety depression, chronic gait dysfunction uses a walker. She has a very itchy condition on the scalp for which she follows Dr. Little. Several medications have been tried unsuccessfully. She is also been losing hair and constantly he is itching her scalp. Patient now presents with increasing shortness of breath. For about 2 weeks. Slight extremity swelling. No cough. No fever no chills. Appetite is fair. Computed tomography scan of the ER showed the patient to have a PE. Was started on IV heparin. Family at the bedside. May 15: Patient treated for PE. IV heparin changed over to eliquis. Breathing stable. Discussed with patient. Aspirin discontinued Past medical history to include: Orthostatic hypertension, GERD, hyperlipidemia, hypertension, osteoarthritis, urinary incontinence, hiatal hernia, anxiety, neurocognitive disorder Social history: Nonsmoker. No alcohol. Lives with her grandson. Uses a walker. Family history: kidney cancer. Physical examination: VITAL SIGNS: 97.1, 70, 16, 135/90, 94% room air GENERAL: Comfortable EYES: Pupils equal. Conjunctiva normal. HEENT: External appearance of nose and ears normal, oral cavity grossly normal. NECK: JVD not raised; masses not palpable. HEART: First and second heart sounds are normal; no edema. LUNGS: Respiratory rate normal; clear to auscultation. ABDOMEN: Soft, nontender, liver spleen not palpable, no masses palpable. PSYCH: Alert and oriented x3; mood and affect normal. MUSCULOSKELETAL:No Clubbing/cyanosis;muscles-grossly intact. OA INVESTIGATIONS, reviewed in the clinical context: White count 9.9 hemoglobin 12.4 platelets 26 potassium 4.6 BUN 23 creatinine 0.98 Troponin I 2 less than 0.012 EKG tracing personally reviewed by me-normal sinus rhythm. Doppler ultrasound lower extremity: Negative bilaterally for DVT CT chest angiogram for PE: Small amount of acute PE in the right lower lobe branches. Chest x-ray film personally reviewed by me-cardiomegaly. Possibly chronic changes Assessment and plan: -Acute pulmonary embolism, decreased activity. IV heparin. Changed to eliquis -IV heparin monitoring - orthostatic hypertension, chronic Fall precautions -Neurocognitive disorder Risperdal -Essential hypertension, controlled Coreg 6.25 mg twice a day. -Chronic scalp very a itchy lesions Lidex 0.05% topical daily. follow-up a Dr. Little. 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 baseline Fall precautions Disposition: Home Plan - Discharge Summary Discharge Rx Participant: Yes New Discharge Prescriptions: New Apixaban [Eliquis Starter Pack (for VTE)] 5 - 10 mg PO DIRECTED 30 Days #1 each Continue metFORMIN HCL 500 mg PO W/SUPPER Gabapentin [Neurontin] 300 mg PO BID Magnesium Oxide [Magox 400] 400 mg PO DAILY risperiDONE [RisperDAL] 1 mg PO BID Triamcinolone 0.1% Cream [Kenalog 0.1% Cream] 1 applic TOPICAL BID Multivitamins, Thera [Multivitamin (formulary)] 1 tab PO HS Cholecalciferol [Vitamin D3 (25 Mcg = 1000 Iu)] 25 mcg PO DAILY Isosorbide Mononitrate ER [Imdur] 30 mg PO DAILY carvediloL [Coreg] 6.25 mg PO BID Omeprazole 20 mg PO DAILY Discontinued Aspirin EC [Ecotrin Low Dose] 81 mg PO DAILY Discharge Medication List Cholecalciferol [Vitamin D3 (25 Mcg = 1000 Iu)] 25 mcg PO DAILY 12/21/21 [History] Isosorbide Mononitrate ER [Imdur] 30 mg PO DAILY 12/21/21 [History] Multivitamins, Thera [Multivitamin (formulary)] 1 tab PO HS 12/21/21 [History] carvediloL [Coreg] 6.25 mg PO BID 12/21/21 [History] metFORMIN HCL 500 mg PO W/SUPPER 12/21/21 [History] Gabapentin [Neurontin] 300 mg PO BID 02/23/22 [History] Magnesium Oxide [Magox 400] 400 mg PO DAILY 02/23/22 [History] Omeprazole 20 mg PO DAILY 03/05/22 [History] Triamcinolone 0.1% Cream [Kenalog 0.1% Cream] 1 applic TOPICAL BID 05/13/22 [History] risperiDONE [RisperDAL] 1 mg PO BID 05/13/22 [History] Apixaban [Eliquis Starter Pack (for VTE)] 5 - 10 mg PO DIRECTED 30 Days #1 each 05/15/22 [Rx] Follow up Appointment(s)/Referral(s): Srinivas Burdick DO [Primary Care Provider] - 1-2 days Patient Instructions/Handouts: Pulmonary Embolism (DC) Discharge Disposition: HOME SELF-CARE
== END 2022-05-15 13:54 | disposition home or self-care (01) | DRG 176 ==
LOC: EC 13:41 → 3SCARD 17:22
PROVIDERS: ADMIT Hospitalist; ATTEND Hospitalist
DX: I26.99 Other pulmonary embolism without acute cor pulmonale (principal); D68.59 Other primary thrombophilia; K21.9 Gastro-esophageal reflux disease without esophagitis; K44.9 Diaphragmatic hernia without obstruction or gangrene; M19.90 Unspecified osteoarthritis, unspecified site; Z20.822 Contact with and (suspected) exposure to COVID-19; Z28.310 Unvaccinated for COVID-19; E11.9 Type 2 diabetes mellitus without complications; R26.9 Unspecified abnormalities of gait and mobility; E78.5 Hyperlipidemia, unspecified; F32.A Depression, unspecified; E04.1 Nontoxic single thyroid nodule; E66.9 Obesity, unspecified; K58.9 Irritable bowel syndrome, unspecified; Z86.718 Personal history of other venous thrombosis and embolism; F41.9 Anxiety disorder, unspecified; L98.8 Other specified disorders of the skin and subcutaneous tissue; H91.90 Unspecified hearing loss, unspecified ear; I08.1 Rheumatic disorders of both mitral and tricuspid valves; I10 Essential (primary) hypertension; I25.10 Atherosclerotic heart disease of native coronary artery without angina pectoris; N39.3 Stress incontinence (female) (male); Z68.30 Body mass index [BMI] 30.0-30.9, adult; Z79.82 Long term (current) use of aspirin; Z79.84 Long term (current) use of oral hypoglycemic drugs; Z79.899 Other long term (current) drug therapy; Z80.3 Family history of malignant neoplasm of breast; Z80.51 Family history of malignant neoplasm of kidney; Z85.528 Personal history of other malignant neoplasm of kidney; Z85.828 Personal history of other malignant neoplasm of skin; Z86.711 Personal history of pulmonary embolism
CPT/HCPCS: 36415; 71046; 71275; 80053; 83735; 83880; 84484; 85025; 85379; 85610; 85730; 87635; 93005; 93308; 93970; 96365; 96375; 99285

== ENCOUNTER 2022-06-19 13:13 | Emergency (ER) | payer MEDICARE ==
[2022-06-19 13:55] VITALS: TEMP 98.6
--- NOTE | 2022-06-19 15:26 | ED ---
General Adult HPI - General Chief complaint: Weakness Stated complaint: weakness Source: patient Mode of arrival: wheelchair Limitations: no limitations - History of Present Illness Initial comments: Patient is an 86 year old female who presents to the ER with complaints of watery diarrhea for 1 week, generalized weakness x 3 weeks and reports of difficulty swallowing salvia with it just drooling out for the last 2 weeks. She denies any falls or inciting events prior to her symptoms. She is unsure of exact dates of all of her symptoms. She has complaints of generalized malaise at this point as well as her generalized weakness. She denies any changes in her baseline shortness of breath, she does report some abdominal bloating. She has previously been treated for pulmonary emboli in denies any changes in her chronic dyspnea with exertion. She has chronic left lower extremity swelling which is stable according to her. She reports generalized weakness but denies any focal neurological deficits with the exception of her swallowing difficulty. She denies any nausea or vomiting. Patient has a past medical history significant for diabetes, hypertension, hyperlipidemia, GERD, hard of hearing, skin cancer and severe anxiety. - Related Data Home Medications Medication Instructions Recorded Confirmed Cholecalciferol [Vitamin D3 (25 25 mcg PO DAILY 12/21/21 05/13/22 Mcg = 1000 Iu)] Isosorbide Mononitrate ER [Imdur] 30 mg PO DAILY 12/21/21 05/13/22 Multivitamins, Thera [Multivitamin 1 tab PO HS 12/21/21 05/13/22 (formulary)] carvediloL [Coreg] 6.25 mg PO BID 12/21/21 05/13/22 metFORMIN HCL 500 mg PO W/SUPPER 12/21/21 05/13/22 Gabapentin [Neurontin] 300 mg PO BID 02/23/22 05/13/22 Magnesium Oxide [Magox 400] 400 mg PO DAILY 02/23/22 05/13/22 Omeprazole 20 mg PO DAILY 03/05/22 05/13/22 Triamcinolone 0.1% Cream [Kenalog 1 applic TOPICAL BID 05/13/22 05/13/22 0.1% Cream] risperiDONE [RisperDAL] 1 mg PO BID 05/13/22 05/13/22 Previous Rx's Medication Instructions Recorded Apixaban [Eliquis Starter Pack 5 - 10 mg PO DIRECTED 30 Days 05/15/22 (for VTE)] #1 each Allergies Allergy/AdvReac Type Severity Reaction Status Date / Time No Known Allergies Allergy Verified 05/13/22 17:18 Review of Systems ROS Statement: Those systems with pertinent positive or pertinent negative responses have been documented in the HPI. ROS Other: All systems not noted in ROS Statement are negative. Past Medical History Past Medical History: Cancer, Diabetes Mellitus, GERD/Reflux, Hearing Disorder / Deafness, Hyperlipidemia, Hypertension, Osteoarthritis (OA) Additional Past Medical History / Comment(s): HX OF SKIN CA, IBS, INCONTINENCE OF BLADDER, HX OF HIATAL HERNIA, THYROID NODULES , CATARACT BILATERAL EYES History of Any Multi-Drug Resistant Organisms: None Reported Past Surgical History: Cholecystectomy, Heart Catheterization, Hysterectomy, Orthopedic Surgery Additional Past Surgical History / Comment(s): SINUS SX, SX ARM, FOOT, Past Anesthesia/Blood Transfusion Reactions: No Reported Reaction Past Psychological History: Anxiety Smoking Status: Never smoker Past Alcohol Use History: None Reported Past Drug Use History: None Reported - Past Family History Daughter(s) Family Medical History: Cancer, Deep Vein Thrombosis (DVT) Additional Family Medical History / Comment(s): ONE DAUGHTER KIDNEY CA, ONE DAUGHTER HX OF DVT Sister(s) Family Medical History: Cancer Additional Family Medical History / Comment(s): 2 SISTERS WITH BREAST CA General Exam General appearance: alert, in no apparent distress Head exam: Present: atraumatic, normocephalic, normal inspection Eye exam: Present: normal appearance, PERRL, EOMI. Absent: scleral icterus, conjunctival injection, periorbital swelling ENT exam: Present: normal exam, mucous membranes moist Neck exam: Present: normal inspection. Absent: lymphadenopathy Respiratory exam: Present: wheezes (Occasional mild expiratory anteriorly), decreased breath sounds (Bibasilar). Absent: respiratory distress, rales, rhonchi, stridor Cardiovascular Exam: Present: regular rate, normal rhythm, normal heart sounds. Absent: systolic murmur, diastolic murmur, rubs, gallop, clicks GI/Abdominal exam: Present: soft, normal bowel sounds, other (Round). Absent: distended, tenderness, guarding, rebound, rigid Rectal exam: Present: deferred Extremities exam: Present: full ROM, pedal edema (Right trace, left +1-2). Absent: tenderness Back exam: Present: normal inspection Neurological exam: Present: alert, oriented X3, CN II-XII intact Psychiatric exam: Present: normal affect, normal mood Skin exam: Present: warm, dry, intact, normal color. Absent: rash Course Vital Signs 06/19/22 06/19/22 13:52 17:20 Temperature 98.6 F Pulse Rate 77 75 Respiratory 16 18 Rate Blood Pressure 156/87 140/78 O2 Sat by Pulse 98 99 Oximetry Medical Decision Making - Medical Decision Making 86-year-old female with diarrhea, weakness and difficulty swallowing although onset greater than 1 week ago to the [facility] for details regarding onset and associated symptoms. Will check COVID swab, EKG, UA, coags, CMP, CBC, calcium, magnesium and thyroid level. Given recent PE history and generalized malaise will check chest x-ray. Due to dysphagia will check CT of the brain. No indication for any medications at this time. Covid negative. Urinalysis overall negative slight protein noted. Chest x-ray negative. Overall CMP stable slightly elevated AST otherwise no anomalies. PT/INR within normal limits. CT of the brain without contrast shows no acute bleed or mass effect chronic ischemic changes noted. Findings discussed with patient and family. No indication for further evaluation or laboratory studies. Will discharge patient home with continued use of walker and good hydration. Case discussed with Silas. - Lab Data Result diagrams: 06/19/22 15:28 06/19/22 15:28 Lab Results 06/19/22 06/19/22 06/19/22 Range/Units 14:22 15:28 15:28 WBC 5.0 (3.8-10.6) k/uL RBC 3.92 (3.80-5.40) m/uL Hgb 12.3 (11.4-16.0) gm/dL Hct 37.6 (34.0-46.0) % MCV 95.8 (80.0-100.0) fL MCH 31.3 (25.0-35.0) pg MCHC 32.6 (31.0-37.0) g/dL RDW 14.3 (11.5-15.5) % Plt Count 197 (150-450) k/uL MPV 7.8 Neutrophils % (Manual) 49 % Lymphocytes % (Manual) 48 % Monocytes % (Manual) 2 % Basophils % (Manual) 1 % Neutrophils # (Manual) 2.45 (1.3-7.7) k/uL Lymphocytes # (Manual) 2.40 (1.0-4.8) k/uL Monocytes # (Manual) 0.10 (0-1.0) k/uL Basophils # (Manual) 0.05 (0-0.2) k/uL Nucleated RBCs 0 (0-0) /100 WBC Manual Slide Review Performed Poikilocytosis (manual Present PT 11.0 (9.0-12.0) sec INR 1.0 (<1.2) APTT 22.8 (22.0-30.0) sec Sodium (137-145) mmol/L Potassium (3.5-5.1) mmol/L Chloride (98-107) mmol/L Carbon Dioxide (22-30) mmol/L Anion Gap mmol/L BUN (7-17) mg/dL Creatinine (0.52-1.04) mg/dL Est GFR (CKD-EPI)AfAm (>60 ml/min/1.73 sqM) Est GFR (CKD-EPI)NonAf (>60 ml/min/1.73 sqM) Glucose (74-99) mg/dL Plasma Lactic Acid Jamie (0.7-2.0) mmol/L Calcium (8.4-10.2) mg/dL Ionized Calcium Vale (4.5-5.3) mg/dL Magnesium (1.6-2.3) mg/dL Total Bilirubin (0.2-1.3) mg/dL AST (14-36) U/L ALT (4-34) U/L Alkaline Phosphatase (38-126) U/L Total Protein (6.3-8.2) g/dL Albumin (3.5-5.0) g/dL TSH (0.465-4.680) mIU/L Urine Color Urine Appearance (Clear) Urine pH (5.0-8.0) Ur Specific [place] (1.001-1.035) Urine Protein (Negative) Urine Glucose (UA) (Negative) Urine Ketones (Negative) Urine Blood (Negative) Urine Nitrite (Negative) Urine Bilirubin (Negative) Urine Urobilinogen (<2.0) mg/dL Ur Leukocyte Esterase (Negative) Coronavirus (PCR) Not Detected (Not Detectd) 06/19/22 06/19/22 06/19/22 Range/Units 15:28 15:28 16:06 WBC (3.8-10.6) k/uL RBC (3.80-5.40) m/uL Hgb (11.4-16.0) gm/dL Hct (34.0-46.0) % MCV (80.0-100.0) fL MCH (25.0-35.0) pg MCHC (31.0-37.0) g/dL RDW (11.5-15.5) % Plt Count (150-450) k/uL MPV Neutrophils % (Manual) % Lymphocytes % (Manual) % Monocytes % (Manual) % Basophils % (Manual) % Neutrophils # (Manual) (1.3-7.7) k/uL Lymphocytes # (Manual) (1.0-4.8) k/uL Monocytes # (Manual) (0-1.0) k/uL Basophils # (Manual) (0-0.2) k/uL Nucleated RBCs (0-0) /100 WBC Manual Slide Review Poikilocytosis (manual PT (9.0-12.0) sec INR (<1.2) APTT (22.0-30.0) sec Sodium 141 (137-145) mmol/L Potassium 4.5 (3.5-5.1) mmol/L Chloride 105 (98-107) mmol/L Carbon Dioxide 23 (22-30) mmol/L Anion Gap 13 mmol/L BUN 15 (7-17) mg/dL Creatinine 0.88 (0.52-1.04) mg/dL Est GFR (CKD-EPI)AfAm 70 (>60 ml/min/1.73 sqM) Est GFR (CKD-EPI)NonAf 61 (>60 ml/min/1.73 sqM) Glucose 96 (74-99) mg/dL Plasma Lactic Acid Jamie 1.1 (0.7-2.0) mmol/L Calcium 10.0 (8.4-10.2) mg/dL Ionized Calcium Vale 5.1 (4.5-5.3) mg/dL Magnesium 1.6 (1.6-2.3) mg/dL Total Bilirubin 0.5 (0.2-1.3) mg/dL AST 47 H (14-36) U/L ALT 23 (4-34) U/L Alkaline Phosphatase 64 (38-126) U/L Total Protein 7.4 (6.3-8.2) g/dL Albumin 4.5 (3.5-5.0) g/dL TSH 1.010 (0.465-4.680) mIU/L Urine Color Yellow Urine Appearance Clear (Clear) Urine pH 6.0 (5.0-8.0) Ur Specific [place] 1.022 (1.001-1.035) Urine Protein Trace H (Negative) Urine Glucose (UA) Negative (Negative) Urine Ketones Negative (Negative) Urine Blood Negative (Negative) Urine Nitrite Negative (Negative) Urine Bilirubin Negative (Negative) Urine Urobilinogen <2.0 (<2.0) mg/dL Ur Leukocyte Esterase Negative (Negative) Coronavirus (PCR) (Not Detectd) - EKG Data EKG Comments: 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 CT of the brain without contrast shows no acute bleed or mass effect. Chronic i schemic changes with white matter is described. Disposition Clinical Impression: Generalized weakness Disposition: HOME SELF-CARE Condition: Stable Instructions (If sedation given, give patient instructions): Chronic Diarrhea (ED), Weakness (ED) Additional Instructions: Please continue to ambulate with her walker at home. Please follow-up with your primary care provider. Please continue your regular home medications. Please return to the Emergency Department if symptoms worsen or any other concerns. Is patient prescribed a controlled substance at d/c from ED?: No Referrals: Srinivas Burdick DO [Primary Care Provider] - 1-2 days Time of Disposition: 17:11
[2022-06-19 15:36] LABS: HCT 37.6 % (34.0-46.0); HGB 12.3 gm/dL (11.4-16.0); MCH 31.3 pg (25.0-35.0); MCHC 32.6 g/dL (31.0-37.0); MCV 95.8 fL (80.0-100.0); Mean Platelet Volume 7.8; Platelet Count 197 k/uL (150-450); RBC 3.92 m/uL (3.80-5.40); RDW 14.3 % (11.5-15.5)
[2022-06-19 15:45] LABS: Albumin 4.5 g/dL (3.5-5.0); Magnesium 1.6 mg/dL (1.6-2.3); Potassium 4.5 mmol/L (3.5-5.1); Total Bilirubin 0.5 mg/dL (0.2-1.3); Total Protein 7.4 g/dL (6.3-8.2)
[2022-06-19 15:47] LABS: Ionized Calcium 5.1 mg/dL (4.5-5.3)
[2022-06-19 15:48] LABS: Partial Thromboplastin Time 22.8 sec (22.0-30.0)
--- NOTE | 2022-06-19 15:53 | XR ---
EXAMINATION TYPE: XR chest 2V DATE OF EXAM: 06/19/2022 COMPARISON: 05/13/2022 HISTORY: Weakness TECHNIQUE: Frontal and lateral views of the chest are obtained. FINDINGS: There is no focal air space opacity, pleural effusion, or pneumothorax seen. The cardiac silhouette size is within normal limits. The osseous structures are intact. IMPRESSION: No acute cardiopulmonary process.
[2022-06-19 16:15] LABS: Appearance,Urine Clear (Clear); Bilirubin,Urine Negative (Negative); Blood,Urine Negative (Negative); Color,Urine Yellow; Glucose,Urine (UA) Negative (Negative); Ketones,Urine Negative (Negative); Leukocyte Esterase,Urine Negative (Negative); Nitrite,Urine Negative (Negative); Protein,Urine Trace (Negative); Specific Gravity,Urine 1.022 (1.001-1.035); Urobilinogen,Urine <2.0 mg/dL (<2.0)
[2022-06-19 16:47] LABS: Basophils # (M) 0.05 k/uL (0-0.2); Neutrophils # (M) 2.45 k/uL (1.3-7.7); Neutrophils % (M) 49 %; Nucleated Red Blood Cells 0 /100 WBC (0-0); Total Cells Counted 100
[2022-06-19 16:48] LABS: Poikilocytosis (M) Present
--- NOTE | 2022-06-19 17:01 | CT ---
EXAMINATION TYPE: CT brain wo con DATE OF EXAM: 06/19/2022 COMPARISON: 03/06/2022 HISTORY: weakness CT DLP: 1143.4 mGycm Automated exposure control for dose reduction was used. FINDINGS: The ventricles, basal cisterns and sulci over bases are within normal limits patient's age and there is no mass effect or shift of midline structures. There is no acute intra or extra-axial hemorrhage. 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 Posterior fossa including the brainstem, fourth ventricle and cerebellar pontine angles appear grossl y normal. There are chronic inflammatory changes in the left sphenoid sinus and right maxillary sinus. The mast oid air cells are well aerated. IMPRESSION: 1. No acute bleed or mass effect. 2. Chronic ischemic changes within the white matter is described above.
[2022-06-19 17:21] VITALS: BP 140/78; PULSE 75; RESP 18
== END 2022-06-19 17:21 | disposition home or self-care (01) ==
LOC: EC 13:13
DX: R53.1 Weakness (principal); E11.9 Type 2 diabetes mellitus without complications; E78.5 Hyperlipidemia, unspecified; I10 Essential (primary) hypertension; K21.9 Gastro-esophageal reflux disease without esophagitis; Z79.83 Long term (current) use of bisphosphonates; Z20.822 Contact with and (suspected) exposure to COVID-19
CPT/HCPCS: 36415; 70450; 71046; 80053; 81003; 82330; 83605; 83735; 84443; 85025; 85610; 85730; 87635; 93005; 99285

== ENCOUNTER 2022-10-18 17:27 | Emergency (ER) | payer MEDICARE ==
[2022-10-18 17:36] VITALS: PULSE 78; RESP 16
[2022-10-18] MEDS ORDERED: ACETAMINOPHEN TAB 325 MG TAB PO STA (17:55)
[2022-10-18] MEDS ORDERED: SODIUM CHLORIDE 0.9% 500 ML 500 ML IV STA (17:55)
--- NOTE | 2022-10-18 17:56 | ED ---
General Adult HPI - General Chief complaint: Fall Stated complaint: fall Time Seen by Provider: 10/18/22 17:29 Source: patient, EMS, RN notes reviewed Mode of arrival: EMS Limitations: no limitations - History of Present Illness Initial comments: 87-year-old female with oriented presents to the emergency room via EMS with complaints of a ground-level fall. Patient states that she tripped over her feet while ambulating with her granddaughter who helped to lower her to the ground. She did not actually fall. Did not hit her head or lose consciousness. She did sustain a 3 mm skin tear to the left elbow. Bleeding is controlled. Patient has no complaints at this time. EMS states family wanted her just looked over. Family bedside stating patient has been weak for the past 3 weeks and has not been able to get into Dr. Burdick's office. They wanted her evaluated for generalized weakness. -: hour(s) (2) Location: left (elbow), upper extremity Severity scale (1-10): 0 Consistency: now resolved Associated Symptoms: denies other symptoms Treatments Prior to Arrival: other (bandage) - Related Data Home Medications Medication Instructions Recorded Confirmed Cholecalciferol [Vitamin D3 (25 25 mcg PO DAILY 12/21/21 10/18/22 Mcg = 1000 Iu)] Isosorbide Mononitrate ER [Imdur] 30 mg PO DAILY 12/21/21 10/18/22 Multivitamins, Thera [Multivitamin 1 tab PO HS 12/21/21 10/18/22 (formulary)] carvediloL [Coreg] 6.25 mg PO BID 12/21/21 10/18/22 metFORMIN HCL 500 mg PO W/SUPPER 12/21/21 10/18/22 Gabapentin [Neurontin] 300 mg PO BID 02/23/22 10/18/22 Magnesium Oxide [Magox 400] 400 mg PO DAILY 02/23/22 10/18/22 Omeprazole 20 mg PO DAILY 03/05/22 10/18/22 risperiDONE [RisperDAL] 1 mg PO BID 05/13/22 10/18/22 Apixaban [Eliquis] 5 mg PO BID 10/18/22 10/18/22 Previous Rx's Medication Instructions Recorded Cephalexin [Keflex] 500 mg PO BID 5 Days #10 cap 10/18/22 Allergies Allergy/AdvReac Type Severity Reaction Status Date / Time No Known Allergies Allergy Verified 10/18/22 18:31 Review of Systems ROS Statement: Those systems with pertinent positive or pertinent negative responses have been documented in the HPI. ROS Other: All systems not noted in ROS Statement are negative. Past Medical History Past Medical History: Cancer, Diabetes Mellitus, GERD/Reflux, Hearing Disorder / Deafness, Hyperlipidemia, Hypertension, Osteoarthritis (OA) Additional Past Medical History / Comment(s): HX OF SKIN CA, IBS, INCONTINENCE OF BLADDER, HX OF HIATAL HERNIA, THYROID NODULES , CATARACT BILATERAL EYES History of Any Multi-Drug Resistant Organisms: None Reported Past Surgical History: Cholecystectomy, Heart Catheterization, Hysterectomy, Orthopedic Surgery Additional Past Surgical History / Comment(s): SINUS SX, SX ARM, FOOT, Past Anesthesia/Blood Transfusion Reactions: No Reported Reaction Past Psychological History: Anxiety Smoking Status: Never smoker Past Alcohol Use History: None Reported Past Drug Use History: None Reported - Past Family History Daughter(s) Family Medical History: Cancer, Deep Vein Thrombosis (DVT) Additional Family Medical History / Comment(s): ONE DAUGHTER KIDNEY CA, ONE DAUGHTER HX OF DVT Sister(s) Family Medical History: Cancer Additional Family Medical History / Comment(s): 2 SISTERS WITH BREAST CA General Exam Limitations: no limitations General appearance: alert, in no apparent distress Head exam: Present: atraumatic, normocephalic, normal inspection Eye exam: Absent: scleral icterus, conjunctival injection, periorbital swelling Neck exam: Present: full ROM. Absent: tenderness, meningismus, lymphadenopathy Respiratory exam: Absent: respiratory distress, accessory muscle use Cardiovascular Exam: Present: regular rate GI/Abdominal exam: Present: soft. Absent: distended, tenderness, rigid Extremities exam: Present: normal capillary refill. Absent: tenderness, pedal edema, calf tenderness Back exam: Present: normal inspection. Absent: tenderness, CVA tenderness (R), CVA tenderness (L), rash noted Neurological exam: Present: alert, oriented X3 Expanded Patient oriented to: Present: person, place, time Speech: Present: fluid speech Motor strength exam: RUE: 4, LUE: 4, RLE: 3, LLE: 3 Eye Response: (4) open spontaneously Motor Response: (6) obeys commands Verbal Response: (5) oriented Royce Total: 15 Psychiatric exam: Present: normal affect, normal mood Skin exam: Present: warm, dry, normal color. Absent: cyanosis, diaphoretic, petechiae, pallor Course Vital Signs 10/18/22 10/18/22 17:28 21:09 Temperature 97.7 F 97.8 F Pulse Rate 78 Respiratory 16 Rate Blood Pressure 150/75 O2 Sat by Pulse 94 L Oximetry EKG Findings - EKG Results: EKG: sinus rhythm (normal sinus rhythm. Ventricular rate 72, [place] interval 0.170, QRS 0.86, QTC 0.424; left axis deviation, no ST elevation) Medical Decision Making - Medical Decision Making EKG interpreted by me shows normal sinus rhythm. Ventricular rate 72, [place] interval 0.170, QRS 0.86, QTC 0.424 no significant change compared to old in June 2022. Troponin is negative. UA shows evidence of a urinary tract infection patient was given Rocephin in the emergency room. She will be prescribed Keflex . CBC unremarkable. Electrolytes show a potassium level I.5. Patient was 1 given 1 g of magnesium IV piggyback. She was directed to continue her Mag-Ox at home and follow up with her primary care doctor this week. Patient discharged home to family encouraged to discuss with primary care doctor physical therapy to increase her strength. Case discussed with Dr. Mosqueda Was pt. sent in by a medical professional or institution? @ No Did you speak to anyone other than the patient for history? @ family Did you review nursing and triage notes? @yes i agree Were old charts reviewed? @old ekg Differential Diagnosis? MDM Differential Weakness: Hypoglycemia, shock, sepsis, hyponatremia, anemia, infection, [place], ETOH, adverse medicine reaction, overdose, stroke. ... This is not meant to be an all-inclusiv e list @ EKG interpreted by me (3pts min.)? @yes as above X-rays interpreted by me (1pt min.)? @ Radiologist interpretation normal chest no change. X-ray interpreted by me shows no areas of consolidation no free air. CT interpreted by me (1pt min.)? @ not applicable U/S interpreted by me (1pt. min.)? @ n/a What testing was considered but not performed? (CT, X-rays, U/S, labs)? Why? @ none What meds were considered but not given? Why? @none Did you discuss the management of the patient with other professionals? @ none Did you reconcile home meds? @ no Was smoking cessation discussed for >3mins.? @ n/a Was critical care preformed (if so, how long)? ere there social determinants of health that impacted care today? How? (H omelessness, low income, unemployed, alcoholism, drug addiction, transportation, low edu. Level, literacy, decrease access to med. care, long-term, rehab)? @ difficulty getting into PCP Was there de-escalation of care discussed even if they declined? (Discuss DNR or withdrawal of care, Hospice)? no What co-morbidities impacted this encounter? (DM, HTN, Smoking, COPD, CAD, Cancer, CVA, Hep., AIDS, mental health diagnosis, sleep apnea, morbid obesity)? @ Diabetes, hypertension, anxiety Was patient admitted / discharged? @ discharged Undiagnosed new problem with uncertain prognosis? @ [none] Drug Therapy requiring intensive monitoring for toxicity (Heparin, Nitro, Insulin, Cardizem)? @ no Were any procedures done? @no Diagnosis/symptom? @ uti, weakness, hypomagnesemia Acute, or Chronic, or Acute on Chronic? @ acute Uncomplicated (without systemic symptoms) or Complicated (systemic symptoms)? @ uncomplicated Side effects of treatment? @ [none] Exacerbation, Progression, or Severe Exacerbation] @ [no] Poses a threat to life or bodily function? @ [no] - Lab Data Result diagrams: 10/18/22 18:45 10/18/22 18:45 Lab Results 10/18/22 10/18/22 10/18/22 Range/Units 18:45 18:45 18:45 WBC 5.7 (3.8-10.6) k/uL RBC 4.76 (3.80-5.40) m/uL Hgb 15.4 (11.4-16.0) gm/dL Hct 44.0 (34.0-46.0) % MCV 92.4 (80.0-100.0) fL MCH 32.4 (25.0-35.0) pg MCHC 35.1 (31.0-37.0) g/dL RDW 13.7 (11.5-15.5) % Plt Count 173 (150-450) k/uL MPV 9.4 Neutrophils % (Manual) 61 % Lymphocytes % (Manual) 31 % Monocytes % (Manual) 5 % Eosinophils % (Manual) 3 % Neutrophils # (Manual) 3.48 (1.3-7.7) k/uL Lymphocytes # (Manual) 1.77 (1.0-4.8) k/uL Monocytes # (Manual) 0.29 (0-1.0) k/uL Eosinophils # (Manual) 0.17 (0-0.7) k/uL Nucleated RBCs 0 (0-0) /100 WBC Manual Slide Review Performed PT 11.8 (9.0-12.0) sec INR 1.1 (<1.2) APTT 24.7 (22.0-30.0) sec Sodium 138 (137-145) mmol/L Potassium 4.2 (3.5-5.1) mmol/L Chloride 105 (98-107) mmol/L Carbon Dioxide 23 (22-30) mmol/L Anion Gap 10 mmol/L BUN 10 (7-17) mg/dL Creatinine 0.63 (0.52-1.04) mg/dL Est GFR (CKD-EPI)AfAm >90 (>60 ml/min/1.73 sqM) Est GFR (CKD-EPI)NonAf 82 (>60 ml/min/1.73 sqM) Glucose 118 H (74-99) mg/dL Calcium 9.9 (8.4-10.2) mg/dL Magnesium 1.5 L (1.6-2.3) mg/dL Total Bilirubin 0.9 (0.2-1.3) mg/dL AST 38 H (14-36) U/L ALT 20 (4-34) U/L Alkaline Phosphatase 58 (38-126) U/L Troponin I (0.000-0.034) ng/mL Total Protein 6.4 (6.3-8.2) g/dL Albumin 3.8 (3.5-5.0) g/dL Urine Color Urine Appearance (Clear) Urine pH (5.0-8.0) Ur Specific [place] (1.001-1.035) Urine Protein (Negative) Urine Glucose (UA) (Negative) Urine Ketones (Negative) Urine Blood (Negative) Urine Nitrite (Negative) Urine Bilirubin (Negative) Urine Urobilinogen (<2.0) mg/dL Ur Leukocyte Esterase (Negative) Urine RBC (0-5) /hpf Urine WBC (0-5) /hpf Urine Bacteria (None) /hpf Hyaline Casts (0-2) /lpf Urine Mucus (None) /hpf 10/18/22 10/18/22 Range/Units 18:45 22:48 WBC (3.8-10.6) k/uL RBC (3.80-5.40) m/uL Hgb (11.4-16.0) gm/dL Hct (34.0-46.0) % MCV (80.0-100.0) fL MCH (25.0-35.0) pg MCHC (31.0-37.0) g/dL RDW (11.5-15.5) % Plt Count (150-450) k/uL MPV Neutrophils % (Manual) % Lymphocytes % (Manual) % Monocytes % (Manual) % Eosinophils % (Manual) % Neutrophils # (Manual) (1.3-7.7) k/uL Lymphocytes # (Manual) (1.0-4.8) k/uL Monocytes # (Manual) (0-1.0) k/uL Eosinophils # (Manual) (0-0.7) k/uL Nucleated RBCs (0-0) /100 WBC Manual Slide Review PT (9.0-12.0) sec INR (<1.2) APTT (22.0-30.0) sec Sodium (137-145) mmol/L Potassium (3.5-5.1) mmol/L Chloride (98-107) mmol/L Carbon Dioxide (22-30) mmol/L Anion Gap mmol/L BUN (7-17) mg/dL Creatinine (0.52-1.04) mg/dL Est GFR (CKD-EPI)AfAm (>60 ml/min/1.73 sqM) Est GFR (CKD-EPI)NonAf (>60 ml/min/1.73 sqM) Glucose (74-99) mg/dL Calcium (8.4-10.2) mg/dL Magnesium (1.6-2.3) mg/dL Total Bilirubin (0.2-1.3) mg/dL AST (14-36) U/L ALT (4-34) U/L Alkaline Phosphatase (38-126) U/L Troponin I 0.015 (0.000-0.034) ng/mL Total Protein (6.3-8.2) g/dL Albumin (3.5-5.0) g/dL Urine Color Yellow Urine Appearance Clear (Clear) Urine pH 5.5 (5.0-8.0) Ur Specific [place] 1.006 (1.001-1.035) Urine Protein Negative (Negative) Urine Glucose (UA) Negative (Negative) Urine Ketones 1+ H (Negative) Urine Blood Small H (Negative) Urine Nitrite Negative (Negative) Urine Bilirubin Negative (Negative) Urine Urobilinogen <2.0 (<2.0) mg/dL Ur Leukocyte Esterase Small H (Negative) Urine RBC <1 (0-5) /hpf Urine WBC 6 H (0-5) /hpf Urine Bacteria Rare H (None) /hpf Hyaline Casts 1 (0-2) /lpf Urine Mucus Rare H (None) /hpf Disposition Clinical Impression: Fall, Hypomagnesemia, Weakness, UTI (urinary tract infection) Disposition: HOME SELF-CARE Condition: Good Instructions (If sedation given, give patient instructions): Fall Prevention for Older Adults (ED), Weakness (ED), Hypomagnesemia (ED) Additional Instructions: Your magnesium was low today which can cause weakness. Take your Mag-Ox as prescribed and follow-up with her primary care doctor this week. Prescriptions: Cephalexin [Keflex] 500 mg PO BID 5 Days #10 cap Is patient prescribed a controlled substance at d/c from ED?: No Referrals: Srinivas Burdick DO [Primary Care Provider] - 1-2 days Time of Disposition: 23:11
--- NOTE | 2022-10-18 18:31 | XR ---
EXAMINATION TYPE: XR chest 2V DATE OF EXAM: 10/18/2022 COMPARISON: 06/19/2022 HISTORY: Weakness TECHNIQUE: FINDINGS: Heart is normal. Lungs are clear. Diaphragm is normal. Bony thorax is intact. IMPRESSION: Normal chest. No change.
[2022-10-18 19:08] LABS: ALT 20 U/L (4-34); AST 38 U/L (14-36); African American GFR (CKD) >90 (>60 ml/min/1.73 sqM); Albumin 3.8 g/dL (3.5-5.0); Alkaline Phosphatase 58 U/L (38-126); Anion Gap 10 mmol/L; Blood Urea Nitrogen 10 mg/dL (7-17); Calcium 9.9 mg/dL (8.4-10.2); Carbon Dioxide 23 mmol/L (22-30); Chloride 105 mmol/L (98-107); Glucose 118 mg/dL (74-99); Magnesium 1.5 mg/dL (1.6-2.3); Non-African American GFR(CKD) 82 (>60 ml/min/1.73 sqM); Potassium 4.2 mmol/L (3.5-5.1); Sodium 138 mmol/L (137-145); Total Bilirubin 0.9 mg/dL (0.2-1.3); Total Protein 6.4 g/dL (6.3-8.2)
[2022-10-18 19:14] LABS: HGB 15.4 gm/dL (11.4-16.0); MCH 32.4 pg (25.0-35.0); MCHC 35.1 g/dL (31.0-37.0); MCV 92.4 fL (80.0-100.0); Mean Platelet Volume 9.4; Platelet Count 173 k/uL (150-450); RBC 4.76 m/uL (3.80-5.40); RDW 13.7 % (11.5-15.5); WBC 5.7 k/uL (3.8-10.6)
[2022-10-18 19:17] LABS: INR 1.1 (<1.2); Partial Thromboplastin Time 24.7 sec (22.0-30.0); Prothrombin Time 11.8 sec (9.0-12.0)
[2022-10-18 19:27] LABS: Eosinophils # (M) 0.17 k/uL (0-0.7); Lymphocytes # (M) 1.77 k/uL (1.0-4.8); Monocytes # (M) 0.29 k/uL (0-1.0); Neutrophils # (M) 3.48 k/uL (1.3-7.7); Neutrophils % (M) 61 %; Nucleated Red Blood Cells 0 /100 WBC (0-0); Total Cells Counted 100
[2022-10-18] MEDS ORDERED: Magnesium Replacement Protocol 1 EACH MISC MISCELLANE PRN (19:36)
[2022-10-18] MEDS: MAGNESIUM SULFATE-D5W PMX 1 GM in DEXTROSE/WATER 1 100ML.BAG IVPB SCH ×2 (21:03→22:49)
[2022-10-18 21:10] VITALS: TEMP 97.8
[2022-10-18 23:06] LABS: Appearance,Urine Clear (Clear); Bacteria,Urine Rare /hpf; Bilirubin,Urine Negative (Negative); Blood,Urine Small (Negative); Color,Urine Yellow; Glucose,Urine (UA) Negative (Negative); Hyaline Casts,Urine 1 /lpf (0-2); Ketones,Urine 1+ (Negative); Leukocyte Esterase,Urine Small (Negative); Mucus,Urine Rare /hpf; Nitrite,Urine Negative (Negative); PH, Urine 5.5 (5.0-8.0); Protein,Urine Negative (Negative); RBC,Urine <1 /hpf (0-5); Specific Gravity,Urine 1.006 (1.001-1.035); Urobilinogen,Urine <2.0 mg/dL (<2.0); WBC,Urine 6 /hpf (0-5)
[2022-10-18] MEDS ORDERED: cefTRIAXone IN SWFI 1,000 MG/10 ML SYRINGE IVP STA (23:10)
[2022-10-19] VITALS: BP 142/83
== END 2022-10-18 23:58 | disposition home or self-care (01) ==
LOC: EC 17:27
DX: N39.0 Urinary tract infection, site not specified (principal); E83.42 Hypomagnesemia; I10 Essential (primary) hypertension; E11.9 Type 2 diabetes mellitus without complications; K21.9 Gastro-esophageal reflux disease without esophagitis; Z90.49 Acquired absence of other specified parts of digestive tract; Z90.710 Acquired absence of both cervix and uterus; Z79.899 Other long term (current) drug therapy; Z79.4 Long term (current) use of insulin; W01.0XXA Fall on same level from slipping, tripping and stumbling without subsequent striking against object, initial encounter; Y93.01 Activity, walking, marching and hiking
CPT/HCPCS: 36415; 93005; 80053; 83735; 84484; 85025; 85610; 85730; 81001; 71046; 99284; 96365; 96366; 96375; 96361; J0696; J3475

== ENCOUNTER 2022-10-23 12:50 | Observation (INO) | payer MEDICARE ==
[2022-10-23] MEDS ORDERED: SODIUM CHLORIDE 0.9% 1,000 ML IV ONE (13:02)
--- NOTE | 2022-10-23 13:05 | ED ---
General Adult HPI - General Chief complaint: Altered Mental Status Stated complaint: AMS, UTI Time Seen by Provider: 10/23/22 12:51 Source: patient, EMS, RN notes reviewed Mode of arrival: EMS Limitations: altered mental status - History of Present Illness Initial comments: Patient is a pleasant 87-year-old female presenting to the emergency department concern for change in mental status. Patient recently was reportedly in the hospital with urinary tract infection. Family reports patient has been generally weak, not eating or drinking, not taking her medications. Patient states she feels fine and has no complaints. - Related Data Home Medications Medication Instructions Recorded Confirmed Cholecalciferol [Vitamin D3 (25 25 mcg PO DAILY 12/21/21 10/23/22 Mcg = 1000 Iu)] Isosorbide Mononitrate ER [Imdur] 30 mg PO DAILY 12/21/21 10/23/22 Multivitamins, Thera [Multivitamin 1 tab PO HS 12/21/21 10/23/22 (formulary)] carvediloL [Coreg] 6.25 mg PO BID 12/21/21 10/23/22 metFORMIN HCL 500 mg PO W/SUPPER 12/21/21 10/23/22 Gabapentin [Neurontin] 300 mg PO BID 02/23/22 10/23/22 Magnesium Oxide [Magox 400] 400 mg PO DAILY 02/23/22 10/23/22 Omeprazole 20 mg PO DAILY 03/05/22 10/23/22 risperiDONE [RisperDAL] 1 mg PO BID 05/13/22 10/23/22 Apixaban [Eliquis] 5 mg PO BID 10/18/22 10/23/22 Previous Rx's Medication Instructions Recorded Cephalexin [Keflex] 500 mg PO BID 5 Days #10 cap 10/18/22 Allergies Allergy/AdvReac Type Severity Reaction Status Date / Time No Known Allergies Allergy Verified 10/23/22 15:52 Review of Systems ROS Statement: Those systems with pertinent positive or pertinent negative responses have been documented in the HPI. ROS Other: All systems not noted in ROS Statement are negative. Constitutional: Denies: fever Eyes: Denies: eye pain ENT: Denies: ear pain Respiratory: Denies: cough Cardiovascular: Denies: chest pain Endocrine: Denies: fatigue Gastrointestinal: Denies: abdominal pain Genitourinary: Denies: dysuria Musculoskeletal: Denies: back pain Skin: Denies: rash Neurological: Reports: as per HPI Past Medical History Past Medical History: Cancer, Diabetes Mellitus, GERD/Reflux, Hearing Disorder / Deafness, Hyperlipidemia, Hypertension, Osteoarthritis (OA) Additional Past Medical History / Comment(s): HX OF SKIN CA, IBS, INCONTINENCE OF BLADDER, HX OF HIATAL HERNIA, THYROID NODULES , CATARACT BILATERAL EYES History of Any Multi-Drug Resistant Organisms: None Reported Past Surgical History: Cholecystectomy, Heart Catheterization, Hysterectomy, Orthopedic Surgery Additional Past Surgical History / Comment(s): SINUS SX, SX ARM, FOOT, Past Anesthesia/Blood Transfusion Reactions: No Reported Reaction Past Psychological History: Anxiety Smoking Status: Never smoker Past Alcohol Use History: None Reported Past Drug Use History: None Reported - Past Family History Daughter(s) Family Medical History: Cancer, Deep Vein Thrombosis (DVT) Additional Family Medical History / Comment(s): ONE DAUGHTER KIDNEY CA, ONE DAUGHTER HX OF DVT Sister(s) Family Medical History: Cancer Additional Family Medical History / Comment(s): 2 SISTERS WITH BREAST CA General Exam Limitations: altered mental status General appearance: alert, in no apparent distress Head exam: Present: normocephalic Eye exam: Present: normal appearance, PERRL, EOMI ENT exam: Present: mucous membranes dry Neck exam: Present: normal inspection. Absent: tenderness, meningismus Respiratory exam: Present: normal lung sounds bilaterally Cardiovascular Exam: Present: regular rate, normal rhythm GI/Abdominal exam: Present: soft. Absent: tenderness Extremities exam: Present: normal inspection, full ROM. Absent: tenderness Neurological exam: Present: alert, CN II-XII intact. Absent: motor sensory deficit Expanded Neurological exam: Present: protecting the airway Patient oriented to: Present: person, place. Absent: time Speech: Present: fluid speech Cranial nerves: EOM's Intact: Normal Motor strength exam: RUE: 5, LUE: 5, RLE: 5, LLE: 5 Eye Response: (4) open spontaneously Motor Response: (6) obeys commands Verbal Response: (4) confused conversation Psychiatric exam: Present: normal affect, normal mood Skin exam: Present: normal color Course Vital Signs 10/23/22 10/23/22 12:51 15:58 Temperature 98.8 F Pulse Rate 76 74 Respiratory 16 18 Rate Blood Pressure 174/89 189/84 O2 Sat by Pulse 94 L 95 Oximetry EKG Findings - EKG Results: EKG: interpreted by ERMD (Atrial rhythm rate 72. Inferior and septal Q waves. No acute ST change. Normal axis.) Medical Decision Making - Medical Decision Making Was pt. sent in by a medical professional or institution (, ELIJAH, ASSISTANT ART DIRECTOR, urgent care, hospital, or usp...) When possible be specific @ -no Did you speak to anyone other than the patient for history (EMS, parent, family, police, friend...)? What history was obtained from this source @ -On reevaluation family is present and not comfortable with discharge of patient secondary to her not being able to be cared for at home. Did you review nursing and triage notes (agree or disagree)? Why? @ -I reviewed and agree with nursing and triage notes Were old charts reviewed (outside hosp., previous admission, EMS record, old EKG, old radiological studies, urgent care reports/EKG's, usp records)? Report findings @ -Previous admission reviewed Differential Diagnosis (chest pain, altered mental status, abdominal pain women, abdominal pain men, vaginal bleeding, weakness, fever, dyspnea, syncope, headache, dizziness, GI bleed, back pain, seizure, CVA, palpatations, mental health)? @ -Differential Weakness: Hypoglycemia, shock, sepsis, hyponatremia, anemia, infection, [place], ETOH, adverse medicine reaction, overdose, stroke, this is not meant to be an all-inclusive list. EKG interpreted by me (3pts min.). @ -As above X-rays interpreted by me (1pt min.). @ -2 view chest x-ray reveals no acute process. CT interpreted by me (1pt min.). @ -Radiology report reveals no acute process U/S interpreted by me (1pt. min.). @ -None done What testing was considered but not performed or refused? (CT, X-rays, U/S, labs)? Why? @ -None What meds were considered but not given or refused? Why? @ -None Did you discuss the management of the patient with other professionals (professionals i.e. ELIJAH Delgado, ASSISTANT ART DIRECTOR, lab, RT, psych nurse, social worker clinical, medicare compliance auditor, teacher, operations officer afloat, case therapist)? Give summary @ -Case was discussed with Dr. Dickens, who will admit covering Dr. Burdick Was smoking cessation discussed for >3mins.? @ -No Was critical care preformed (if so, how long)? @ -No Were there social determinants of health that impacted care today? How? (H omelessness, low income, unemployed, alcoholism, drug addiction, transportation, low edu. Level, literacy, decrease access to med. care, skilled nursing, rehab)? @ -Patient unable to take care of herself at home. Family unable to take care of her. Was there de-escalation of care discussed even if they declined (Discuss DNR or withdrawal of care, Hospice)? DNR status @ -No What co-morbidities impacted this encounter? (DM, HTN, Smoking, COPD, CAD, Cancer, CVA, ARF, Chemo, Hep., AIDS, mental health diagnosis, sleep apnea, morbid obesity)? @ -None Was patient admitted / discharged? Hospital course, mention meds given and route, prescriptions, significant lab abnormalities, going to OR and other pertinent info. @ -Admitted Undiagnosed new problem with uncertain prognosis? @ -No Drug Therapy requiring intensive monitoring for toxicity (Heparin, Nitro, Insulin, Cardizem)? @ -No Were any procedures done? @ -No Diagnosis/symptom? @ -Weakness Acute, or Chronic, or Acute on Chronic? @ -Acute on chronic Uncomplicated (without systemic symptoms) or Complicated (systemic symptoms)? @ -[Uncomplicated Side effects of treatment? @ -No Exacerbation, Progression, or Severe Exacerbation? @ -No Poses a threat to life or bodily function? How? (Chest pain, [place], [place], pneumonia, PE, COPD, DKA, ARF, appy, cholecystitis, CVA, Diverticulitis, Homicidal, Suicidal, threat to staff... and all critical care pts) @ -No - Lab Data Result diagrams: 10/23/22 13:06 10/23/22 13:06 Lab Results 10/23/22 10/23/22 10/23/22 Range/Units 13:06 13:06 13:06 WBC 5.2 (3.8-10.6) k/uL RBC 4.91 (3.80-5.40) m/uL Hgb 15.5 (11.4-16.0) gm/dL Hct 45.7 (34.0-46.0) % MCV 93.0 (80.0-100.0) fL MCH 31.7 (25.0-35.0) pg MCHC 34.0 (31.0-37.0) g/dL RDW 14.3 (11.5-15.5) % Plt Count 150 (150-450) k/uL MPV 9.9 Neutrophils % (Manual) 61 % Lymphocytes % (Manual) 30 % Monocytes % (Manual) 7 % Eosinophils % (Manual) 2 % Neutrophils # (Manual) 3.17 (1.3-7.7) k/uL Lymphocytes # (Manual) 1.56 (1.0-4.8) k/uL Monocytes # (Manual) 0.36 (0-1.0) k/uL Eosinophils # (Manual) 0.10 (0-0.7) k/uL Nucleated RBCs 0 (0-0) /100 WBC Manual Slide Review Performed PT 12.1 H (9.0-12.0) sec INR 1.2 H (<1.2) APTT 25.7 (22.0-30.0) sec Sodium 141 (137-145) mmol/L Potassium 4.1 (3.5-5.1) mmol/L Chloride 104 (98-107) mmol/L Carbon Dioxide 30 (22-30) mmol/L Anion Gap 7 mmol/L BUN 11 (7-17) mg/dL Creatinine 0.70 (0.52-1.04) mg/dL Est GFR (CKD-EPI)AfAm >90 (>60 ml/min/1.73 sqM) Est GFR (CKD-EPI)NonAf 79 (>60 ml/min/1.73 sqM) Glucose 109 H (74-99) mg/dL Calcium 9.9 (8.4-10.2) mg/dL Total Bilirubin 0.9 (0.2-1.3) mg/dL AST 31 (14-36) U/L ALT 20 (4-34) U/L Alkaline Phosphatase 61 (38-126) U/L Troponin I (0.000-0.034) ng/mL Total Protein 6.3 (6.3-8.2) g/dL Albumin 3.7 (3.5-5.0) g/dL Urine Color Urine Appearance (Clear) Urine pH (5.0-8.0) Ur Specific [place] (1.001-1.035) Urine Protein (Negative) Urine Glucose (UA) (Negative) Urine Ketones (Negative) Urine Blood (Negative) Urine Nitrite (Negative) Urine Bilirubin (Negative) Urine Urobilinogen (<2.0) mg/dL Ur Leukocyte Esterase (Negative) 10/23/22 10/23/22 Range/Units 13:06 14:57 WBC (3.8-10.6) k/uL RBC (3.80-5.40) m/uL Hgb (11.4-16.0) gm/dL Hct (34.0-46.0) % MCV (80.0-100.0) fL MCH (25.0-35.0) pg MCHC (31.0-37.0) g/dL RDW (11.5-15.5) % Plt Count (150-450) k/uL MPV Neutrophils % (Manual) % Lymphocytes % (Manual) % Monocytes % (Manual) % Eosinophils % (Manual) % Neutrophils # (Manual) (1.3-7.7) k/uL Lymphocytes # (Manual) (1.0-4.8) k/uL Monocytes # (Manual) (0-1.0) k/uL Eosinophils # (Manual) (0-0.7) k/uL Nucleated RBCs (0-0) /100 WBC Manual Slide Review PT (9.0-12.0) sec INR (<1.2) APTT (22.0-30.0) sec Sodium (137-145) mmol/L Potassium (3.5-5.1) mmol/L Chloride (98-107) mmol/L Carbon Dioxide (22-30) mmol/L Anion Gap mmol/L BUN (7-17) mg/dL Creatinine (0.52-1.04) mg/dL Est GFR (CKD-EPI)AfAm (>60 ml/min/1.73 sqM) Est GFR (CKD-EPI)NonAf (>60 ml/min/1.73 sqM) Glucose (74-99) mg/dL Calcium (8.4-10.2) mg/dL Total Bilirubin (0.2-1.3) mg/dL AST (14-36) U/L ALT (4-34) U/L Alkaline Phosphatase (38-126) U/L Troponin I 0.018 (0.000-0.034) ng/mL Total Protein (6.3-8.2) g/dL Albumin (3.5-5.0) g/dL Urine Color Yellow Urine Appearance Clear (Clear) Urine pH 6.0 (5.0-8.0) Ur Specific [place] 1.017 (1.001-1.035) Urine Protein Trace H (Negative) Urine Glucose (UA) Negative (Negative) Urine Ketones 1+ H (Negative) Urine Blood Negative (Negative) Urine Nitrite Negative (Negative) Urine Bilirubin Negative (Negative) Urine Urobilinogen 3.0 (<2.0) mg/dL Ur Leukocyte Esterase Negative (Negative) Disposition Clinical Impression: Weakness Disposition: ADMITTED IP TO THIS HOSP Is patient prescribed a controlled substance at d/c from ED?: No Referrals: Srinivas Burdick DO [Primary Care Provider] - 1-2 days Time of Disposition: 16:30
[2022-10-23 13:59] LABS: ALT 20 U/L (4-34); AST 31 U/L (14-36); African American GFR (CKD) >90 (>60 ml/min/1.73 sqM); Albumin 3.7 g/dL (3.5-5.0); Alkaline Phosphatase 61 U/L (38-126); Anion Gap 7 mmol/L; Blood Urea Nitrogen 11 mg/dL (7-17); Calcium 9.9 mg/dL (8.4-10.2); Carbon Dioxide 30 mmol/L (22-30); Chloride 104 mmol/L (98-107); Glucose 109 mg/dL (74-99); INR 1.2 (<1.2); Non-African American GFR(CKD) 79 (>60 ml/min/1.73 sqM); Partial Thromboplastin Time 25.7 sec (22.0-30.0); Potassium 4.1 mmol/L (3.5-5.1); Prothrombin Time 12.1 sec (9.0-12.0); Sodium 141 mmol/L (137-145); Total Bilirubin 0.9 mg/dL (0.2-1.3); Total Protein 6.3 g/dL (6.3-8.2)
--- NOTE | 2022-10-23 14:09 | XR ---
EXAMINATION TYPE: XR chest 2V DATE OF EXAM: 10/23/2022 COMPARISON: 10/18/2022 HISTORY: Altered mental status TECHNIQUE: FINDINGS: Heart is normal. Lungs are clear of consolidation. Thoracic aorta is atheromatous. There ar e no hilar masses. There are chest leads. Bony thorax is intact. IMPRESSION: No active cardiopulmonary disease. Atheromatous aorta. No change.
[2022-10-23 14:16] LABS: HCT 45.7 % (34.0-46.0); HGB 15.5 gm/dL (11.4-16.0); MCH 31.7 pg (25.0-35.0); Mean Platelet Volume 9.9; Platelet Count 150 k/uL (150-450); RBC 4.91 m/uL (3.80-5.40); RDW 14.3 % (11.5-15.5); WBC 5.2 k/uL (3.8-10.6)
--- NOTE | 2022-10-23 14:16 | CT ---
EXAMINATION TYPE: CT brain wo con DATE OF EXAM: 10/23/2022 COMPARISON: 06/19/2022 HISTORY: Weakness CT DLP: 1005.4 mGycm Automated exposure control for dose reduction was used. There is cerebral cortical atrophy. There is no mass effect or midline shift. No sign of intracranial hemorrhage. The calvarium is intact there is normal aeration of the mastoid sinuses. There is thicke doug of the frontal bone. There is a 1.5 cm area of hypodensity in the left parietal lobe cortex cons istent with old infarct. IMPRESSION: Cerebral atrophy. 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 No acute intracranial abnormality.
[2022-10-23 14:32] LABS: Lymphocytes # (M) 1.56 k/uL (1.0-4.8); Monocytes # (M) 0.36 k/uL (0-1.0); Neutrophils # (M) 3.17 k/uL (1.3-7.7); Neutrophils % (M) 61 %; Nucleated Red Blood Cells 0 /100 WBC (0-0); Total Cells Counted 100
[2022-10-23 15:14] LABS: Appearance,Urine Clear (Clear); Bilirubin,Urine Negative (Negative); Blood,Urine Negative (Negative); Color,Urine Yellow; Glucose,Urine (UA) Negative (Negative); Ketones,Urine 1+ (Negative); Leukocyte Esterase,Urine Negative (Negative); Nitrite,Urine Negative (Negative); Protein,Urine Trace (Negative); Specific Gravity,Urine 1.017 (1.001-1.035)
[2022-10-23] MEDS ORDERED: NALOXONE 0.4 MG/ML 1 ML VIAL IV PRN (16:30)
[2022-10-23] MEDS: SODIUM CHLORIDE 0.9% 1,000 ML IV SCH (17:14)
[2022-10-23] MEDS: carvediloL 6.25 MG TAB PO SCH (19:22)
[2022-10-23] MEDS: MULTIVITAMINS, THERA 1 EACH TAB PO SCH (22:03)
[2022-10-23] MEDS: GABAPENTIN 300 MG CAP PO SCH (22:03)
[2022-10-23] MEDS: risperiDONE 1 MG TAB PO SCH (22:03)
[2022-10-23] MEDS: APIXABAN 5 MG TAB PO SCH (22:03)
[2022-10-24] MEDS: ACETAMINOPHEN TAB 325 MG TAB PO PRN ×2 (03:59→17:37)
[2022-10-24] MEDS: carvediloL 6.25 MG TAB PO SCH ×2 (04:00→17:29)
[2022-10-24] MEDS: SODIUM CHLORIDE 0.9% 1,000 ML IV SCH ×2 (06:09→18:27)
[2022-10-24] MEDS: PANTOPRAZOLE 40 MG TABLET PO SCH (09:51)
[2022-10-24] MEDS: MAGNESIUM OXIDE 400 MG TAB PO SCH (09:51)
[2022-10-24] MEDS: APIXABAN 5 MG TAB PO SCH ×2 (09:51→21:18)
[2022-10-24] MEDS: ISOSORBIDE MONONITRATE ER 30 MG TAB.ER.24H PO SCH (09:51)
[2022-10-24] MEDS: CHOLECALCIFEROL 25 MCG (1000 IU) TABLET PO SCH (09:51)
[2022-10-24] MEDS: GABAPENTIN 300 MG CAP PO SCH (09:51)
[2022-10-24] MEDS: risperiDONE 1 MG TAB PO SCH ×2 (09:51→21:18)
[2022-10-24 10:35] LABS: Basophils # (A) 0.03 X 10*3/uL (0.00-0.10); Basophils % (A) 0.6 %; Eosinophils # (A) 0.12 X 10*3/uL (0.04-0.35); Eosinophils % (A) 2.5 %; HCT 43.6 % (37.2-46.3); HGB 14.1 g/dL (12.0-15.0); Immature Grans, Automated 0.2 %; Lymphocytes # (A) 1.81 X 10*3/uL (0.90-5.00); Lymphocytes % (A) 37.5 %; MCH 30.2 pg (27.0-32.0); MCHC 32.3 g/dL (32.0-37.0); MCV 93.4 fL (80.0-97.0); Mean Platelet Volume 11.3 fL (9.5-12.2); Monocytes # (A) 0.41 X 10*3/uL (0.20-1.00); Monocytes % (A) 8.5 %; NRBC Per 100 WBC 0 /100 WBCS (0.0-0.0); Neutrophils # (A) 2.45 X 10*3/uL (1.80-7.70); Neutrophils % (A) 50.7 %; Platelet Count 153 X 10*3/uL (140-440); RBC 4.67 X 10*6/uL (4.10-5.20); RDW 14.3 % (11.5-14.5); WBC 4.83 X 10*3/uL (4.50-10.00)
[2022-10-24 10:44] LABS: African American GFR (CKD) 92.1 (60.0-200.0); Albumin 3.3 g/dL (3.8-4.9); Albumin/Globulin Ratio 1.73 (1.60-3.17); Anion Gap 14.1 mmol/L (10.00-18.00); BUN/Creat Ratio 15.99 Ratio (12.00-20.00); Calcium 9.6 mg/dL (8.7-10.3); Carbon Dioxide 22.4 mmol/L (20.0-27.5); Globulin 1.9 g/dL (1.6-3.3); Non-African American GFR(CKD) 79.5 (60.0-200.0); Total Bilirubin 0.5 mg/dL (0.30-1.20); Total Protein 5.2 g/dL (6.2-8.2)
[2022-10-24] MEDS ORDERED: ONDANSETRON 4 MG/2 ML VIAL IVP PRN (14:30)
[2022-10-24] MEDS ORDERED: CALCIUM CARBONATE 500 MG CHEWABLE PO PRN (14:30)
[2022-10-24] MEDS ORDERED: LACTULOSE 20 GM/30 ML CUP PO PRN (14:30)
--- NOTE | 2022-10-24 16:41 | P.HPIM ---
History of Present Illness H&P Date: 10/24/22 Chief Complaint: Weak tired Chief Complaint: Short of breath This is a very pleasant 86-year-old patient who follows with Dr. Burdick. Chronic stable medical conditions include GERD, hypertension, hyperlipidemia, urinary incontinence, anxiety depression, chronic gait dysfunction uses a walker. Chronic PE. She has a very itchy condition on the scalp for which she follows Dr. Little. Several medications have been tried unsuccessfully. She is also been losing hair and constantly itching her scalp. Patient presented to ER with the family. Apparently recently had a UTI. Patient is becoming rather weak not eating drinking not taking her medications. She is really tired. No fever no chills. No pain. No respiratory symptoms. Dry mouth. Sleepy. Review of systems: GEN.: Tired, decreased appetite EYES: None HEENT: None NECK: None RESPIRATORY: As above CARDIOVASCULAR: None GASTROINTESTINAL: None GENITOURINARY: None MUSCULOSKELETAL: Joint pains LYMPHATICS: None HEMATOLOGICAL: None PSYCHIATRY: Forgetful NEUROLOGICAL: Uses a walker Past medical history to include: Orthostatic hypertension, GERD, hyperlipidemia, hypertension, osteoarthritis, urinary incontinence, hiatal hernia, anxiety, neurocognitive disorder, PE Social history: Nonsmoker. No alcohol. Lives with her grandson. Uses a walker. Family history: kidney cancer. Physical examination: VITAL SIGNS: 97.8, 67, 17, 1 78 x 76, 93% room air GENERAL: Comfortable, tired, sleepy EYES: Pupils equal. Conjunctiva normal. HEENT: External appearance of nose and ears normal, oral cavity grossly normal. NECK: JVD not raised; masses not palpable. HEART: First and second heart sounds are normal; no edema. LUNGS: Respiratory rate normal; clear to auscultation. ABDOMEN: Soft, nontender, liver spleen not palpable, no masses palpable. PSYCH: Sleepy but able to answer questions MUSCULOSKELETAL:No Clubbing/cyanosis;muscles-grossly intact. OA NEUROLOGICAL: Cranial nerves grossly intact. Poor sensation grossly intact. INVESTIGATIONS, reviewed in the clinical context: White count 4.8 hemoglobin 14.1 platelets 153 potassium 4 creatinine 0.7 UA: Ketones 1+ Influenza type A/diabetes/RSV/COVID-19's not detected EKG tracing personally reviewed by me-normal sinus rhythm Chest x-ray film personally reviewed by me-unremarkable Assessment and plan: -Acute medical debility associated with asthenia, decreased appetite, decreased mobility. Patient has a recent UTI and was treated with antibiotics. PTOT -Anorexia Try Megace 400 mg a day -Clinical dehydration from decreased oral intake. Ketonuria. IV fluids -Chronic pulmonary embolism eliquis - orthostatic hypertension, chronic Fall precautions -Neurocognitive disorder Risperdal, decrease a.m. dose to 0.5 mg. Continue his p.m. dose of 1 mg. -Essential hypertension, controlled Coreg 6.25 mg twice a day. -Chronic scalp very a itchy lesions Lidex 0.05% topical daily. follow-up a Dr. Little. 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 baseline Fall precautions Past Medical History Past Medical History: Cancer, Diabetes Mellitus, GERD/Reflux, Hearing Disorder / Deafness, Hyperlipidemia, Hypertension, Osteoarthritis (OA) Additional Past Medical History / Comment(s): HX OF SKIN CA, IBS, INCONTINENCE OF BLADDER, HX OF HIATAL HERNIA, THYROID NODULES , CATARACT BILATERAL EYES History of Any Multi-Drug Resistant Organisms: None Reported Past Surgical History: Cholecystectomy, Heart Catheterization, Hysterectomy, Orthopedic Surgery Additional Past Surgical History / Comment(s): SINUS SX, SX ARM, FOOT, Past Anesthesia/Blood Transfusion Reactions: No Reported Reaction Past Psychological History: Anxiety Smoking Status: Never smoker Past Alcohol Use History: None Reported Past Drug Use History: None Reported - Past Family History Daughter(s) Family Medical History: Cancer, Deep Vein Thrombosis (DVT) Additional Family Medical History / Comment(s): ONE DAUGHTER KIDNEY CA, ONE DAUGHTER HX OF DVT Sister(s) Family Medical History: Cancer Additional Family Medical History / Comment(s): 2 SISTERS WITH BREAST CA Medications and Allergies Home Medications Medication Instructions Recorded Confirmed Type Cholecalciferol [Vitamin D3 (25 25 mcg PO DAILY 12/21/21 10/23/22 History Mcg = 1000 Iu)] Isosorbide Mononitrate ER [Imdur] 30 mg PO DAILY 12/21/21 10/23/22 History Multivitamins, Thera [Multivitamin 1 tab PO HS 12/21/21 10/23/22 History (formulary)] carvediloL [Coreg] 6.25 mg PO BID 12/21/21 10/23/22 History metFORMIN HCL 500 mg PO W/SUPPER 12/21/21 10/23/22 History Gabapentin [Neurontin] 300 mg PO BID 02/23/22 10/23/22 History Magnesium Oxide [Magox 400] 400 mg PO DAILY 02/23/22 10/23/22 History Omeprazole 20 mg PO DAILY 03/05/22 10/23/22 History risperiDONE [RisperDAL] 1 mg PO BID 05/13/22 10/23/22 History Apixaban [Eliquis] 5 mg PO BID 10/18/22 10/23/22 History Cephalexin [Keflex] 500 mg PO BID 5 Days #10 cap 10/18/22 10/23/22 Rx Allergies Allergy/AdvReac Type Severity Reaction Status Date / Time No Known Allergies Allergy Verified 10/23/22 15:52 Physical Exam Vitals: Vital Signs Temp Pulse Pulse Resp BP BP Pulse Ox 10/24/22 08:48 93 L 10/24/22 07:00 97.8 F 67 17 178/76 93 L 10/24/22 04:06 81 168/89 10/24/22 03:54 97.4 F L 76 16 145/87 93 L 10/23/22 19:04 98.0 F 71 17 199/85 96 10/23/22 17:10 79 18 176/99 95 10/23/22 15:58 74 18 189/84 95 10/23/22 12:51 98.8 F 76 16 174/89 94 L Intake and Output 10/23/22 10/24/22 10/24/22 22:59 06:59 14:59 Output Total 100 300 Balance -100 -300 Output: Urine 100 300 Other: Weight 72.575 kg Results CBC & Chem 7: 10/24/22 06:26 10/24/22 06:26 Labs: Abnormal Lab Results - Last 24 Hours (Table) 10/23/22 10/23/22 10/23/22 Range/Units 13:06 13:06 14:57 PT 12.1 H (9.0-12.0) sec INR 1.2 H (<1.2) Glucose 109 H (74-99) mg/dL Total Protein (6.2-8.2) g/dL Albumin (3.8-4.9) g/dL Urine Protein Trace H (Negative) Urine Ketones 1+ H (Negative) 10/24/22 Range/Units 06:26 PT (9.0-12.0) sec INR (<1.2) Glucose (74-99) mg/dL Total Protein 5.2 L (6.2-8.2) g/dL Albumin 3.3 L (3.8-4.9) g/dL Urine Protein (Negative) Urine Ketones (Negative) Thrombosis Risk Factor Assmnt - Choose All That Apply Any of the Below Risk Factors Present?: Yes Each Factor Represents 1 point: Obesity (BMI >25) Other Risk Factors: Yes Each Risk Factor Represents 3 Points: Age 75 years or older, History of DVT/PE Other congenital or acquired thrombophilia - If yes, enter type in comment: No Thrombosis Risk Factor Assessment Total Risk Factor Score: 7 Thrombosis Risk Factor Assessment Level: High Risk
[2022-10-24] MEDS: metFORMIN 500 MG TAB PO SCH (17:29)
[2022-10-24] MEDS: MEGESTROL 400 MG/10 ML CUP PO SCH (17:29)
[2022-10-24] MEDS: MULTIVITAMINS, THERA 1 EACH TAB PO SCH (21:18)
[2022-10-25] MEDS: SODIUM CHLORIDE 0.9% 1,000 ML IV SCH ×3 (06:54→23:54)
[2022-10-25] MEDS: PANTOPRAZOLE 40 MG TABLET PO SCH (07:51)
[2022-10-25] MEDS: APIXABAN 5 MG TAB PO SCH ×2 (07:51→19:57)
[2022-10-25] MEDS: MAGNESIUM OXIDE 400 MG TAB PO SCH (07:51)
[2022-10-25] MEDS: ISOSORBIDE MONONITRATE ER 30 MG TAB.ER.24H PO SCH (07:52)
[2022-10-25] MEDS: carvediloL 6.25 MG TAB PO SCH ×2 (07:52→17:25)
[2022-10-25] MEDS: risperiDONE 0.5 MG TAB PO SCH (07:52)
[2022-10-25] MEDS: MEGESTROL 400 MG/10 ML CUP PO SCH (07:52)
[2022-10-25] MEDS: CHOLECALCIFEROL 25 MCG (1000 IU) TABLET PO SCH (07:52)
[2022-10-25] MEDS ORDERED: DEXTROSE 50% SYRINGE 50 ML IVP PRN ×2 (09:32)
[2022-10-25 12:14] LABS: Glucose,Whole Blood 138 mg/dL (70-110)
[2022-10-25] MEDS: INSULIN ASPART (NovoLOG) 100 UNIT/ML VIAL SQ SCH ×2 (12:16→17:24)
[2022-10-25 17:24] LABS: Glucose,Whole Blood 127 mg/dL (70-110)
[2022-10-25] MEDS: metFORMIN 500 MG TAB PO SCH (17:25)
--- NOTE | 2022-10-25 17:38 | P.PN ---
Progress Note - Text Progress Note Date: 10/25/22 Chief Complaint: Tired This is a very pleasant 86-year-old patient who follows with Dr. Burdick. Chronic stable medical conditions include GERD, hypertension, hyperlipidemia, urinary incontinence, anxiety depression, chronic gait dysfunction uses a walker. Chronic PE. She has a very itchy condition on the scalp for which she follows Dr. Little. Several medications have been tried unsuccessfully. She is also been losing hair and constantly itching her scalp. Patient presented to ER with the family. Apparently recently had a UTI. Patient is becoming rather weak not eating drinking not taking her medications. She is really tired. No fever no chills. No pain. No respiratory symptoms. Dry mouth. Sleepy. 10/25/2022: Yesterday patient morning dose of Haldol cut back to 0.5 mg.. Megace was added for appetite. IV fluids. Seen by physical therapy. Walk 40 feet with rolling walker. Eating better. Add Cozaar 50 mg a day for blood pressure running high Active Medications Acetaminophen (Acetaminophen Tab 325 Mg Tab) 650 mg PO Q6HR PRN PRN Reason: Mild Pain or Fever > 100.5 Last Admin: 10/24/22 17:37 Dose: 650 mg Apixaban (Apixaban 5 Mg Tab) 5 mg PO BID [facility]; Protocol Last Admin: 10/25/22 07:51 Dose: 5 mg Calcium Carbonate/Glycine (Calcium Carbonate 500 Mg Chewable) 1,000 mg PO Q4HR PRN PRN Reason: Dyspepsia Carvedilol (Carvedilol 6.25 Mg Tab) 6.25 mg PO BID-W/MEALS [facility] Last Admin: 10/25/22 17:25 Dose: 6.25 mg Cholecalciferol (Cholecalciferol 25 Mcg (1000 Iu) Tablet) 25 mcg PO DAILY [facility] Last Admin: 10/25/22 07:52 Dose: 25 mcg Dextrose/Water (Dextrose 50% Syringe 50 Ml) 25 ml IVP PER PROTOCOL PRN; Protocol PRN Reason: Hypoglycemia Dextrose/Water (Dextrose 50% Syringe 50 Ml) 50 ml IVP PER PROTOCOL PRN; Protocol PRN Reason: Hypoglycemia Gabapentin (Gabapentin 300 Mg Cap) 300 mg PO HS [facility] Sodium Chloride (Saline 0.9%) 1,000 mls @ 100 mls/hr IV .Q10H [facility] Last Admin: 10/25/22 14:30 Dose: 100 mls/hr Insulin Aspart (Insulin Aspart (Novolog) 100 Unit/Ml Vial) 0 unit SQ AC-TID S ; Protocol Last Admin: 10/25/22 17:24 Dose: Not Given Isosorbide Mononitrate (Isosorbide Mononitrate Er 30 Mg Tab.Er.24h) 30 mg PO DAILY [facility] Last Admin: 10/25/22 07:52 Dose: 30 mg Lactulose (Lactulose 20 Gm/30 Ml Cup) 20 gm PO DAILY PRN PRN Reason: Constipation Magnesium Oxide (Magnesium Oxide 400 Mg Tab) 400 mg PO DAILY [facility] Last Admin: 10/25/22 07:51 Dose: 400 mg Megestrol Acetate (Megestrol 400 Mg/10 Ml Cup) 400 mg PO DAILY [facility] Last Admin: 10/25/22 07:52 Dose: 400 mg Metformin HCl (Metformin 500 Mg Tab) 500 mg PO W/SUPPER [facility] Last Admin: 10/25/22 17:25 Dose: 500 mg Multivitamins (Multivitamins, Thera 1 Each Tab) 1 each PO HS [facility] Last Admin: 10/24/22 21:18 Dose: 1 each Naloxone HCl (Naloxone 0.4 Mg/Ml 1 Ml Vial) 0.2 mg IV Q2M PRN PRN Reason: Opioid Reversal Ondansetron HCl (Ondansetron 4 Mg/2 Ml Vial) 4 mg IVP Q8HR PRN PRN Reason: Nausea And Vomiting Pantoprazole Sodium (Pantoprazole 40 Mg Tablet) 40 mg PO DAILY [facility] Last Admin: 10/25/22 07:51 Dose: 40 mg Risperidone (Risperidone 1 Mg Tab) 1 mg PO HS [facility] Last Admin: 10/24/22 21:18 Dose: 1 mg Risperidone (Risperidone 0.5 Mg Tab) 0.5 mg PO DAILY [facility] Last Admin: 10/25/22 07:52 Dose: 0.5 mg Past medical history to include: Orthostatic hypertension, GERD, hyperlipidemia, hypertension, osteoarthritis, urinary incontinence, hiatal hernia, anxiety, neurocognitive disorder, PE Social history: Nonsmoker. No alcohol. Lives with her grandson. Uses a walker. Family history: kidney cancer. Physical examination: VITAL SIGNS: 98, 70, 16, 173/81, 94% GENERAL: Comfortable, more awake EYES: Pupils equal. Conjunctiva normal. HEENT: External appearance of nose and ears normal, oral cavity grossly normal. NECK: JVD not raised; masses not palpable. HEART: First and second heart sounds are normal; no edema. LUNGS: Respiratory rate normal; clear to auscultation. ABDOMEN: Soft, nontender, liver spleen not palpable, no masses palpable. PSYCH: Able to answer simple questions MUSCULOSKELETAL:No Clubbing/cyanosis;muscles-grossly intact. OA NEUROLOGICAL: Cranial nerves grossly intact. Poor sensation grossly intact. INVESTIGATIONS, reviewed in the clinical context: White count 4.8 hemoglobin 14.1 platelets 153 potassium 4 creatinine 0.7 UA: Ketones 1+ Influenza type A/diabetes/RSV/COVID-19's not detected EKG tracing personally reviewed by me-normal sinus rhythm Chest x-ray film personally reviewed by me-unremarkable Assessment and plan: -Acute medical debility associated with asthenia, decreased appetite, decreased mobility. Patient has a recent UTI and was treated with antibiotics. PTOT -Anorexia Try Megace 400 mg a day -Clinical dehydration from decreased oral intake. Ketonuria. IV fluids -Chronic pulmonary embolism eliquis - orthostatic hypertension, chronic Fall precautions -Neurocognitive disorder Risperdal, decrease a.m. dose to 0.5 mg. Continue his p.m. dose of 1 mg. -Essential hypertension, uncontrolled Coreg 6.25 mg twice a day. Add Cozaar 50 mg daily -Chronic scalp very a itchy lesions Lidex 0.05% topical daily. follow-up a Dr. Little. 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 baseline Fall precautions
[2022-10-25] MEDS: LOSARTAN 50 MG TAB PO SCH (18:10)
[2022-10-25] MEDS: CHLORTHALIDONE 25 MG TAB PO SCH (18:10)
[2022-10-25] MEDS: risperiDONE 1 MG TAB PO SCH (19:57)
[2022-10-25] MEDS: MULTIVITAMINS, THERA 1 EACH TAB PO SCH (19:57)
[2022-10-25 20:42] LABS: Glucose,Whole Blood 117 mg/dL (70-110)
[2022-10-25] MEDS ORDERED: GABAPENTIN 300 MG CAP PO SCH (21:00)
[2022-10-26 03:48] VITALS: RESP 20
[2022-10-26] MEDS: INSULIN ASPART (NovoLOG) 100 UNIT/ML VIAL SQ SCH ×2 (06:12→13:00)
[2022-10-26 06:14] LABS: Glucose,Whole Blood 85 mg/dL (70-110)
[2022-10-26 08:13] VITALS: BP 150/81; PULSE 78; TEMP 97.8
[2022-10-26] MEDS: PANTOPRAZOLE 40 MG TABLET PO SCH (08:34)
[2022-10-26] MEDS: LOSARTAN 50 MG TAB PO SCH (08:34)
[2022-10-26] MEDS: CHLORTHALIDONE 25 MG TAB PO SCH (08:34)
[2022-10-26] MEDS: CHOLECALCIFEROL 25 MCG (1000 IU) TABLET PO SCH (08:35)
[2022-10-26] MEDS: MAGNESIUM OXIDE 400 MG TAB PO SCH (08:35)
[2022-10-26] MEDS: risperiDONE 0.5 MG TAB PO SCH (08:35)
[2022-10-26] MEDS: APIXABAN 5 MG TAB PO SCH (08:35)
[2022-10-26] MEDS: ISOSORBIDE MONONITRATE ER 30 MG TAB.ER.24H PO SCH (08:35)
[2022-10-26] MEDS: carvediloL 6.25 MG TAB PO SCH (08:35)
[2022-10-26] MEDS: MEGESTROL 400 MG/10 ML CUP PO SCH (08:35)
[2022-10-26] MEDS: SODIUM CHLORIDE 0.9% 1,000 ML IV SCH (12:14)
[2022-10-26 12:29] LABS: Glucose,Whole Blood 132 mg/dL (70-110)
--- NOTE | 2022-10-26 17:24 | P.DS ---
Providers Date of admission: 10/23/22 16:30 Expected date of discharge: 10/26/22 Attending physician: Raimundo Dickens Primary care physician: Srinivas Burdick [facility] Course: Chief Complaint: Tired This is a very pleasant 86-year-old patient who follows with Dr. Burdick. Chronic stable medical conditions include GERD, hypertension, hyperlipidemia, urinary incontinence, anxiety depression, chronic gait dysfunction uses a walker. Chronic PE. She has a very itchy condition on the scalp for which she follows Dr. Little. Several medications have been tried unsuccessfully. She is also been losing hair and constantly itching her scalp. Patient presented to ER with the family. Apparently recently had a UTI. Patient is becoming rather weak not eating drinking not taking her medications. She is really tired. No fever no chills. No pain. No respiratory symptoms. Dry mouth. Sleepy. 10/25/2022: Yesterday patient morning dose of Haldol cut back to 0.5 mg.. Megace was added for appetite. IV fluids. Seen by physical therapy. Walk 40 feet with rolling walker. Eating better. Add Cozaar 50 mg a day for blood pressure running high 10/26/2022: Doing much better. Eating fair. More awake. Did walk in the hallway with walker. Discharge home with family. Discussed senior case manager. Past medical history to include: Orthostatic hypertension, GERD, hyperlipidemia, hypertension, osteoarthritis, ur inary incontinence, hiatal hernia, anxiety, neurocognitive disorder, PE Social history: Nonsmoker. No alcohol. Lives with her grandson. Uses a walker. Family history: kidney cancer. Physical examination: VITAL SIGNS: 97.8, 78, 20, 150/81, 94% room air GENERAL: Comfortable, awake EYES: Pupils equal. Conjunctiva normal. HEENT: External appearance of nose and ears normal, oral cavity grossly normal. NECK: JVD not raised; masses not palpable. HEART: First and second heart sounds are normal; no edema. LUNGS: Respiratory rate normal; clear to auscultation. ABDOMEN: Soft, nontender, liver spleen not palpable, no masses palpable. PSYCH: Able to answer simple questions MUSCULOSKELETAL:No Clubbing/cyanosis;muscles-grossly intact. OA NEUROLOGICAL: Cranial nerves grossly intact. Poor sensation grossly intact. INVESTIGATIONS, reviewed in the clinical context: White count 4.8 hemoglobin 14.1 platelets 153 potassium 4 creatinine 0.7 UA: Ketones 1+ Influenza type A/diabetes/RSV/COVID-19's not detected EKG tracing personally reviewed by me-normal sinus rhythm Chest x-ray film personally reviewed by me-unremarkable Assessment and plan: -Acute medical debility associated with asthenia, decreased appetite, decreased mobility. Patient has a recent UTI and was treated with antibiotics.: Improved PTOT. Walking much better -Anorexia. Improved -Clinical dehydration from decreased oral intake. Ketonuria. IV fluids -Chronic pulmonary embolism eliquis - orthostatic hypertension, chronic Fall precautions -Neurocognitive disorder Risperdal, decrease a.m. dose to 0.5 mg. Continue his p.m. dose of 1 mg. -Essential hypertension, better Coreg 6.25 mg twice a day. Added Cozaar 50 mg daily -Chronic scalp very a itchy lesions Lidex 0.05% topical daily. follow-up a Dr. Little. 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 baseline Fall precautions Disposition: Home with family Plan - Discharge Summary Discharge Rx Participant: No New Discharge Prescriptions: New Losartan [Cozaar] 50 mg PO DAILY #30 tab Chlorthalidone [Hygroton] 25 mg PO DAILY #30 tab risperiDONE [RisperDAL] 0.5 mg PO DAILY #30 tab Continue metFORMIN HCL 500 mg PO W/SUPPER Magnesium Oxide [Magox 400] 400 mg PO DAILY Apixaban [Eliquis] 5 mg PO BID Multivitamins, Thera [Multivitamin (formulary)] 1 tab PO HS Cholecalciferol [Vitamin D3 (25 Mcg = 1000 Iu)] 25 mcg PO DAILY Isosorbide Mononitrate ER [Imdur] 30 mg PO DAILY carvediloL [Coreg] 6.25 mg PO BID Omeprazole 20 mg PO DAILY Changed Gabapentin [Neurontin] 300 mg PO HS #0 risperiDONE [RisperDAL] 1 mg PO HS #0 Discontinued Cephalexin [Keflex] 500 mg PO BID 5 Days #10 cap Discharge Medication List Cholecalciferol [Vitamin D3 (25 Mcg = 1000 Iu)] 25 mcg PO DAILY 12/21/21 [History] Isosorbide Mononitrate ER [Imdur] 30 mg PO DAILY 12/21/21 [History] Multivitamins, Thera [Multivitamin (formulary)] 1 tab PO HS 12/21/21 [History] carvediloL [Coreg] 6.25 mg PO BID 12/21/21 [History] metFORMIN HCL 500 mg PO W/SUPPER 12/21/21 [History] Magnesium Oxide [Magox 400] 400 mg PO DAILY 02/23/22 [History] Omeprazole 20 mg PO DAILY 03/05/22 [History] Apixaban [Eliquis] 5 mg PO BID 10/18/22 [History] Chlorthalidone [Hygroton] 25 mg PO DAILY #30 tab 10/26/22 [Rx] Gabapentin [Neurontin] 300 mg PO HS #0 10/26/22 [Rx] Losartan [Cozaar] 50 mg PO DAILY #30 tab 10/26/22 [Rx] risperiDONE [RisperDAL] 0.5 mg PO DAILY #30 tab 10/26/22 [Rx] risperiDONE [RisperDAL] 1 mg PO HS #0 10/26/22 [Rx] Follow up Appointment(s)/Referral(s): Srinivas Burdick DO [Primary Care Provider] - 1-2 days Activity/Diet/Wound Care/Special Instructions: [facility] (formerly [facility]) will follow patient as home care. Discharge Disposition: HOME SELF-CARE
== END 2022-10-26 14:47 | disposition home or self-care (01) ==
LOC: EC 12:50 → 6NMEDSUR 16:30
PROVIDERS: ADMIT Hospitalist; ATTEND Hospitalist
DX: R53.81 Other malaise (principal); E86.0 Dehydration; R82.4 Acetonuria; R63.0 Anorexia; R63.8 Other symptoms and signs concerning food and fluid intake; R53.1 Weakness; R41.82 Altered mental status, unspecified; I27.82 Chronic pulmonary embolism; I10 Essential (primary) hypertension; R26.9 Unspecified abnormalities of gait and mobility; E11.9 Type 2 diabetes mellitus without complications; K21.9 Gastro-esophageal reflux disease without esophagitis; M19.90 Unspecified osteoarthritis, unspecified site; E78.5 Hyperlipidemia, unspecified; H91.90 Unspecified hearing loss, unspecified ear; K44.9 Diaphragmatic hernia without obstruction or gangrene; N39.3 Stress incontinence (female) (male); K58.9 Irritable bowel syndrome, unspecified; H26.9 Unspecified cataract; E04.2 Nontoxic multinodular goiter; R41.9 Unspecified symptoms and signs involving cognitive functions and awareness; L98.9 Disorder of the skin and subcutaneous tissue, unspecified; L29.8 Other pruritus; E66.9 Obesity, unspecified; Z68.30 Body mass index [BMI] 30.0-30.9, adult; F41.9 Anxiety disorder, unspecified; F32.A Depression, unspecified; Z91.14 Patient's other noncompliance with medication regimen; Z20.822 Contact with and (suspected) exposure to COVID-19; Z79.01 Long term (current) use of anticoagulants; Z79.84 Long term (current) use of oral hypoglycemic drugs; Z79.899 Other long term (current) drug therapy; Z87.440 Personal history of urinary (tract) infections; Z85.828 Personal history of other malignant neoplasm of skin; Z86.718 Personal history of other venous thrombosis and embolism; Z90.49 Acquired absence of other specified parts of digestive tract; Z90.710 Acquired absence of both cervix and uterus; Z98.890 Other specified postprocedural states; Z80.51 Family history of malignant neoplasm of kidney; Z82.49 Family history of ischemic heart disease and other diseases of the circulatory system; Z80.3 Family history of malignant neoplasm of breast
CPT/HCPCS: 96360; 96361 ×3; 99285; 36415; 94760 ×2; 93005; 97110; 97530; 97162; 97167; 87651; 80053 ×2; 84484; 85025 ×2; 85610; 85730; 81003; 87636; 71046; 70450; G0378 ×4; S0179 ×3

== ENCOUNTER 2022-11-02 16:39 | Emergency (ER) | payer MEDICARE ==
[2022-11-02 17:15] LABS: MCH 30.9 pg (25.0-35.0); MCHC 34.1 g/dL (31.0-37.0); MCV 90.8 fL (80.0-100.0); Mean Platelet Volume 8.3; Platelet Count 230 k/uL (150-450); RBC 4.85 m/uL (3.80-5.40); RDW 14.1 % (11.5-15.5); WBC 7.3 k/uL (3.8-10.6)
--- NOTE | 2022-11-02 17:17 | ED ---
General Adult HPI - General Chief complaint: Altered Mental Status Stated complaint: possible UTI Time Seen by Provider: 11/02/22 16:42 Source: patient, EMS Mode of arrival: EMS - History of Present Illness Initial comments: this is an 87-year-old female who presents emergency department via EMS for reported altered mental status. It was reported by EMS that the patient was inc reasingly altered over the last several days and noted to be more altered today. The last known normal was 2 days ago. The patient herself was able to answer questions and was ANO 2-3. the patient denied any acute pain or complaints at this time. The patient did state that she was recently in the hospital 2 weeks ago for similar complaints for she had a urinary tract infection. The patient's family reportedly was concerned that she might have another urinary tract infection so they sent her into the emergency department. No further history was obtained this time and the history was obtained by EMS. The patient was resting in bed comfortably without any further acute pain or distress noted. - Related Data Home Medications Medication Instructions Recorded Confirmed Cholecalciferol [Vitamin D3 (25 25 mcg PO DAILY 12/21/21 11/02/22 Mcg = 1000 Iu)] Isosorbide Mononitrate ER [Imdur] 30 mg PO DAILY 12/21/21 11/02/22 Multivitamins, Thera [Multivitamin 1 tab PO HS 12/21/21 11/02/22 (formulary)] carvediloL [Coreg] 6.25 mg PO BID-W/MEALS 12/21/21 11/02/22 metFORMIN HCL 500 mg PO W/SUPPER 12/21/21 11/02/22 Magnesium Oxide [Magox 400] 400 mg PO DAILY 02/23/22 11/02/22 Omeprazole 20 mg PO DAILY 03/05/22 11/02/22 Apixaban [Eliquis] 5 mg PO BID 10/18/22 11/02/22 Gabapentin [Neurontin] 300 mg PO BID 11/02/22 11/02/22 risperiDONE [RisperDAL] 1 mg PO BID 11/02/22 11/02/22 Previous Rx's Medication Instructions Recorded Cephalexin [Keflex] 500 mg PO Q6HR 1 Days #20 cap 11/02/22 Allergies Allergy/AdvReac Type Severity Reaction Status Date / Time No Known Allergies Allergy Verified 11/02/22 21:43 Review of Systems ROS Statement: Those systems with pertinent positive or pertinent negative responses have been documented in the HPI. ROS Other: All systems not noted in ROS Statement are negative. Past Medical History Past Medical History: Cancer, Diabetes Mellitus, GERD/Reflux, Hearing Disorder / Deafness, Hyperlipidemia, Hypertension, Osteoarthritis (OA) Additional Past Medical History / Comment(s): HX OF SKIN CA, IBS, INCONTINENCE OF BLADDER, HX OF HIATAL HERNIA, THYROID NODULES , CATARACT BILATERAL EYES History of Any Multi-Drug Resistant Organisms: None Reported Past Surgical History: Cholecystectomy, Heart Catheterization, Hysterectomy, Orthopedic Surgery Additional Past Surgical History / Comment(s): SINUS SX, SX ARM, FOOT, Past Anesthesia/Blood Transfusion Reactions: No Reported Reaction Past Psychological History: Anxiety Smoking Status: Never smoker Past Alcohol Use History: None Reported Past Drug Use History: None Reported - Past Family History Daughter(s) Family Medical History: Cancer, Deep Vein Thrombosis (DVT) Additional Family Medical History / Comment(s): ONE DAUGHTER KIDNEY CA, ONE DAUGHTER HX OF DVT Sister(s) Family Medical History: Cancer Additional Family Medical History / Comment(s): 2 SISTERS WITH BREAST CA General Exam Limitations: altered mental status (ANO 2-3, baseline of ANOx4) General appearance: alert, in no apparent distress Head exam: Present: atraumatic, normocephalic, normal inspection Eye exam: Present: normal appearance, PERRL Pupils: Present: normal accommodation ENT exam: Present: normal exam, normal oropharynx, mucous membranes moist Neck exam: Present: normal inspection, full ROM Respiratory exam: Present: normal lung sounds bilaterally Cardiovascular Exam: Present: regular rate, normal rhythm, normal heart sounds GI/Abdominal exam: Present: soft, normal bowel sounds Extremities exam: Present: normal inspection, full ROM Back exam: Present: normal inspection, full ROM Neurological exam: Present: alert, oriented X3, CN II-XII intact Psychiatric exam: Present: normal affect, normal mood Skin exam: Present: warm, dry Course Vital Signs 11/02/22 11/02/22 11/02/22 16:48 18:35 21:41 Temperature 97.6 F Pulse Rate 90 91 89 Respiratory 20 18 20 Rate Blood Pressure 159/85 164/96 124/90 O2 Sat by Pulse 97 95 94 L Oximetry EKG Findings - EKG Comments: EKG Findings:: an EKG was obtained and was interpreted by myself showing a rate of 82, W[place] interval 164, QRS duration of 82 and QTC of 400. This EKG showed a normal sinus rhythm with no ST segment elevation or depression noted. There was some minor artifact noted secondary to the patient movement. Medical Decision Making - Medical Decision Making Was pt. sent in by a medical professional or institution ([facility] Delgado, [employer], urgent care, hospital, or residential...) When possible be specific @ -No Did you speak to anyone other than the patient for history (EMS, parent, family, police, friend...)? What history was obtained from this source @ -Yes, patient's family Did you review nursing and triage notes (agree or disagree)? Why? @ -I reviewed and agree with nursing and triage notes Were old charts reviewed (outside hosp., previous admission, EMS record, old EKG, old radiological studies, urgent care reports/EKG's, residential records)? Report findings @ -No old charts were reviewed Differential Diagnosis (chest pain, altered mental status, abdominal pain women, abdominal pain men, vaginal bleeding, weakness, fever, dyspnea, syncope, headache, dizziness, GI bleed, back pain, seizure, CVA, palpatations, mental health)? @ -UTI, electrolyte abnormality EKG interpreted by me (3pts min.). @ -As above X-rays interpreted by me (1pt min.). @ -Chest x-ray was obtained was interpreted by myself showed no acute process. CT interpreted by me (1pt min.). @ -None done U/S interpreted by me (1pt. min.). @ -None done What testing was considered but not performed or refused? (CT, X-rays, U/S, labs)? Why? @ -None What meds were considered but not given or refused? Why? @ -None Did you discuss the management of the patient with other professionals ( professionals i.e. ELIJAH Delgado, [employer], lab, RT, psych nurse, community mental health social worker, switch operators supervisor, teacher, annual giving officer, case operator)? Give summary @ -No Was smoking cessation discussed for >3mins.? @ -No Was critical care preformed (if so, how long)? @ -No Were there social determinants of health that impacted care today? How? (Homelessness, low income, unemployed, alcoholism, drug addiction, transpo rtation, low edu. Level, literacy, decrease access to med. care, snf, rehab)? @ -No Was there de-escalation of care discussed even if they declined (Discuss DNR or withdrawal of care, Hospice)? DNR status @ -No What co-morbidities impacted this encounter? (DM, HTN, Smoking, COPD, CAD, Cancer, CVA, ARF, Chemo, Hep., AIDS, mental health diagnosis, sleep apnea, morbid obesity)? @ -None Was patient admitted / discharged? Hospital course, mention meds given and route, prescriptions, significant lab abnormalities, going to OR and other pertinent info. @ -She was seen and evaluated emergency department. Physical exam, the patient was resting in bed, able to answer all questions appropriately. Vital signs were stable. Family was present at the bedside and did state the patient was at baseline for her mentation. Laboratory workup was obtained and only showed a very mild UTI. The patient was given Keflex in the emergency department as well as a prescription sent for this antibiotic. The patient and her family were advised to follow-up with her primary care physician as previously scheduled tomorrow morning. They're also advised report back to the emergency department if there are pain became acutely worse. The patient was agreeable to this as was the family and the patient was discharged home in stable condition with her family. Undiagnosed new problem with uncertain prognosis? @ -No Drug Therapy requiring intensive monitoring for toxicity (Heparin, Nitro, Insulin, Cardizem)? @ -No Were any procedures done? @ -No Diagnosis/symptom? @ -UTI Acute, or Chronic, or Acute on Chronic? @ -Acute Uncomplicated (without systemic symptoms) or Complicated (systemic symptoms)? @ -Uncomplicated Side effects of treatment? @ -No Exacerbation, Progression, or Severe Exacerbation? @ -No Poses a threat to life or bodily function? How? (Chest pain, USA, NM, pneumonia, PE, COPD, DKA, ARF, appy, cholecystitis, CVA, Diverticulitis, Homicidal, Suicidal, threat to staff... and all critical care pts) @ -No - Lab Data Result diagrams: 11/02/22 16:57 11/02/22 16:57 Lab Results 11/02/22 11/02/22 11/02/22 Range/Units 16:57 16:57 16:57 WBC 7.3 (3.8-10.6) k/uL RBC 4.85 (3.80-5.40) m/uL Hgb 15.0 (11.4-16.0) gm/dL Hct 44.0 (34.0-46.0) % MCV 90.8 (80.0-100.0) fL MCH 30.9 (25.0-35.0) pg MCHC 34.1 (31.0-37.0) g/dL RDW 14.1 (11.5-15.5) % Plt Count 230 (150-450) k/uL MPV 8.3 Neutrophils % (Manual) 63 % Lymphocytes % (Manual) 25 % Monocytes % (Manual) 9 % Eosinophils % (Manual) 3 % Neutrophils # (Manual) 4.60 (1.3-7.7) k/uL Lymphocytes # (Manual) 1.83 (1.0-4.8) k/uL Monocytes # (Manual) 0.66 (0-1.0) k/uL Eosinophils # (Manual) 0.22 (0-0.7) k/uL Nucleated RBCs 0 (0-0) /100 WBC Manual Slide Review Performed RBC Morphology Normal Sodium 138 (137-145) mmol/L Potassium 3.5 (3.5-5.1) mmol/L Chloride 102 (98-107) mmol/L Carbon Dioxide 30 (22-30) mmol/L Anion Gap 6 mmol/L BUN 23 H (7-17) mg/dL Creatinine 0.64 (0.52-1.04) mg/dL Est GFR (CKD-EPI)AfAm >90 (>60 ml/min/1.73 sqM) Est GFR (CKD-EPI)NonAf 82 (>60 ml/min/1.73 sqM) Glucose 100 H (74-99) mg/dL Calcium 9.9 (8.4-10.2) mg/dL Magnesium 1.4 L (1.6-2.3) mg/dL Total Bilirubin 1.0 (0.2-1.3) mg/dL AST 34 (14-36) U/L ALT 27 (4-34) U/L Alkaline Phosphatase 59 (38-126) U/L Troponin I 0.021 (0.000-0.034) ng/mL Total Protein 6.3 (6.3-8.2) g/dL Albumin 3.6 (3.5-5.0) g/dL Lipase 180 (23-300) U/L Urine Color Urine Appearance (Clear) Urine pH (5.0-8.0) Ur Specific Tell (1.001-1.035) Urine Protein (Negative) Urine Glucose (UA) (Negative) Urine Ketones (Negative) Urine Blood (Negative) Urine Nitrite (Negative) Urine Bilirubin (Negative) Urine Urobilinogen (<2.0) mg/dL Ur Leukocyte Esterase (Negative) Urine WBC (0-5) /hpf Ur Squamous Epith Cells (0-4) /hpf Urine Bacteria (None) /hpf Hyaline Casts (0-2) /lpf Urine Mucus (None) /hpf 11/02/22 Range/Units 21:40 WBC (3.8-10.6) k/uL RBC (3.80-5.40) m/uL Hgb (11.4-16.0) gm/dL Hct (34.0-46.0) % MCV (80.0-100.0) fL MCH (25.0-35.0) pg MCHC (31.0-37.0) g/dL RDW (11.5-15.5) % Plt Count (150-450) k/uL MPV Neutrophils % (Manual) % Lymphocytes % (Manual) % Monocytes % (Manual) % Eosinophils % (Manual) % Neutrophils # (Manual) (1.3-7.7) k/uL Lymphocytes # (Manual) (1.0-4.8) k/uL Monocytes # (Manual) (0-1.0) k/uL Eosinophils # (Manual) (0-0.7) k/uL Nucleated RBCs (0-0) /100 WBC Manual Slide Review RBC Morphology Sodium (137-145) mmol/L Potassium (3.5-5.1) mmol/L Chloride (98-107) mmol/L Carbon Dioxide (22-30) mmol/L Anion Gap mmol/L BUN (7-17) mg/dL Creatinine (0.52-1.04) mg/dL Est GFR (CKD-EPI)AfAm (>60 ml/min/1.73 sqM) Est GFR (CKD-EPI)NonAf (>60 ml/min/1.73 sqM) Glucose (74-99) mg/dL Calcium (8.4-10.2) mg/dL Magnesium (1.6-2.3) mg/dL Total Bilirubin (0.2-1.3) mg/dL AST (14-36) U/L ALT (4-34) U/L Alkaline Phosphatase (38-126) U/L Troponin I (0.000-0.034) ng/mL Total Protein (6.3-8.2) g/dL Albumin (3.5-5.0) g/dL Lipase (23-300) U/L Urine Color Yellow Urine Appearance Clear (Clear) Urine pH 6.5 (5.0-8.0) Ur Specific Tell 1.012 (1.001-1.035) Urine Protein Negative (Negative) Urine Glucose (UA) Negative (Negative) Urine Ketones Negative (Negative) Urine Blood Negative (Negative) Urine Nitrite Negative (Negative) Urine Bilirubin Negative (Negative) Urine Urobilinogen <2.0 (<2.0) mg/dL Ur Leukocyte Esterase Small H (Negative) Urine WBC 9 H (0-5) /hpf Ur Squamous Epith Cells 1 (0-4) /hpf Urine Bacteria Rare H (None) /hpf Hyaline Casts 1 (0-2) /lpf Urine Mucus Rare H (None) /hpf Disposition Clinical Impression: UTI (urinary tract infection) Disposition: HOME SELF-CARE Condition: Stable Instructions (If sedation given, give patient instructions): Urinary Tract Infection in Women (DC) Prescriptions: Cephalexin [Keflex] 500 mg PO Q6HR 1 Days #20 cap Is patient prescribed a controlled substance at d/c from ED?: No Referrals: Srinivas Burdick DO [Primary Care Provider] - 1-2 days Time of Disposition: 22:15
[2022-11-02 17:27] LABS: ALT 27 U/L (4-34); AST 34 U/L (14-36); African American GFR (CKD) >90 (>60 ml/min/1.73 sqM); Albumin 3.6 g/dL (3.5-5.0); Alkaline Phosphatase 59 U/L (38-126); Anion Gap 6 mmol/L; Blood Urea Nitrogen 23 mg/dL (7-17); Calcium 9.9 mg/dL (8.4-10.2); Carbon Dioxide 30 mmol/L (22-30); Chloride 102 mmol/L (98-107); Glucose 100 mg/dL (74-99); Lipase 180 U/L (23-300); Magnesium 1.4 mg/dL (1.6-2.3); Non-African American GFR(CKD) 82 (>60 ml/min/1.73 sqM); Potassium 3.5 mmol/L (3.5-5.1); Sodium 138 mmol/L (137-145); Total Protein 6.3 g/dL (6.3-8.2)
[2022-11-02 17:59] LABS: Eosinophils # (M) 0.22 k/uL (0-0.7); Lymphocytes # (M) 1.83 k/uL (1.0-4.8); Monocytes # (M) 0.66 k/uL (0-1.0); Neutrophils % (M) 63 %; Nucleated Red Blood Cells 0 /100 WBC (0-0); Total Cells Counted 100
[2022-11-02 18:00] LABS: RBC Morphology Normal
--- NOTE | 2022-11-02 18:12 | XR ---
EXAMINATION TYPE: XR chest 2V DATE OF EXAM: 11/02/2022 COMPARISON: 10/23/2022 HISTORY: Confusion TECHNIQUE: 2 view FINDINGS: Heart is normal. Lungs are clear. Diaphragm is normal. Bony thorax is intact. Pulmonary vas cularity is normal. IMPRESSION: Normal chest. No change.
[2022-11-02] MEDS ORDERED: MORPHINE SULFATE 4 MG/ML SYRINGE IVP STA (18:36)
[2022-11-02 22:11] LABS: Appearance,Urine Clear (Clear); Bacteria,Urine Rare /hpf; Bilirubin,Urine Negative (Negative); Blood,Urine Negative (Negative); Color,Urine Yellow; Glucose,Urine (UA) Negative (Negative); Hyaline Casts,Urine 1 /lpf (0-2); Ketones,Urine Negative (Negative); Leukocyte Esterase,Urine Small (Negative); Mucus,Urine Rare /hpf; Nitrite,Urine Negative (Negative); PH, Urine 6.5 (5.0-8.0); Protein,Urine Negative (Negative); Specific Gravity,Urine 1.012 (1.001-1.035); Squamous Epithelial Cell,Urine 1 /hpf (0-4); Urobilinogen,Urine <2.0 mg/dL (<2.0); WBC,Urine 9 /hpf (0-5)
[2022-11-02] MEDS ORDERED: CEPHALEXIN 500 MG CAP PO STA (22:14)
[2022-11-02 22:42] VITALS: RESP 18
[2022-11-02 22:54] VITALS: BP 171/96; PULSE 89; TEMP 97.8
== END 2022-11-02 22:54 | disposition home or self-care (01) ==
LOC: EC 16:39
DX: N39.0 Urinary tract infection, site not specified (principal); E11.9 Type 2 diabetes mellitus without complications; K21.9 Gastro-esophageal reflux disease without esophagitis; E78.5 Hyperlipidemia, unspecified; I10 Essential (primary) hypertension; M19.90 Unspecified osteoarthritis, unspecified site; Z79.01 Long term (current) use of anticoagulants; Z79.899 Other long term (current) drug therapy
CPT/HCPCS: 36415; 93005; 80053; 83690; 83735; 84484; 85025; 81001; 71046; 99285; 96374; J2270